=== PATIENT | male | born 1955 | race Caucasian/White ===

== ENCOUNTER 2025-01-10 10:33 | Inpatient (IN) | payer OTHER, SELFPAY ==
[2025-01-10] VITALS (36 sets, daily range): BP systolic 89–175; BP diastolic 59–98; PULSE 87–118; BMI 31.4; BMI 31.0
[2025-01-10 06:11] LABS: INR 1.45; PT 17.9 Sec (11.4-14.6)
[2025-01-10 06:12] LABS: APTT 33.0 Sec (23.4-35.0)
[2025-01-10 06:18] LABS: ALT (SGPT) 47 U/L (0-50); AST (SGOT) 95 U/L (17-59); Albumin 3.9 g/dl (3.5-5.0); Alkaline Phosphatase 283 U/L (38-126); Blood Urea Nitrogen 19 mg/dl (9-20); Calcium 9.5 mg/dl (8.4-10.2); Carbon Dioxide 22 mmol/L (22-30); Chloride 106 mmol/L (98-107); Glucose 413 mg/dl (70-99); Potassium 4.5 mmol/L (3.5-5.1); Sodium 141 mmol/L (135-145); Total Protein 6.4 g/dl (6.3-8.2); eGFR > 60.00
[2025-01-10 06:20] LABS: Hematocrit 29.4 % (39.0-52.0); Hemoglobin 9.1 g/dL (13.0-18.0); Mean Corp Hgb Conc. 31.0 g/dL (33.0-37.0); Mean Corpuscular Volume 74.2 fL (80.0-94.0); Nucleated Red Blood Cells % 0 % (-); Red Cell Dist. Width 19.3 % (11.5-14.5)
--- NOTE | 2025-01-10 06:41 | ED.GENMED ---
History of Present Illness
General
Chief Complaint: Vomiting Blood
Source: patient and spouse
Exam Limitations: none
Time Seen by Provider: 01/10/25 06:20
Nursing documentation reviewed up to this point in time: agreed with
History of Present Illness
History of Present Illness:
69-year-old male presents to the emergency department c/o vomiting coffee-ground emesis since 4:30 AM. He drinks daily, and reports taking Advil recently, though he is only taken 600 mg over 2 to 3 days. He recently about 1 month ago stopped
taking all of his medications because he does not like the way they feel. He was on medication for diabetes and blood pressure.
Past History
Past History
ED Past Medical History: NIDDM and Other (Sleep apnea)
ED Past Surgical History: Orthopedic (Bilateral ulnar nerve) and Other (Hernia repair as child)
Social History
Tobacco: Non-smoker
Alcohol: Daily
Drug: None
Personal:
Living: with family
Employment: Employed
Review of Systems
Review of Systems
Allergies reviewed?: Yes
All Other Systems: Not applicable
Constitutional: Reports no symptoms
EENT: Reports no symptoms
Respiratory: Reports no symptoms
Cardiac: Reports no symptoms
ABD/GI: Reports vomiting and black stools
: Reports no symptoms
Musculoskeletal: Reports no symptoms
Skin: Reports no symptoms
Neurological: Reports no symptoms
Endocrine: Reports no symptoms
Hematologic/Lymphatic: Reports no symptoms
Psychiatric: Reports no symptoms
Phy Exam
Physical Exam
Physical Exam:
Physical Exam
General: no apparent distress, not acutely ill
Neck: supple. no meningeal signs. normal posterior pharynx
Heart: s1/s2 regular rate and rhythm, no murmur. equal radial
pulses.
HEENT: Pupils equal round reactive to light, EOMI
Lungs: no acute respiratory distress. clear bilaterally
Abdomen: normal bowel sounds. not tender. no CVAT, guaiac pos dark stool
Neuro: alert and oriented. no focal neurological deficits
Skin: no rash
Psychiatric: well kept. interactive and cooperative
Extremities: no edema. no calf tenderness. negative homans. good distal pulses
Course
Orders/Labs/Results
Orders:
Orders
01/10/25 05:45
Cardiac Monitoring- Treatment ONCE
IV Insert/Care/Rem.- Treatment PRN
O2 Therapy [RESP] Urgent
Titrate/Wean O2 to maintain O2 sat greater than (%): 93
Special Instructions: MAINTAIN CONTINOUS O2 SATS > OR = 93%
Pulse Ox/spot Check [RESP] Urgent
Quantity: 1
Special Instructions: ON ROOM AIR
01/10/25 05:47
EKG [Electrocardiogram (*1)] Urgent
Reason for Study: Abdominal Pain
EKG- Treatment ONCE
01/10/25 05:50
Type+Screen Urgent
Complete Blood Count/With Diff Urgent
Comprehensive Metabolic Panel Urgent
Lipase Urgent
PTT Urgent
Prothrombin Time Urgent
01/10/25 Breakfast
NPO
Allow oral meds: Yes
Allow clear liquids: Sips of Clears
01/10/25 06:13
ABO2 Routine
BBK Wristband Number:
Associate notified that ABO2 has been ordered: [id number]
Date: 01/10/25
Time: 06:03
Safety Trainer ID: [id number]
01/10/25 06:22
IV Insert/Care/Rem.- Treatment PRN
01/10/25 06:31
Pantoprazole [Protonix IV] 80 mg IV NOW STA
01/10/25 06:49
Lactated Ringers [Lr] 1,000 ml IV BOLUS
01/10/25 09:45
Code Status As Directed
Resuscitation Status: Full Code
Pneumatic Compression Sleeves As Directed
Type: Knee high
01/10/25 09:46
GASTROINTESTINAL CONSULT Routine
Consulting Provider: Latasha Heart
Was physician already notified: Yes
Activity As Directed
Activity Level: As Tolerated
INT (Intravenous Needle Therapy) As Directed
Comment: Place 2 IV catheters of the largest bore possible until stable
Orthostatic Vital Signs As Directed
Orthostatic VS Frequency: Now
Comment: then every four hours for twenty-four hours
Vital Signs As Directed
Frequency: q4h
DX Deep Vein Thrombosis Video Routine
01/10/25 09:53
Admit/Transfer Patient As Directed
Co-Sign Provider:
Level of Care: Inpatient admission
Assign to:: IMU- Intermediate Care
Physician / Group: [email or web address]/medicine
Diagnosis: gi bleed
Reason for Hospitalization: gi bleed
Expected length of stay greater than two midnights?: Yes
ELOS- Estimated Length of Stay in days: 3
I certify the patient meets the requirements for IP care: Yes
01/10/25 10:00
0.9% Sodium Chloride [Nss (Preservative Free)] 10 ml IV Q12
Pantoprazole [Protonix IV] 40 mg IV Q12H
01/10/25 10:07
H&H Q8H
01/10/25 11:05
0.9% Sodium Chloride [Nss (Preservative Free)] See Protocol IV PRN PRN
FOLic ACID [Folvite] 1 mg 0.9% Sodium Chloride 50 ml [Nss] 50 ml IV DAILYPRN
Lorazepam [Ativan] 1 mg PO Q2HPRN PRN
Lorazepam [Ativan] 2 mg IV Q1HPRN PRN
01/10/25 11:05
Case Management Consult Once
Case Management Consult: Other
Comment: Substance abuse counseling
DIETARY IP CONSULT Routine
Reason for Consult: Nutrition support, possible refeeding guidelines
Urinalysis Routine
Urine Drug Abuse Screen Routine
MSAS SCORE As Directed
MSAS Score 0-4: Repeat MSAS every 2 hours until 0-4 for three consecutive assessments, then every 4 hours x 48
hours.
MSAS Score 5-7: For MILD withdrawl symptoms. Repeat MSAS and RASS every 2 hours
MSAS Score 8-11: For MODERATE withdrawal symptoms. Repeat MSAS and RASS every 1 hour. Consider ICU or IMU
level of care.
MSAS Score > 11: For SEVERE withdrawal symptoms. Repeat MSAS and RASS every 1 hour. Notify provider, consider
ICU level of care.
MSAS Additional Instructions: If no improvement or no decrease in score from severe to moderate within 12
hours, consult psychiatry
MSAS Notify Provider: Notify provider if patient requires more than 10 mg of Lorazepam in eight hour period.
01/10/25 11:19
Lorazepam [Ativan] 1 mg PO Q1HPRN PRN
01/10/25 11:26
Alcohol Urgent
B-Hydroxybutyrate Urgent
GGTP Urgent
Magnesium Urgent
PTT Urgent
Phosphorus Urgent
Prothrombin Time Urgent
01/10/25 18:00
H&H Q8H
01/10/25 20:00
Thiamine Injection 200 mg IV Q12
01/11/25 06:00
Complete Blood Count/No Diff IN AM
Comprehensive Metabolic Panel IN AM
01/11/25 08:00
FOLic ACID [Folvite] 1 mg PO DAILY
01/12/25 06:00
Complete Blood Count/No Diff IN AM
Comprehensive Metabolic Panel IN AM
01/13/25 06:00
Complete Blood Count/No Diff IN AM
Comprehensive Metabolic Panel IN AM
01/13/25 20:00
Thiamine HCl [Vitamin B1] 100 mg PO BID
Abnormal Lab Results
01/10/25 01/10/25
05:50 10:07
RBC 3.96 L 10^6/uL
(4.70-6.10)
Hgb 9.1 L g/dL 8.0 L g/dL
(13.0-18.0) (13.0-18.0)
Hct 29.4 L % 25.8 L %
(39.0-52.0) (39.0-52.0)
MCV 74.2 L fL
(80.0-94.0)
MCH 23.0 L pg
(27.0-31.0)
MCHC 31.0 L g/dL
(33.0-37.0)
RDW 19.3 H %
(11.5-14.5)
Plt Count 93 L 10^3/uL
(130-400)
Absolute Monos (auto) 0.9 H 10^3/uL
(0.1-0.6)
Lymphocytes % 17.6 L %
(20.5-51.1)
Monocytes % 12.0 H %
(1.7-9.3)
PT 17.9 H Sec
(11.4-14.6)
Creatinine 0.6 L mg/dL
(0.7-1.3)
Glucose 413 H mg/dl
(70-99)
Total Bilirubin 1.8 H mg/dl
(0.2-1.3)
AST 95 H U/L
(17-59)
Alkaline Phosphatase 283 H U/L
(38-126)
01/10/25 10:07
01/10/25 05:50
Vital Signs
Initial and Last Documented VS:
Initial Vital Signs
Temp Pulse Resp BP Pulse Ox
98.2 F 116 18 134/68 97
01/10/25 05:16 01/10/25 05:16 01/10/25 05:16 01/10/25 05:16 01/10/25 05:16
Last Documented Vital Signs
Temp Pulse Resp BP Pulse Ox
98.5 F 106 17 144/75 97
01/10/25 11:20 01/10/25 11:15 01/10/25 11:15 01/10/25 11:15 01/10/25 11:10
MDM/Problems Addressed
Differential Diagnosis Includes:
Primary GI bleed, variceal bleed
MDM/Problems Addressed:
69-year-old male with upper GI bleed, history of alcohol abuse. IV Protonix and IV fluids given. Admit to hospitalist.
Chronic conditions affecting care: DM and HTN
Acute Exacerbation and/or Progression of Chronic Illness: Other (alcoholic cirrhosis)
*Pulse Oximetry
SaO2: 94
Oxygen Mode of Delivery: Room air
Patient hypoxic: no
*Critical Care Note
Total Time (30-74mins, 75-104mins- exclusive of procedures): 32
comment:
Critical care statement: A total of 32 minutes of critical care time was provided for this patient. This includes management of unstable vital signs, evaluation of the patient at bedside, reviewing the patient's pertinent medical records, discussion
with consultants, review of old EKGs and review of pertinent medical records. This time with separate from time utilized to perform the aforementioned documented procedures
Patient Management
Social determinants of health affecting care: Living situation and Strong social support
Discussion with other providers: Hospitalist
Escalation/DeEscalation of care consider admission/obs:
admit indicated
ED Attending Note
-
Portions of this chart may have been created with voice recognition software.� Occasional wrong word or��sound alike� substitutions may have occurred due to the inherent limitations of voice recognition software.
Discharge Plan
Departure
Patient Disposition: Admit
Date of Disposition: 01/10/25
Time of Disposition: 07:29
Admit to: IMU
Presentation/result/management discussed w/ accepting MD/DO: Hospitalist
Patient with high blood pressure during this ER visit?: Yes
Condition: Fair
Discharge Problem:
Acute upper gastrointestinal hemorrhage, Thrombocytopenia, Alcohol abuse
Interventions
Interventions:
*Risk Screen - Suicide Last Done: 01/10/25 05:16
*General Assessment Last Done: 01/10/25 05:16
*Neglect/Abuse Screening Last Done: 01/10/25 05:33
*ED- Fall Risk Assessment Last Done: 01/10/25 05:16
*ED COVID-19 Vaccine History Last Done: 01/10/25 05:16
*Nursing Disposition Last Done: 01/10/25 11:00
AQ-Kpjnzf-Iuaxmczsnu Assessment Last Done: 01/10/25 05:33
ED- Cardiac Assessment Last Done: 01/10/25 05:33
ED- Pulmonary Assessment Last Done: 01/10/25 05:33
Discharge Date and Time
Discharge Date/Time: 01/10/25 11:01
[2025-01-10] MEDS: PROTONIX IV 80 MG IV (06:42)
[2025-01-10 06:53] LABS: Lipase 105 U/L (23-300)
[2025-01-10] MEDS: LR 1000 IV ×3 (07:01→22:43)
[2025-01-10 07:17] LABS: Platelet Count 93 10^3/uL (130-400)
--- NOTE | 2025-01-10 07:46 | PHANOTE ---
med rec note- patient stated his stopped all his medication about a month ago, which were Coreg 6.25mg bid, Norvasc 5mg daily, glipizide 5mg daily and Jardiance 25mg daily. he stated that they made him' sick' upset stomach but no other side effect
where mention. patient never followed up with md to talk about the effect of the medication or getting them changed
[2025-01-10] MEDS: PROTONIX IV 40 MG IV ×2 (10:10→20:29)
[2025-01-10] MEDS: NSS (PRESERVATIVE FREE) 10 ML IV ×2 (10:10→20:29)
[2025-01-10 10:39] LABS: Hematocrit 25.8 % (39.0-52.0); Hemoglobin 8.0 g/dL (13.0-18.0)
--- NOTE | 2025-01-10 10:43 | CM ---
CM reviewed chart and met with pt and bedside in ED.
Lives with , split level home, I [place]IKA, Half BA first level, BR/full BA second level.
Independent in ADLs, personal care and ambulation at baseline. No DME.
Denies financial insecurities.
No hx VN/SNF.
PCP: Marcelino No
[facility]: [facility]
Discharge plan: Anticipate home pending ongoing medical evaluation
--- NOTE | 2025-01-10 11:26 | PTCARENOTE ---
Pt brought from ED to 3362. Pt alert/cooperative/pleasant. Pt denies nausea or abd pain at this time. Has not vomited since episode this morning that brought him in. Emesis at home was black. Has had intermittent black stools recently. MSAS -
2 for tachycardia w/ rate 108.
[2025-01-10] MEDS: FOLVITE 50.2 MG IV (11:50)
--- NOTE | 2025-01-10 11:54 | CON.GI ---
Addendum entered and electronically signed by Latasha Heart DO 01/10/25 13:01:
Patient seen and examined independently of TERELL. I agree with her note with my additions below
Ryder is a 69-year-old heavy drinker with significant vodka for years, uncontrolled hypertension, diabetes who stopped all of his medications a couple of months ago who also takes NSAIDs last couple of days for aches and pains. This morning he
had the urge to vomit and it was black. He has also had intermittent bowel movements over the past couple of weeks that a third of the time have been black and tarry. This is the first time he is ever vomited blood. His PCP is aware of these
black stools and he was told to see GI. He did not make that appointment. He has no desire to stop alcohol.
He has not been scoped in years. He denies any dysphagia, no current nausea. Denies any abdominal pain but does feel like he needs to move his bowels.
INR is 1.5, platelets 93, hemoglobin on admission 9.1 down to 8 with last hemoglobin from August 2024 - 10.6 as found in the [facility].
He is hemodynamically stable and actually hypertensive. He is mildly tachycardic. He is alert and oriented.
# Melena and coffee-ground emesis in the setting of likely alcoholic cirrhosis
-- Octreotide, PPI drips, ceftriaxone
-- 2 large-bore IVs
- -Monitor hemoglobin and GI output
-- EGD later today
-- discussed with his at bedside
-- Reglan given to clear the stomach
-- U/S with doppler
-- High risk for etoh withdrawal
Original Note:
Consultation
-
Date/Time Consultation Requested: 01/10/25 1130
Date/Time Consultation Performed: 01/10/25 1145
Requesting Provider: Dr. Ramos
Performing Provider: Dr. Heart/TERELL Pike
Reason for Consultation: UGIB
Medical History
Chief Complaint / HPI
Chief Complaint: coffee ground emesis
History of Present Illness:
69-year-old male with past medical history of diabetes, hypertension, hyperlipidemia, alcohol abuse, sleep apnea self-reported osteoarthritis who stopped his '2 blood pressure meds and 2 diabetic meds' approximately 1 month ago because he did not
like the way he felt on them. Started having numbness and tingling in his legs. Presents to the emergency room with intermittent black stools on and off last noted approximately 3 days ago. This morning woke up with acute urge to vomit. When he
did it was black. He states that he started taking either Aleve or Advil he is unsure which for approximately 3 doses over the past day for 'usual aches and pains'. Rectal exam performed in the ER was guaiac positive dark stool. Patient is NPO.
His last food consumption was yesterday at 6 PM. WBC 7.2, hemoglobin 9.1 now down to 8.0, platelet count 93. PT 17.9, INR 1.45, sodium 141, potassium 4.5, BUN 19, creatinine 0.6, glucose 413, total bilirubin 1.8, AST 95, ALT 47, alk phos 283,
lipase 103. We are asked to evaluate for acute upper GI bleed. The patient states that his last alcoholic beverage was last evening. He usually drinks 2-3 (750 mL bottles of vodka a week) last evening he had 2 tall glasses of vodka. He states
that his PCP wanted him to go to a 'liver doctor' because of his labs. Not because of any imaging as he has not had any recently. He states he did not want to go because they would just find something and he did not want to go on any more
medication. I was able to obtain his most recent labs. CBC from 09/09/2024 shows WBC 6.1, hemoglobin 10.6, hematocrit 36.3, platelets 109. Previously 11/05/2023 WBC 5.1, hemoglobin 12.8, platelets 88. Most recent BMP/LFT was performed 12/08/2024
sodium 142, potassium 4.5, BUN 11, creatinine 0.71, glucose 144, total bilirubin 1.7, direct 0.65, AST 63, ALT 32, alk phos 198.
Past Medical History
Past Medical History: HTN, Hypercholesterolemia, NIDDM and Other (Alcohol abuse, colon polyps (10 years ago, Dr. Enriquez))
Past Surgical History: Other (Hernia repair)
Social History
Tobacco: Non-Smoker
Alcohol: Daily (2-3 bottles of vodka a week)
Drug: None
Personal:
Living: With Family
Employment: Employed
Family History
Family History: Other (Father with history of stomach cancer, no other family history of gastrointestinal malignancy or IBD)
Allergies / Home Medications
Allergy/AdvReac Type Severity Reaction Status Date / Time
No Known Allergies Allergy Unverified 01/10/25 06:26
�Medication �Instructions �Recorded
clobetasol 0.05 % topical cream 1 applic topical DAILY 01/10/25
scalp,knees,face,elbows
naproxen sodium 220 mg tablet 220 mg PO [id number] PRN mild pain 01/10/25
(Aleve)
Review of Systems
-
All other systems: A 12 pt ROS was Negative except as stated above in HPI
Vital Signs
Temp Pulse Resp BP Pulse Ox
98.5 F 106 17 144/75 97
01/10/25 11:20 01/10/25 11:15 01/10/25 11:15 01/10/25 11:15 01/10/25 11:10
Physical Exam
Exam
General: Other (Slightly tremulous)
HEENT: Anicteric
Respiratory: Clear
Cardiac: Regular Rhythm (Tachycardia at 120)
GI: Soft, Non Tender, Non Distended and Normal Bowel Sounds
Musculoskeletal: No Edema
Skin: Warm and Dry
Neuro: AO x 3
Psych: Calm
Results
WBC 7.2 10^3/uL (4.8-10.8) 01/10/25 05:50
Hgb 8.0 g/dL (13.0-18.0) L 01/10/25 10:07
Hct 25.8 % (39.0-52.0) L 01/10/25 10:07
MCV 74.2 fL (80.0-94.0) L 01/10/25 05:50
Plt Count 93 10^3/uL (130-400) L 01/10/25 05:50
Absolute Neuts (auto) 4.7 10^3/uL (1.4-6.5) 01/10/25 05:50
PT 17.9 Sec (11.4-14.6) H 01/10/25 05:50
INR 1.45 01/10/25 05:50
APTT 33.0 Sec (23.4-35.0) 01/10/25 05:50
Sodium 141 mmol/L (135-145) 01/10/25 05:50
Potassium 4.5 mmol/L (3.5-5.1) 01/10/25 05:50
Chloride 106 mmol/L (98-107) 01/10/25 05:50
Carbon Dioxide 22 mmol/L (22-30) 01/10/25 05:50
BUN 19 mg/dl (9-20) 01/10/25 05:50
Creatinine 0.6 mg/dL (0.7-1.3) L 01/10/25 05:50
Calcium 9.5 mg/dl (8.4-10.2) 01/10/25 05:50
Total Bilirubin 1.8 mg/dl (0.2-1.3) H 01/10/25 05:50
AST 95 U/L (17-59) H 01/10/25 05:50
ALT 47 U/L (0-50) 01/10/25 05:50
Alkaline Phosphatase 283 U/L (38-126) H 01/10/25 05:50
Lipase 105 U/L (23-300) 01/10/25 05:50
Diagnostic Image Results:
Prior GI Procedures:
EGD: Per patient 10 years ago 'normal'. Records unavailable to us.
Colonoscopy: Per patient 10 years ago 'polyps'. Dr. Enriquez. Was told needed repeat in 5 years patient states he is overdue. Records unavailable to us
Assessment / Plan
-
69-year-old male with past medical history of diabetes, hypertension, hyperlipidemia, alcohol abuse, sleep apnea self-reported osteoarthritis who stopped his '2 blood pressure meds and 2 diabetic meds' approximately 1 month ago because he did not
like the way he felt on them. Started having numbness and tingling in his legs. Presents to the emergency room with intermittent black stools on and off last noted approximately 3 days ago. This morning woke up with acute urge to vomit. When he
did it was black. He states that he started taking either Aleve or Advil he is unsure which for approximately 3 doses over the past day for 'usual aches and pains'. Rectal exam performed in the ER was guaiac positive dark stool. Patient is NPO.
His last food consumption was yesterday at 6 PM. WBC 7.2, hemoglobin 9.1 now down to 8.0, platelet count 93. PT 17.9, INR 1.45, sodium 141, potassium 4.5, BUN 19, creatinine 0.6, glucose 413, total bilirubin 1.8, AST 95, ALT 47, alk phos 283,
lipase 103. We are asked to evaluate for acute upper GI bleed.
Impression:
Upper GI bleed
Alcohol abuse
Thrombocytopenia
Elevated LFTs
Plan:
- Patient already has 2 large-bore IVs
- Will initiate IV fluids, LR already placed
- Ceftriaxone 1 g IV will be initiated
- Pantoprazole 40 mg IV twice daily
- Octreotide drip
- EGD today, after above initiated
- Trend hemoglobin, transfuse if less than 7 or hemodynamically unstable
- CBC, BMP, LFTs, PT/INR in a.m.
- Ultrasound abdomen with Dopplers to evaluate liver morphology
-Alcohol withdrawal prophylaxis initiated
- Further recommendations to be
-
-
Thank you for consultation and allowing me to participate in the patient's care. Please call the business continuity global director GI physician during the after hours with any questions or concerns.
[2025-01-10 12:03] LABS: INR 1.51; PT 18.5 Sec (11.4-14.6)
[2025-01-10 12:05] LABS: APTT 33.8 Sec (23.4-35.0)
[2025-01-10 12:15] LABS: GGTP 253 U/L (15-73); Magnesium 1.7 mg/dl (1.6-2.3)
[2025-01-10] MEDS: SANDOSTATIN 500.6 MCG IV (12:43)
--- NOTE | 2025-01-10 13:15 | PTCARENOTE ---
PT remains tachy 110s but in no distress, offers no complaints. Had large brown/formed BM - GI doc at bedside and saw stool.
[2025-01-10 13:46] LABS: Iron 72 ug/dl (49-181)
[2025-01-10 13:55] LABS: Total Iron Binding Capacity 375 ug/dl (261-462)
[2025-01-10] MEDS: ROCEPHIN 1000 MG IV (14:00)
[2025-01-10] MEDS: STERILE WATER FOR INJECTION 10 ML IV (14:00)
[2025-01-10 14:33] LABS: Glucose - Point of Care 382 mg/dl (70-99)
--- NOTE | 2025-01-10 15:03 | HPS.HSE ---
Family Physician
-
Family Physician: Marcelino No
Chief Complaint
-
Melena and coffee-ground emesis
History of Present Illness
69-year-old male w/ extensive alcohol abuse presents for complaint of vomiting coffee-ground emesis at 4:30 AM. Also noted to be vomiting blood this morning as well. Has had intermittent black and tarry stools over the last few weeks. Drinks
daily, and also takes NSAIDs over the last few days due to aches and pains. No desire to stop alcohol. No recent scopes. Hemoglobin was 10.6 in August, down to 9.1 today upon admission, 8 on repeat. Glucose level elevated, A1c pending.
Beta-hydroxybutyrate 0.97. Tachycardic although hypertensive, afebrile. Respiratory rate 17. Elevated LFTs although no official diagnosis of cirrhosis. INR 1.51. Of note drinks 2-3 bottles of vodka a week, drinks daily.
Medical History
Past Medical History
Past Medical History: Reports Other (HTN, Hypercholesterolemia, NIDDM and Other (Alcohol abuse, colon polyps (10 years ago, Dr. Enriquez)))
Past Surgical History: Reports Other
Additional Past Surgical History:
Hernia repair
Social History
Tobacco: Non-smoker
Alcohol: Daily (2-3 bottles of vodka a week)
Drug: None
Personal:
Living: With Family
Family History
Family History: Not pertinent
Allergies / Home Medications
Allergies reflects when Allergies were last updated in [employer].
Home Medications with original date entered in [employer]
Allergy/Medication List:
Allergies
Allergy/AdvReac Type Severity Reaction Status Date / Time
No Known Allergies Allergy Unverified 01/10/25 06:26
Home Medications
clobetasol 0.05 % topical cream 1 applic topical DAILY scalp,knees,face,elbows 01/10/25
naproxen sodium 220 mg tablet (Aleve) 220 mg PO [id number] PRN mild pain 01/10/25
Review of Systems
-
History Source: Patient
A 12 point ROS was completed and negative except as noted: Yes
Physical Exam
Vital Signs
Vital Signs
Temp Pulse Resp BP Pulse Ox
98.5 F 106 17 144/75 97
01/10/25 11:20 01/10/25 11:15 01/10/25 11:15 01/10/25 11:15 01/10/25 11:10
Physical Exam
General: Well Developed
HEENT: NormoCephalic and Anicteric
Respiratory: Clear
Cardiac: S1/S2
GI: Non Tender
Musculoskeletal: No Clubbing
Skin: Warm
Neuro: Awake, Oriented and AO x 3
Hematologic/Lymphatic: No Lymphadenopathy
Psych: Calm
Laboratory Results
-
01/10/25 05:50
Laboratory Results
PT 18.5 Sec (11.4-14.6) H 01/10/25 11:26
INR 1.51 01/10/25 11:26
APTT 33.8 Sec (23.4-35.0) 01/10/25 11:26
Total Bilirubin 1.8 mg/dl (0.2-1.3) H 01/10/25 05:50
AST 95 U/L (17-59) H 01/10/25 05:50
ALT 47 U/L (0-50) 01/10/25 05:50
Alkaline Phosphatase 283 U/L (38-126) H 01/10/25 05:50
Lipase 105 U/L (23-300) 01/10/25 05:50
Data Reviewed
-
Lab Data: Labs Reviewed by me
Impression/Plan
-
IMPRESSION:
69-year-old male w/ extensive alcohol abuse presents for complaint of vomiting coffee-ground emesis at 4:30 AM. Admitted for acute GI bleed.
PLAN:
#Acute blood loss anemia
#Acute GI bleed
# Melena and coffee-ground emesis in the setting of likely alcoholic cirrhosis
- Octreotide, PPI IV BID, ceftriaxone
- 2 large-bore IVs
- Monitor hemoglobin q8h for onw
- EGD today
- Reglan given to clear the stomach
-U/S with doppler
- High risk for etoh withdrawal
�No NSAIDs
# Transaminitis
� Suspect secondary to alcohol use, no official diagnosis of cirrhosis although highly suspicious
� Follow-up right upper quadrant ultrasound with Dopplers
� Trend LFTs
#Alcohol abuse
� CIWA protocol
� Ativan as needed as per CIWA protocol
�Apparently does not want to stop
#Hyperglycemia
� Hemoglobin A1c
� Sliding scale
� Insulin na�ve
#Thrombocytopenia
� Mostly secondary to alcohol abuse
� Monitor
#Elevated beta-hydroxybutyrate
� Most likely secondary to starvation with alcohol use
#Essential hypertension
� Holding on antihypertensives until bleeding resolved
#DVT prophylaxis
� SCDs
[2025-01-10 15:11] LABS: Ferritin 12.7 ng/ml (17.9-464.0)
[2025-01-10 15:26] LABS: Vitamin B12 812 pg/ml (239-931)
[2025-01-10 15:42] LABS: Glucose - Point of Care 387 mg/dl (70-99)
[2025-01-10] MEDS: NOVOLOG FLEXPEN 5 UNITS SC (16:06)
[2025-01-10] MEDS: REGLAN 10 MG IV (16:06)
[2025-01-10 17:02] LABS: Urine Character Clear (Clear)
--- NOTE | 2025-01-10 17:02 | PTCARENOTE ---
Pt returned post EGD - per report had a lot of undigested food still in stomach and will need repeat EGD tomorrow. Will remain NPO w/ sips of clears. Pt denies n/v/abd pain. HR improved to 90-100. MSAS - 3.
[2025-01-10] MEDS: NOVOLOG FLEXPEN-LOW RESISTANCE 5 UNITS SC (17:54)
[2025-01-10 18:01] LABS: Glucose - Point of Care 356 mg/dl (70-99)
[2025-01-10 18:02] LABS: Hematocrit 23.3 % (39.0-52.0); Hemoglobin 7.3 g/dL (13.0-18.0)
[2025-01-10 18:57] LABS: Hepatitis C Antibody Negative (Negative)
--- NOTE | 2025-01-10 20:15 | PTCARENOTE ---
Assumed care at 1900. Patient received lying in bed, awake, alert and oriented, watching TV. He is without apparent signs of distress or discomfort. He currently denies pain, CP, SOB, N/V or LARSON. See janitorial tech charted on worklist flowsheet. IV
sites Left AC and Left FA WDL. On Octreotide gtt at 50mcg/hr. SR with 1st degree AVB on CM. Bed in low and locked position, call guadarrama within reach. Patient Es at bedside.
[2025-01-10] MEDS: THIAMINE INJECTION 200 MG IV (20:29)
--- NOTE | 2025-01-10 21:00 | PTCARENOTE ---
Touched base with ANTONINO Velasco. Updated with 1800 Hgb 7.3 as well as elevated blood sugars in the 300s. Notified will draw am bloodwork early at 0200 on 01/11 as well as notify of [place] Blood sugar.
[2025-01-11] VITALS (29 sets, daily range): BP systolic 114–156; BP diastolic 62–85; PULSE 83–104; BMI 31.5
--- NOTE | 2025-01-11 | PTCARENOTE ---
Assisted to BSC, no BM but passed large amount of flatus. Assisted back to bed. Blood sugar 376, DROP PIT WORKER Rod notified. Instructed to give ordered coverage of 5 Units of Novolog since pt is NPO. Will follow glucose with am bloodwork.
[2025-01-11 00:11] LABS: Glucose - Point of Care 376 mg/dl (70-99)
[2025-01-11] MEDS: REGLAN 10 MG IV ×4 (00:16→18:17)
[2025-01-11] MEDS: SANDOSTATIN 500.6 MCG IV ×2 (00:19→13:37)
[2025-01-11] MEDS: NOVOLOG FLEXPEN-LOW RESISTANCE 5 UNITS SC (00:23)
[2025-01-11 02:31] LABS: Hematocrit 21.1 % (39.0-52.0); Hemoglobin 6.6 g/dL (13.0-18.0); INR 1.57; Mean Corp Hgb Conc. 31.3 g/dL (33.0-37.0); Mean Corpuscular Volume 73.8 fL (80.0-94.0); PT 19.0 Sec (11.4-14.6); Platelet Count 62 10^3/uL (130-400); Red Cell Dist. Width 19.4 % (11.5-14.5)
--- NOTE | 2025-01-11 02:45 | PTCARENOTE ---
Am labs drawn early. Hgb down to 6.6. ANTONINO Velasco notified. To bedside for consent. Order received for one unit of blood. CPAP off per patient request. To BSC with SBA. Transfers steadily, denies dizziness. Positive flatus, no BM. Assisted back to bed.
Serum glucose noted at 296, ANTONINO Velasco notified, no new orders regarding glucose/insulin coverage. VSS.
[2025-01-11 02:54] LABS: ALT (SGPT) 47 U/L (0-50); AST (SGOT) 84 U/L (17-59); Albumin 3.0 g/dl (3.5-5.0); Alkaline Phosphatase 167 U/L (38-126); Blood Urea Nitrogen 24 mg/dl (9-20); Calcium 8.5 mg/dl (8.4-10.2); Carbon Dioxide 27 mmol/L (22-30); Chloride 107 mmol/L (98-107); Estimated Creatinine Clearance > 125 ml/min; Glucose 296 mg/dl (70-99); Potassium 4.4 mmol/L (3.5-5.1); Sodium 136 mmol/L (135-145); Total Protein 5.3 g/dl (6.3-8.2); eGFR > 60.00
--- NOTE | 2025-01-11 03:37 | PTCARENOTE ---
Unit of PRBCs transfusion started per order. See TAR. Patient instructed with regard to possible symptoms of transfusion side effects and to notify RN immediately if symptoms were to occur. Verbalized understanding.
--- NOTE | 2025-01-11 05:12 | W.PN.UPDATE ---
Update Note
Progress Note Update
hgb 6.6, patient denies any headaches, dizziness, no bloody stools or vomiting noted. Stable VS, type and screen, Blood consent signed and in chart. will transfuse 1 unit of PRBC.
[2025-01-11] MEDS: NOVOLOG FLEXPEN-LOW RESISTANCE 4 UNITS SC (06:07)
[2025-01-11 06:09] LABS: Glucose - Point of Care 338 mg/dl (70-99)
--- NOTE | 2025-01-11 06:15 | PTCARENOTE ---
Blood sugar 338. ANTONINO Velasco notified. New orders received. Coverage increased to Moderate Novolog.
--- NOTE | 2025-01-11 07:27 | PTCARENOTE ---
Report given verbally to Jovanni templeton RN. Questions answered.
[2025-01-11] MEDS: THIAMINE INJECTION 200 MG IV ×2 (08:28→20:03)
[2025-01-11] MEDS: FOLVITE 1 MG PO (08:28)
[2025-01-11] MEDS: NSS (PRESERVATIVE FREE) 10 ML IV ×2 (08:28→20:03)
[2025-01-11] MEDS: PROTONIX IV 40 MG IV ×2 (08:28→20:03)
[2025-01-11 09:03] LABS: Glycohemoglobin (HgbA1c) 9.2 % (4.0-5.6)
--- NOTE | 2025-01-11 09:14 | PTCARENOTE ---
pt aaox3. states no pain anxiety or hallucinations. ivf and je gtt running as ordered.
[2025-01-11] MEDS: LR 1000 IV (10:13)
[2025-01-11 12:47] LABS: Glucose - Point of Care 317 mg/dl (70-99)
[2025-01-11] MEDS: NOVOLOG FLEXPEN-MODERATE RESISTANCE 7 UNITS SC (12:51)
[2025-01-11] MEDS: STERILE WATER FOR INJECTION 10 ML IV (13:38)
[2025-01-11] MEDS: ROCEPHIN 1000 MG IV (13:38)
--- NOTE | 2025-01-11 14:33 | CM ---
IV/Rocephin, Endoscopy shows esophageal varices, Hgb 6.6, 1 U PRBC. Discharge POC: Anticipate home with no needs. [facility] notified of consult.
--- NOTE | 2025-01-11 14:36 | W.PN.HOSP.TC ---
Today's Communication/Plan
-
egd
Octreotide, PPI IV BID, ceftriaxone
monitor hgb
transfuse as necessary, transfused today - ensure hgb >7
insulin management
Assessment / Plan
Assessment / Plan
Physical Exam
General: Well Developed
HEENT: NormoCephalic and Anicteric
Respiratory: Clear
Cardiac: S1/S2
GI: Non Tender
Musculoskeletal: No Clubbing
Skin: Warm
Neuro: Awake, Oriented and AO x 3
Hematologic/Lymphatic: No Lymphadenopathy
Psych: Calm
#Acute blood loss anemia
#Acute GI bleed
# Melena and coffee-ground emesis in the setting of likely alcoholic cirrhosis
-Transfuse 1u prbc 01/11
- Octreotide, PPI IV BID, ceftriaxone
-US negative although will await EGD to assess for varices and DC ceftriaxone and octreotide as necessary
- 2 large-bore IVs
- Monitor hemoglobin q8h for now
- EGD today - did not have optimal study yesterday - repeat today
- Reglan given to clear the stomach
- High risk for etoh withdrawal
�No NSAIDs
# Transaminitis
� Suspect secondary to alcohol use, no official diagnosis of cirrhosis although highly suspicious
� Follow-up right upper quadrant ultrasound with Dopplers - no clot of obvious cirrhosis although not gold standard
� Trend LFTs
#Alcohol abuse
� CIWA protocol
� Ativan as needed as per CIWA protocol
�Apparently does not want to stop
#Hyperglycemia
� Hemoglobin A1c - 9.2
� Sliding scale
� Insulin na�ve
-started on lantus - anticipate will have diet after EGD today and add novolog with meals
-DM educator consulted
#Thrombocytopenia
� Mostly secondary to alcohol abuse
� Monitor
#Elevated beta-hydroxybutyrate
� Most likely secondary to starvation with alcohol use
#Essential hypertension
� Holding on antihypertensives until bleeding resolved
#DVT prophylaxis
� SCDs
Anticipated Discharge: > 48 hours
Subjective/Interval History
-
Date of Service: January 11, 2025
hgb dropped, transfusing 1 u plan for EGD today
Objective Data
-
Labs:
Laboratory Results
01/11/25
02:06
Sodium 136
Potassium 4.4
Chloride 107
Carbon Dioxide 27
BUN 24 H
Creatinine 0.6 L
Glucose 296 H
Calcium 8.5
Total Bilirubin 2.5 H
AST 84 H
ALT 47
Alkaline Phosphatase 167 H
Vital Signs:
Vital Signs
Temp Pulse Resp BP Pulse Ox
98.3 F 74 13 145/77 94
01/11/25 11:10 01/11/25 12:00 01/11/25 12:00 01/11/25 12:00 01/11/25 12:00
I&O
01/10/25 01/11/25 01/12/25
06:59 06:59 06:59
Intake Total 2447.4 / 2447.4 141.7 / 141.7
Output Total 1175 / 1175 300 / 300
Balance 1272.4 / 1272.4 -158.3 / -158.3
Review of Systems
-
History Source: Patient
All other systems: Not reviewed unless documented
Data Reviewed
-
Ultrasound: Report Reviewed by me
Labs: Labs Reviewed by me
[2025-01-11] MEDS: NOVOLOG FLEXPEN 5 UNITS SC (16:01)
[2025-01-11 16:08] LABS: Glucose - Point of Care 289 mg/dl (70-99)
[2025-01-11 16:28] LABS: Hemoglobin 7.6 g/dL (13.0-18.0)
--- NOTE | 2025-01-11 16:35 | PTCARENOTE ---
Received patient from EGD, Patient able to stand from stretcher to bed. Asymptomatic. Hgb recheck is 7.6. EGD results discussed with patient and family by MD. All questions answered. VSS. MSAS 1. Patient oriented to the room, call guadarrama in hand.
Awaiting diet orders. Will closely monitor.
[2025-01-11] MEDS: NOVOLOG FLEXPEN-MODERATE RESISTANCE 3 UNITS SC (18:18)
[2025-01-11] MEDS: NOVOLOG FLEXPEN 3 UNITS SC (18:18)
[2025-01-11] MEDS: NOVOLOG FLEXPEN-MODERATE RESISTANCE SC (18:25)
[2025-01-11 18:30] LABS: Glucose - Point of Care 244 mg/dl (70-99)
[2025-01-11 21:33] LABS: Glucose - Point of Care 315 mg/dl (70-99)
[2025-01-11] MEDS: LANTUS 0.1 UNITS SC (22:26)
[2025-01-12] VITALS (7 sets, daily range): BP systolic 125–151; BP diastolic 58–110
[2025-01-12] MEDS: SANDOSTATIN 500.6 MCG IV (00:27)
[2025-01-12] MEDS: REGLAN 10 MG IV ×3 (00:28→12:12)
--- NOTE | 2025-01-12 00:51 | PTCARENOTE ---
Patient aao x3 since start of shift. Denies pain or nausea. at bedside overnight. MSAS 1 earlier r/to HR, currently MSAS 0. Assisted patient to stand at bedside to use urinal, gait stable. Currently on CPAP overnight. Continues with Octreotide
to right hand IV. Call guadarrama within reach. Will continue to monitor patient closely.
[2025-01-12 03:27] LABS: Hematocrit 23.1 % (39.0-52.0); Hemoglobin 7.4 g/dL (13.0-18.0); Mean Corp Hgb Conc. 32.0 g/dL (33.0-37.0); Mean Corpuscular Volume 74.3 fL (80.0-94.0); Platelet Count 58 10^3/uL (130-400); Red Cell Dist. Width 19.5 % (11.5-14.5)
[2025-01-12 03:41] LABS: ALT (SGPT) 51 U/L (0-50); AST (SGOT) 96 U/L (17-59); Albumin 2.9 g/dl (3.5-5.0); Alkaline Phosphatase 132 U/L (38-126); Blood Urea Nitrogen 15 mg/dl (9-20); Calcium 7.9 mg/dl (8.4-10.2); Carbon Dioxide 26 mmol/L (22-30); Chloride 106 mmol/L (98-107); Estimated Creatinine Clearance > 125 ml/min; Glucose 261 mg/dl (70-99); Potassium 4.0 mmol/L (3.5-5.1); Sodium 133 mmol/L (135-145); Total Protein 5.3 g/dl (6.3-8.2); eGFR > 60.00
--- NOTE | 2025-01-12 07:27 | PN.DE.MGMTRT ---
Insulin Management
- -
01/12/2025 Diabetes Management Consult
Patient admitted 01/10 vomiting blood. PMH diabetes, HTN, significant alcohol abuse. Prior to admission had stopped taking all medications. A1C is 9.2%.
Patient is awake alert and oriented, able to discuss diabetes care. Has had diabetes ~ 5 years; sees primary doctor for diabetes care. He was prescribed glipizide 5mg in AM and Jardiance 25 mg daily, along with 2 other medications for blood
pressure. Approximately 2 years ago he stopped taking the meds because they nauseated him. He also stopped testing his glucose then as well.
Lantus 10 units given 01/11 @ HS.
Fasting glucose this AM 261. Will increase HS lantus to 15 units. AC novolog 3 units to start this AM. Pre lunch glucose 315, AC novolog increased to 5 units.
Will have diabetes nurse educator provide meter and instruct on performing testing as well as insulin prep and administration. Patient is receptive. He also states he 'is done with alcohol'. He has agreed to seek rehab after discharge.
Discussed with nurse.
Will follow
Diabetes History
- -
Type of Diabetes: 2 requiring insulin
Pre-Admission Diabetes Regimen
01/12/25
03:03
Creatinine 0.6 L
Lab Results
Hemoglobin A1c 9.2 % (4.0-5.6) H 01/10/25 05:50
Insulin Pump Settings
IP Diabetes Regimen
01/11/25 01/11/25 01/11/25
12:36 15:57 18:19
Glucose
POC Glucose 317 H 289 H 244 H
01/11/25 01/12/25
21:22 03:03
Glucose 261 H
POC Glucose 315 H
Patient Education
[2025-01-12 07:41] LABS: Glucose - Point of Care 287 mg/dl (70-99)
[2025-01-12] MEDS: NOVOLOG FLEXPEN-MODERATE RESISTANCE 5 UNITS SC (08:17)
[2025-01-12] MEDS: NOVOLOG FLEXPEN 3 UNITS SC (08:17)
[2025-01-12] MEDS: THIAMINE INJECTION 200 MG IV (08:18)
[2025-01-12] MEDS: FOLVITE 1 MG PO (08:18)
[2025-01-12] MEDS: PROTONIX IV 40 MG IV (08:18)
[2025-01-12] MEDS: NSS (PRESERVATIVE FREE) 10 ML IV (08:18)
--- NOTE | 2025-01-12 10:47 | W.PN.GI.CBS2 ---
Today's Communication / Plan
-
PPI po
nadolol
Assessment / Plan
-
69-year-old male with past medical history of diabetes, hypertension, hyperlipidemia, alcohol abuse, sleep apnea self-reported osteoarthritis who stopped his '2 blood pressure meds and 2 diabetic meds' approximately 1 month ago because he did not
like the way he felt on them. Started having numbness and tingling in his legs. Presents to the emergency room with intermittent black stools on and off last noted approximately 3 days ago. This morning woke up with acute urge to vomit. When he
did it was black. He states that he started taking either Aleve or Advil he is unsure which for approximately 3 doses over the past day for 'usual aches and pains'. Rectal exam performed in the ER was guaiac positive dark stool. Patient is NPO.
His last food consumption was yesterday at 6 PM. WBC 7.2, hemoglobin 9.1 now down to 8.0, platelet count 93. PT 17.9, INR 1.45, sodium 141, potassium 4.5, BUN 19, creatinine 0.6, glucose 413, total bilirubin 1.8, AST 95, ALT 47, alk phos 283,
lipase 103. We are asked to evaluate for acute upper GI bleed.
Impression:
Upper GI bleed secondary to portal htn
Alcohol abuse
Thrombocytopenia
Elevated LFTs
Plan:
- change PPI to po bid
- change octreotide to nadolol 20mg daily
- hgb stable
- diabetic diet
- d/c reglan once diabetic gastroparesis symptoms improve
- needs alcohol abstinence
- u/s is normal and this can be acute portal gastropathy due to alcohol
- complete 7 day course of antibiotics regardless
- will need to f/u with GI as outpatient and our office will call.
will sign off call with questions
Subjective
Subjective
Date of Service: January 12, 2025
Pt w/o abdominal pain or vomiting
Objective
Data Reviewed
Laboratory Data:
Laboratory Results
01/12/25 03:03
01/12/25 03:03
Laboratory Results
PT 19.0 Sec (11.4-14.6) H 01/11/25 02:06
INR 1.57 01/11/25 02:06
APTT 33.8 Sec (23.4-35.0) 01/10/25 11:26
Phosphorus 3.1 mg/dl (2.5-4.5) 01/10/25 11:26
Magnesium 1.7 mg/dl (1.6-2.3) 01/10/25 11:26
Total Bilirubin 2.6 mg/dl (0.2-1.3) H 01/12/25 03:03
AST 96 U/L (17-59) H 01/12/25 03:03
ALT 51 U/L (0-50) H 01/12/25 03:03
Alkaline Phosphatase 132 U/L (38-126) H 01/12/25 03:03
Lipase 105 U/L (23-300) 01/10/25 05:50
Vital Signs and I&O:
Vital Signs
Temp Pulse Resp BP Pulse Ox
98.1 F 82 19 131/70 95
01/12/25 07:53 01/12/25 04:00 01/12/25 04:00 01/12/25 04:00 01/12/25 04:00
I&O
01/11/25 01/12/25 01/13/25
06:59 06:59 06:59
Intake Total 2447.4 / 2447.4 733.7 / 733.7
Output Total 1175 / 1175 1400 / 1400
Balance 1272.4 / 1272.4 -666.3 / -666.3
Physical Exam
Physical Exam
HEENT: Anicteric
GI: Soft and Non Distended
Neuro: Non Focal
--- NOTE | 2025-01-12 10:51 | CM ---
Addendum entered by Mana Lawrence RN 01/12/25 17:56:
Spoke with [facility] again who said she would set him up today for [facility]- no callback from [facility].
Spoke with [facility]; he met with the patient and offered him [facility], that would be covered under his insurance, and he declined. He accepted outpatient resources instead and will do AA and individual therapy through a
private therapist who takes his insurance.
Plan home today with [facility], with .
Original Note:
Patient with Dx Acute blood loss anemia, Acute GI bleed, Alcohol abuse. MSAS 1, now 0 per nurse.
Met with patient, and had [facility]ia from [facility] on speaker phone in patient's room; [facility] spoke with him yesterday and again today, he was going to do [facility], however as he was told he needed to do medical f/u appointments,
patient states he is holding off on an Inpt etoh rehab program right now, and says he will do it later. Suggested to [facility] to provide outpatient resources in the interim and follow the patient- [facility] will call patient back with resources.
Patient states he feels ready for d/c home today. IMM completed. Patient reports he has been ambulating in the room without difficulty.
Plan home today with [facility], with .
[2025-01-12 11:54] LABS: Glucose - Point of Care 315 mg/dl (70-99)
[2025-01-12] MEDS: NOVOLOG FLEXPEN 5 UNITS SC ×2 (12:14→17:34)
[2025-01-12] MEDS: NOVOLOG FLEXPEN-MODERATE RESISTANCE 7 UNITS SC (12:15)
--- NOTE | 2025-01-12 13:28 | W.PN.HOSP.TC ---
Addendum entered and electronically signed by Ivan Holt MD 01/12/25 18:12:
[id number]
Addendum entered and electronically signed by Ivan Holt MD 01/12/25 16:10:
patient having issues finding facility with Medicare. desires to go home and f/u with rehab outpatient
Original Note:
Today's Communication/Plan
-
abx - 7 day course
DM management
nadolol
PPI BID
EtOH abstinence
F/u GI and PCP outpatient
[facility]
Assessment / Plan
Assessment / Plan
Physical Exam
General: Well Developed
HEENT: NormoCephalic and Anicteric
Respiratory: Clear
Cardiac: S1/S2
GI: Non Tender
Musculoskeletal: No Clubbing
Skin: Warm
Neuro: Awake, Oriented and AO x 3
Hematologic/Lymphatic: No Lymphadenopathy
Psych: Calm
#Acute blood loss anemia
#Acute GI bleed
# Melena and coffee
-Transfuse 1u prbc 01/11
-EGD 01/11 - evidence of varices; Upper GI bleed secondary to portal htn
-S/p Octreotide, PPI IV BID, ceftriaxone
-Change PPI IV to PO BID
- Add Nadolol 20mg daily
- DC reglan
-7 days of abx upon dc total
-etoh abstinence, educated expensvely
-F/u GI outpatient
�No NSAIDs
# Transaminitis
� Suspect secondary to alcohol use, no official diagnosis of cirrhosis although highly suspicious
� Follow-up right upper quadrant ultrasound with Dopplers - no clot of obvious cirrhosis although not gold standard
� Trend LFTs
#Hyponatremia
-mild
-ctm
#Alcohol abuse
� CIWA protocol
� Ativan as needed as per CIWA protocol
�Apparently DOES want stop
-[facility] - okay for inpatient rehab
#DMII
#Hyperglycemia
� Hemoglobin A1c - 9.2
� Sliding scale
� Insulin na�ve
-started on lantus increase lantus to 15u qhs; Aspart 5u AC
-DM educator consulted
#Pancytopenia
#Thrombocytopenia
� Mostly secondary to alcohol abuse
� Monitor
#Elevated beta-hydroxybutyrate
� Most likely secondary to starvation with alcohol use
#Essential hypertension
� nadolol
#DVT prophylaxis
� SCDs
More than 30 minutes spent in discharge including
Final examination of the patient
Summarizing hospital stay
Instructions for continuing care to all relevant caregivers
Preparation of discharge records, prescriptions, and referral forms
Total time spent (in minutes): 36
Anticipated Discharge: Today
Subjective/Interval History
-
Date of Service: January 12, 2025
s/p EGD yesterday - on further evidence of bleeding
Objective Data
-
Labs:
Laboratory Results
01/12/25 01/12/25
03:03 03:03
WBC 3.7 L
Hgb 7.4 L Cancelled
Hct 23.1 L
Plt Count 58 L
Sodium 133 L
Potassium 4.0
Chloride 106
Carbon Dioxide 26
BUN 15
Creatinine 0.6 L
Glucose 261 H
Calcium 7.9 L
Total Bilirubin 2.6 H
AST 96 H
ALT 51 H
Alkaline Phosphatase 132 H
Vital Signs:
Vital Signs
Temp Pulse Resp BP Pulse Ox
98.4 F 82 19 131/70 95
01/12/25 11:06 01/12/25 04:00 01/12/25 04:00 01/12/25 04:00 01/12/25 04:00
I&O
01/11/25 01/12/25 01/13/25
06:59 06:59 06:59
Intake Total 2447.4 / 2447.4 733.7 / 733.7
Output Total 1175 / 1175 1400 / 1400
Balance 1272.4 / 1272.4 -666.3 / -666.3
Review of Systems
-
History Source: Patient
All other systems: Not reviewed unless documented
Data Reviewed
-
Ultrasound: Report Reviewed by me
Labs: Labs Reviewed by me
[2025-01-12 14:17] LABS: Magnesium 1.4 mg/dl (1.6-2.3)
--- NOTE | 2025-01-12 14:18 | PTCARENOTE ---
01/12/2025 DIABETES EDUCATION CONSULT
I met with Ryder and his to review diabetes management.
I educated on physiology of T2D vs T1D, organ damage, managing with medications, monitoring BG, nutrition, and activity. I reinforced signs of hyperglycemia, hypoglycemia and hypoglycemia protocol; BS parameters and recommended HbA1c goals,
glucometer and CGM instructions, glucose tracker, medic alert bracelet and outpatient DSME program. Written material provided.
I educated and reviewed using Contour Next glucometer, member acknowledged understanding with a self demonstration of checking BS. Provided him with a Contour Next sample kit.
I educated and demonstrated on insulin injection technique, timing, and storage. Discussed long and short acting insulin; onset/peak/duration, and encouraged Praveen to administer his own injections with RN supervision while admitted. Discussed
normal target glucose ranges and a monitoring schedule 15 minutes before each meal when prescribed Novolog, and preprandial AM and/or bedtime as recommended by MD.
Encouraged patient to follow up with his PCP for post d/c appointment and to monitor medication and blood glucose levels. Provided list of endocrinologists if desired, to contact insurance company to verify in network status. Requested
prescription sent to pharmacy for test strips and lancets for back up SMBG. Patient verbalized understanding.
[2025-01-12] MEDS: ROCEPHIN 1000 MG IV (14:46)
[2025-01-12] MEDS: STERILE WATER FOR INJECTION 10 ML IV (14:46)
--- NOTE | 2025-01-12 16:09 | W.DS.TRANS ---
DC Summary - Credit Collection Specialist
-
Discharge Instructions:
Discharge Diagnosis/Procedures #Acute blood loss anemia
#Acute GI bleed
# Melena
# Transaminitis
#Hyponatremia
#Alcohol abuse
#DMII
#Hyperglycemia
#Pancytopenia
#Thrombocytopenia
Diet Low Cholesterol,Low Fat,Diabetic, Carb
Controlled
Activity As tolerated
Blood Work cbc and cmp in 3-5 days week with pcp
Others Tests as per GI/hepatology outpatient
Instructions:
Stand-Alone Forms:
Changes to Home Medications: Yes
Discharge Medications:
DC Medications w/original date entered in [facility]
clobetasol 0.05 % topical cream 1 applic topical DAILY scalp,knees,face,elbows 01/10/25
blood sugar diagnostic ([employer]Touch Verio test strips) #200 ea 01/12/25
blood-glucose meter ([employer]Touch Verio Flex Meter) #1 ea 01/12/25
cefdinir 300 mg capsule 300 mg PO Q12H 4 days #8 caps 01/12/25
folic acid 1 mg tablet 1 mg PO DAILY #30 tabs 01/12/25
insulin aspart U-100 100 unit/mL (3 mL) subcutaneous pen 5 unit (0.05 mL) SC AC #15 mL 01/12/25
insulin glargine 100 unit/mL (3 mL) subcutaneous pen (Lantus Solostar U-100 Insulin) 15 unit (0.15 mL) SC QPM #15 mL 01/12/25
lancets 33 gauge (One[employer] Delica Plus Lancet) #200 ea 01/12/25
nadolol 20 mg tablet 20 mg PO HS 30 days #30 tabs 01/12/25
pantoprazole 40 mg tablet,delayed release 40 mg PO BID 30 days #60 tabs 01/12/25
thiamine mononitrate (vit B1) 100 mg tablet 100 mg PO BID #60 tabs 01/12/25
Home Medication Changes
blood sugar diagnostic (OneTouch Verio test strips) #200 ea 01/12/25
blood-glucose meter ([employer] Verio Flex Meter) #1 ea 01/12/25
cefdinir 300 mg capsule 300 mg PO Q12H 4 days #8 caps 01/12/25
folic acid 1 mg tablet 1 mg PO DAILY #30 tabs 01/12/25
insulin aspart U-100 100 unit/mL (3 mL) subcutaneous pen 5 unit (0.05 mL) SC AC #15 mL 01/12/25
insulin glargine 100 unit/mL (3 mL) subcutaneous pen (Lantus Solostar U-100 Insulin) 15 unit (0.15 mL) SC QPM #15 mL 01/12/25
lancets 33 gauge ([employer]Touch Delica Plus Lancet) #200 ea 01/12/25
nadolol 20 mg tablet 20 mg PO HS 30 days #30 tabs 01/12/25
pantoprazole 40 mg tablet,delayed release 40 mg PO BID 30 days #60 tabs 01/12/25
thiamine mononitrate (vit B1) 100 mg tablet 100 mg PO BID #60 tabs 01/12/25
Pending Results: No
[2025-01-12 17:32] LABS: Glucose - Point of Care 358 mg/dl (70-99)
[2025-01-12] MEDS: NOVOLOG FLEXPEN-MODERATE RESISTANCE 9 UNITS SC (17:34)
--- NOTE | 2025-01-12 17:49 | PTCARENOTE ---
Received discharge orders from provider; Reviewed d/c instructions with Pt and - Rep from [facility] arrived during discussion and reviewed rehab options with Pt; Had Pt do last insulin injection as practice with Insulin Pen; D/c'd home;
== END 2025-01-12 17:50 | disposition home or self-care (01) | DRG 441 ==
LOC: IMU 10:33
PROVIDERS: Emergency Medicine; Internal Medicine; Nurse Practitioner; ADMITTING PHYSICIAN Internal Medicine; CONSULT PHYSICIAN Internal Medicine; EMERGENCY PHYSICIAN Emergency Medicine; FAMILY PHYSICIAN Family Medicine
PROC: 5A09357 Assistance with Respiratory Ventilation, Less than 24 Consecutive Hours, Continuous Positive Airway Pressure (ICD-10-PCS; 2025-01-10)
PROC: 3E1G88Z Irrigation of Upper GI using Irrigating Substance, Via Natural or Artificial Opening Endoscopic (ICD-10-PCS; 2025-01-10)
PROC: 0DJ08ZZ Inspection of Upper Intestinal Tract, Via Natural or Artificial Opening Endoscopic (ICD-10-PCS; 2025-01-11)
PROC: 30233N1 Transfusion of Nonautologous Red Blood Cells into Peripheral Vein, Percutaneous Approach (ICD-10-PCS; 2025-01-11)
DX: K76.6 Portal hypertension (principal); I85.11 Secondary esophageal varices with bleeding; D61.818 Other pancytopenia; K92.0 Hematemesis; K92.1 Melena; D62 Acute posthemorrhagic anemia; E87.1 Hypo-osmolality and hyponatremia; K70.30 Alcoholic cirrhosis of liver without ascites; E11.65 Type 2 diabetes mellitus with hyperglycemia; K31.89 Other diseases of stomach and duodenum; E78.00 Pure hypercholesterolemia, unspecified; M19.90 Unspecified osteoarthritis, unspecified site; E11.43 Type 2 diabetes mellitus with diabetic autonomic (poly)neuropathy; I10 Essential (primary) hypertension; G47.30 Sleep apnea, unspecified; F10.10 Alcohol abuse, uncomplicated; Z91.148 Patient's other noncompliance with medication regimen for other reason; Z86.0100 Personal history of colon polyps, unspecified
CPT/HCPCS: 88305; 76700; 80053; 80306; 81003; 82010; 82077; 82248; 82607; 82728; 82962; 82977; 83036; 83540; 83550; 83690; 83735; 84100; 85014; 85018; 85025; 85027; 85610; 85730; 86803; 86850; 86900; 86901; 86920; 88342; 93005; 93975; 94660; 96361; 96374; 99291; P9016

== ENCOUNTER 2025-02-18 12:52 | Inpatient (IN) | payer OTHER, SELFPAY ==
[2025-02-18] VITALS (10 sets, daily range): BP systolic 101–124; BP diastolic 52–65
--- NOTE | 2025-02-18 10:32 | ED.GENMED ---
History of Present Illness
<Lizabeth Monte DO, Resident - Last Filed: 02/18/25 15:27>
General
Chief Complaint: Abnormal Lab Value
Source: patient
Time Seen by Provider: 02/18/25 10:03
History of Present Illness
History of Present Illness:
Patient is a 69-year-old male past medical history of diabetes presenting with weakness, symptomatic anemia. Patient recently hospitalized for weakness found to have low hemoglobin due to upper GI bleed secondary to portal hypertension. Patient
had EGD on 01 11 that showed varices. Patient does not have an official diagnosis of cirrhosis. At that time patient had transaminitis as well. Patient was advised to follow-up outpatient with GI, but has not done so. Patient did follow-up with
[facility], but was unable to get his first iron transfusion due to needing a prior authorization. On review of systems patient notes weakness feeling like 'there is 100 pounds of weight all over my body'. Patient notes some
slight shortness of breath. Patient denies chest pain. Patient notes some nausea, and noted that he vomited once a few days ago there is no blood. Patient says that he has been eating mostly yogurt. Patient denies having a bowel movement since
01/12. Patient also notes a recent 10 pound weight loss. Patient denies all other ROS.
Past History
<Lizabeth Monte DO, Resident - Last Filed: 02/18/25 15:27>
Past History
ED Past Medical History: NIDDM and Other (Sleep apnea)
ED Past Surgical History: Orthopedic (Bilateral ulnar nerve) and Other (Hernia repair as child)
Social History
Tobacco: Non-smoker
Alcohol: Daily
Drug: None
Personal:
Living: with family
Employment: Employed
Review of Systems
<Lizabeth Monte DO, Resident - Last Filed: 02/18/25 15:27>
Review of Systems
Allergies reviewed?: No
All Other Systems: ROS reviewed and negative except as documented in HPI and ROS
Constitutional: Reports weight loss
EENT: Reports no symptoms
Respiratory: Reports trouble breathing
Cardiac: Reports no symptoms
ABD/GI: Reports constipated
: Reports no symptoms
Musculoskeletal: Reports no symptoms
Skin: Reports no symptoms
Neurological: Reports dizzy and weakness
Endocrine: Reports no symptoms
Hematologic/Lymphatic: Reports no symptoms
Psychiatric: Reports no symptoms
Phy Exam
<Lizabeth Monte DO, Resident - Last Filed: 02/18/25 15:27>
General Physical Exam
General Presentation: mild distress
General age: appears stated age
General Skin: other (Jaundice)
General Habitus: normal
General Mental: alert
Cardiovascular Exam
Cardiovascular Exam: regular rate/rhythm
Heart Sounds: normal
Pulmonary Exam
Pulmonary Exam: lungs clear and no respiratory distress
Gastrointestinal Exam
Gastrointestinal Exam: normal bowel sounds, non tender and soft
Neurological Exam
Neurological Exam: alert
Skin Exam
Skin Exam: jaundice
Psychiatric Exam
Psychiatric Exam: agitated
Course
<Lizabeth Monte DO, Resident - Last Filed: 02/18/25 15:27>
Orders/Labs/Results
Orders:
Orders
02/18/25 10:29
Type+Screen Urgent
Complete Blood Count/With Diff Urgent
Comprehensive Metabolic Panel Urgent
Creatine Phosphokinase Urgent
Comment: ADD ON
Ferritin Urgent
Folate Urgent
GGTP Urgent
Iron Urgent
Magnesium Urgent
PTT Urgent
Prothrombin Time Urgent
Total Iron Binding Urgent
Vitamin B12 Urgent
02/18/25 10:50
Ammonia Stat
02/18/25 12:01
Potassium Chloride [KCl] 40 meq 0.9% Sodium Chloride 250 ml [Nss] 250 ml IV NOW
02/18/25 12:36
Add On- LAB Urgent
Tests Added?: magnesium
US Abdomen Complete/Upper Urgent
Comment:
Reason For Exam: abdominal pain, elevated LFTs
02/18/25 12:37
Admit/Transfer Patient As Directed
Co-Sign Provider:
Level of Care: Inpatient admission
Assign to:: Telemetry
Physician / Group: Aye
Diagnosis: ELIGIO, Worsening Liver Function
Reason for Telemetry: Arrhythmia
Date to Stop Telemetry: 02/21/25
Time to Stop Telemetry: 11:00
Reason for Hospitalization: IVFs, GI consult
Expected length of stay greater than two midnights?: Yes
ELOS- Estimated Length of Stay in days: 3
I certify the patient meets the requirements for IP care: Yes
PRN Pain Medication Management As Directed
May give lesser potent ordered pain med per pt: Yes
preference::
Protocol:: Medication orders for pain may be administered in a
manner that supports deferring to patient preference
when the pt is:
- Requesting an ordered lesser potent pain medication.
Least to most potent pain medications are defined
as: acetaminophen < NSAID < tramadol < opioids
(morphine, oxycodone, hydromorphone).
- Requesting a lesser dose of the same medication IF
ORDERED.
- Requesting a less intrusive route of administration
if both routes are prescribed by the provider (PO <
IV).
02/18/25 12:38
Code Status As Directed
Resuscitation Status: Full Code
02/18/25 18:00
Potassium Routine
02/21/25 11:00
DC Protocol for Telemetry ONCE
Abnormal Lab Results
02/18/25
10:29
RBC 4.24 L 10^6/uL
(4.70-6.10)
Hgb 9.0 L g/dL
(13.0-18.0)
Hct 28.5 L %
(39.0-52.0)
MCV 67.2 L fL
(80.0-94.0)
MCH 21.2 L pg
(27.0-31.0)
MCHC 31.6 L g/dL
(33.0-37.0)
RDW 19.0 H %
(11.5-14.5)
Plt Count 93 L 10^3/uL
(130-400)
Absolute Lymphs (auto) 0.8 L 10^3/uL
(1.2-3.4)
Absolute Monos (auto) 1.0 H 10^3/uL
(0.1-0.6)
Lymphocytes % 9.4 L %
(20.5-51.1)
Monocytes % 11.2 H %
(1.7-9.3)
PT 18.5 H Sec
(11.4-14.6)
APTT 46.3 H Sec
(23.4-35.0)
Sodium 130 L mmol/L
(135-145)
Potassium 2.8 L mmol/L
(3.5-5.1)
Creatinine 1.7 H mg/dL
(0.7-1.3)
Glucose 241 H mg/dl
(70-99)
% Saturation 16 L %
(20-50)
Total Bilirubin 4.0 H mg/dl
(0.2-1.3)
GGT 593 H U/L
(15-73)
AST 672 H* U/L
(17-59)
ALT 180 H U/L
(0-50)
Alkaline Phosphatase 311 H U/L
(38-126)
Albumin 3.3 L g/dl
(3.5-5.0)
Vitamin B12 > 1000 H pg/ml
(959-031)
Folate > 20.0 H ng/ml
(2.76-20)
02/18/25 10:29
02/18/25 10:29
Vital Signs
Initial and Last Documented VS:
Initial Vital Signs
Temp Pulse Resp BP Pulse Ox
98.0 F 69 16 101/53 98
02/18/25 09:50 02/18/25 09:50 02/18/25 09:50 02/18/25 09:50 02/18/25 09:50
Last Documented Vital Signs
Temp Pulse Resp BP Pulse Ox
98.0 F 71 16 111/62 97
02/18/25 09:50 02/18/25 14:32 02/18/25 14:32 02/18/25 14:32 02/18/25 14:32
<Mainor Dunn, DO - Last Filed: 02/18/25 10:47>
Orders/Labs/Results
Orders:
Orders
02/18/25 10:29
Type+Screen Urgent
Complete Blood Count/With Diff Urgent
Comprehensive Metabolic Panel Urgent
Creatine Phosphokinase Urgent
Comment: ADD ON
Ferritin Urgent
Folate Urgent
GGTP Urgent
Iron Urgent
Magnesium Urgent
PTT Urgent
Prothrombin Time Urgent
Total Iron Binding Urgent
Vitamin B12 Urgent
02/18/25 10:50
Ammonia Stat
02/18/25 12:01
Potassium Chloride [KCl] 40 meq 0.9% Sodium Chloride 250 ml [Nss] 250 ml IV NOW
02/18/25 12:36
Add On- LAB Urgent
Tests Added?: magnesium
US Abdomen Complete/Upper Urgent
Comment:
Reason For Exam: abdominal pain, elevated LFTs
02/18/25 12:37
Admit/Transfer Patient As Directed
Co-Sign Provider:
Level of Care: Inpatient admission
Assign to:: Telemetry
Physician / Group: Aye
Diagnosis: ELIGIO, Worsening Liver Function
Reason for Telemetry: Arrhythmia
Date to Stop Telemetry: 02/21/25
Time to Stop Telemetry: 11:00
Reason for Hospitalization: IVFs, GI consult
Expected length of stay greater than two midnights?: Yes
ELOS- Estimated Length of Stay in days: 3
I certify the patient meets the requirements for IP care: Yes
PRN Pain Medication Management As Directed
May give lesser potent ordered pain med per pt: Yes
preference::
Protocol:: Medication orders for pain may be administered in a
manner that supports deferring to patient preference
when the pt is:
- Requesting an ordered lesser potent pain medication.
Least to most potent pain medications are defined
as: acetaminophen < NSAID < tramadol < opioids
(morphine, oxycodone, hydromorphone).
- Requesting a lesser dose of the same medication IF
ORDERED.
- Requesting a less intrusive route of administration
if both routes are prescribed by the provider (PO <
IV).
02/18/25 12:38
Code Status As Directed
Resuscitation Status: Full Code
02/18/25 18:00
Potassium Routine
02/21/25 11:00
DC Protocol for Telemetry ONCE
Abnormal Lab Results
02/18/25
10:29
RBC 4.24 L 10^6/uL
(4.70-6.10)
Hgb 9.0 L g/dL
(13.0-18.0)
Hct 28.5 L %
(39.0-52.0)
MCV 67.2 L fL
(80.0-94.0)
MCH 21.2 L pg
(27.0-31.0)
MCHC 31.6 L g/dL
(33.0-37.0)
RDW 19.0 H %
(11.5-14.5)
Plt Count 93 L 10^3/uL
(130-400)
Absolute Lymphs (auto) 0.8 L 10^3/uL
(1.2-3.4)
Absolute Monos (auto) 1.0 H 10^3/uL
(0.1-0.6)
Lymphocytes % 9.4 L %
(20.5-51.1)
Monocytes % 11.2 H %
(1.7-9.3)
PT 18.5 H Sec
(11.4-14.6)
APTT 46.3 H Sec
(23.4-35.0)
Sodium 130 L mmol/L
(135-145)
Potassium 2.8 L mmol/L
(3.5-5.1)
Creatinine 1.7 H mg/dL
(0.7-1.3)
Glucose 241 H mg/dl
(70-99)
% Saturation 16 L %
(20-50)
Total Bilirubin 4.0 H mg/dl
(0.2-1.3)
GGT 593 H U/L
(15-73)
AST 672 H* U/L
(17-59)
ALT 180 H U/L
(0-50)
Alkaline Phosphatase 311 H U/L
(38-126)
Albumin 3.3 L g/dl
(3.5-5.0)
Vitamin B12 > 1000 H pg/ml
(239-931)
Folate > 20.0 H ng/ml
(2.76-20)
02/18/25 10:29
02/18/25 10:29
Vital Signs
Initial and Last Documented VS:
Initial Vital Signs
Temp Pulse Resp BP Pulse Ox
98.0 F 69 16 101/53 98
02/18/25 09:50 02/18/25 09:50 02/18/25 09:50 02/18/25 09:50 02/18/25 09:50
Last Documented Vital Signs
Temp Pulse Resp BP Pulse Ox
98.0 F 71 16 111/62 97
02/18/25 09:50 02/18/25 14:32 02/18/25 14:32 02/18/25 14:32 02/18/25 14:32
<Lizabeth Monte DO, Resident - Last Filed: 02/18/25 15:27>
MDM/Problems Addressed
Differential Diagnosis Includes:
Elevated LFTs
MDM/Problems Addressed:
Hemoglobin is 9, patient not eligible for transfusion. Blood work remarkable for elevated LFTs and hypokalemia. Ammonia within normal limits. Ordered KCL 40 meq. Patient will be admitted to the hospital.
<Lizabeth Monte DO, Resident - Last Filed: 02/18/25 15:27>
*Pulse Oximetry
SaO2: 98
Oxygen Mode of Delivery: Room air
Patient hypoxic: no
*Critical Care Note
Total Time (30-74mins, 75-104mins- exclusive of procedures): Not Applicable
ED Attending Note
<Lizabeth Monte DO, Resident - Last Filed: 02/18/25 15:27>
-
Portions of this chart may have been created with voice recognition software.� Occasional wrong word or��sound alike� substitutions may have occurred due to the inherent limitations of voice recognition software.
<Mainor Dunn DO - Last Filed: 02/18/25 10:47>
ED Attending Note
Patient seen and examined by attending physician: Yes
I performed a history and physical exam of patient and discussed management with resident, I reviewed resident's note and agree with documented findings and plan of care.: Yes
ED Attending Note:
I have seen and evaluated the patient with a [id number] encounter. I have spoken to the resident and involved in the medical history, the physical exam, medical decision making.
Evaluation and management service: agree unless noted differently below.
Results interpretation: agree unless noted differently below.
Focused HPI: 69-year-old male presenting for profound weakness. Patient states he feels that he needs another blood transfusion. Patient was recently admitted for upper GI bleed which appears to be related to his liver disease. He required a
blood transfusion. Patient denies any black or red stools
Physical exam: Appears jaundiced and weak. Abdomen soft and nontender
Medical Decision Making: Hemoglobin is 9. This is improved from prior. Will search for alternative source of weakness which includes basic blood work and any evidence of elevated ammonia. Will ultimately admit given his weakness
Discharge Plan
Departure
Patient Disposition: Admit
Date of Disposition: 02/18/25
Time of Disposition: 12:10
Presentation/result/management discussed w/ accepting MD/DO: Hospitalist
Discharge Problem:
Acute hypokalemia, Weakness, Elevated liver function tests
Interventions
Interventions:
*Risk Screen - Suicide Last Done: 02/18/25 09:50
*General Assessment Last Done: 02/18/25 10:22
*Neglect/Abuse Screening Last Done: 02/18/25 09:50
*ED- Fall Risk Assessment Last Done: 02/18/25 10:22
*ED COVID-19 Vaccine History Last Done: 02/18/25 10:22
*Nursing Disposition Last Done: 02/18/25 14:47
Discharge Date and Time
Discharge Date/Time: 02/18/25 14:48
[2025-02-18 10:39] LABS: Hematocrit 28.5 % (39.0-52.0); Hemoglobin 9.0 g/dL (13.0-18.0); Mean Corp Hgb Conc. 31.6 g/dL (33.0-37.0); Mean Corpuscular Volume 67.2 fL (80.0-94.0); Nucleated Red Blood Cells % 0 % (-); Platelet Count 93 10^3/uL (130-400); Red Cell Dist. Width 19.0 % (11.5-14.5)
[2025-02-18 10:50] LABS: INR 1.52; PT 18.5 Sec (11.4-14.6)
[2025-02-18 10:51] LABS: APTT 46.3 Sec (23.4-35.0)
[2025-02-18 10:57] LABS: ALT (SGPT) 180 U/L (0-50); AST (SGOT) 672 U/L (17-59); Albumin 3.3 g/dl (3.5-5.0); Alkaline Phosphatase 311 U/L (38-126); Blood Urea Nitrogen 18 mg/dl (9-20); Calcium 8.9 mg/dl (8.4-10.2); Carbon Dioxide 24 mmol/L (22-30); Chloride 98 mmol/L (98-107); Glucose 241 mg/dl (70-99); Potassium 2.8 mmol/L (3.5-5.1); Sodium 130 mmol/L (135-145); Total Protein 6.9 g/dl (6.3-8.2); eGFR 43.37
[2025-02-18 11:10] LABS: Ammonia 12 umol/L (9-30)
[2025-02-18] MEDS: KCL 270 MEQ IV ×2 (12:25→21:07)
--- NOTE | 2025-02-18 12:33 | HPS.HSE ---
Family Physician
-
Family Physician: Marcelino oN
Chief Complaint
-
Weakness
History of Present Illness
Patient is a 69 y/o male past medical history of alcohol use disorder, alcoholic cirrhosis, hypertension, diabetes mellitus and recent GI bleed secondary to portal hypertension who presents with weakness. Patient reports generalized weakness to the
point he can not get around his home due to the profound weakness and fatigue. He reports very poor appetite as well as nausea with one episode of vomiting a few days ago. His notes his skin and eyes appear more yellow than usual. Patient
denies abdominal pain. He deneis fevers.
Medical History
Past Medical History
Past Medical History: Reports Other
Additional Past Medical History:
Alcohol Use Disorder
Alcoholic Cirrhosis
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
Pancytopenia
Diabetes Mellitus, Type II
Essential Hypertension
Hyperlipidemia
Past Surgical History: Reports Orthopedic and Other (Hernia Repair)
Social History
Tobacco: Non-smoker
Alcohol: Other (Patient previously drink about 1.75L of vodka a week. Notes last drink about 2-3 weeks ago)
Family History
Family History: Not pertinent
Allergies / Home Medications
Allergies reflects when Allergies were last updated in [facility].
Home Medications with original date entered in [facility]
Allergy/Medication List:
Allergies
Allergy/AdvReac Type Severity Reaction Status Date / Time
No Known Allergies Allergy Verified 02/18/25 09:52
Home Medications
clobetasol 0.05 % topical cream 1 applic topical BID scalp,knees,face,elbows 01/10/25
folic acid 1 mg tablet 1 mg PO DAILY #30 tabs 01/12/25
insulin glargine 100 unit/mL (3 mL) subcutaneous pen (Lantus Solostar U-100 Insulin) 15 unit (0.15 mL) SC QPM #15 mL 01/12/25
nadolol 20 mg tablet 20 mg PO HS 30 days #30 tabs 01/12/25
pantoprazole 40 mg tablet,delayed release 40 mg PO BID 30 days #60 tabs 01/12/25
thiamine mononitrate (vit B1) 100 mg tablet 100 mg PO BID #60 tabs 01/12/25
amlodipine 5 mg tablet (Norvasc) 5 mg PO QPM 02/18/25
carvedilol 6.25 mg tablet (Coreg) 6.25 mg PO BID 02/18/25
empagliflozin 25 mg tablet (Jardiance) 25 mg PO DAILY 02/18/25
rosuvastatin 10 mg tablet (Crestor) 10 mg PO QPM 02/18/25
semaglutide 3 mg tablet (Rybelsus) 3 mg PO QPM 02/18/25
Review of Systems
-
A 12 point ROS was completed and negative except as noted: Yes
Constitutional: Denies Fever
Respiratory: Reports Trouble Breathing; Denies Cough
Cardiac: Denies Chest Pain or Palpitations
Abdomen/GI: Reports See HPI
Physical Exam
Vital Signs
Vital Signs
Temp Pulse Resp BP Pulse Ox
98.0 F 68 12 116/57 96
02/18/25 09:50 02/18/25 12:15 02/18/25 12:15 02/18/25 12:00 02/18/25 12:15
Physical Exam
General: Comfortable and Conversant
HEENT: Moist mucous membranes and Other (Sclera are icteric)
Respiratory: Clear and Non Labored Respirations
Cardiac: S1/S2 and Regular Rhythm
GI: Soft and Tender (Mild tenderness throuhgout)
Rectal: Deferred by Provider
Musculoskeletal: No Clubbing, No Cyanosis and No Edema
Skin: Warm, Dry and Jaundice
Neuro: Awake, Alert, Oriented and No Motor Deficits
Psych: Calm
Laboratory Results
-
02/18/25 10:29
02/18/25 10:
Laboratory Results
PT 18.5 Sec (11.4-14.6) H 02/18/25 10:
INR 1.52 02/18/25 10:
APTT 46.3 Sec (23.4-35.0) H 02/18/25 10:29
Total Bilirubin 4.0 mg/dl (0.2-1.3) H 02/18/25 10:
AST 672 U/L (17-59) H* 02/18/25 10:
ALT 180 U/L (0-50) H 02/18/25 10:
Alkaline Phosphatase 311 U/L (38-126) H 02/18/25 10:
Data Reviewed
-
Lab Data: Labs Reviewed by me
Impression/Plan
-
Acute Kidney Injury, possibly related to volume depletion due to poor oral intake vs hepatorenal in setting of worsening LFs
-Continue IVFs
-Hold Jardiance
-Recheck labs in AM
Hypokalemia
-Replace potassium
-Check magnesium level
Worsening Liver Function Tests in setting of presumed alcoholic cirrhosis
-Consult GI
-Check Abd US
Alcohol Use Disorder
-Patient reports last drink 2-3 weeks ago
-Continue thiamine and folic acid
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
-Continue Protonix BID
-Continue Nadolol
Pancytopenia
-Hgb has trended upwards from previous
-Platelet count stable
-Monitor counts
Diabetes Mellitus, Type II
-Continue Lantus
-Hold oral diabetic meds
-Monitor sugars and continue coverage insulin
Essential Hypertension
-Continue Coreg and amlodipine with hold parameters
DVT proph: SCDs
Code Status: Full Code
--- NOTE | 2025-02-18 13:02 | CM ---
CM reviewed chart and met with pt and bedside in ED.
Lives with in split level home, [address], first floor half BA, second floor BR/full BA.
Independent in ADLs, personal care and ambulation at baseline. Has been very weak and having difficulty ambulating prior to admission.
No hx VN/SNF
PCP: Marcelino No
Pharmacy: [facility] and [facility].
CM will continue to follow for all discharge planning needs.
[2025-02-18] MEDS: NSS 1000 IV (13:26)
[2025-02-18 14:06] LABS: Iron 55 ug/dl (49-181); Magnesium 2.1 mg/dl (1.6-2.3)
--- NOTE | 2025-02-18 14:10 | W.PN.UPDATE ---
Addendum entered and electronically signed by Jennifer Griffiths MD 02/18/25 23:25:
CK of 4600 indicating some rhabdomyolysis.
Addendum entered and electronically signed by Jennifer Griffiths MD 02/18/25 15:30:
Patient on 2 beta blockers so stopped Coreg and continued Nadolol. Could be contributing to fatigue.
Original Note:
Update Note
Progress Note Update
This is an addendum to H&P written by Yari Bobo on 02/18/2025. �Patient seen and examined independently with PA.
69-year-old male past medical history of upper GI bleeding secondary to portal hypertension, diabetes, pancytopenia, hypertension, alcohol use disorder, presenting with weakness, symptomatic anemia. �Has some shortness of breath. �Has some nausea
vomiting without blood. �10 pound weight loss.
Patient was recently admitted from 01/10 to 01/12 for melena and coffee-ground emesis. �He had EGD which showed varices and upper GI bleeding secondary to portal hypertension. �He completed 7 days of ceftriaxone/cefdinir. �Started on nadolol. �He
followed up with [facility] was unable to get first iron transfusion due to needing prior authorization.
Vital signs normal. �Sodium 130. �Potassium 2.8. �Creatinine 1.7 AST of 670, ALT 180. �Total bilirubin 4 �Ammonia of 12. �Hemoglobin of 9 from 7.4 previously. �Platelets stable at 93.
Patient with generalized weakness secondary to ELIGIO, hypokalemia, and likely progressive underlying cirrhosis vs alcoholic hepatitis although no alcohol in 2 weeks. �Anemia has improved compared to prior admission so doubt to be the cause of symptoms.
Potassium repletion, IV fluids. �Abdominal ultrasound pending. �Check magnesium. �GI consulted for consideration of steroids. �Anemia workup pending.
[2025-02-18 14:17] LABS: GGTP 593 U/L (15-73)
[2025-02-18 14:21] LABS: Ferritin 46.0 ng/ml (17.9-464.0)
[2025-02-18 14:23] LABS: Total Iron Binding Capacity 340 ug/dl (261-462)
--- NOTE | 2025-02-18 14:34 | CON.GI ---
Addendum entered and electronically signed by Samm Moreau MD 02/18/25 17:28:
I saw and examined the patient.
The WIND FIELD MANAGER's note was reviewed and I agree with the note.
69-year-old male with past medical history of diabetes, hypertension, hyperlipidemia, alcohol abuse, sleep apnea self-reported osteoarthritis who stopped his '2 blood pressure meds and 2 diabetic meds' approximately 1 month ago because he did not
like the way he felt on them. Started having numbness and tingling in his legs. Who we saw 01/11/25 for upper GI bleed secondary portal HTN and was also found to have grade I-II varices. He was started on Nadolol, completed 7 day course of Abx and
DC to home. He resumed his home meds. He followed up with his PCP, Hematology due to have IV iron and has appt with Dr. Bob (Hepatology at [facility]) next Friday. Resumed drinking ETOH (had gallon of vodka between DC and 2 week ago) who
presents to ER with weakness and heaviness feeling in his legs. Asked to evaluated for elevated LFTs.
-- Generalized muscular weakness
-- History of alcohol abuse. Last drink 2 weeks ago as per patient
-- Recent admission with upper GI bleeding secondary to portal hypertension. Although noted to have grade 1-2 varices and EGD ultrasound abdomen was normal . Patient noted to have thrombocytopenia/ coagulopathy / elevated LFT. . Hepatology
appointment with Dr. Bob next week
- Elevated LFT . DF<32 . No role for steroids
plan
Labs suggestive of hyponatremia/hypokalemia. Will recommend correcting electrolytes as per medical team
Will suggest checking CK to rule out rhabdomyolysis
IV hydration
Patient was taking both nadolol/Coreg. Will advise to DC nadolol
Trend LFT/INR
Advised to keep the appointment with mechanical systems engineer. Patient requires MR elastography or FibroScan to rule out cirrhosis
Advised on alcohol abstinence
Original Note:
Consultation
-
Date/Time Consultation Requested: 02/18/25 1400
Date/Time Consultation Performed: 02/18/25 1430
Requesting Provider: BEE Gunter
Performing Provider: Dr. Moreau/TERELL Pike
Reason for Consultation: cirrhosis, elevated LFT
Medical History
Chief Complaint / HPI
Chief Complaint: weakness
History of Present Illness:
69-year-old male with past medical history of diabetes, hypertension, hyperlipidemia, alcohol abuse, sleep apnea self-reported osteoarthritis who stopped his '2 blood pressure meds and 2 diabetic meds' approximately 1 month ago because he did not
like the way he felt on them. Started having numbness and tingling in his legs. Who we saw 01/11/25 for upper GI bleed secondary portal HTN and was also found to have grade I-II varices. He was started on Nadolol, completed 7 day course of Abx and
DC to home. He resumed his home meds. He followed up with his PCP, Hematology due to have IV iron and has appt with Dr. Bob (Hepatology at [facility]) next Friday. He did resume drinking ETOH and after DC drank 1 gallon of vokda with his last
drink being approximately less then 2 weeks ago. He states that he has only been able to drink 1 gallon ao water and drink ice tea as well as eat yogurt and grapes and has been progressively weak. He states that he did take his Linzess and had
watery stool 4 days ago. He presents to the ER because he could not walk because of profound weakness. He denies any F, C, n, V, melena, hematochezia, dysphagia or odynophagia. He states that he has no appetite. He denies any abdominal pain.
Past Medical History
Past Medical History: HTN, Hypercholesterolemia, NIDDM and Other (Alcohol abuse, colon polyps (10 years ago, Dr. Enriquez), varices, portal gastropathy, pancytopenia)
Past Surgical History: Other (Hernia repair)
Social History
Tobacco: Non-Smoker
Alcohol: Daily (2-3 bottles of vodka a week in the past. Most recently drank 1 gallon within 1 week (last drank 2 weeks ago))
Drug: None
Personal:
Living: With Family
Employment: Employed
Family History
Family History: Other (Father with history of stomach cancer, no other family history of gastrointestinal malignancy or IBD)
Allergies / Home Medications
Allergy/AdvReac Type Severity Reaction Status Date / Time
No Known Allergies Allergy Verified 02/18/25 09:52
�Medication �Instructions �Recorded
clobetasol 0.05 % topical cream 1 applic topical BID 01/10/25
scalp,knees,face,elbows
folic acid 1 mg tablet 1 mg PO DAILY #30 tabs 01/12/25
insulin glargine 100 unit/mL (3 15 unit (0.15 mL) SC QPM #15 mL 01/12/25
mL) subcutaneous pen (Lantus
Solostar U-100 Insulin)
nadolol 20 mg tablet 20 mg PO HS 30 days #30 tabs 01/12/25
pantoprazole 40 mg tablet,delayed 40 mg PO BID 30 days #60 tabs 01/12/25
release
thiamine mononitrate (vit B1) 100 100 mg PO BID #60 tabs 01/12/25
mg tablet
amlodipine 5 mg tablet (Norvasc) 5 mg PO QPM 02/18/25
carvedilol 6.25 mg tablet (Coreg) 6.25 mg PO BID 02/18/25
empagliflozin 25 mg tablet 25 mg PO DAILY 02/18/25
(Jardiance)
rosuvastatin 10 mg tablet (Crestor) 10 mg PO QPM 02/18/25
semaglutide 3 mg tablet (Rybelsus) 3 mg PO QPM 02/18/25
Review of Systems
-
All other systems: A 12 pt ROS was Negative except as stated above in HPI
Vital Signs
Temp Pulse Resp BP Pulse Ox
98.0 F 71 16 111/62 97
02/18/25 09:50 02/18/25 14:32 02/18/25 14:32 02/18/25 14:32 02/18/25 14:32
Physical Exam
Exam
General: No Apparent Distress
HEENT: Other (sclera slightly icteric)
Respiratory: Clear
Cardiac: Regular Rhythm
GI: Soft, Non Tender, Non Distended and Normal Bowel Sounds
Skin: Warm and Dry
Neuro: AO x 3
Psych: Calm
Results
WBC 8.6 10^3/uL (4.8-10.8) 02/18/25 10:
Hgb 9.0 g/dL (13.0-18.0) L 02/18/25 10:
Hct 28.5 % (39.0-52.0) L 02/18/25 10:
MCV 67.2 fL (80.0-94.0) L 02/18/25 10:
Plt Count 93 10^3/uL (130-400) L 02/18/25 10:
Absolute Neuts (auto) 6.5 10^3/uL (1.4-6.5) 02/18/25 10:
PT 18.5 Sec (11.4-14.6) H 02/18/25 10:
INR 1.52 02/18/25 10:
APTT 46.3 Sec (23.4-35.0) H 02/18/25 10:
Sodium 130 mmol/L (135-145) L 02/18/25 10:
Potassium 2.8 mmol/L (3.5-5.1) L 02/18/25 10:
Chloride 98 mmol/L (98-107) 02/18/25 10:
Carbon Dioxide 24 mmol/L (22-30) 02/18/25 10:
BUN 18 mg/dl (9-20) 02/18/25 10:
Creatinine 1.7 mg/dL (0.7-1.3) H 02/18/25 10:29
Calcium 8.9 mg/dl (8.4-10.2) 02/18/25 10:29
Total Bilirubin 4.0 mg/dl (0.2-1.3) H 02/18/25 10:29
AST 672 U/L (17-59) H* 02/18/25 10:29
ALT 180 U/L (0-50) H 02/18/25 10:29
Alkaline Phosphatase 311 U/L (38-126) H 02/18/25 10:29
Diagnostic Image Results:
US Abd 02/18/25:
IMPRESSION:
Normal appearance of the gallbladder with no evidence for biliary ductal dilation. Negative sonographic Littlejohn's sign.
Splenomegaly, with maximum dimension of 15.1 cm.
US with doppler 01/11/25:
IMPRESSION:
1. Liver is of normal size, without focal hepatic abnormality.
2. Normal spectral Doppler waveform analysis of the hepatic vasculature.
3. Spleen is of top normal size.
Prior GI Procedures:
EGD 01/11/25 ([facility]) Grade 1-II esophageal varices.
- Portal hypertensive gastropathy.
- Normal examined duodenum.
- No specimens collected.
EGD: 01/10/25 ([facility]) Small (< 5 mm) esophageal varices with questionable
red shane.
- Significant food (residue) in the stomach - unable
to clear.
- Hematin (altered blood/ufxgpj-vqhzuo-jctt material)
in the entire stomach.
- Normal examined duodenum.
- No specimens collected.
EGD: Per patient 10 years ago 'normal'. Records unavailable to us.
Colonoscopy: Per patient 10 years ago 'polyps'. Dr. Enriquez. Was told needed repeat in 5 years patient states he is overdue. Records unavailable to us
Assessment / Plan
-
69-year-old male with past medical history of diabetes, hypertension, hyperlipidemia, alcohol abuse, sleep apnea self-reported osteoarthritis who stopped his '2 blood pressure meds and 2 diabetic meds' approximately 1 month ago because he did not
like the way he felt on them. Started having numbness and tingling in his legs. Who we saw 01/11/25 for upper GI bleed secondary portal HTN and was also found to have grade I-II varices. He was started on Nadolol, completed 7 day course of Abx and
DC to home. He resumed his home meds. He followed up with his PCP, Hematology due to have IV iron and has appt with Dr. Bob (Hepatology at [facility]) next Friday. Resumed drinking ETOH (had gallon of vodka between DC and 2 week ago) who
presents to ER with weakness and heaviness feeling in his legs. Asked to evaluated for elevated LFTs. Patient without any GI complaints other then decreased appetite. Has electrolyte derangement. Has be drinking over 1 gallon of water a day in
addition to iced tea with poor po intake. Patient and states that he will not get up.
Impression:
Worsening LFTs-> Maddrey DF 29.3 (no need for steroids)
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 Bob next week)
Recent UGIB 01/11/25 -> Portal Gastropathy with non bleeding grade 1-2 Varices
ETOH abuse
Anemia
Electrolyte derangement-> per IM
Plan:
-Nadolol
-PPI
-F/U Dr. Bob next week
-LFTs, BMP CBC, INR in am
-
-
Thank you for consultation and allowing me to participate in the patient's care. Please call the continuous mining operator GI physician during the after hours with any questions or concerns.
[2025-02-18 14:52] LABS: Folate > 20.0 ng/ml (2.76-20); Vitamin B12 > 1000 pg/ml (239-931)
[2025-02-18 16:54] LABS: Glucose - Point of Care 140 mg/dl (70-99)
[2025-02-18] MEDS: NOVOLOG FLEXPEN-MODERATE RESISTANCE SC (18:06)
[2025-02-18] MEDS: LANTUS 0.1 UNITS SC (18:14)
[2025-02-18] MEDS: KCL 40 MEQ PO ×2 (18:15→21:08)
[2025-02-18] MEDS: NORVASC 5 MG PO (18:20)
[2025-02-18 20:23] LABS: Potassium 2.9 mmol/L (3.5-5.1)
[2025-02-18] MEDS: VITAMIN B1 100 MG PO (20:34)
[2025-02-18] MEDS: PROTONIX 40 MG PO (20:34)
[2025-02-18 20:56] LABS: Glucose - Point of Care 176 mg/dl (70-99)
[2025-02-18] MEDS: CORGARD 20 MG PO (21:08)
[2025-02-19] VITALS (16 sets, daily range): BP systolic 87–133; BP diastolic 44–72; PULSE 72–75; BMI 29.2
[2025-02-19] MEDS: NSS 1000 IV ×3 (02:00→20:29)
[2025-02-19 02:44] LABS: Potassium 3.6 mmol/L (3.5-5.1)
--- NOTE | 2025-02-19 07:24 | W.PN.HOSP.TC ---
Today's Communication/Plan
-
see a/p
Assessment / Plan
Assessment / Plan
Physical Exam
General: Comfortable and Conversant
HEENT: Moist mucous membranes, Sclera icteric, normocephalic atraumatic
Respiratory: Clear and Non Labored Respirations
Cardiac: S1/S2 and Regular Rhythm
GI: Soft and Mild tenderness throughout bowel sounds present
Musculoskeletal: No Clubbing, No Cyanosis and No Edema
Skin: Warm, Dry and Jaundice
Neuro: AOx3 conversant coherent, unable to lift legs off bed, strength 4/5 upper ext's b/l
Psych: Calm
69M ETOH Esophageal Varices Grade 1-2 (Abd US however neg for cirrhosis x2) HTN DM hx GIB portal HTN here for evaluation rapidly progressive ascending weakness with associate severe Rhabdomyolysis ELIGIO and Liver Injury
Rapidly Progressive ascending weakness unclear etiology
-Transferred to ICU for closer monitoring respiratory status, so far VSS on room air
-Neuro eval appreciated pending brain mri w/o contrast, prednisone 60 mg daily started 02/19
-Accountant Bookkeeper eval appreciated
-PT/OT
-IV thiamine supplementation
Rhabdomyolysis
Acute Kidney Injury, possibly related to volume depletion due to poor oral intake vs Severe Rhabdomyolysis
Liver Injury likely 2/2 Rhabdomyolysis, possible ETOH injury as well though patient reports last drink was 2-3 wks ago
-Consult GI
-Abd US noted noted normal appearance GB Liver, splenomegaly 15.1 cm noted
-Continue IVFs rate increased to 150 cc/h
-Hold Jardiance
-Recheck labs in AM
Reports Severe Constipation
-Obstructions series X-ray noted no obstruction, small volume scattered colonic stool
-once Fleet enema per patient's request
-Gas-X prn
Hypokalemia
-Replace potassium
-Check magnesium level
Alcohol Use Disorder
-Patient reports last drink 2-3 weeks ago
-Continue thiamine and folic acid
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
-Continue Protonix BID
-As per GI, Nadolol dc and Coreg continued (dose reduced d/t low pressures)
Anemia
suspect ETOH induced
trend Hgb
Iron studies, B12, Folate appreciated non-deficient
Thrombocytopenia
suspect ETOH induced
trend Plt, no need for transfusion at this time
Diabetes Mellitus, Type II
-Continue Lantus
-Hold oral diabetic meds
-Monitor sugars and continue coverage insulin
Essential Hypertension
-Relative low/normotensive pressures noted
-Coreg dose reduced w/ holding parameters
-holding Amlodipine for now
DVT proph: SCDs
Code Status: Full Code
Total Critical Care Time__50___ minutes. I was immediately available to the patient and staff. I personally examined, reviewed labs, diagnostic images/reports, interpretations, treatment plans, discussed patient care with other providers, patient
and his family ( Es, daughter Debbie, [id number] Kirstie), entered orders as appropriate and documented the medical record.
Anticipated Discharge: > 48 hours
Subjective/Interval History
-
Date of Service: February 19, 2025
No acute distress, appears relatively comfortable, reports progressive weakness generalized pain unable to stand. Patient was able to ambulate day prior.
Objective Data
-
Labs:
Laboratory Results
02/18/25 02/19/25 02/19/25
19:56 02:16 07:15
WBC Pending
Hgb Pending
Hct Pending
Plt Count Pending
PT Pending
INR Pending
Sodium Pending
Potassium 2.9 L 3.6 Pending
Chloride Pending
Carbon Dioxide Pending
BUN Pending
Creatinine Pending
Glucose Pending
Calcium Pending
Total Bilirubin Pending
AST Pending
ALT Pending
Alkaline Phosphatase Pending
Vital Signs:
Vital Signs
Temp Pulse Resp BP Pulse Ox
99.0 F 76 20 105/55 94
02/19/25 03:00 02/19/25 03:00 02/19/25 03:00 02/19/25 03:00 02/19/25 03:00
I&O
02/18/25 02/19/25 02/20/25
06:59 06:59 06:59
Intake Total 1320 / 1320
Output Total 340 / 340
Balance 980 / 980
[2025-02-19 07:47] LABS: Glucose - Point of Care 136 mg/dl (70-99)
[2025-02-19 08:32] LABS: Hematocrit 27.1 % (39.0-52.0); Hemoglobin 8.5 g/dL (13.0-18.0); INR 1.75; Mean Corp Hgb Conc. 31.4 g/dL (33.0-37.0); Mean Corpuscular Volume 66.9 fL (80.0-94.0); PT 20.7 Sec (11.4-14.6); Platelet Count 76 10^3/uL (130-400); Red Cell Dist. Width 19.1 % (11.5-14.5)
[2025-02-19] MEDS: NOVOLOG FLEXPEN-MODERATE RESISTANCE SC ×2 (08:33→16:43)
[2025-02-19] MEDS: PROTONIX 40 MG PO ×2 (08:35→20:33)
[2025-02-19] MEDS: VITAMIN B1 100 MG PO (08:35)
[2025-02-19] MEDS: FOLVITE 1 MG PO (08:35)
[2025-02-19 09:10] LABS: ALT (SGPT) 181 U/L (0-50); AST (SGOT) 671 U/L (17-59); Albumin 2.9 g/dl (3.5-5.0); Alkaline Phosphatase 271 U/L (38-126); Blood Urea Nitrogen 18 mg/dl (9-20); Calcium 8.5 mg/dl (8.4-10.2); Carbon Dioxide 20 mmol/L (22-30); Chloride 105 mmol/L (98-107); Estimated Creatinine Clearance 46 ml/min; Glucose 117 mg/dl (70-99); Magnesium 2.3 mg/dl (1.6-2.3); Potassium 3.6 mmol/L (3.5-5.1); Sodium 131 mmol/L (135-145); Total Protein 6.4 g/dl (6.3-8.2); eGFR 43.37
[2025-02-19] MEDS: ULTRAM 25 MG PO (12:22)
[2025-02-19 12:32] LABS: Glucose - Point of Care 178 mg/dl (70-99)
[2025-02-19] MEDS: NOVOLOG FLEXPEN-MODERATE RESISTANCE 1 UNITS SC (12:43)
--- NOTE | 2025-02-19 13:09 | W.PN.GI.CBS2 ---
Today's Communication / Plan
-
Abdominal x-ray
continue further care as per medical team
Assessment / Plan
-
69-year-old male with past medical history of diabetes, hypertension, hyperlipidemia, alcohol abuse, sleep apnea self-reported osteoarthritis who stopped his '2 blood pressure meds and 2 diabetic meds' approximately 1 month ago because he did not
like the way he felt on them. Started having numbness and tingling in his legs. Who we saw 01/11/25 for upper GI bleed secondary portal HTN and was also found to have grade I-II varices. He was started on Nadolol, completed 7 day course of Abx and
DC to home. He resumed his home meds. He followed up with his PCP, Hematology due to have IV iron and has appt with Dr. Bob (Hepatology at [facility]) next Friday. Resumed drinking ETOH (had gallon of vodka between DC and 2 week ago) who
presents to ER with weakness and heaviness feeling in his legs. Asked to evaluated for elevated LFTs. Patient without any GI complaints other then decreased appetite. Has electrolyte derangement. Has be drinking over 1 gallon of water a day in
addition to iced tea with poor po intake. Patient and states that he will not get up.
-- Generalized muscular weakness. Elevated CK suggestive of rhabdomyolysis
-- History of alcohol abuse. Last drink 2 weeks ago as per patient
-- Recent admission with upper GI bleeding secondary to portal hypertension. Although noted to have grade 1-2 varices and EGD ultrasound abdomen was normal . Patient noted to have thrombocytopenia/ coagulopathy / elevated LFT. . Hepatology
appointment with Dr. Bob next week
- Elevated LFT . DF<32 . No role for steroids
- Constipation
plan
Management of rhabdomyolysis as per medical team
Further evaluation of generalized weakness -neurology evaluation at the discretion of medical team
Correct electrolytes
IV hydration
Patient was taking both nadolol/Coreg. Will advise to DC nadolol
Trend LFT/INR
Advised to keep the appointment with pharmacy technologist. Patient requires MR elastography or FibroScan to rule out cirrhosis
Advised on alcohol abstinence
Will order abdominal x-ray to check for stool burden. If stool burden present will recommend starting on MiraLAX /Metamucil daily
Case discussed with hospitalist
Total Time Spent with Patient (in minutes): 35
Subjective
Subjective
Date of Service: February 19, 2025
Patient continues to complain of generalized weakness. He also complains of no BMs for a week. No abdominal pain/nausea/vomiting
Objective
Data Reviewed
Laboratory Data:
Laboratory Results
02/19/25 07:15
02/19/25 07:15
Laboratory Results
PT 20.7 Sec (11.4-14.6) H 02/19/25 07:15
INR 1.75 02/19/25 07:15
APTT 46.3 Sec (23.4-35.0) H 02/18/25 10:29
Magnesium 2.3 mg/dl (1.6-2.3) 02/19/25 07:15
Total Bilirubin 3.6 mg/dl (0.2-1.3) H 02/19/25 07:15
AST 671 U/L (17-59) H* 02/19/25 07:15
ALT 181 U/L (0-50) H 02/19/25 07:15
Alkaline Phosphatase 271 U/L (38-126) H 02/19/25 07:15
Vital Signs and I&O:
Vital Signs
Temp Pulse Resp BP Pulse Ox
98.1 F 75 16 109/54 99
02/19/25 11:00 02/19/25 11:00 02/19/25 11:00 02/19/25 11:00 02/19/25 11:00
I&O
02/18/25 02/19/25 02/20/25
06:59 06:59 06:59
Intake Total 1320 / 1320
Output Total 340 / 340
Balance 980 / 980
Physical Exam
Physical Exam
GI: Soft, Non Distended and Non Tender
--- NOTE | 2025-02-19 13:21 | CON.NEURO ---
Consultation
Order
Date of Consultation: 02/19/25
Requesting Provider: Roger Mccord MD
Reason for Consult: Weakness
Neurology Consultation Note.
HPI: This is a 69-year-old man who presented to [facility] on 02/18/2025 with subacute progressive weakness and myalgias.
According to the patient he has had progressive painful lower greater than upper extremity weakness over the last several weeks. No reports of dysphagia, dysarthria or diplopia, sensory symptoms in the feet or hands or recent vaccinations or insect
bites.
He was admitted to the ICU from January 10 to January 12, 2025, with GI bleed.
ER VS: 101/53, 69, afebrile
PDMP:none
Labs: Hemoglobin�8.5, platelets�76, glucose�178, sodium�131, creatinine�1.7, total bili�3.6, direct bili�1.9, UA�positive for glucose and ketones, neg for myoglobin, urine tox�negative, CK�4653�6325, AST�672, ALT�181,
Hemoglobin A1c (01/10/2025) 9.2
PMH: Alcohol use disorder, hepatic cirrhosis, HTN, DM, DLP, JANES, microcytic anemia
PSH: Hernia repair, LASIK
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
FH: Brother and father from gastric cancer
All:NKDA
ROS: General: Positive for generalized weakness, feeling heavy.
HEENT: Positive for slurred speech, drooling. Negative for double vision, droopy eyelids.
Gastrointestinal: Positive for constipation.
Genitourinary: Negative for urinary incontinence.
Musculoskeletal: Positive for generalized pain, difficulty moving.
Neurological: Positive for generalized weakness and myalgias. Negative for tingling or numbness in feet or hands.
General: Icteric, in no acute distress.
Cardio: Regular rate and rhythm. Extremities are without cyanosis or edema.
Neuro:
Mental Status: Alert, oriented to person, place, and date. Normal attention and recall. Good fund of knowledge. Follows complex requests across the midline. Comprehension, naming, and repetition intact.
Cranial Nerves: Pupils are equally round and reactive to light. EOMs full. Visual tomlin full to confrontation. No ptosis. No nystagmus. Face symmetric. Normal hearing AU. The palate elevated well. SCMs and traps 5/5. Tongue midline. No
dysarthria.
Motor: lower paraplegia, proximal greater than distal upper paraparesis
Reflexes: 0 throughout.
Sensory: Absent vibration at the toes and ankles and preserved at the knees. Preserved proprioception at the toes
Coordination: No tremors myoclonic movement
Gait: deferred
Assessment and Plan:
I. Subacute myopathy (toxic versus inflammatory versus necrotizing), less likely motor polyneuropathy.
II. HyperCK emia
III. Mild hyponatremia
IV. Chronic thrombocytopenia
-ICU transfer
-Neurocheck every 2-3 hours
-Please check postvoid residual and obtain EKG
-Please check ESR, CRP, TFTs, ammonia, LDH, GGT, aldolase, SPEP/IF, vit B12.
-Brain MRI without eugene
-Continue thiamine IV
-NCS/EMG of RUE/LE
-Avoid myotoxins (alcohol, statins)
-DVT prophylaxys
I personally reviewed all radiology and labs along with past medical records pertinent to current medical problems. Total time spent in patient care is 60 minutes.
Thank you for allowing us to participate in the care of this patient. We will continue to follow. Please do not hesitate to contact us with any questions or concerns.
Subjective/Objective
Subjective Data
Date of Service: February 19, 2025
Objective Data
Vital Signs
Temp Pulse Resp BP Pulse Ox
36.7 C 75 16 109/54 99
02/19/25 11:00 02/19/25 11:00 02/19/25 11:00 02/19/25 11:00 02/19/25 11:00
Lab Results
02/19/25 07:15
02/19/25 07:15
PT 20.7 Sec (11.4-14.6) H 02/19/25 07:15
INR 1.75 02/19/25 07:15
APTT 46.3 Sec (23.4-35.0) H 02/18/25 10:29
Sodium 131 mmol/L (135-145) L 02/19/25 07:15
Potassium 3.6 mmol/L (3.5-5.1) 02/19/25 07:15
BUN 18 mg/dl (9-20) 02/19/25 07:15
Glucose 117 mg/dl (70-99) H 02/19/25 07:15
Calcium 8.5 mg/dl (8.4-10.2) 02/19/25 07:15
Phosphorus 2.7 mg/dl (2.5-4.5) 02/19/25 02:16
Vitamin B12 > 1000 pg/ml (239-931) H 02/18/25 10:29
Patient Allergies
No Known Allergies Allergy (Verified 02/18/25 09:52)
Medications
-
Active Medications
Generic Name Dose Route Start Last Admin
Trade Name Freq PRN Reason Stop Dose Admin
Amlodipine Besylate 5 mg 02/18/25 18:00 02/18/25 18:20
Amlodipine 5 Mg Tablet PO 03/18/25 17:59 5 mg
QPM KALLIE Administration
Dextrose 12.5 grams 02/18/25 16:22
Dextrose 50% (0.5 Grams/Ml) 50 Ml Syringe IV 03/18/25 16:21
[id number] PRN
hypoglycemia
Protocol
Folic Acid 1 mg 02/19/25 08:00 02/19/25 08:35
Folic Acid 1 Mg Tablet PO 03/19/25 07:59 1 mg
DAILY KALLIE Administration
Glucagon 1 mg 02/18/25 16:22
Glucagon 1 Mg Vial IM 03/18/25 16:21
PRN PRN
hypoglycemia
Protocol
Hydromorphone HCl 0.25 mg 02/19/25 12:07
Hydromorphone 0.25 Mg/0.5 Ml Syringe IV 03/05/25 12:06
Q4HPRN PRN
severe breakthrough pain
Sodium Chloride 1,000 mls @ 150 mls/hr 02/18/25 13:15 02/19/25 12:22
Nss IV 1,000 mls
.Q6H40M KALLIE Administration
Insulin Glargine 10 units/ 0.1 mls @ 0 mls/hr 02/18/25 18:00 02/18/25 18:14
Device SC 03/18/25 17:59 0.1 mls
QPM KALLIE Administration
As Directed
Insulin Aspart 0 units 02/18/25 16:30 02/19/25 12:43
Insulin Aspart Moderate Resistance 300 Units/3 Ml Pen.Injctr SC 03/18/25 16:29 1 units
AC KALLIE Administration
Protocol
Nadolol 20 mg 02/18/25 22:00 02/18/25 21:08
Nadolol 20 Mg Tablet PO 03/18/25 21:59 20 mg
HS KALLIE Administration
Ondansetron HCl 4 mg 02/18/25 16:22
Ondansetron 4 Mg/2 Ml Vial IV 03/18/25 16:21
Q6HPRN PRN
NAUSEA/VOMITING
Pantoprazole Sodium 40 mg 02/18/25 20:00 02/19/25 08:35
Pantoprazole 40 Mg Delayed Release Tablet PO 03/18/25 19:59 40 mg
BID KALLIE Administration
Sodium Chloride 0 flush 02/18/25 18:00
Sodium Chloride 0.9% (Flush) Syringe IV 03/18/25 17:59
PER PROTOCOL KALLIE
Thiamine HCl 100 mg 02/18/25 20:00 02/19/25 08:35
Thiamine 100 Mg Tablet PO 03/18/25 19:59 100 mg
BID KALLIE Administration
Tramadol HCl 25 mg 02/19/25 12:07 02/19/25 12:22
Tramadol Hcl 50 Mg Tablet PO 03/19/25 12:06 25 mg
Q6HPRN PRN Administration
moderate severe pain
Home Medications
�Medication �Instructions �Recorded
clobetasol 0.05 % topical cream 1 applic topical BID 01/10/25
scalp,knees,face,elbows
folic acid 1 mg tablet 1 mg PO DAILY #30 tabs 01/12/25
insulin glargine 100 unit/mL (3 15 unit (0.15 mL) SC QPM #15 mL 01/12/25
mL) subcutaneous pen (Lantus
Solostar U-100 Insulin)
nadolol 20 mg tablet 20 mg PO HS 30 days #30 tabs 01/12/25
pantoprazole 40 mg tablet,delayed 40 mg PO BID 30 days #60 tabs 01/12/25
release
thiamine mononitrate (vit B1) 100 100 mg PO BID #60 tabs 01/12/25
mg tablet
amlodipine 5 mg tablet (Norvasc) 5 mg PO QPM Blood Pressure 02/18/25
carvedilol 6.25 mg tablet (Coreg) 6.25 mg PO BID Blood Pressure 02/18/25
empagliflozin 25 mg tablet 25 mg PO DAILY Diabetes 02/18/25
(Jardiance)
rosuvastatin 10 mg tablet (Crestor) 10 mg PO QPM High Cholesterol 02/18/25
semaglutide 3 mg tablet (Rybelsus) 3 mg PO QPM Diabetes 02/18/25
Vital Signs and Labs
-
Vital Signs and Labs:
Vital Signs
Temp Pulse Resp BP Pulse Ox
36.7 C 75 16 109/54 99
02/19/25 11:00 02/19/25 11:00 02/19/25 11:00 02/19/25 11:00 02/19/25 11:00
Lab Results
02/19/25 07:15
02/19/25 07:15
PT 20.7 Sec (11.4-14.6) H 02/19/25 07:15
INR 1.75 02/19/25 07:15
APTT 46.3 Sec (23.4-35.0) H 02/18/25 10:29
Sodium 131 mmol/L (135-145) L 02/19/25 07:15
Potassium 3.6 mmol/L (3.5-5.1) 02/19/25 07:15
BUN 18 mg/dl (9-20) 02/19/25 07:15
Glucose 117 mg/dl (70-99) H 02/19/25 07:15
Calcium 8.5 mg/dl (8.4-10.2) 02/19/25 07:15
Phosphorus 2.7 mg/dl (2.5-4.5) 02/19/25 02:16
Vitamin B12 > 1000 pg/ml (239-931) H 02/18/25 10:29
Medications
-
Medications:
Generic Name Dose Route Start Last Admin
Trade Name Freq PRN Reason Stop Dose Admin
Amlodipine Besylate 5 mg 02/18/25 18:00 02/18/25 18:20
Amlodipine 5 Mg Tablet PO 03/18/25 17:59 5 mg
QPM KALLIE Administration
Dextrose 12.5 grams 02/18/25 16:22
Dextrose 50% (0.5 Grams/Ml) 50 Ml Syringe IV 03/18/25 16:21
[id number] PRN
hypoglycemia
Protocol
Folic Acid 1 mg 02/19/25 08:00 02/19/25 08:35
Folic Acid 1 Mg Tablet PO 03/19/25 07:59 1 mg
DAILY KALLIE Administration
Glucagon 1 mg 02/18/25 16:22
Glucagon 1 Mg Vial IM 03/18/25 16:21
PRN PRN
hypoglycemia
Protocol
Hydromorphone HCl 0.25 mg 02/19/25 12:07
Hydromorphone 0.25 Mg/0.5 Ml Syringe IV 03/05/25 12:06
Q4HPRN PRN
severe breakthrough pain
Sodium Chloride 1,000 mls @ 150 mls/hr 02/18/25 13:15 02/19/25 12:22
Nss IV 1,000 mls
.Q6H40M KALLIE Administration
Insulin Glargine 10 units/ 0.1 mls @ 0 mls/hr 02/18/25 18:00 02/18/25 18:14
Device SC 03/18/25 17:59 0.1 mls
QPM KALLIE Administration
As Directed
Insulin Aspart 0 units 02/18/25 16:30 02/19/25 12:43
Insulin Aspart Moderate Resistance 300 Units/3 Ml Pen.Injctr SC 03/18/25 16:29 1 units
AC KALLIE Administration
Protocol
Nadolol 20 mg 02/18/25 22:00 02/18/25 21:08
Nadolol 20 Mg Tablet PO 03/18/25 21:59 20 mg
HS KALLIE Administration
Ondansetron HCl 4 mg 02/18/25 16:22
Ondansetron 4 Mg/2 Ml Vial IV 03/18/25 16:21
Q6HPRN PRN
NAUSEA/VOMITING
Pantoprazole Sodium 40 mg 02/18/25 20:00 02/19/25 08:35
Pantoprazole 40 Mg Delayed Release Tablet PO 03/18/25 19:59 40 mg
BID KALLIE Administration
Sodium Chloride 0 flush 02/18/25 18:00
Sodium Chloride 0.9% (Flush) Syringe IV 03/18/25 17:59
PER PROTOCOL KALLIE
Thiamine HCl 100 mg 02/18/25 20:00 02/19/25 08:35
Thiamine 100 Mg Tablet PO 03/18/25 19:59 100 mg
BID KALLIE Administration
Tramadol HCl 25 mg 02/19/25 12:07 02/19/25 12:22
Tramadol Hcl 50 Mg Tablet PO 03/19/25 12:06 25 mg
Q6HPRN PRN Administration
moderate severe pain
Home Medications
-
Home Medications
clobetasol 0.05 % topical cream 1 applic topical BID scalp,knees,face,elbows 01/10/25
folic acid 1 mg tablet 1 mg PO DAILY #30 tabs 01/12/25
insulin glargine 100 unit/mL (3 mL) subcutaneous pen (Lantus Solostar U-100 Insulin) 15 unit (0.15 mL) SC QPM #15 mL 01/12/25
nadolol 20 mg tablet 20 mg PO HS 30 days #30 tabs 01/12/25
pantoprazole 40 mg tablet,delayed release 40 mg PO BID 30 days #60 tabs 01/12/25
thiamine mononitrate (vit B1) 100 mg tablet 100 mg PO BID #60 tabs 01/12/25
amlodipine 5 mg tablet (Norvasc) 5 mg PO QPM Blood Pressure 02/18/25
carvedilol 6.25 mg tablet (Coreg) 6.25 mg PO BID Blood Pressure 02/18/25
empagliflozin 25 mg tablet (Jardiance) 25 mg PO DAILY Diabetes 02/18/25
rosuvastatin 10 mg tablet (Crestor) 10 mg PO QPM High Cholesterol 02/18/25
semaglutide 3 mg tablet (Rybelsus) 3 mg PO QPM Diabetes 02/18/25
--- NOTE | 2025-02-19 14:06 | PTCARENOTE ---
Hospitalist in to speak with at length , did verbalize understanding. Daughter in law in and requested to speak with hospitalist. Hospitalist in to see and reviewed treatments with her also at length. Daughter in law expressed her
gratitiude and stated that she 'now understood what was going on'. A few minutes later , dtr in law out to nurses station asking to speak with hospitalist again. stated she felt patient 'he is not getting better fast enough ' Was requesting a
'liver specialist' and asking 'what is the process to transfer someone' Dr Mccord made aware and is coming back to speak with family .
[2025-02-19] MEDS: FLEET MINERAL OIL ENEMA 133 ML RECTAL (14:40)
--- NOTE | 2025-02-19 14:45 | W.PN.UPDATE ---
Update Note
Progress Note Update
Evaluated with neurologist, concern regarding rapid progression of weakness, patient no longer able to walk in 24 hours.
-Recommended for transfer to ICU closer monitoring respiratory status, concern possible need for intubation if symptoms further progress.
-Otherwise VSS at this time on room air.
-cont tx IVF rhabdomyolysis, suspect liver injury and ELIGIO 2/2 rhabdo,
discussed with patient, patient's Es, patient's daughter Debbie, patient's Wpvvuw-pj-sma GONZALEZ Thacker, neurologist, Sludge Filtration Attendant
[2025-02-19 14:57] LABS: C-Reactive Protein 29.30 mg/L (0.0-10.00)
[2025-02-19 15:10] LABS: LDH 576 U/L (120-246)
[2025-02-19 15:46] LABS: Vitamin B12 > 1000 pg/ml (239-931)
[2025-02-19 16:17] LABS: Ammonia 11 umol/L (9-30)
[2025-02-19 16:20] LABS: Blood Urea Nitrogen 19 mg/dl (9-20); Calcium 8.4 mg/dl (8.4-10.2); Carbon Dioxide 21 mmol/L (22-30); Chloride 104 mmol/L (98-107); Estimated Creatinine Clearance 52 ml/min; GGTP 579 U/L (15-73); Glucose 131 mg/dl (70-99); Magnesium 2.2 mg/dl (1.6-2.3); Potassium 3.8 mmol/L (3.5-5.1); Sodium 128 mmol/L (135-145); Uric Acid 1.8 mg/dl (3.5-8.5); eGFR 50.40
[2025-02-19 16:32] LABS: Venous Blood Gas B.E. -5.6 mmol/L (-4 to +4); Venous Blood Gas O2 Sat % 97.8 %
--- NOTE | 2025-02-19 16:49 | PTCARENOTE ---
Rec'd pt at approx 1600. Pt AAOx3, follows commands, CARTWRIGHT with gen weakness. Legs weaker then arms. Monitor SR. Lungs CTA, pox 98% RA. +BS, abd soft/nt. Family at bedside. Labs drawn and sent. Pt eating dinner at this time.
[2025-02-19 16:52] LABS: Glucose - Point of Care 116 mg/dl (70-99)
[2025-02-19] MEDS: THIAMINE INJECTION 255 MG IV (17:21)
[2025-02-19] MEDS: LANTUS 0.1 UNITS SC (18:13)
[2025-02-19] MEDS: DELTASONE 60 MG PO (18:15)
[2025-02-19] MEDS: COREG 3.125 MG PO (20:33)
--- NOTE | 2025-02-19 21:11 | PTCARENOTE ---
Pt AOx3, VSS, NSR on monitor, c/o pain in lower extremities, but is comfortable at the moment. IVF infusing per order. is at bedside, encouraged to go home and rest, but she refused to leave. Plan for MRI in morning.
[2025-02-19 23:25] LABS: Glucose - Point of Care 156 mg/dl (70-99)
[2025-02-20] VITALS (23 sets, daily range): BP systolic 119–144; BP diastolic 65–82; PULSE 73–75; O2SAT 97; BMI 30.3
[2025-02-20] MEDS: THIAMINE INJECTION 255 MG IV ×4 (00:27→23:13)
[2025-02-20] MEDS: NSS 1000 IV ×4 (02:35→22:39)
[2025-02-20 03:26] LABS: Hematocrit 24.4 % (39.0-52.0); Hemoglobin 8.0 g/dL (13.0-18.0); Mean Corp Hgb Conc. 32.8 g/dL (33.0-37.0); Mean Corpuscular Volume 66.1 fL (80.0-94.0); Platelet Count 60 10^3/uL (130-400); Red Cell Dist. Width 18.9 % (11.5-14.5)
[2025-02-20 03:40] LABS: INR 1.73; PT 20.4 Sec (11.4-14.6)
[2025-02-20] MEDS: ULTRAM 25 MG PO ×2 (06:17→20:03)
--- NOTE | 2025-02-20 07:00 | CON.INTV ---
Addendum entered and electronically signed by Geoffrey Lechuga MD 02/20/25 10:41:
Patient transferring to IMU
Franchise Sales Representative service will sign off, please call as needed
Original Note:
Consultation
Consultation Request
Date/Time Consultation Requested: 02/19/2025
Date/Time Consultation Performed: 02/20/2025
Medical History
-
Chief Complaint: Weakness
History of Present Illness:
Patient is a 61-year-old gentleman who presented to the [facility] 2 days ago with worsening weakness over the last 2 weeks and myalgias. Patient reported primarily painful lower extremity weakness since last month. Patient denies any
recent falls, no difficulty swallowing, talking etc. Does not report any symptoms of numbness. Denies any recent flulike symptoms or diarrheal episodes, travel tick bites or recent immunization. Patient reports 1 night he took some Linzess which
led to self-limiting diarrhea over a few hours which subsequently resolved. Patient was admitted to the hospital about a month ago for GI bleed. Patient was being worked up on the floor and reportedly was felt to have worsening weakness.
Neurology service recommended that patient be transferred to ICU for concern of respiratory muscle weakness and close monitoring. Franchise Sales Representative consultation was requested for the same. On arrival in the ICU, patient appeared to have a strong cough.
Workup also included elevated CK level consistent with rhabdomyolysis as well as acute kidney injury.
Patient has longstanding history of alcoholism and was admitted in January 2025 for upper GI bleed secondary to portal hypertension and noted to have grade 1-2 varices. Patient was treated with 7 days of antibiotics and was started on nadolol and was
discharged home. He is inconsistent about resumption of drinking since last discharge.
Past Medical History
Past Medical History: Reports Other
Additional Past Medical History:
Alcohol Use Disorder
Alcoholic Cirrhosis
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
Pancytopenia
Diabetes Mellitus, Type II
Essential Hypertension
Hyperlipidemia
Past Surgical History: Reports Orthopedic and Other (Hernia Repair)
Social History
Tobacco: Non-smoker
Alcohol: Other (Patient previously drink about 1.75L of vodka a week. Notes last drink about 2-3 weeks ago)
Family History
Family History: Not pertinent
Allergies / Home Medications
Allergies / Home Medications
Allergies
Allergy/AdvReac Type Severity Reaction Status Date / Time
No Known Allergies Allergy Verified 02/18/25 09:52
Home Medications
�Medication �Instructions �Recorded �Confirmed �Last Taken �Type
clobetasol 0.05 % topical cream 1 applic topical BID 01/10/25 02/18/25 Unknown History
scalp,knees,face,elbows
folic acid 1 mg tablet 1 mg PO DAILY #30 tabs 01/12/25 02/18/25 02/18/25 Rx
insulin glargine 100 unit/mL (3 15 unit (0.15 mL) SC QPM #15 mL 01/12/25 02/18/25 Unknown Rx
mL) subcutaneous pen (Lantus
Solostar U-100 Insulin)
nadolol 20 mg tablet 20 mg PO HS 30 days #30 tabs 01/12/25 02/18/25 Unknown Rx
pantoprazole 40 mg tablet,delayed 40 mg PO BID 30 days #60 tabs 01/12/25 02/18/25 02/18/25 Rx
release
thiamine mononitrate (vit B1) 100 100 mg PO BID #60 tabs 01/12/25 02/18/25 02/18/25 Rx
mg tablet
amlodipine 5 mg tablet (Norvasc) 5 mg PO QPM Blood Pressure 02/18/25 02/18/25 02/17/25 History
carvedilol 6.25 mg tablet (Coreg) 6.25 mg PO BID Blood Pressure 02/18/25 02/18/25 02/18/25 History
empagliflozin 25 mg tablet 25 mg PO DAILY Diabetes 02/18/25 02/18/25 02/18/25 History
(Jardiance)
rosuvastatin 10 mg tablet (Crestor) 10 mg PO QPM High Cholesterol 02/18/25 02/18/25 02/17/25 History
semaglutide 3 mg tablet (Rybelsus) 3 mg PO QPM Diabetes 02/18/25 02/18/25 02/17/25 History
Review of Systems
-
Hematologic/Lymphatic: Other (All 14 systems reviewed and negative except as stated above in the history of present illness.)
Vitals / Labs / Diagnostic Testing
Vital Signs
Temp Pulse Resp BP Pulse Ox
98.0 F 75 16 109/54 98
02/19/25 15:46 02/19/25 11:00 02/19/25 11:00 02/19/25 11:00 02/19/25 15:46
Laboratory Results
02/19/25
07:15
PT 20.7 H
INR 1.75
Diagnostic Testing:
Physical Exam
-
HEENT: Normocephalic
Cardiovascular: S1/S2
Respiratory: Clear and Non-Labored Respirations
GI: Soft and Non Distended
Neurology: Awake, Alert, Oriented and Other (Lower extremity motor function about 1 out of 5. Upper extremity motor function 4 out of 5 bilaterally. No cranial nerve deficit noted. Strong cough. Denies any paresthesias.)
Skin: Warm
General: Comfortable
Assessment
-
#1. Worsening weakness, predominantly lower extremities with mild upper extremity involvement.
- No cranial nerve involvement. Discussed with neurologist regarding imaging of the spine. Current recommendation is to await blood work and working diagnosis is felt to be myopathy with elevated CK levels. Patient initiated on prednisone per
neurology service
- Patient has strong cough, sniff testing showed -58 pressure which is very reassuring. VBG was performed which did not suggest any sign of hypercapnia, 7.36/34. Currently patient does not appear to have any respiratory limitation. Will monitor
closely in the ICU and if continues to do well, can be transferred out of ICU.
- Switch thiamine to high-dose 500 mg IV every 8 hours
- There is at least some inconsistency in his exam finding when I distract the patient, particularly when family is not around.
#2. Portal hypertension with chronic alcoholism
- No obvious cirrhosis noted on ultrasound however patient has splenomegaly, portal hypertension with portal gastropathy and varices noted on EGD
- Patient was started on nadolol last admission
- GI service on case
- Currently on pantoprazole 40 mg p.o. twice daily, continue twice a day dosing particularly in the setting of concomitant prednisone therapy.
- Elevated AST/ALT could also be related to underlying rhabdomyolysis
- INR 1.73, albumin 2.9
#3. ELIGIO on admission with Rhabdomyolysis
- Significantly elevated CK noted along with ELIGIO on admission. Continue aggressive IVF
- Creatinine showing gradual improvement, 1.5 today from 1.7.
Other medical diagnoses:
- HTN
- DM, type II
- h/o JANES. Has not been using CPAP at home
Critical Care time 58 mins -- The patient is admitted for acute critical illness for the treatment of vital organ failure and/or prevention of further life-threatening conditions. Total care includes time spent in review of history, physical exam,
medications, hemodynamic/ventilator parameters, laboratory data, imaging and discussion with house staff, pharmacy, respiratory therapy, workforce advisor, and nursing.
Data:
US ABD 02/2025: Normal appearance of the gallbladder with no evidence for biliary ductal dilation. Negative sonographic Littlejohn's sign.
Splenomegaly, with maximum dimension of 15.1 cm.
CXR and KUB 02/2025: CHEST: Low lung volumes are noted. The heart is at least top normal in size. There is no focal parenchymal consolidation, pneumothorax, pleural effusion or mediastinal shift. No free air is seen in the upper abdomen.
ABDOMEN:: Only small volume scattered colonic stool is seen. Intestinal bowel gas pattern is nonobstructed, nonspecific. Osseous degenerative changes are seen in the lumbar spine and both hips. There is no free air.
EGD 01/2025: - Grade 1-II esophageal varices.
- Portal hypertensive gastropathy.
- Normal examined duodenum.
- No specimens collected.
--- NOTE | 2025-02-20 07:34 | PTCARENOTE ---
vital signs filed for previous shift from [id number].
[2025-02-20] MEDS: NOVOLOG FLEXPEN-MODERATE RESISTANCE SC (07:38)
[2025-02-20] MEDS: DELTASONE 60 MG PO (07:39)
[2025-02-20] MEDS: COREG 3.125 MG PO ×2 (07:39→20:03)
[2025-02-20] MEDS: FOLVITE 1 MG PO (07:39)
[2025-02-20] MEDS: PROTONIX 40 MG PO ×2 (07:39→20:03)
[2025-02-20 07:48] LABS: Glucose - Point of Care 149 mg/dl (70-99)
--- NOTE | 2025-02-20 08:17 | PTCARENOTE ---
Rec'd pt at 0700. Pt AAOx3, at bedside. Monitor SR. Lungs CTA, pox 98% RA. +BS, abd soft/nt. Vdg lizeth urine in urinal with assistance. Pt able to lift med cup and water to his mouth when given his am meds, but when asked to lift his arms/legs
from bed on command or with turning pt states that he can't move and is too weak. CHG bath completed and pt repositioned, needs much encouragement to help reposition/move in bed.
[2025-02-20 08:21] LABS: ALT (SGPT) 175 U/L (0-50); AST (SGOT) 616 U/L (17-59); Albumin 2.8 g/dl (3.5-5.0); Alkaline Phosphatase 239 U/L (38-126); Blood Urea Nitrogen 22 mg/dl (9-20); Calcium 8.2 mg/dl (8.4-10.2); Carbon Dioxide 17 mmol/L (22-30); Chloride 107 mmol/L (98-107); Estimated Creatinine Clearance 54 ml/min; Glucose 147 mg/dl (70-99); Magnesium 2.1 mg/dl (1.6-2.3); Potassium 3.9 mmol/L (3.5-5.1); Sodium 130 mmol/L (135-145); Total Protein 6.4 g/dl (6.3-8.2); eGFR 46.64
--- NOTE | 2025-02-20 09:52 | W.PN.HOSP.TC ---
Today's Communication/Plan
-
IVF
glycemic control
steroids as per Neuro
Stable for downgrade to IMU
Assessment / Plan
Assessment / Plan
Physical Exam
General: Comfortable and Conversant
HEENT: Moist mucous membranes, Sclera icteric, normocephalic atraumatic
Respiratory: Clear and Non Labored Respirations
Cardiac: S1/S2 and Regular Rhythm
GI: Soft and Mild tenderness throughout bowel sounds present
Musculoskeletal: No Clubbing, No Cyanosis and No Edema
Skin: Warm, Dry and Jaundice
Neuro: AOx3 conversant coherent, unable to lift legs off bed, strength 4/5 upper ext's b/l
Psych: Calm
69M ETOH Esophageal Varices Grade 1-2 (Abd US however neg for cirrhosis x2) HTN DM hx GIB portal HTN here for evaluation rapidly progressive ascending weakness with associate severe Rhabdomyolysis ELIGIO and Liver Injury
Rapidly Progressive ascending weakness unclear etiology
-Transferred to ICU for closer monitoring respiratory status, so far VSS on room air
-Neuro eval appreciated brain mri w/o contrast noted no acute abn's, brief trial prednisone 60 mg daily discontinued received 2 doses
-Rotary Drier eval appreciated daily neg NIF monitoring
-Stable for downgrade to IMU
-PT/OT appreciated SNF rehab
-IV thiamine supplementation
Rhabdomyolysis
Acute Kidney Injury, possibly related to volume depletion due to poor oral intake vs Severe Rhabdomyolysis
Liver Injury likely 2/2 Rhabdomyolysis, possible ETOH injury as well though patient reports last drink was 2-3 wks ago
-Consult GI
-Abd US noted noted normal appearance GB Liver, splenomegaly 15.1 cm noted
-Continue IVFs rate increased to 175 cc/h
-Hold Jardiance
Reports Severe Constipation
-Obstructions series X-ray noted no obstruction, small volume scattered colonic stool
-once Fleet enema per patient's request
-Gas-X prn
Hypokalemia
-Replace potassium
-Check magnesium level
Alcohol Use Disorder
-Patient reports last drink 2-3 weeks ago
-Continue thiamine and folic acid
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
-Continue Protonix BID
-As per GI, Nadolol dc and Coreg continued (dose reduced d/t low pressures)
Anemia
suspect ETOH induced
trend Hgb
Iron studies, B12, Folate appreciated non-deficient
Thrombocytopenia
suspect ETOH induced
trend Plt, no need for transfusion at this time
Diabetes Mellitus, Type II
-Continue Lantus
-Hold oral diabetic meds
-Monitor sugars and continue coverage insulin
Essential Hypertension
-Relative low/normotensive pressures noted
-Coreg dose reduced w/ holding parameters
-holding Amlodipine for now
DVT proph: SCDs
Code Status: Full Code
Stable for downgrade to U
Discussed with patient, patient's sister Gabriela, and [id number] at bedside
I spent a total of 50 minutes with the patient or on the floor. More than 50% of this time involved counseling and coordination of care.
Anticipated Discharge: > 48 hours
Subjective/Interval History
-
Date of Service: February 20, 2025
No acute distress, resting comfortably in bed, weakness and pain persists. Sister Gabriela and [id number] present during evaluation.
Objective Data
-
Labs:
Laboratory Results
02/20/25 02/20/25
03:04 07:38
WBC 5.5
Hgb 8.0 L
Hct 24.4 L
Plt Count 60 L D
PT 20.4 H
INR 1.73
Sodium 130 L
Potassium 3.9
Chloride 107
Carbon Dioxide 17 L
BUN 22 H
Creatinine 1.6 H
Glucose 147 H
Calcium 8.2 L
Total Bilirubin 4.1 H
AST 616 H*
ALT 175 H
Alkaline Phosphatase 239 H
Vital Signs:
Vital Signs
Temp Pulse Resp BP Pulse Ox
97.5 F 70 16 125/67 97
02/20/25 07:15 02/20/25 09:30 02/20/25 09:30 02/20/25 09:00 02/20/25 09:30
I&O
02/19/25 02/20/25 02/21/25
06:59 06:59 06:59
Intake Total 1320 / 1320 3070 / 3070 405 / 405
Output Total 340 / 340 1350 / 1350 725 / 725
Balance 980 / 980 1720 / 1720 -320 / -320
--- NOTE | 2025-02-20 11:00 | PTCARENOTE ---
Pt able to sit on side of bed with PT/OT. Downgraded to ICU
--- NOTE | 2025-02-20 11:24 | W.PN.GI.CBS2 ---
Today's Communication / Plan
-
Further care per medical team/neurology
Out Patient hepatology follow-up
Assessment / Plan
-
69-year-old male with past medical history of diabetes, hypertension, hyperlipidemia, alcohol abuse, sleep apnea self-reported osteoarthritis who stopped his '2 blood pressure meds and 2 diabetic meds' approximately 1 month ago because he did not
like the way he felt on them. Started having numbness and tingling in his legs. Who we saw 01/11/25 for upper GI bleed secondary portal HTN and was also found to have grade I-II varices. He was started on Nadolol, completed 7 day course of Abx and
DC to home. He resumed his home meds. He followed up with his PCP, Hematology due to have IV iron and has appt with Dr. Bob (Hepatology at [facility]) next Friday. Resumed drinking ETOH (had gallon of vodka between DC and 2 week ago) who
presents to ER with weakness and heaviness feeling in his legs. Asked to evaluated for elevated LFTs. Patient without any GI complaints other then decreased appetite. Has electrolyte derangement. Has be drinking over 1 gallon of water a day in
addition to iced tea with poor po intake. Patient and states that he will not get up.
-- Generalized muscular weakness. Elevated CK suggestive of rhabdomyolysis
-- History of alcohol abuse. Last drink 2 weeks ago as per patient
-- Recent admission with upper GI bleeding secondary to portal hypertension. Although noted to have grade 1-2 varices and EGD ultrasound abdomen was normal . Patient noted to have thrombocytopenia/ coagulopathy / elevated LFT. . Hepatology
appointment with Dr. Bob next week
- Elevated LFT . DF<32 . Elevated AST can be secondary to rhabdomyolysis. no role for steroids
- Constipation-abdominal x-ray yesterday no significant stool burden
plan
Patient was upgraded to ICU for observation after neurology assessment yesterday. Continue further care of myopathy as per medical team/neurology
Management of rhabdomyolysis as per medical team
Correct electrolytes
IV hydration
Trend LFT/INR
Advised to keep the appointment with architectural drafting instructor. Patient requires MR elastography or FibroScan to rule out cirrhosis
Advised on alcohol abstinence
No further GI recommendation at this point. Will sign off. Please call us back if any questions
Total Time Spent with Patient (in minutes): 35
Subjective
Subjective
Date of Service: February 20, 2025
Patient was transferred to ICU after neurology eval yesterday for observation. Today feeling little better but still weak. Denies any abdominal pain/nausea/vomiting.
Objective
Data Reviewed
Laboratory Data:
Laboratory Results
02/20/25 03:04
02/20/25 07:38
Laboratory Results
PT 20.4 Sec (11.4-14.6) H 02/20/25 03:04
INR 1.73 02/20/25 03:04
APTT Cancelled 02/19/25 15:47
Phosphorus 5.2 mg/dl (2.5-4.5) H 02/20/25 07:38
Magnesium 2.1 mg/dl (1.6-2.3) 02/20/25 07:38
Total Bilirubin 4.1 mg/dl (0.2-1.3) H 02/20/25 07:38
AST 616 U/L (17-59) H* 02/20/25 07:38
ALT 175 U/L (0-50) H 02/20/25 07:38
Alkaline Phosphatase 239 U/L (38-126) H 02/20/25 07:38
Vital Signs and I&O:
Vital Signs
Temp Pulse Resp BP Pulse Ox
97.5 F 70 15 130/69 98
02/20/25 11:11 02/20/25 10:15 02/20/25 10:15 02/20/25 10:00 02/20/25 10:15
I&O
02/19/25 02/20/25 02/21/25
06:59 06:59 06:59
Intake Total 1320 / 1320 3070 / 3070 795 / 795
Output Total 340 / 340 1350 / 1350 725 / 725
Balance 980 / 980 1720 / 1720 70 / 70
Physical Exam
Physical Exam
GI: Non Distended and Non Tender
[2025-02-20] MEDS: NOVOLOG FLEXPEN-MODERATE RESISTANCE 5 UNITS SC (11:51)
[2025-02-20 12:01] LABS: Glucose - Point of Care 258 mg/dl (70-99)
--- NOTE | 2025-02-20 13:00 | PTCARENOTE ---
Pt able to sit on side of bed with PT/OT. Downgraded to IMU LOC. MRI completed, pt back in room at this time.
--- NOTE | 2025-02-20 13:17 | W.PN.NEURO.1 ---
Today's Communication / Plan
-
.
Subjective/Objective
Subjective Data
Date of Service: February 20, 2025
Neurology follow-up note.
The patient reports that he was feeling well before falling asleep while watching TV. Upon waking around 4 or 5 o'clock, he experienced severe pain in his neck, shoulders, and from the hips down.
He required assistance from two therapists to attempt standing, and he was unable to sit up independently.
Yesterday, the patient started steroid treatment. He reports experiencing a 5-hour period where he felt improvement, with more energy and less pain. However, overall, the patient does not perceive significant improvement in strength since yesterday.
He continues to experience severe soreness in his shoulders, limiting his ability to lift his arms.
The patient denies any changes in vision, speech, or difficulty with chewing or swallowing. He also denies experiencing any tingling or numbness in his hands or feet. The patient reports that therapy has been very painful.
Labs: ESR�116, CRP�29.30, sodium�130, creatinine 1.5�1.6, t. bilirubin�3.6�4.1, GGT�579, AST�671�616, ALT 181�175, ammonia�11, CK 6325�5458.
PMH: Alcohol use disorder, hepatic cirrhosis, HTN, DM, DLP, JANES, microcytic anemia
PSH: Hernia repair, LASIK
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
FH: Brother and father from gastric cancer
All:NKDA
ROS: General: Positive for fatigue.
HEENT: Negative for vision changes, difficulty chewing, or difficulty swallowing.
Musculoskeletal: Positive for severe pain in neck, shoulders, and hips down. Positive for weakness.
Neurological: Negative for tingling or numbness in hands or feet.
General: Icteric, in no acute distress.
Cardio: Regular rate and rhythm. Extremities are without cyanosis or edema.
Neuro:
Mental Status: Alert, oriented to person, place, and date. Normal attention and recall. Good fund of knowledge. Follows complex requests across the midline. Comprehension, naming, and repetition intact.
Cranial Nerves: Pupils are equally round and reactive to light. EOMs full. Visual tomlin full to confrontation. No ptosis. No nystagmus. Face symmetric. Normal hearing AU. The palate elevated well. SCMs and traps 5/5. Tongue midline. No
dysarthria.
Motor:moves lower extremities in bedplane(inconsistent exam), able to to lift elbows off the bed plane.
Reflexes: 0 throughout.
Sensory: preserved vibration at the L ankle and impaired at the right ankle.
Coordination: No tremors myoclonic movement
Gait: deferred
Assessment and Plan:
I. Fluctuating motor weakness, myopathy, likely from rhabdomyolysis. Inflammatory myopathies can present with rhabdomyolysis, but not commonly.
II. HyperCK emia
III. Mild hyponatremia
IV. Chronic thrombocytopenia
-Continue monitoring
-Continue thiamine IV
-NCS/EMG of RUE/LE if no clinical improvement.
-Avoid myotoxins (alcohol, statins)
-D/c prednisone.
-Follow up recommended serologies.
-DVT prophylaxis
I personally reviewed all radiology and labs along with past medical records pertinent to current medical problems. Total time spent in patient care is 36 minutes.
Thank you for allowing us to participate in the care of this patient. We will continue to follow. Please do not hesitate to contact us with any questions or concerns
Objective Data
Vital Signs
Temp Pulse Resp BP Pulse Ox
36.4 C 71 15 127/76 98
02/20/25 11:11 02/20/25 11:30 02/20/25 11:30 02/20/25 11:00 02/20/25 11:30
Lab Results
02/20/25 03:04
02/20/25 07:38
PT 20.4 Sec (11.4-14.6) H 02/20/25 03:04
INR 1.73 02/20/25 03:04
APTT Cancelled 02/19/25 15:47
Sodium 130 mmol/L (135-145) L 02/20/25 07:38
Potassium 3.9 mmol/L (3.5-5.1) 02/20/25 07:38
BUN 22 mg/dl (9-20) H 02/20/25 07:38
Glucose 147 mg/dl (70-99) H 02/20/25 07:38
Calcium 8.2 mg/dl (8.4-10.2) L 02/20/25 07:38
Phosphorus 5.2 mg/dl (2.5-4.5) H 02/20/25 07:38
Vitamin B12 Cancelled 02/19/25 14:40
Ur Buprenorphine Negative (Negative) 02/19/25 22:29
Patient Allergies
No Known Allergies Allergy (Verified 02/18/25 09:52)
Vital Signs and Labs
-
Vital Signs and Labs:
Vital Signs
Temp Pulse Resp BP Pulse Ox
36.4 C 71 15 127/76 98
02/20/25 11:11 02/20/25 11:30 02/20/25 11:30 02/20/25 11:00 02/20/25 11:30
Lab Results
02/20/25 03:04
02/20/25 07:38
PT 20.4 Sec (11.4-14.6) H 02/20/25 03:04
INR 1.73 02/20/25 03:04
APTT Cancelled 02/19/25 15:47
Sodium 130 mmol/L (135-145) L 02/20/25 07:38
Potassium 3.9 mmol/L (3.5-5.1) 02/20/25 07:38
BUN 22 mg/dl (9-20) H 02/20/25 07:38
Glucose 147 mg/dl (70-99) H 02/20/25 07:38
Calcium 8.2 mg/dl (8.4-10.2) L 02/20/25 07:38
Phosphorus 5.2 mg/dl (2.5-4.5) H 02/20/25 07:38
Vitamin B12 Cancelled 02/19/25 14:40
Ur Buprenorphine Negative (Negative) 02/19/25 22:29
Medications
-
Medications:
Generic Name Dose Route Start Last Admin
Trade Name Freq PRN Reason Stop Dose Admin
Carvedilol 3.125 mg 02/19/25 20:00 02/20/25 07:39
Carvedilol 3.125 Mg Tablet PO 03/19/25 19:59 3.125 mg
BID KALLIE Administration
Dextrose 12.5 grams 02/18/25 16:22
Dextrose 50% (0.5 Grams/Ml) 50 Ml Syringe IV 03/18/25 16:21
[id number] PRN
hypoglycemia
Protocol
Folic Acid 1 mg 02/19/25 08:00 02/20/25 07:39
Folic Acid 1 Mg Tablet PO 03/19/25 07:59 1 mg
DAILY KALLIE Administration
Glucagon 1 mg 02/18/25 16:22
Glucagon 1 Mg Vial IM 03/18/25 16:21
PRN PRN
hypoglycemia
Protocol
Hydromorphone HCl 0.25 mg 02/19/25 12:07
Hydromorphone 0.25 Mg/0.5 Ml Syringe IV 03/05/25 12:06
Q4HPRN PRN
severe breakthrough pain
Sodium Chloride 1,000 mls @ 175 mls/hr 02/18/25 13:15 02/20/25 09:13
Nss IV 1,000 mls
.[id number] KALLIE Administration
Insulin Glargine 10 units/ 0.1 mls @ 0 mls/hr 02/18/25 18:00 02/19/25 18:13
Device SC 03/18/25 17:59 0.1 mls
QPM KALLIE Administration
As Directed
Thiamine HCl 500 mg/ Sodium 255 mls @ 255 mls/hr 02/19/25 16:00 02/20/25 07:43
Chloride IV 03/19/25 15:59 255 mls
Q8 KALLIE Administration
Insulin Aspart 0 units 02/18/25 16:30 02/20/25 11:51
Insulin Aspart Moderate Resistance 300 Units/3 Ml Pen.Injctr SC 03/18/25 16:29 5 units
AC KALLIE Administration
Protocol
Ondansetron HCl 4 mg 02/18/25 16:22
Ondansetron 4 Mg/2 Ml Vial IV 03/18/25 16:21
Q6HPRN PRN
NAUSEA/VOMITING
Pantoprazole Sodium 40 mg 02/18/25 20:00 02/20/25 07:39
Pantoprazole 40 Mg Delayed Release Tablet PO 03/18/25 19:59 40 mg
BID KALLIE Administration
Prednisone 10 mg/ Prednisone 60 mg 02/19/25 17:00 02/20/25 07:39
50 mg PO 03/19/25 16:59 60 mg
DAILY KALLIE Administration
Simethicone 80 mg 02/19/25 14:33
Simethicone 80 Mg Chewable Tablet PO 03/19/25 14:32
QIDPRN PRN
gas discomfort/bloating
Sodium Chloride 0 flush 02/18/25 18:00
Sodium Chloride 0.9% (Flush) Syringe IV 03/18/25 17:59
PER PROTOCOL KALLIE
Tramadol HCl 25 mg 02/19/25 12:07 02/20/25 06:17
Tramadol Hcl 50 Mg Tablet PO 03/19/25 12:06 25 mg
Q6HPRN PRN Administration
moderate severe pain
Home Medications
-
Home Medications
clobetasol 0.05 % topical cream 1 applic topical BID scalp,knees,face,elbows 01/10/25
folic acid 1 mg tablet 1 mg PO DAILY #30 tabs 01/12/25
insulin glargine 100 unit/mL (3 mL) subcutaneous pen (Lantus Solostar U-100 Insulin) 15 unit (0.15 mL) SC QPM #15 mL 01/12/25
nadolol 20 mg tablet 20 mg PO HS 30 days #30 tabs 01/12/25
pantoprazole 40 mg tablet,delayed release 40 mg PO BID 30 days #60 tabs 01/12/25
thiamine mononitrate (vit B1) 100 mg tablet 100 mg PO BID #60 tabs 01/12/25
amlodipine 5 mg tablet (Norvasc) 5 mg PO QPM Blood Pressure 02/18/25
carvedilol 6.25 mg tablet (Coreg) 6.25 mg PO BID Blood Pressure 02/18/25
empagliflozin 25 mg tablet (Jardiance) 25 mg PO DAILY Diabetes 02/18/25
rosuvastatin 10 mg tablet (Crestor) 10 mg PO QPM High Cholesterol 02/18/25
semaglutide 3 mg tablet (Rybelsus) 3 mg PO QPM Diabetes 02/18/25
[2025-02-20] MEDS: LANTUS 0.1 UNITS SC (17:45)
[2025-02-20] MEDS: NOVOLOG FLEXPEN-MODERATE RESISTANCE 3 UNITS SC (17:52)
--- NOTE | 2025-02-20 17:59 | PTCARENOTE ---
While in the room pt seen lifting both of his arms up over his head to rest on the bed above him. Pt then boosted up in bed for dinner. When asked to raise his arms up to place pillows underneath pt stated he was 'too weak' to lift them.
[2025-02-20 18:03] LABS: Glucose - Point of Care 233 mg/dl (70-99)
--- NOTE | 2025-02-20 20:00 | PTCARENOTE ---
Rec'd pt resting in bed, at bedside, pt extremely weak, legs weaker gloria arms, CARTWRIGHT to command, enc to do more for himself, tramadol 25mg po given for generalyzed pain, SR w/ 1' AV block, bp stable, weak distal pulses, skin warm/dry, RA, lungs
decr throughout, sat 94, placed on CPAP 7 by resp therapist at 2030 for the night, + bowel sounds, no bm, abd soft, no n/v, huan fluids, voiding lizeth urine w/o difficulty
[2025-02-20 21:54] LABS: Glucose - Point of Care 309 mg/dl (70-99)
[2025-02-20] MEDS: DILAUDID 0.25 MG IV (22:12)
--- NOTE | 2025-02-20 22:15 | PTCARENOTE ---
dilauidi 0.5 mg iv given for gen pain
[2025-02-20] MEDS: NOVOLOG FLEXPEN 7 UNITS SC (22:39)
--- NOTE | 2025-02-20 22:41 | PTCARENOTE ---
7 units novolog ins sc given as ordered
[2025-02-20] MEDS: MELATONIN 5 MG PO (23:13)
--- NOTE | 2025-02-20 23:20 | PTCARENOTE ---
sys reviewed, melatonin 5mg po given for sleep
[2025-02-21] VITALS (12 sets, daily range): BP systolic 99–139; BP diastolic 51–93; BMI 31.6
--- NOTE | 2025-02-21 02:20 | PTCARENOTE ---
dilaudid 0.25mg iv given for pain
[2025-02-21] MEDS: DILAUDID 0.25 MG IV ×3 (02:22→18:33)
[2025-02-21 03:11] LABS: ALT (SGPT) 180 U/L (0-50); Albumin 2.8 g/dl (3.5-5.0); Alkaline Phosphatase 256 U/L (38-126); Blood Urea Nitrogen 30 mg/dl (9-20); Calcium 7.6 mg/dl (8.4-10.2); Carbon Dioxide 13 mmol/L (22-30); Chloride 108 mmol/L (98-107); Glucose 227 mg/dl (70-99); Magnesium 2.4 mg/dl (1.6-2.3); Potassium 4.1 mmol/L (3.5-5.1); Sodium 131 mmol/L (135-145); Total Protein 6.3 g/dl (6.3-8.2)
[2025-02-21 03:20] LABS: AST (SGOT) 767 U/L (17-59); Estimated Creatinine Clearance 58 ml/min; eGFR 50.40
[2025-02-21 03:23] LABS: Hematocrit 25.8 % (39.0-52.0); Hemoglobin 8.2 g/dL (13.0-18.0); Mean Corp Hgb Conc. 31.8 g/dL (33.0-37.0); Mean Corpuscular Volume 65.8 fL (80.0-94.0); Nucleated Red Blood Cells % 0 % (-); Platelet Count 81 10^3/uL (130-400); Red Cell Dist. Width 19.5 % (11.5-14.5)
[2025-02-21 03:42] LABS: INR 1.83; PT 21.3 Sec (11.4-14.6)
[2025-02-21] MEDS: SODIUM BICARBONATE 50 MEQ IV (04:15)
--- NOTE | 2025-02-21 04:18 | PTCARENOTE ---
Addendum entered by Antonieta Kelley RN 02/21/25 04:20:
cpap off at pr request
Original Note:
1 amp sod bicarb iv given per order
[2025-02-21] MEDS: NSS IV (04:41)
[2025-02-21] MEDS: SODIUM BICARBONATE 1150 MEQ IV ×3 (05:44→17:35)
--- NOTE | 2025-02-21 05:44 | PTCARENOTE ---
IVfluid changed to sterile h20 w/ 150 bicarb at 175/hr
--- NOTE | 2025-02-21 07:05 | W.PN.HOSP.TC ---
Addendum entered and electronically signed by Roger Mccord MD 02/22/25 06:58:
Severe Protein calorie Malnutrition
-encourage good nutrition
-Ensure daily supplement
Original Note:
Today's Communication/Plan
-
remain stable for downgrade to IMU
glycemic control
cont IVF
out of bed to chair
PT/OT
pain control
bicarb gtt
Assessment / Plan
Assessment / Plan
Physical Exam
General: Comfortable and Conversant
HEENT: Moist mucous membranes, Sclera icteric, normocephalic atraumatic
Respiratory: Clear and Non Labored Respirations
Cardiac: S1/S2 and Regular Rhythm
GI: Soft and Mild tenderness throughout bowel sounds present
Musculoskeletal: No Clubbing, No Cyanosis and No Edema
Skin: Warm, Dry and Jaundice
Neuro: AOx3 conversant coherent, unable to lift legs off bed, strength 4/5 upper ext's b/l
Psych: Calm
69M ETOH Esophageal Varices Grade 1-2 (Abd US however neg for cirrhosis x2) HTN DM hx GIB portal HTN here for evaluation rapidly progressive ascending weakness with associate severe Rhabdomyolysis ELIGIO and Liver Injury
Rapidly Progressive ascending weakness unclear etiology
-Transferred to ICU for closer monitoring respiratory status, so far VSS on room air
-Neuro eval appreciated brain mri w/o contrast noted no acute abn's, brief trial prednisone 60 mg daily discontinued with no significant improvement noted received 2 doses, Pending EMG
-Client Strategist eval appreciated daily neg NIF monitoring
-Stable for downgrade to IMU
-PT/OT appreciated SNF rehab
-IV thiamine supplementation
Rhabdomyolysis
Acute Kidney Injury, possibly related to volume depletion due to poor oral intake vs Severe Rhabdomyolysis
Acute Liver Failure/Injury likely due to Rhabdomyolysis, possible ETOH injury as well though patient reports last drink was 2-3 wks ago
-Consult GI appreciated
-Abd US noted noted normal appearance GB Liver, splenomegaly 15.1 cm noted
-Continue IVFs rate increased to 175 cc/h
-Hold Jardiance
-Jump in CK to 80851o from 6000s suspect d/t high dose steroids as above, since discontinued,
-Nephro eval appreciated
Metabolic Acidosis w/o anion gap
-likely d/t IVF NS
-switched to bicarb gtt
Steroid induced Leukocytosis
trend WBC
Reports Severe Constipation
-Obstructions series X-ray noted no obstruction, small volume scattered colonic stool
-once Fleet enema per patient's request
-Gas-X prn
-bowel regimen miralax senokot-s
Hypokalemia
-Monitor and replete as necessary
Alcohol Use Disorder
-Patient reports last drink 2-3 weeks ago
-Continue thiamine and folic acid
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
-Continue Protonix BID
-As per GI, Nadolol dc and Coreg continued (dose reduced d/t low pressures)
Anemia
suspect ETOH induced
trend Hgb
Iron studies, B12, Folate appreciated non-deficient
Thrombocytopenia
suspect ETOH induced
trend Plt, no need for transfusion at this time
Diabetes Mellitus, Type II
Steroid Induced Hyperglycemia
-Continue Lantus titrated up to 15U QPM
-Hold oral diabetic meds
-Monitor and titrate insulin regimen as necessary
Essential Hypertension
-Relative low/normotensive pressures noted
-Coreg dose reduced w/ holding parameters
-holding Amlodipine for now
DVT proph: SCDs
Code Status: Full Code
Stable for downgrade to [facility]
Extensively discussed with patient, patient's daughter Debbie, Es, and [id number] Ludin
I spent a total of 50 minutes with the patient or on the floor. More than 50% of this time involved counseling and coordination of care.
Anticipated Discharge: > 48 hours
Subjective/Interval History
-
Date of Service: February 21, 2025
No acute distress, sitting up comfortably in bed. Notes some improvement in symptoms. Pain well controlled with current pain regimen. Constipation persist. Passing pat. Daughter Debbie, Es, and son-in-law Ludin present during evaluation.
Objective Data
-
Labs:
Laboratory Results
02/21/25 02/21/25
02:29 09:00
WBC 14.2 H
Hgb 8.2 L
Hct 25.8 L
Plt Count 81 L D
PT 21.3 H
INR 1.83
Sodium 131 L Pending
Potassium 4.1 Pending
Chloride 108 H Pending
Carbon Dioxide 13 L* Pending
BUN 30 H Pending
Creatinine 1.5 H Pending
Glucose 227 H Pending
Calcium 7.6 L Pending
Total Bilirubin 4.2 H
AST 767 H*
ALT 180 H
Alkaline Phosphatase 256 H
Vital Signs:
Vital Signs
Temp Pulse Resp BP Pulse Ox
97.5 F 75 18 121/63 97
02/21/25 03:32 02/21/25 06:00 02/21/25 06:00 02/21/25 06:00 02/21/25 03:32
I&O
02/20/25 02/21/25 02/22/25
06:59 06:59 06:59
Intake Total 3070 / 3070 4965 / 4965
Output Total 1350 / 1350 3175 / 3175
Balance 1720 / 1720 1790 / 1790
[2025-02-21 07:20] LABS: Glucose - Point of Care 217 mg/dl (70-99)
--- NOTE | 2025-02-21 08:10 | W.CON.NEPH ---
Consultation
-
Date/Time Consultation Requested: 02/21/2025 7:30 AM
Date/Time Consultation Performed: 02/21/2025 8:00 AM
Requesting Provider: Dr. Mccord
Performing Provider: Dr. Larsen
Reason for Consultation: Acute kidney injury
Medical History
-
Chief Complaint: Acute kidney
History of Present Illness:
The patient is a 69-year-old male with a past medical history of hypertension maintained on amlodipine carvedilol. He has a history of diabetes maintained on insulin and Rybelsus. He is maintained on statin therapy for dyslipidemia. He has a
known history of alcohol abuse with associated alcohol cirrhosis with previous GI bleeding secondary to portal hypertension. He presented to the hospital few days ago with weakness and fatigue. We were consulted for acute kidney injury with a
creatinine of 1.5 off his baseline of 0.6 with associated rhabdomyolysis.
Past Medical History
Alcohol Use Disorder
Alcoholic Cirrhosis
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
Pancytopenia
Diabetes Mellitus, Type II
Essential Hypertension
Hyperlipidemia
Social History
Tobacco: Non-Smoker
Alcohol: Chronic Alcoholic
Family History
Family History: Not Pertinent
Allergies / Home Medications
Allergy/AdvReac Type Severity Reaction Status Date / Time
No Known Allergies Allergy Verified 02/18/25 09:52
�Medication �Instructions �Recorded �Confirmed �Type
clobetasol 0.05 % topical cream 1 applic topical BID 01/10/25 02/18/25 History
scalp,knees,face,elbows
folic acid 1 mg tablet 1 mg PO DAILY #30 tabs 01/12/25 02/18/25 Rx
insulin glargine 100 unit/mL (3 15 unit (0.15 mL) SC QPM #15 mL 01/12/25 02/18/25 Rx
mL) subcutaneous pen (Lantus
Solostar U-100 Insulin)
nadolol 20 mg tablet 20 mg PO HS 30 days #30 tabs 01/12/25 02/18/25 Rx
pantoprazole 40 mg tablet,delayed 40 mg PO BID 30 days #60 tabs 01/12/25 02/18/25 Rx
release
thiamine mononitrate (vit B1) 100 100 mg PO BID #60 tabs 01/12/25 02/18/25 Rx
mg tablet
amlodipine 5 mg tablet (Norvasc) 5 mg PO QPM Blood Pressure 02/18/25 02/18/25 History
carvedilol 6.25 mg tablet (Coreg) 6.25 mg PO BID Blood Pressure 02/18/25 02/18/25 History
empagliflozin 25 mg tablet 25 mg PO DAILY Diabetes 02/18/25 02/18/25 History
(Jardiance)
rosuvastatin 10 mg tablet (Crestor) 10 mg PO QPM High Cholesterol 02/18/25 02/18/25 History
semaglutide 3 mg tablet (Rybelsus) 3 mg PO QPM Diabetes 02/18/25 02/18/25 History
Review of Systems
-
History Source: Patient
All other systems: Negative unless noted
Constitutional: Other (Weakness decreased appetite fatigue)
Musculoskeletal: Muscle Pain
Skin: Other (Jaundice)
Physical Exam
Vital Signs
Vital Signs
Temp Pulse Resp BP Pulse Ox
97.5 F 75 18 121/63 97
02/21/25 03:32 02/21/25 06:00 02/21/25 06:00 02/21/25 06:00 02/21/25 03:32
Lab Results
02/21/25 02:29
WBC 14.2 10^3/uL (4.8-10.8) H 02/21/25 02:29
RBC 3.92 10^6/uL (4.70-6.10) L 02/21/25 02:29
Hgb 8.2 g/dL (13.0-18.0) L 02/21/25 02:29
Hct 25.8 % (39.0-52.0) L 02/21/25 02:
Plt Count 81 10^3/uL (130-400) L D 02/21/25 02:
eGFR 50.40 02/21/25 02:29
Phosphorus 5.1 mg/dl (2.5-4.5) H 02/21/25 02:
Albumin 2.8 g/dl (3.5-5.0) L 02/21/25 02:
Physical Exam
General: AOx3, Nontoxic , NAD
HEENT: PERRL, EOMI, Anicteric, Conjunctivae Clear, Ear/Nose Intact, Hearing Normal, Oropharynx Clear/Moist, Dentition Intact, Facial Symmetry, Neck Supple, Neck: Trachea Midline, No JVD and No Thyromegaly, no Bruits
Respiratory: Clear to auscultation bilaterally with normal lung exersion
Cardiac: S1/S2 and Regular Rate/Rhythm
Breast: Deferred by me
Abdomen: Soft, Nontender, Nondistended, Normal Bowel Sounds and No Hepatosplenomegaly
Rectal: Deferred by Provider
Genito-urinary: No Costovertebral Tenderness
Extremities: No Clubbing, No Cyanosis and trace Edema
Skin: No Rash or open lesions, jaundiced
Neuro: Nonfocal/Grossly Intact, CN II-XII (Intact) and Strength (Musculoskeletal exam 5 out of 5 both upper and lower extremities)
Hematologic/Lymphatic: No Cervical Lymphadenopathy, No Submandibular Lymphadenopathy and No Supraclavicular Lymphadenopathy
Psych: Mood/afflect pleasant, Insight/judgement good and Appropriate
Vascular: plus 2 pedal and radial pulses
Data Reviewed
-
Radiology: Image Personally Visualized and interpreted (Chest x-ray from admission today personally reviewed by myself no evidence of congestive heart failure or pneumonic process)
Ultrasound: Report Reviewed by me (Abdominal ultrasound report reviewed without significant findings such as hydronephrosis)
MRI: Report Reviewed by me (MRI of head report reviewed no acute findings by report)
Labs: Labs Reviewed by me ([facility] CBC urinalysis review)
Old Records: Reviewed (Reviewed previous laboratory values from date: 01/12/25: 0.6)
Assessment/Plan
-
Impression:
ELIGIO/rhabdomyolysis
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
Thrombocytopenia
Diabetes
History of hypertension
Dyslipidemia
History of esophageal varices and portal hypertension
Anemia
Plan:
ELIGIO likely related to rhabdomyolysis
- Follow CPK levels which continue to rise
- Etiology of rhabdomyolysis to be defined : statin currently held
- Maintain alkaline IV fluids
- Urinalysis on presentation was reviewed with no evidence of blood or protein
- Ultrasound of kidney reviewed no evidence of hydronephrosis or abnormal findings
- No acute hemodialysis requirements at this time
- Hemodynamically stable on antihypertensives
- Maintain accurate I's and O's and daily weight
[2025-02-21] MEDS: PROTONIX 40 MG PO ×2 (08:29→21:15)
[2025-02-21] MEDS: NOVOLOG FLEXPEN-MODERATE RESISTANCE 3 UNITS SC (08:29)
[2025-02-21] MEDS: FOLVITE 1 MG PO (08:29)
[2025-02-21] MEDS: DESENEX/MITRAZOL/ZEASORB 1 APPLIC TOPICAL ×2 (08:30→21:15)
[2025-02-21] MEDS: THIAMINE INJECTION 255 MG IV (08:31)
[2025-02-21] MEDS: COREG 3.125 MG PO (08:31)
[2025-02-21] MEDS: MYLICON 80 MG PO (09:13)
[2025-02-21 09:32] LABS: Blood Urea Nitrogen 32 mg/dl (9-20); Calcium 7.3 mg/dl (8.4-10.2); Carbon Dioxide 15 mmol/L (22-30); Chloride 107 mmol/L (98-107); Glucose 260 mg/dl (70-99); Potassium 4.4 mmol/L (3.5-5.1); Sodium 131 mmol/L (135-145)
[2025-02-21 09:42] LABS: Estimated Creatinine Clearance 59 ml/min; eGFR 50.40
--- NOTE | 2025-02-21 10:20 | CM ---
Patient seen at bedside with
PT/OT rec SNF
reviewed list with patient/
prefer [facility], will give additional referrals as well.
Referrals placed in [facility]
Will need to obtain ins auth
PLAN; SNF, pending bed availability when stable, will need insurance auth
[2025-02-21 11:58] LABS: Glucose - Point of Care 255 mg/dl (70-99)
[2025-02-21] MEDS: SENOKOT-S 1 TABLET PO ×2 (11:58→21:15)
[2025-02-21] MEDS: MIRALAX 17 GRAMS PO (11:58)
[2025-02-21] MEDS: NOVOLOG FLEXPEN-MODERATE RESISTANCE 5 UNITS SC (12:03)
--- NOTE | 2025-02-21 12:28 | PTCARENOTE ---
Addendum entered by Abdirahman Boyd RN 02/21/25 13:41:
Pt states he has not had a bowel movement since beginning of January. at bedside cannot confirm. Pt does have hyperactive bowel sounds, +Flatus, burping. PRN Mylicon given. Plan discussed with Dr. Mccord, bowel reg ordered and administered.
Original Note:
Pt was rec'd this am at 07:15 from night RN, drowsy/arousable, AOx3, at bedside. Pt is complaining of 10/10 leg shoulders, neck and chest pain, requesting PRN Dilaudid. Dose administered with good result. Pt able to feed self with
assisting set up food. Pt turned and repositioned. Pt requires assistance to lift legs onto pillows. Voiding in urinal, tea colored urine noted, strict I+Os and daily weights per nephrology, plan for EMG per neurology today. PT/OT consult noted. IVF
with bicarb infusing at 175/ hr. Plan discussed -safe environment maintained.
--- NOTE | 2025-02-21 14:45 | PTCARENOTE ---
Pt's daughter Debbie arrived in room requesting to speak to the doctor. Daughter not on patient's contact list. Pt clarified that he wants to remove 'Gloria' from contact list and add Debbie. Voicemail left for admissions to ask them to update chart.
[2025-02-21 16:25] LABS: Glucose - Point of Care 304 mg/dl (70-99)
--- NOTE | 2025-02-21 16:42 | PN.CDI ---
CDI
- -
CDI:
Physician Documentation Request
Admit Date: 02/18/25 12:52
Dear Doctor Suri,
Please review the following and provide your response in the progress notes.
Clinical Indicators:
Pt admitted with Rhabdomyolysis /ELIGIO
Documented per nutrition consult 02/19,' Weight hx- (01/11) 231lb; Significant 7.4% weight loss x 1 month. ...Pt meets criteria for severe protein calorie malnutrition of chronic illness with >5% weight loss x 1 month & prolonged poor intake prior to
admit <75% x >1 month. Nutrition to follow ...'
Based on the above information and your assessment, which of the following most accurately represents the patient's nutritional status?
Severe Protein calorie Malnutrition
Other (please specify)
[place] Criteria ([facility] Hospitalist 2017)
2 or more criteria must be present for either
non severe or severe malnutrition
Note that the criteria differs related to the
presence of an acute or chronic illness
Acute Illness Chronic Illness
Energy Intake Non Severe: <75% for >7 days Non Severe: <75% for >1 month
Severe: <50% for >5 days Severe: <75% for >1 month
Weight Loss Non Severe: 1-2% over 1 week Non Severe: 5% over 1 month
5% over 1 month 7.5% over 3 months
7.5% over 3 months 10% over 6 months
1 year N/A 20% over 1 year
Severe: >2% over 1 week Severe: >5% over 1 month
>5% over 1 month >7.5% over 3 months
>7.5% over 3 months >10% over 6 months
1 year N/A >20% over 1 year
Body Fat Non Severe: Mild Decrease Non Severe: Mild Loss
Severe: Moderate Decrease Severe: Severe Loss
Muscle Mass Non Severe: Mild Decrease Non Severe: Mild Loss
Severe: Moderate Decrease Severe: Severe Loss
Fluid Accumulation Non Severe: Mild Accumulation Non Severe: Mild Accumulation
Severe: Moderate to severe Severe: Moderate to severe
accumulation accumulation
Reduced Certified Physical Therapist Assistant Strength Non Severe: N/A Non Severe: N/A
Severe: Measurably reduced Severe: Measurably reduced
Use of terms such as suspected, likely, concern for, or probable (associated with a specific diagnosis that is being evaluated, monitored, or treated as if it exists) are acceptable and can be coded in the inpatient setting, when documented at the
time of discharge.
Thank you,
Jess Dominique RN
CDI Specialist
[place] [facility]
Please use your independent medical judgment in providing your response.
--- NOTE | 2025-02-21 16:45 | PN.CDI ---
CDI
- -
CDI:
Physician Documentation Request
Admit Date: 02/18/25 12:52
Dear Doctor Suri,
Please review the following and provide your response in the progress notes.
Clinical Indicators:
Pt admitted with Rhabdomyolysis /ELIGIO /Jaundice
Documented per H&P, ' Acute Kidney Injury, possibly related to volume depletion due to poor oral intake vs hepatorenal in setting of worsening LFs...'
Progress note 02/19 & 02/20, ' Rhabdomyolysis Acute Kidney Injury, possibly related to volume depletion due to poor oral intake vs Severe Rhabdomyolysis Liver Injury likely 2/2 Rhabdomyolysis, possible ETOH injury as well though patient reports last
drink was 2-3 wks ago ...'
02/18/25 02/19/25 02/20/25
10:29 07:15 07:38
Total Bilirubin 4.0 H 3.6 H 4.1 H
AST 672 H* 671 H* 616 H*
ALT 180 H 181 H 175 H
02/21/25
02:29
Total Bilirubin 4.2 H
AST 767 H*
ALT 180 H
Based on the above, could you clarify in the progress notes, the appropriate diagnosis, if significant, that supports the above laboratory abnormalities and additional evaluation, monitoring and/or treatment rendered:
Hepatorenal syndrome
Acute Liver Failure due to Rhabdomyolysis
Other ( please specify)
Use of terms such as suspected, likely, concern for, or probable (associated with a specific diagnosis that is being evaluated, monitored, or treated as if it exists) are acceptable and can be coded in the inpatient setting, when documented at the
time of discharge.
Thank you,
Jess Dominique RN
CDI Specialist
[place] [facility]
Please use your independent medical judgment in providing your response.
[2025-02-21] MEDS: NOVOLOG FLEXPEN-MODERATE RESISTANCE 7 UNITS SC (17:12)
[2025-02-21] MEDS: LANTUS 0.15 UNITS SC (17:34)
--- NOTE | 2025-02-21 18:42 | PTCARENOTE ---
EMG completed, labs drawn and sent per order. Pt's right forearm dressing changed. Call guadarrama in reach, daughter at bedside.
[2025-02-21 18:55] LABS: Blood Urea Nitrogen 34 mg/dl (9-20); Calcium 7.3 mg/dl (8.4-10.2); Carbon Dioxide 16 mmol/L (22-30); Estimated Creatinine Clearance 56 ml/min; Glucose 328 mg/dl (70-99); eGFR 46.64
--- NOTE | 2025-02-21 19:06 | W.PN.UPDATE ---
Update Note
Progress Note Update
EMG/NCS of the left upper and left lower limbs was completed in the patient's hospital room.
Electrodiagnostic abnormalities are present consistent with a chronic proximal inflammatory or toxic/necrotic myopathy based on the presence of small amplitude, short duration polyphasic motor unit potentials in the proximal left upper and left
lower limbs.
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
Full dictated report and tabular data to follow.
[2025-02-21 19:09] LABS: Chloride 104 mmol/L (98-107); Potassium 4.1 mmol/L (3.5-5.1); Sodium 130 mmol/L (135-145)
[2025-02-21] MEDS: COREG PO (21:14)
[2025-02-21] MEDS: MELATONIN 5 MG PO (21:15)
--- NOTE | 2025-02-21 22:25 | PTCARENOTE ---
Assumed care of pt at 1900. Pt is A/O x4, pleasant and cooperative with care. Reports that Dilaudid given towards end of previous shift has helped his pain and he is feeling 'pretty good'. Assessment as documented in nursing shift assessment
flowsheet. SR 70s on monitor. SpO2 94% on RA. Pt is IMU level of care. and daughter at bedside.
[2025-02-22] VITALS (18 sets, daily range): BP systolic 113–139; BP diastolic 54–73; PULSE 76–80; O2SAT 95; BMI 32.1
[2025-02-22 00:18] LABS: Glucose - Point of Care 382 mg/dl (70-99)
[2025-02-22] MEDS: SODIUM BICARBONATE 1150 MEQ IV (00:21)
[2025-02-22] MEDS: DILAUDID 0.25 MG IV ×3 (02:52→21:55)
[2025-02-22 03:13] LABS: Hematocrit 23.9 % (39.0-52.0); Hemoglobin 7.7 g/dL (13.0-18.0); Mean Corp Hgb Conc. 32.2 g/dL (33.0-37.0); Mean Corpuscular Volume 65.1 fL (80.0-94.0); Nucleated Red Blood Cells % 0 % (-); Platelet Count 70 10^3/uL (130-400); Red Cell Dist. Width 19.2 % (11.5-14.5)
[2025-02-22 03:19] LABS: INR 1.75; PT 20.6 Sec (11.4-14.6)
[2025-02-22 03:35] LABS: ALT (SGPT) 196 U/L (0-50); Albumin 2.7 g/dl (3.5-5.0); Alkaline Phosphatase 329 U/L (38-126); Blood Urea Nitrogen 34 mg/dl (9-20); Calcium 7.4 mg/dl (8.4-10.2); Carbon Dioxide 23 mmol/L (22-30); Chloride 103 mmol/L (98-107); Estimated Creatinine Clearance 64 ml/min; Glucose 254 mg/dl (70-99); Magnesium 2.3 mg/dl (1.6-2.3); Potassium 3.4 mmol/L (3.5-5.1); Sodium 130 mmol/L (135-145); Total Protein 5.9 g/dl (6.3-8.2); eGFR 54.75
[2025-02-22 03:45] LABS: AST (SGOT) 922 U/L (17-59)
[2025-02-22] MEDS: KCL 40 MEQ PO (06:05)
--- NOTE | 2025-02-22 06:59 | W.PN.HOSP.TC ---
Today's Communication/Plan
-
cont IVF switched to LR
glycemic control
DM SHOTBLAST OPERATOR eval
restart Prednisone 60 mg daily as per Neuro
Cymbalta 20 mg daily
PT/OT out of bed to chair
Assessment / Plan
Assessment / Plan
Physical Exam
General: Comfortable and Conversant
HEENT: Moist mucous membranes, Sclera icteric, normocephalic atraumatic
Respiratory: Clear and Non Labored Respirations
Cardiac: S1/S2 and Regular Rhythm
GI: Soft and Mild tenderness throughout bowel sounds present
Musculoskeletal: No Clubbing, No Cyanosis and No Edema
Skin: Warm, Dry and Jaundice
Neuro: AOx3 conversant coherent, unable to lift legs off bed, strength 4/5 upper ext's b/l
Psych: Calm
69M ETOH Esophageal Varices Grade 1-2 (Abd US however neg for cirrhosis x2) HTN DM hx GIB portal HTN here for evaluation rapidly progressive ascending weakness with associate severe Rhabdomyolysis ELIGIO and Liver Injury
Rapidly Progressive ascending weakness unclear etiology
-Transferred to ICU for closer monitoring respiratory status, so far VSS on room air
-Neuro eval appreciated brain mri w/o contrast noted no acute abn's, brief trial prednisone 60 mg daily discontinued with no significant improvement noted received 2 doses, EMG noted myopathy and neuropathy, prednisone 60 mg daily restarted 02/22,
first started 02/19, briefly canceled 02/21 prior to EMG results.
-Human Resources Designate eval appreciated daily neg NIF monitoring
-Stable for downgrade to IMU
-PT/OT appreciated SNF rehab
-IV thiamine supplementation
Rhabdomyolysis
Acute Kidney Injury, possibly related to volume depletion due to poor oral intake vs Severe Rhabdomyolysis
Acute Liver Failure/Injury likely due to Rhabdomyolysis, possible ETOH injury as well though patient reports last drink was 2-3 wks ago
-Consult GI appreciated
-Abd US noted noted normal appearance GB Liver, splenomegaly 15.1 cm noted
-Continue IVFs rate increased to 175 cc/h
-Hold Jardiance
-Prednisone 60 mg daily as per Neurology
-Nephro eval appreciated
Metabolic Acidosis w/o anion gap
-likely d/t IVF NS
-switched to bicarb gtt
-metabolic acidosis since resolved, bicarb gtt switched to LR
Steroid induced Leukocytosis
trend WBC
Reports Severe Constipation
-Obstructions series X-ray noted no obstruction, small volume scattered colonic stool
-once Fleet enema per patient's request
-Gas-X prn
-bowel regimen miralax senokot-s
Hypokalemia
-Monitor and replete as necessary
Alcohol Use Disorder
-Patient reports last drink 2-3 weeks ago
-Continue thiamine and folic acid
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
-Continue Protonix BID
-As per GI, Nadolol dc and Coreg continued (dose reduced d/t low pressures)
Anemia
suspect ETOH induced
trend Hgb
Iron studies, B12, Folate appreciated non-deficient
Thrombocytopenia
suspect ETOH induced
trend Plt, no need for transfusion at this time
Diabetes Mellitus, Type II
Steroid Induced Hyperglycemia
Likely Diabetic Neuropathy as noted on EMG
-Continue Lantus titrated up to 15U QPM
-Hold oral diabetic meds
-DM SHOTBLAST OPERATOR consult appreciated
-Monitor and titrate insulin regimen as necessary
-Cymbalta 20 mg daily started
Essential Hypertension
-Relative low/normotensive pressures noted
-Coreg dose reduced w/ holding parameters
-holding Amlodipine for now
DVT proph: SCDs
Code Status: Full Code
Stable for downgrade to U
Discussed with patient and patient's daughter Debbie
I spent a total of 50 minutes with the patient or on the floor. More than 50% of this time involved counseling and coordination of care.
Anticipated Discharge: > 48 hours
Subjective/Interval History
-
Date of Service: February 22, 2025
No acute distress, overall reports feeling well, pain persists but manageable with current pain regimen. some improvement in strength noted
Objective Data
-
Labs:
Laboratory Results
02/21/25 02/22/25
18:18 03:01
WBC 13.5 H
Hgb 7.7 L
Hct 23.9 L
Plt Count 70 L
PT 20.6 H
INR 1.75
Sodium 130 L 130 L
Potassium 4.1 3.4 L
Chloride 104 103
Carbon Dioxide 23
BUN 34 H
Creatinine 1.4 H
Glucose 254 H
Calcium 7.4 L
Total Bilirubin 3.6 H
AST 922 H*
ALT 196 H
Alkaline Phosphatase 329 H
Vital Signs:
Vital Signs
Temp Pulse Resp BP Pulse Ox
97.8 F 79 10 116/58 93
02/22/25 03:02 02/22/25 06:00 02/22/25 06:00 02/22/25 06:00 02/22/25 02:58
I&O
02/20/25 02/21/25 02/22/25
06:59 06:59 06:59
Intake Total 3070 / 3070 4965 / 5140 6135 / 6135
Output Total 1350 / 1350 3175 / 3175 3525 / 3525
Balance 1720 / 1720 1790 / 1965 2610 / 2610
--- NOTE | 2025-02-22 07:31 | W.PN.NEURO.1 ---
Today's Communication / Plan
-
Appreciate assistance with EMG study demonstrating myopathy
Restart prednisone 60 mg daily with down titration as outpatient
Neuro Assessment/Plan
Assessment
I. Fluctuating motor weakness due to myopathy, likely from rhabdomyolysis. Inflammatory myopathies can present with rhabdomyolysis, but not commonly.
II. HyperCK emia
III. Mild hyponatremia
IV. Chronic thrombocytopenia
Plan
Appreciate assistance with EMG study demonstrating myopathy
Restart prednisone 60 mg daily with down titration as outpatient
Will follow peripherally
Subjective/Objective
Subjective Data
Date of Service: February 22, 2025
Objective Data
Vital Signs
Temp Pulse Resp BP Pulse Ox
36.6 C 79 10 116/58 93
02/22/25 03:02 02/22/25 06:00 02/22/25 06:00 02/22/25 06:00 02/22/25 02:58
Lab Results
02/22/25 03:01
02/22/25 03:01
PT 20.6 Sec (11.4-14.6) H 02/22/25 03:01
INR 1.75 02/22/25 03:01
APTT Cancelled 02/19/25 15:47
Sodium 130 mmol/L (135-145) L 02/22/25 03:01
Potassium 3.4 mmol/L (3.5-5.1) L 02/22/25 03:01
BUN 34 mg/dl (9-20) H 02/22/25 03:01
Glucose 254 mg/dl (70-99) H 02/22/25 03:01
Calcium 7.4 mg/dl (8.4-10.2) L 02/22/25 03:01
Phosphorus 3.2 mg/dl (2.5-4.5) 02/22/25 03:01
Vitamin B12 Cancelled 02/19/25 14:40
Ur Buprenorphine Negative (Negative) 02/19/25 22:29
Patient Allergies
No Known Allergies Allergy (Verified 02/18/25 09:52)
Data Reviewed
-
Labs: Report Reviewed
EMG: Report Reviewed
Old Records: Summarized
Past History
Past History
ED Past Medical History: NIDDM and Other (Sleep apnea, myopathy)
ED Past Surgical History: Orthopedic (Bilateral ulnar nerve) and Other (Hernia repair as child)
Social History
Tobacco: Non-smoker
Alcohol: Daily
Drug: None
Personal:
Living: with family
Employment: Employed
Medications
-
Medications:
Generic Name Dose Route Start Last Admin
Trade Name Freq PRN Reason Stop Dose Admin
Bisacodyl 10 mg 02/21/25 09:11
Bisacodyl 10 Mg Rectal Suppository RECTAL 03/21/25 09:10
DAILYPRN PRN
constipation
Carvedilol 3.125 mg 02/19/25 20:00 02/22/25 08:25
Carvedilol 3.125 Mg Tablet PO 03/19/25 19:59 3.125 mg
BID KALLIE Administration
Dextrose 12.5 grams 02/18/25 16:22
Dextrose 50% (0.5 Grams/Ml) 50 Ml Syringe IV 03/18/25 16:21
[id number] PRN
hypoglycemia
Protocol
Duloxetine HCl 20 mg 02/22/25 10:00 02/22/25 11:56
Duloxetine Delayed Release 20 Mg Capsule PO 03/22/25 09:59 20 mg
DAILY KALLIE Administration
Folic Acid 1 mg 02/19/25 08:00 02/22/25 08:25
Folic Acid 1 Mg Tablet PO 03/19/25 07:59 1 mg
DAILY KALLIE Administration
Glucagon 1 mg 02/18/25 16:22
Glucagon 1 Mg Vial IM 03/18/25 16:21
PRN PRN
hypoglycemia
Protocol
Hydromorphone HCl 0.25 mg 02/19/25 12:07 02/22/25 11:58
Hydromorphone 0.25 Mg/0.5 Ml Syringe IV 03/05/25 12:06 0.25 mg
Q4HPRN PRN Administration
severe breakthrough pain
Thiamine HCl 250 mg/ Sodium 252.5 mls @ 505 mls/hr 02/22/25 08:00 02/22/25 08:42
Chloride IV 02/24/25 08:29 252.5 mls
DAILY KALLIE Administration
Lactated Ringer's 1,000 mls @ 125 mls/hr 02/22/25 08:00 02/22/25 08:22
Lr IV 1,000 mls
.Q8H KALLIE Administration
Insulin Glargine 20 units/ 0.2 mls @ 0 mls/hr 02/22/25 07:46
Device SC 03/21/25 15:01
QPM KALLIE
As Directed
Insulin Aspart 0 units 02/18/25 16:30 02/22/25 11:57
Insulin Aspart Moderate Resistance 300 Units/3 Ml Pen.Injctr SC 03/18/25 16:29 5 units
AC KALLIE Administration
Protocol
Insulin Aspart 5 units 02/22/25 07:30 02/22/25 11:56
Insulin Aspart (Novolog) 100 Units/Ml 3 Ml Flexpen SC 03/22/25 07:29 5 units
AC KALLIE Administration
Melatonin 5 mg 02/20/25 23:10 02/21/25 21:15
Melatonin 5 Mg Tablet PO 03/20/25 23:09 5 mg
HS KALLIE Administration
Miconazole Nitrate 0 applic 02/21/25 08:00 02/22/25 08:25
Miconazole Powder Bottle TOPICAL 03/21/25 07:59 1 applic
BID KALLIE Administration
Ondansetron HCl 4 mg 02/18/25 16:22
Ondansetron 4 Mg/2 Ml Vial IV 03/18/25 16:21
Q6HPRN PRN
NAUSEA/VOMITING
Pantoprazole Sodium 40 mg 02/18/25 20:00 02/22/25 08:25
Pantoprazole 40 Mg Delayed Release Tablet PO 03/18/25 19:59 40 mg
BID KALLIE Administration
Polyethylene Glycol 17 grams 02/21/25 10:00 02/22/25 08:22
Polyethylene Glycol Powder 17 Grams Packet PO 03/21/25 09:59 17 grams
DAILY KALLIE Administration
Prednisone 60 mg 02/22/25 08:00 02/22/25 08:22
Prednisone 20 Mg Tablet PO 03/22/25 07:59 60 mg
DAILY KALLIE Administration
Senna/Docusate Sodium 1 tablet 02/21/25 10:00 02/22/25 08:25
Docusate W/Senna (Lydia-Colace) Tablet PO 03/21/25 09:59 1 tablet
BID KALLIE Administration
Simethicone 80 mg 02/19/25 14:33 02/21/25 09:13
Simethicone 80 Mg Chewable Tablet PO 03/19/25 14:32 80 mg
QIDPRN PRN Administration
gas discomfort/bloating
Sodium Chloride 0 flush 02/18/25 18:00
Sodium Chloride 0.9% (Flush) Syringe IV 03/18/25 17:59
PER PROTOCOL KALLIE
Thiamine HCl 100 mg 02/25/25 08:00
Thiamine 100 Mg Tablet PO 03/25/25 07:59
BID KALLIE
Tramadol HCl 25 mg 02/19/25 12:07 02/20/25 20:03
Tramadol Hcl 50 Mg Tablet PO 03/19/25 12:06 25 mg
Q6HPRN PRN Administration
moderate severe pain
[2025-02-22 07:54] LABS: Glucose - Point of Care 160 mg/dl (70-99)
[2025-02-22] MEDS: MIRALAX 17 GRAMS PO (08:22)
[2025-02-22] MEDS: DELTASONE 60 MG PO (08:22)
[2025-02-22] MEDS: LR 1000 IV ×3 (08:22→21:04)
[2025-02-22] MEDS: SENOKOT-S 1 TABLET PO ×2 (08:25→19:59)
[2025-02-22] MEDS: FOLVITE 1 MG PO (08:25)
[2025-02-22] MEDS: DESENEX/MITRAZOL/ZEASORB 1 APPLIC TOPICAL ×2 (08:25→19:59)
[2025-02-22] MEDS: COREG 3.125 MG PO ×2 (08:25→19:59)
[2025-02-22] MEDS: PROTONIX 40 MG PO ×2 (08:25→19:59)
[2025-02-22] MEDS: NOVOLOG FLEXPEN-MODERATE RESISTANCE 1 UNITS SC (08:26)
[2025-02-22] MEDS: NOVOLOG FLEXPEN 5 UNITS SC ×3 (08:26→17:29)
--- NOTE | 2025-02-22 08:29 | W.PN.NEPH.PH ---
Today's Communication / Plan
-
Maintain alkaline IV fluids
Replete potassium
Obtain urinalysis
No dialysis indication
Continue to follow electrolytes kidney function and CPK levels
Assessment/Plan
-
Impression:
ELIGIO/rhabdomyolysis
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
Thrombocytopenia
Diabetes
History of hypertension
Dyslipidemia
History of esophageal varices and portal hypertension
Anemia
Plan:
ELIGIO likely related to rhabdomyolysis
-Creatinine down to 1.4 and remains grossly nonoliguric with urine output of 3.5 L
- Follow CPK levels which continue to rise ~16K
- Etiology of rhabdomyolysis to be defined : statin currently held
- Maintain alkaline IV fluids,currently on LR at 175cc/hr
- Urinalysis to be obtained
- Ultrasound of kidney reviewed no evidence of hydronephrosis or abnormal findings
- No acute hemodialysis requirements at this time
- Hemodynamically stable on antihypertensives
- Maintain accurate I's and O's and daily weights (up)
- Patient at high clinical risk with ongoing acute renal failure in the setting of worsening rhabdomyolysis
-
-
Date of Service: February 22, 2025
CC / HPI / ROS
-
Chief Complaint:
ELIGIO
History of Present Illness:
Creatinine improved to 1.4
Hemodynamically stable
Hypokalemia noted
Anemia worsening
Review of Systems:
Nonoliguric
No reported chest pain or shortness of breath
Weights up
Continues with proximal myopathy pains
Labs
-
Labs:
WBC 13.5 10^3/uL (4.8-10.8) H 02/22/25 03:01
RBC 3.67 10^6/uL (4.70-6.10) L 02/22/25 03:01
Hgb 7.7 g/dL (13.0-18.0) L 02/22/25 03:01
Hct 23.9 % (39.0-52.0) L 02/22/25 03:01
Plt Count 70 10^3/uL (130-400) L 02/22/25 03:01
Sodium 130 mmol/L (135-145) L 02/22/25 03:01
Potassium 3.4 mmol/L (3.5-5.1) L 02/22/25 03:01
Chloride 103 mmol/L (98-107) 02/22/25 03:01
Carbon Dioxide 23 mmol/L (22-30) 02/22/25 03:01
BUN 34 mg/dl (9-20) H 02/22/25 03:01
Creatinine 1.4 mg/dL (0.7-1.3) H 02/22/25 03:01
eGFR 54.75 02/22/25 03:01
Glucose 254 mg/dl (70-99) H 02/22/25 03:01
Calcium 7.4 mg/dl (8.4-10.2) L 02/22/25 03:01
Phosphorus 3.2 mg/dl (2.5-4.5) 02/22/25 03:01
Albumin 2.7 g/dl (3.5-5.0) L 02/22/25 03:01
Physical Exam
-
Vital Signs:
Vital Signs
Temp Pulse Resp BP Pulse Ox
98.1 F 79 10 139/73 93
02/22/25 08:00 02/22/25 08:25 02/22/25 06:00 02/22/25 08:02/22/25 02:58
Cardiovascular:: Regular rate and rhythm
Respiratory:: Bilateral: CTA
Lung Excursion:: Normal
Abdomen:: Nontender and Soft
Bowel Sounds:: Normal
Extremity Edema:: None: Bilateral:
Lynn Catheter: No
[2025-02-22] MEDS: THIAMINE INJECTION 252.5 MG IV (08:42)
--- NOTE | 2025-02-22 09:00 | PTCARENOTE ---
NSR on monitor , awake and alert, tolerating diet , at bedside , pt moves all extremities but very weak , needs assistance with all ADLs , plan to get pt oob today with lift device
--- NOTE | 2025-02-22 10:00 | CM ---
Met with patient at bedside
PT/OT rec SNF
Per PT out in chair with teo
Referrals in [facility] for SNF
Left message for Es
Will need additional referrals
will need ins auth once bed secured
PLAN: SNF, pending acceptance/bed availability, when stable
[2025-02-22 11:43] LABS: Hepatitis A Antibody, Total Positive (Negative); Hepatitis C Antibody Negative (Negative)
--- NOTE | 2025-02-22 11:54 | PN.DE.MGMTRT ---
Insulin Management
- -
02/22/2025 Diabetes Management Consult
Patient admitted 02/18 with c/o weakness, anemia - UGI bleed due to portal HTN, Rhabdomyolysis. PMH type 2 diabetes, sleep apnea, significant alcohol abuse. Patient know to me from previous admission 01/10 to 01/12, Prior to admission was taking
Jardiance 25 mg daily, lantus 15 units PM and Rybelsus 3mg pm. A1C 01/10 9.2%, cr today 1.4, eGFR 54.75.Patient is awake and alert oob in chair. States he sees his primary doctor manages his diabetes. He has a Patti 3.
Patient has been receiving prednisone 60 mg, increased to 80 mg today. Has been receiving lantus 15 units, hospitalist has increased to 20 units today. Will add 5 units novolog AC, moderate corrective insulin.
Discussed with nurse.
Will follow.
Diabetes History
- -
Type of Diabetes: 2 requiring insulin
Pre-Admission Diabetes Regimen
02/21/25 02/22/25
18:18 03:01
Creatinine 1.6 H 1.4 H
Insulin Pump Settings
IP Diabetes Regimen
02/21/25 02/21/25 02/21/25
11:46 16:14 18:18
Glucose 328 H
POC Glucose 255 H 304 H
02/21/25 02/22/25 02/22/25
21:05 03:01 07:43
Glucose 254 H
POC Glucose 382 H 160 H
Meal type: Breakfast
Amount consumed: 70%
Patient Education
[2025-02-22] MEDS: CYMBALTA DELAYED RELEASE 20 MG PO (11:56)
[2025-02-22] MEDS: NOVOLOG FLEXPEN-MODERATE RESISTANCE 5 UNITS SC ×2 (11:57→17:28)
[2025-02-22 12:07] LABS: Glucose - Point of Care 293 mg/dl (70-99)
[2025-02-22 12:51] LABS: Hepatitis B Surface Antigen Negative (Negative)
--- NOTE | 2025-02-22 15:10 | PTCARENOTE ---
pt oob in chair for 4 hours , need lift device , pt has minimal movement with all extremities , encouraging pt to follow instrucrtions given from PT , labs noted and reviewed , pt continues with steroid therapy
[2025-02-22 17:20] LABS: Glucose - Point of Care 251 mg/dl (70-99)
[2025-02-22] MEDS: LANTUS 0.2 UNITS SC (17:29)
[2025-02-22 18:30] LABS: ANA, IgG Reflex to HEp-2 None Detected (None Detected)
--- NOTE | 2025-02-22 20:00 | PTCARENOTE ---
rec'd pt in bed, oriented, cooperative, extremities weak, can raise arms off bed, slightly able to move legs off bed, enc to do exercies, SR w/ 1' AV block, weak distal pulses, skin warm/dry, RA< lungs decr, + bowel sounds, abd obese, soft, informed
that he needs to follow fluid restriction, voiding dark lizeth urine
[2025-02-22 21:20] LABS: Urine Character Clear (Clear)
[2025-02-22 21:32] LABS: Glucose - Point of Care 280 mg/dl (70-99)
[2025-02-22] MEDS: MELATONIN 5 MG PO (21:55)
--- NOTE | 2025-02-22 22:00 | PTCARENOTE ---
dilaudid 0.25 mg iv given for pain, Placed on CPAP 7 by resp therapsit for the night
[2025-02-23] VITALS (9 sets, daily range): BP systolic 113–136; BP diastolic 42–89; PULSE 70; BMI 32.8
--- NOTE | 2025-02-23 00:06 | PTCARENOTE ---
sys reviewed, CHG bath done, linens changed
[2025-02-23 00:23] LABS: Jo-1 Antibodies 4 AU/mL (0-40)
[2025-02-23 03:55] LABS: Hematocrit 22.6 % (39.0-52.0); Hemoglobin 7.3 g/dL (13.0-18.0); INR 1.81; Mean Corp Hgb Conc. 32.3 g/dL (33.0-37.0); Mean Corpuscular Volume 65.9 fL (80.0-94.0); Nucleated Red Blood Cells % 0 % (-); PT 21.2 Sec (11.4-14.6); Platelet Count 56 10^3/uL (130-400); Red Cell Dist. Width 19.6 % (11.5-14.5)
--- NOTE | 2025-02-23 04:00 | PTCARENOTE ---
sys reviewed, bipap off at pt request, Room air
[2025-02-23 04:07] LABS: ALT (SGPT) 250 U/L (0-50); Albumin 2.5 g/dl (3.5-5.0); Alkaline Phosphatase 256 U/L (38-126); Blood Urea Nitrogen 34 mg/dl (9-20); Calcium 8.1 mg/dl (8.4-10.2); Carbon Dioxide 25 mmol/L (22-30); Chloride 103 mmol/L (98-107); Estimated Creatinine Clearance 81 ml/min; Glucose 167 mg/dl (70-99); Magnesium 2.2 mg/dl (1.6-2.3); Potassium 4.1 mmol/L (3.5-5.1); Sodium 131 mmol/L (135-145); Total Protein 5.6 g/dl (6.3-8.2); eGFR > 60.00
[2025-02-23 04:18] LABS: AST (SGOT) 1006 U/L (17-59)
[2025-02-23] MEDS: LR 1000 IV ×3 (05:10→23:45)
--- NOTE | 2025-02-23 07:15 | W.PN.HOSP.TC ---
Today's Communication/Plan
-
Stable for downgrade to Tele
Prednisone as per neuro
Duloxetine increased to 30 mg daily
Gabapentin 100 mg TID added
Tramadol switched to Oxycodone 5mg Moderate Pain 10 mg Severe Pain
IVF rate as per Nephro
Glycemic control
GI re-eval requested persistent worsening LFTs
Hematology eval requested persistent worsening anemia thrombocytopenia
Assessment / Plan
Assessment / Plan
Physical Exam
General: Comfortable and Conversant
HEENT: Moist mucous membranes, Sclera icteric, normocephalic atraumatic
Respiratory: Clear and Non Labored Respirations
Cardiac: S1/S2 and Regular Rhythm
GI: Soft and Mild tenderness throughout bowel sounds present
Musculoskeletal: No Clubbing, No Cyanosis and No Edema
Skin: Warm, Dry and Jaundice
Neuro: AOx3 conversant coherent, unable to lift legs off bed, strength 4/5 upper ext's b/l
Psych: Calm
69M ETOH Esophageal Varices Grade 1-2 (Abd US however neg for cirrhosis x2) HTN DM hx GIB portal HTN here for evaluation rapidly progressive ascending weakness with associate severe Rhabdomyolysis ELIGIO and Liver Injury
Rapidly Progressive ascending weakness unclear etiology
-Transferred to ICU for closer monitoring respiratory status, so far VSS on room air
-Neuro eval appreciated brain mri w/o contrast noted no acute abn's, brief trial prednisone 60 mg daily discontinued with no significant improvement noted received 2 doses, EMG noted myopathy and neuropathy, prednisone 60 mg daily restarted 02/22,
first started 02/19, briefly canceled 02/21 prior to EMG results.
-Child Adolescent Care eval appreciated daily neg NIF monitoring
-Stable for downgrade to IMU 02/21
-02/23 stable for downgrade to Tele
-PT/OT appreciated SNF rehab
-IV thiamine supplementation taper
Rhabdomyolysis
Acute Kidney Injury, possibly related to volume depletion due to poor oral intake vs Severe Rhabdomyolysis
Acute Liver Failure/Injury likely due to Rhabdomyolysis, possible ETOH injury as well though patient reports last drink was 2-3 wks ago
-Consult GI appreciated
-Abd US noted noted normal appearance GB Liver, splenomegaly 15.1 cm noted
-Continue IVF support, rate as per Nephro
-Hold Jardiance
-Prednisone 60 mg daily as per Neurology
-Nephro eval appreciated
[place] [address]15
Metabolic Acidosis w/o anion gap
-likely d/t IVF NS
-switched to bicarb gtt
-metabolic acidosis since resolved, bicarb gtt switched to LR
Steroid induced Leukocytosis
trend WBC
Reports Severe Constipation
-Obstructions series X-ray noted no obstruction, small volume scattered colonic stool
-once Fleet enema per patient's request
-Gas-X prn
-bowel regimen senokot-s, miralax prn
Hypokalemia
-Monitor and replete as necessary
Alcohol Use Disorder
-Patient reports last drink 2-3 weeks ago
-Continue thiamine and folic supplementation
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
-Continue Protonix BID
-As per GI, Nadolol dc and Coreg continued (dose reduced d/t low pressures)
Anemia
Thrombocytopenia
suspect ETOH induced
trend Hgb
Iron studies, B12, Folate appreciated non-deficient
trend Plt, no need for transfusion at this time
Hematology eval requested
Diabetes Mellitus, Type II
Steroid Induced Hyperglycemia
Likely Diabetic Neuropathy as noted on EMG
-Hold oral diabetic meds
-DM ASSISTANT BRANCH MANAGER consult appreciated Lantus 20U Novolog 8U moderate sliding scale
-Monitor and titrate insulin regimen as necessary
-Cymbalta 20 mg daily started increased to 30 mg daily
-New Gabapentin 100 mg TID
Essential Hypertension
-Relative low/normotensive pressures noted
-Coreg dose reduced w/ holding parameters
-holding Amlodipine for now
-BP well controlled at this time
PT/OT appreciate SNF rehab
DVT proph: SCDs
Code Status: Full Code
Stable for downgrade to Tele
Discussed with patient and patient's daughter Debbie
I spent a total of 50 minutes with the patient or on the floor. More than 50% of this time involved counseling and coordination of care.
Anticipated Discharge: Today
Subjective/Interval History
-
Date of Service: February 23, 2025
no acute distress, resting comfortably in bed. Notes some improvement in mobility day by day but generally still feels very weak, especially lower ext's. Constipation resolved at this time. Pain persists, generalized body aches, manageable with
current pain regimen.
Objective Data
-
Labs:
Laboratory Results
02/23/25
03:29
WBC 10.7
Hgb 7.3 L
Hct 22.6 L
Plt Count 56 L
PT 21.2 H
INR 1.81
Sodium 131 L
Potassium 4.1
Chloride 103
Carbon Dioxide 25
BUN 34 H
Creatinine 1.1
Glucose 167 H
Calcium 8.1 L
Total Bilirubin 4.0 H
AST 1006 H*
ALT 250 H
Alkaline Phosphatase 256 H
Vital Signs:
Vital Signs
Temp Pulse Resp BP Pulse Ox
98 F 69 14 129/89 95
02/23/25 04:00 02/23/25 06:22 02/23/25 06:22 02/23/25 06:20 02/23/25 04:00
I&O
02/22/25 02/23/25 02/24/25
06:59 06:59 06:59
Intake Total 6135 / 6310 3700 / 3700
Output Total 3525 / 3525 1600 / 1600
Balance 2610 / 2785 2100 / 2100
[2025-02-23 07:49] LABS: Glucose - Point of Care 165 mg/dl (70-99)
--- NOTE | 2025-02-23 07:54 | PN.DE.MGMTRT ---
Insulin Management
- -
02/23/2025 Diabetes Management Consult Follow up
Patient admitted 02/18 with c/o weakness, anemia - UGI bleed due to portal HTN, Rhabdomyolysis. PMH type 2 diabetes, sleep apnea, significant alcohol abuse. Patient know to me from previous admission 01/10 to 01/12. Prior to admission was taking
Jardiance 25 mg daily, lantus 15 units PM and Rybelsus 3mg pm. A1C 01/10 9.2%, cr today 1.4, eGFR 54.75.
Patient is awake and alert oob in chair. States he sees his primary doctor manages his diabetes. He has a Patti 3.
Patient has been receiving prednisone 60 mg daily. 5 units novolog AC added yesterday. Received 20 units Lantus last evening. Glucose range 251 to 280. Will increase AC novolog to 8 units with moderate corrective insulin.
Discussed with nurse.
Will follow.
Diabetes History
- -
Type of Diabetes: 2 requiring insulin
Pre-Admission Diabetes Regimen
02/23/25
03:29
Creatinine 1.1
Insulin Pump Settings
IP Diabetes Regimen
02/22/25 02/22/25 02/22/25
07:43 11:54 17:09
Glucose
POC Glucose 160 H 293 H 251 H
02/22/25 02/23/25 02/23/25
21:16 03:29 07:38
Glucose 167 H
POC Glucose 280 H 165 H
Meal type: Breakfast
Amount consumed: 100%
Amount consumed: 100%
Patient Education
--- NOTE | 2025-02-23 08:46 | CON.ONC ---
Consultation
-
Date Consultation Requested: 02/23/25
Date Consultation Performed: 02/23/25
Requesting Provider: Dr. Roger Mccord
Performing Provider: Dr. Shalom Lopez
Reason for Consultation: persistent anemia thrombocytopenia unclear etiology
Impression
Impression
Thrombocytopenia in setting of liver disease
Microcytic anemia in setting of acute illness and dilution
Splenomegaly
Alcoholic cirrhosis
Portal HTN with esophageal variceal 01/11/25 and gastropathy
Rhabdomyolysis
Myopathy and neuropathy per EMG
DMII
Plan
Plan
Thrombocytopenia in setting of liver disease
--Ptl slowly continuing to downtrend consistent with ongoing liver disease - also noted to have elevated PT and INR which is also consistent with ongoing liver disease.
--Monitor
--Transfuse for pt <10 or if active bleed then <40
--Of note, ptl 58 when last discharge on 01/12
Microcytic anemia - multifactorial in setting of acute illness, dilution, continued blood draws
--Iron panel suggest low normal iron and may benefit from iron supplementation
--B12 and folate wnl
--No signs of active bleed
--Monitor hg
--Transfuse for hg <7
--Of note, hg 7.4 when last discharged on 01/12. He did require one unit of RBC during that admission due to acute on chronic blood loss anemia secondary to esophageal variceal bleeding.
Full code
DVT SCDs
Patient History
History of Present Illness
61-year-old male with past medical history of alcohol use disorder, alcohol cirrhosis, portal hypertension with esophageal varices and gastropathy with recent GI bleed admission from 01/10-01/12, type 2 diabetes, hypertension, hyperlipidemia,
obstructive sleep apnea and pancytopenia who presented to the hospital on 02/18/25 with increasing generalized weakness, fatigue and scleral icterus. He also endorsed some nausea and 1 episode of emesis. He did endorsed drinking 1 gallon of vodka
the week prior.
He was found to have an ELIGIO with creatinine 1.7, elevated LFTs with AST 672, ALT 180, Alk phos 311, T. Bili 4.0, rhabdomyolysis with CK 4,600, hypokalemia K 2.8, hyponatremia 130. He was started on fluids, K was repleted, ab US was ordered and GI
was consulted. He was admitted for further workup of ELIGIO with possible hepatorenal syndrome, rhabdomyolysis, worsening LFTs, alcohol use disorder.
Ab US revealed splenomegaly but otherwise unremarkable. During his hospital stay, patient also endorsed significant weakness in lower extremities that gradually started ascending. He was admitted to ICU for close monitoring of respiratory status.
Neurology was consulted and brain MRI revealed no acute abnormalities. 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 He was started on high dose steroids. Respiratory status remained stable and he was downgraded to tele. His
ELIGIO resolved, electrolyte imbalances improved, however LFTs and CK have remained elevated.
Hematology oncology was consulted for slow downtrend of patient's platelets and hemoglobin. On admission, his platelets were 93 today 56. Of note during patients previous hospital stay for esophageal varices bleed it was also in the 50's when
discharged. His hemoglobin on admission was 9.0 now 7.3 with slow downtrend. MCV 65.9, % saturation 16, ferritin 46.0, iron 55, B12 >1,000 and folate >20. PT 21.2 and INR 1.81. He was supposed to see a photogrammetric technician at [place] for an iron
transfusion but was unable to recieve it due to insurance purposes.
Past-Medical/Surgical History
Past medical history: HTN, Hypercholesterolemia, NIDDM, Alcohol abuse, alcoholic cirrhosis, portal HTN with varices and portal gastropathy, pancytopenia, JANES
Past surgical history: Hernia repair
Social history: alcohol daily - 2-3 bottles of vodka a week in the past. 1 gallon of vodka within 1 week prior to hospitalization.
Family history: Father stomach cancer
Patient Medication
�Medication �Instructions �Recorded �Confirmed �Last Taken �Type
clobetasol 0.05 % topical cream 1 applic topical BID 01/10/25 02/18/25 Unknown History
scalp,knees,face,elbows
folic acid 1 mg tablet 1 mg PO DAILY #30 tabs 01/12/25 02/18/25 02/18/25 Rx
insulin glargine 100 unit/mL (3 15 unit (0.15 mL) SC QPM #15 mL 01/12/25 02/18/25 Unknown Rx
mL) subcutaneous pen (Lantus
Solostar U-100 Insulin)
nadolol 20 mg tablet 20 mg PO HS 30 days #30 tabs 01/12/25 02/18/25 Unknown Rx
pantoprazole 40 mg tablet,delayed 40 mg PO BID 30 days #60 tabs 01/12/25 02/18/25 02/18/25 Rx
release
thiamine mononitrate (vit B1) 100 100 mg PO BID #60 tabs 01/12/25 02/18/25 02/18/25 Rx
mg tablet
amlodipine 5 mg tablet (Norvasc) 5 mg PO QPM Blood Pressure 02/18/25 02/18/25 02/17/25 History
carvedilol 6.25 mg tablet (Coreg) 6.25 mg PO BID Blood Pressure 02/18/25 02/18/25 02/18/25 History
empagliflozin 25 mg tablet 25 mg PO DAILY Diabetes 02/18/25 02/18/25 02/18/25 History
(Jardiance)
rosuvastatin 10 mg tablet (Crestor) 10 mg PO QPM High Cholesterol 02/18/25 02/18/25 02/17/25 History
semaglutide 3 mg tablet (Rybelsus) 3 mg PO QPM Diabetes 02/18/25 02/18/25 02/17/25 History
Active Medications
Generic Name Dose Route Start Last Admin
Trade Name Freq PRN Reason Stop Dose Admin
Bisacodyl 10 mg 02/21/25 09:11
Bisacodyl 10 Mg Rectal Suppository RECTAL 03/21/25 09:10
DAILYPRN PRN
constipation
Carvedilol 3.125 mg 02/19/25 20:00 02/22/25 19:59
Carvedilol 3.125 Mg Tablet PO 03/19/25 19:59 3.125 mg
BID KALLIE Administration
Dextrose 12.5 grams 02/18/25 16:22
Dextrose 50% (0.5 Grams/Ml) 50 Ml Syringe IV 03/18/25 16:21
[id number] PRN
hypoglycemia
Protocol
Duloxetine HCl 30 mg 02/24/25 08:00
Duloxetine Delayed Release 30 Mg Capsule PO 03/24/25 07:59
DAILY KALLIE
Folic Acid 1 mg 02/19/25 08:00 02/22/25 08:25
Folic Acid 1 Mg Tablet PO 03/19/25 07:59 1 mg
DAILY KALLIE Administration
Glucagon 1 mg 02/18/25 16:22
Glucagon 1 Mg Vial IM 03/18/25 16:21
PRN PRN
hypoglycemia
Protocol
Hydromorphone HCl 0.25 mg 02/19/25 12:07 02/22/25 21:55
Hydromorphone 0.25 Mg/0.5 Ml Syringe IV 03/05/25 12:06 0.25 mg
Q4HPRN PRN Administration
severe breakthrough pain
Thiamine HCl 250 mg/ Sodium 252.5 mls @ 505 mls/hr 02/22/25 08:00 02/22/25 08:42
Chloride IV 02/24/25 08:29 252.5 mls
DAILY KALLIE Administration
Lactated Ringer's 1,000 mls @ 125 mls/hr 02/22/25 08:00 02/23/25 05:10
Lr IV 1,000 mls
.Q8H KALLIE Administration
Insulin Glargine 20 units/ 0.2 mls @ 0 mls/hr 02/22/25 07:46 02/22/25 17:29
Device SC 03/21/25 15:01 0.2 mls
QPM KALLIE Administration
As Directed
Insulin Aspart 0 units 02/18/25 16:30 02/22/25 17:28
Insulin Aspart Moderate Resistance 300 Units/3 Ml Pen.Injctr SC 03/18/25 16:29 5 units
AC KALLIE Administration
Protocol
Insulin Aspart 8 units 02/23/25 08:00
Insulin Aspart (Novolog) 100 Units/Ml 3 Ml Flexpen SC 03/23/25 07:59
AC KALLIE
Melatonin 5 mg 02/20/25 23:10 02/22/25 21:55
Melatonin 5 Mg Tablet PO 03/20/25 23:09 5 mg
HS KALLIE Administration
Miconazole Nitrate 0 applic 02/21/25 08:00 02/22/25 19:59
Miconazole Powder Bottle TOPICAL 03/21/25 07:59 1 applic
BID KALLIE Administration
Naloxone HCl 0.4 mg 02/23/25 08:36
Naloxone (0.4 Mg/Ml) 1 Ml Injection IV 03/23/25 08:35
Q4HPRN PRN
oversedation
Ondansetron HCl 4 mg 02/18/25 16:22
Ondansetron 4 Mg/2 Ml Vial IV 03/18/25 16:21
Q6HPRN PRN
NAUSEA/VOMITING
Oxycodone HCl 10 mg 02/23/25 08:36
Oxycodone 10 Mg Regular Release Tablet PO 03/09/25 08:35
Q6HPRN PRN
severe pain
Oxycodone HCl 5 mg 02/23/25 08:36
Oxycodone 5 Mg Regular Release Tablet PO 03/09/25 08:35
Q6HPRN PRN
moderate pain
Pantoprazole Sodium 40 mg 02/18/25 20:00 02/22/25 19:59
Pantoprazole 40 Mg Delayed Release Tablet PO 03/18/25 19:59 40 mg
BID KALLIE Administration
Polyethylene Glycol 17 grams 08/13/25 08:35
Polyethylene Glycol Powder 17 Grams Packet PO 03/23/25 08:33
DAILYPRN PRN
constipation
Prednisone 60 mg 02/22/25 08:00 02/22/25 08:22
Prednisone 20 Mg Tablet PO 03/22/25 07:59 60 mg
DAILY KALLIE Administration
Senna/Docusate Sodium 1 tablet 02/21/25 10:00 02/22/25 19:59
Docusate W/Senna (Lydia-Colace) Tablet PO 03/21/25 09:59 1 tablet
BID KALLIE Administration
Simethicone 80 mg 02/19/25 14:33 02/21/25 09:13
Simethicone 80 Mg Chewable Tablet PO 03/19/25 14:32 80 mg
QIDPRN PRN Administration
gas discomfort/bloating
Sodium Chloride 0 flush 02/18/25 18:00
Sodium Chloride 0.9% (Flush) Syringe IV 03/18/25 17:59
PER PROTOCOL KALLIE
Thiamine HCl 100 mg 02/25/25 08:00
Thiamine 100 Mg Tablet PO 03/25/25 07:59
BID KALLIE
Review of Systems
-
History Source: Patient
EENT: Reports No Symptoms
Respiratory: Reports Wheezing
Cardiac: Reports No Symptoms
GI: Reports Diarrhea
Neuro: Reports Weakness (In proximal shoulders and thighs )
Physical Exam
-
General: No Apparent Distress and Comfortable
Cardiology: Normal Sinus Rhythm, S1 and S2
Pulmonary: Wheezes
GI: Soft and Normal Bowel Sounds
Musculoskeletal: No Cyanosis and No Edema
Skin: Warm and Dry
Psych: Calm
Labs
Lab Results
WBC 10.7 10^3/uL (4.8-10.8) 02/23/25 03:29
RBC 3.43 10^6/uL (4.70-6.10) L 02/23/25:
Hgb 7.3 g/dL (13.0-18.0) L 02/23/25
Hct 22.6 % (39.0-52.0) L 02/23/25:
MCV 65.9 fL (80.0-94.0) L 02/23/25
MCH 21.3 pg (27.0-31.0) L 02/23/25
MCHC 32.3 g/dL (33.0-37.0) L 02/23/25
RDW 19.6 % (11.5-14.5) H 02/23/25
Plt Count 56 10^3/uL (130-400) L 02/23/25
MPV Not Reportable 02/23/25
Abs Immat Gran (auto) 0.1 10^3/uL (0-0.05) H 02/23/25
Absolute Neuts (auto) 9.3 10^3/uL (1.4-6.5) H 02/23/25
Absolute Lymphs (auto) 0.6 10^3/uL (1.2-3.4) L 02/23/25:
Absolute Monos (auto) 0.7 10^3/uL (0.1-0.6) H 02/23/25
Absolute Eos (auto) 0.0 10^3/uL (0-0.7) 02/23/25
Absolute Basos (auto) 0.0 10^3/uL (0-0.2) 02/23/25
Immature Gran % 0.9 % (0-0.5) H 02/23/25:
Neutrophils % 86.9 % (42.2-75.2) H 02/23/25:
Lymphocytes % 6.0 % (20.5-51.1) L 02/23/25
Monocytes % 6.1 % (1.7-9.3) 02/23/25 03:29
Eosinophils % 0.0 % (0-6) 02/23/25 03:29
Basophils % 0.1 % (0-2) 02/23/25 03:29
Creatinine 1.1 mg/dL (0.7-1.3) 02/23/25 03:29
Vital Signs
Vital Signs
Temp Pulse Resp BP Pulse Ox
97.5 F 71 16 121/54 95
02/23/25 07:45 02/23/25 08:00 02/23/25 08:00 02/23/25 08:00 02/23/25 04:00
--- NOTE | 2025-02-23 08:52 | W.PN.UPDATE ---
Update Note
Progress Note Update
Stable for downgrade to Tele
tramadol switched to Oxycodone, Dilaudid remains available for severe breakthrough pain
Miralax changed to PRN
CK finally trending down, ELIGIO more or less resolved, cont IV
GI re-eval requested persistent worsening LFTs
Hematology eval requested persistent anemia thrombocytopenia slowly worsening
discussed with patient and patient's daughter Debbie (called primary contact but no answer received)
--- NOTE | 2025-02-23 09:16 | W.PN.GI.CBS2 ---
Addendum entered and electronically signed by Tamela Lozada MD 02/23/25 14:16:
I saw and evaluated the patient. I reviewed the resident�s note and agree with findings and plan as documented in the resident�s note.
This patient is known to us for history of alcohol use, portal hypertension with grade 1-2 varices seen on last admission. He was admitted for rhabdomylosis with an EEG showing myopathy and neuropathy. He does admit to having several drinks since
his last admission. It is unclear why he has the rhabdo. He does not have any confusion or abdominal pain. He was given MiraLAX in the hospital and was having severe diarrhea.
abd: soft, nontender
oriented
impression
alcohol abuse
History of portal hypertension
Rhabdomyolysis
Increased LFTs
plan:
1. He did have an ultrasound that does not show ascites or clot
2. He is not disoriented or encephalopathic.
3. I do think that the MiraLAX was causing dehydration and may have been worsening his underlying condition and has now been stopped
4. His liver tests are consistent with rhabdo as the AST is markedly elevated above ALT. The bump in his numbers likely is a delayed response. And should be monitored
5. He does need outpatient alcohol abstinence and eventual evaluation for underlying cirrhosis
Original Note:
Today's Communication / Plan
-
.
Assessment / Plan
-
69M with PMHx of DM, HTN, HLD, EtOH abuse, JANES, self-reported osteoarthritis who stopped his '2 blood pressure meds and 2 diabetic meds' approximately [address] ATT[address]ANT because he did not like the way he felt on them. Started having numbness and tingling
in his legs. We saw 01/11/25 for upper GI bleed secondary portal HTN and was also found to have grade I-II varices. He was started on Nadolol, completed 7 day course of Abx and DC to home. He resumed his home meds. He followed up with his PCP,
Hematology due to have IV iron and has appt with Dr. Bob (Hepatology at [facility]) but did not get prior auth. Resumed drinking ETOH (had gallon of vodka between DC and 2 week ago) who presented to ER with weakness and heaviness feeling in his
legs. Asked to evaluate for elevated LFTs. Patient without any GI complaints at admission other then decreased appetite.
-- Generalized muscular weakness. Continued work up for rhabdomylosis; EEG showing myopathy and neuropathy.
-- History of alcohol abuse. Last drink [address] ATTENDANT as per patient
-- Recent admission with upper GI bleeding secondary to portal hypertension. Although noted to have grade 1-2 varices and EGD ultrasound abdomen was normal . Patient noted to have thrombocytopenia/ coagulopathy / elevated LFT. . Hepatology
appointment with Dr. Bob upcoming.
- Elevated LFTs in the setting of rhabdomyolysis.
PLAN
Continue further care of myopathy as per medical team/neurology, patient started on Prednisone 60mg daily.
Management of rhabdomyolysis as per medical team.
Correct electrolytes as needed.
IV hydration.
LFTs typically tend to lag behind CK levels in the context of rhabdomyolysis with peak transaminase levels often trailing the CK peak by 1-3 days. In the context of negative imaging during last admission and this admission, would continue to trend
LFTs and CK prior to evaluating for other hepatic process with additional imaging. Will follow up on labs in AM.
Trend LFT/INR
Advise to keep the outpatient appointment with rn cvicu. Patient requires MR elastography or FibroScan to rule out cirrhosis.
Advised on alcohol abstinence.
Total Time Spent with Patient (in minutes): 34
Subjective
Subjective
Date of Service: February 23, 2025
69M with a PMHx of EtOH use disorder, portal HTN, esophageal varices, portal gastropathy and pancytopenia presented to the ED on 02/18 with profound weakness and fatigue as well as poor appetite, jaundice, icterus and s/p one episode of projectile
vomiting blood.
Patient had a recent admission from 01/10 - 01/12 for melena x several months. EGD was performed during that admission that showed varices. Patient completed 7 day course of ceftriaxone/cefdinir and was started on nadalol for ppx. US at that time was
negative for cirrhosis.
Patient was hyponatremic and hypokalemic on admission with an ELIGIO (Cr 1.7). AST 670, ALT 180, T.Bili 4.0. We were consulted on 02/18 for elevated liver enzymes. Repeat US was negative for cirrhosis with no focal hepatic lesions. CK was 4653 on
admission. Neurological work up over the course of the admission showed chronic inflammatory or toxic/necrotic myopathy in the proximal left upper and left lower limbs and chronic sensorimotor peripheral polyneuropathy.
Over the past 5 days [place] [address] [place], and has downtrended today to 9846. LFTs continue to rise to AST 1006 and ALT 250.
We were re-consulted to evaluate for further abdominal imaging. Patient continues to feel weak and lethargic today. Endorses pain that is worse in hip and shoulders. Does not endorse abdominal pain persay, but states that he experiences pressure
since Linzess was restarted and that he will have multiple bowel movements per day. Patient himself has not visualized these bowel movements. He denies any episodes of hematemesis since the day of admission or prior to. He denies fevers, chills,
dysphagia, or symptoms of reflux.
Objective
Data Reviewed
Laboratory Data:
Laboratory Results
02/23/25 03:29
02/23/25 03:29
Laboratory Results
PT 21.2 Sec (11.4-14.6) H 02/23/25 03:29
INR 1.81 02/23/25 03:29
APTT Cancelled 02/19/25 15:47
Phosphorus 3.6 mg/dl (2.5-4.5) 02/23/25 03:29
Magnesium 2.2 mg/dl (1.6-2.3) 02/23/25 03:29
Total Bilirubin 4.0 mg/dl (0.2-1.3) H 02/23/25 03:29
AST 1006 U/L (17-59) H* 02/23/25 03:29
ALT 250 U/L (0-50) H 02/23/25 03:29
Alkaline Phosphatase 256 U/L (38-126) H 02/23/25 03:29
Vital Signs and I&O:
Vital Signs
Temp Pulse Resp BP Pulse Ox
97.5 F 71 16 121/54 95
02/23/25 07:45 02/23/25 08:00 02/23/25 08:00 02/23/25 08:00 02/23/25 04:00
I&O
02/22/25 02/23/25 02/24/25
06:59 06:59 06:59
Intake Total 6135 / 6310 3700 / 3825 250 / 250
Output Total 3525 / 3525 1600 / 1600 650 / 650
Balance 2610 / 2785 2100 / 2225 -400 / -400
Physical Exam
Physical Exam
HEENT: Other (icteric sclera)
Cardiology: Normal Sinus Rhythm, S1 and S2
Pulmonary: Clear
GI: Soft, Non Distended, Normal Bowel Sounds and Other (tympanic on percussion)
Neuro: Non Focal and Other (could not assess for asterixis due to patient unable to keep arms in air for longer than 2 seconds; mentating appropriately)
--- NOTE | 2025-02-23 09:18 | CM ---
spoke with patient daughter Debbie who requested additional referrals be placed.
She requested [employer], [facility] & [facility]
PT rec SNF
Will need to obtain insurance auth
PLAN: SNF pending acceptance/bed availability when stable, Will need ins auth once bed secured
[2025-02-23] MEDS: NOVOLOG FLEXPEN SC ×2 (09:21→09:34)
[2025-02-23] MEDS: MIRALAX PO (09:21)
[2025-02-23] MEDS: CYMBALTA DELAYED RELEASE PO (09:21)
[2025-02-23] MEDS: DELTASONE 60 MG PO (09:41)
[2025-02-23] MEDS: FOLVITE 1 MG PO (09:41)
[2025-02-23] MEDS: PROTONIX 40 MG PO ×2 (09:42→21:30)
[2025-02-23] MEDS: SENOKOT-S PO (09:42)
[2025-02-23] MEDS: DESENEX/MITRAZOL/ZEASORB 1 APPLIC TOPICAL ×2 (09:42→21:27)
[2025-02-23] MEDS: COREG 3.125 MG PO ×2 (09:42→21:30)
[2025-02-23] MEDS: THIAMINE INJECTION 252.5 MG IV (09:46)
[2025-02-23] MEDS: NOVOLOG FLEXPEN-MODERATE RESISTANCE 5 UNITS SC (09:53)
[2025-02-23 10:03] LABS: Glucose - Point of Care 250 mg/dl (70-99)
--- NOTE | 2025-02-23 11:38 | PTCARENOTE ---
Called report to receiving 3 [place] RN.
RN updated pt's at bedside via hospitalist progress note per Dr. Mccord
--- NOTE | 2025-02-23 11:57 | W.PN.NEPH.PH ---
Today's Communication / Plan
-
lower IVF rate
Assessment/Plan
-
Impression:
ELIGIO/rhabdomyolysis
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
Thrombocytopenia
Diabetes
History of hypertension
Dyslipidemia
History of esophageal varices and portal hypertension
Anemia
Plan:
ELIGIO likely related to rhabdomyolysis
cr now at 1.1, non oliguric
UA microhematuria and 3+alb, will quantify UPCR
CK improving at 9.8k, cont IVF still however decrease rate as wt seem increasing
Etiology of rhabdomyolysis to be defined : statin currently held
monitor hb , decreasing trend
BP stable
Prednisone per neuro
Maintain accurate I's and O's and daily weights
d/w pt and at bedside
-
-
Date of Service: February 23, 2025
CC / HPI / ROS
-
Chief Complaint:
ELIGIO
History of Present Illness:
Creatinine improved to 1.1
Hemodynamically stable
Hypokalemia better k 4.1
Anemia worsening 7.3
Review of Systems:
Nonoliguric
No reported chest pain or shortness of breath
Weights up
Continues with proximal myopathy pains
Labs
-
Labs:
WBC 10.7 10^3/uL (4.8-10.8) 02/23/25 03:29
RBC 3.43 10^6/uL (4.70-6.10) L 02/23/25 03:29
Hgb 7.3 g/dL (13.0-18.0) L 02/23/25 03:29
Hct 22.6 % (39.0-52.0) L 02/23/25 03:29
Plt Count 56 10^3/uL (130-400) L 02/23/25 03:29
Sodium 131 mmol/L (135-145) L 02/23/25 03:29
Potassium 4.1 mmol/L (3.5-5.1) 02/23/25 03:29
Chloride 103 mmol/L (98-107) 02/23/25 03:29
Carbon Dioxide 25 mmol/L (22-30) 02/23/25 03:29
BUN 34 mg/dl (9-20) H 02/23/25 03:29
Creatinine 1.1 mg/dL (0.7-1.3) 02/23/25 03:29
eGFR > 60.00 02/23/25 03:29
Glucose 167 mg/dl (70-99) H 02/23/25 03:29
Calcium 8.1 mg/dl (8.4-10.2) L 02/23/25 03:29
Phosphorus 3.6 mg/dl (2.5-4.5) 02/23/25 03:29
Albumin 2.5 g/dl (3.5-5.0) L 02/23/25 03:29
Physical Exam
-
Vital Signs:
Vital Signs
Temp Pulse Resp BP Pulse Ox
97.6 F 71 16 121/54 94
02/23/25 11:19 02/23/25 08:00 02/23/25 08:00 02/23/25 08:00 02/23/25 09:39
Cardiovascular:: Regular rate and rhythm
Respiratory:: Bilateral: CTA (anteriorly)
Lung Excursion:: Normal
Abdomen:: Nontender and Soft
Bowel Sounds:: Normal
Extremity Edema:: +1: Bilateral:
Lynn Catheter: No
[2025-02-23 12:50] LABS: Glucose - Point of Care 207 mg/dl (70-99)
[2025-02-23] MEDS: ROXICODONE 10 MG PO ×2 (13:11→21:48)
[2025-02-23] MEDS: NOVOLOG FLEXPEN-MODERATE RESISTANCE 3 UNITS SC ×2 (13:12→18:13)
[2025-02-23] MEDS: NOVOLOG FLEXPEN 8 UNITS SC ×2 (13:13→18:13)
[2025-02-23 17:50] LABS: Glucose - Point of Care 227 mg/dl (70-99)
[2025-02-23] MEDS: LANTUS 0.2 UNITS SC (18:13)
[2025-02-23] MEDS: MELATONIN 5 MG PO (21:31)
[2025-02-23] MEDS: NEURONTIN 100 MG PO (21:31)
[2025-02-23] MEDS: SENOKOT-S 1 TABLET PO (21:31)
[2025-02-23 23:03] LABS: Glucose - Point of Care 406 mg/dl (70-99)
[2025-02-23 23:48] LABS: Glucose 228 mg/dl (70-99)
[2025-02-24] VITALS (8 sets, daily range): BP systolic 104–133; BP diastolic 46–65; PULSE 80
--- NOTE | 2025-02-24 | PTCARENOTE ---
Pt HS fingerstick glucose reading as high. Stat venous blood glucose ordered. Glucose of 228. TERELL Bird notified. Plan of care ongoing.
--- NOTE | 2025-02-24 07:08 | W.PN.HOSP.TC ---
Today's Communication/Plan
-
cont trending CK
monitor LFTs
pain control, oxycodone reduced to 5 mg given patient's concern regarding oversedation
PT/OT
Taper prednisone
Glycemic control
Assessment / Plan
Assessment / Plan
Physical Exam
General: Comfortable and Conversant
HEENT: Moist mucous membranes, Sclera icteric, normocephalic atraumatic
Respiratory: Clear and Non Labored Respirations
Cardiac: S1/S2 and Regular Rhythm
GI: Soft and Mild tenderness throughout bowel sounds present
Musculoskeletal: No Clubbing, No Cyanosis and No Edema
Skin: Warm, Dry and Jaundice
Neuro: AOx3 conversant coherent, unable to lift legs off bed, strength 4/5 upper ext's b/l
Psych: Calm
69M ETOH Esophageal Varices Grade 1-2 (Abd US however neg for cirrhosis x2) HTN DM hx GIB portal HTN here for evaluation rapidly progressive ascending weakness with associate severe Rhabdomyolysis ELIGIO and Liver Injury
Rapidly Progressive ascending weakness unclear etiology
-Transferred to ICU for closer monitoring respiratory status, so far VSS on room air
-Neuro eval appreciated brain mri w/o contrast noted no acute abn's, EMG noted myopathy and neuropathy,
-prednisone 60 mg daily started as per neuro recommendations, JESSICA screen neg less likely autoimmune d/o, prednisone tapered to 50 mg daily
-Health Sciences Manager eval appreciated
-Stable for downgrade to IMU 02/21
-02/23 stable for downgrade to Tele
-PT/OT appreciated SNF rehab
-IV thiamine supplementation taper to PO
Severe Rhabdomyolysis unclear etiology
Acute Kidney Injury, possibly related to volume depletion due to poor oral intake vs Severe Rhabdomyolysis
Acute Liver Failure/Injury likely due to Rhabdomyolysis, possible ETOH injury as well though patient reports last drink was 2-3 wks ago
-Consult GI appreciated
-Abd US noted noted normal appearance GB Liver, splenomegaly 15.1 cm noted
-CK trending down from [place] [address]
-IVF completed as per Nephro, monitor off
-Hold Jardiance
-Prednisone 60 mg daily tapered to 50 mg daily as above
-Nephro eval appreciated
Metabolic Acidosis w/o anion gap
-likely d/t IVF NS
-switched to bicarb gtt
-metabolic acidosis since resolved, bicarb gtt completed
Steroid induced Leukocytosis
trend WBC
Reports Severe Constipation
-Obstructions series X-ray noted no obstruction, small volume scattered colonic stool
-once Fleet enema per patient's request
-Gas-X prn
-bowel regimen senokot-s, miralax prn
-constipation since resolved
Hypokalemia
-Monitor and replete as necessary
Alcohol Use Disorder
-Patient reports last drink 2-3 weeks ago
-Continue thiamine and folic supplementation
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
-Continue Protonix BID
-As per GI, Nadolol dc and Coreg continued (dose reduced d/t low pressures)
Anemia
Thrombocytopenia
suspect ETOH induced
trend Hgb
Iron studies, B12, Folate appreciated non-deficient
trend Plt, no need for transfusion at this time
Hematology eval appreciated
Diabetes Mellitus, Type II
Steroid Induced Hyperglycemia
Likely Diabetic Neuropathy as noted on EMG
-Hold oral diabetic meds
-DM STEWARD/STEWARDESS SMOKE ROOM consult appreciated Lantus 20U Novolog 12U moderate sliding scale
-Monitor and titrate insulin regimen as necessary
-Cymbalta 20 mg daily started increased to 30 mg daily
-New Gabapentin 100 mg TID
Mild Pseudohyponatremia d/t hyperglycemia
monitor
Essential Hypertension
-Relative low/normotensive pressures noted
-Coreg dose reduced w/ holding parameters
-holding Amlodipine for now
-BP well controlled at this time
PT/OT appreciate SNF rehab
DVT proph: SCDs
Code Status: Full Code
Discussed with patient, patient's Es, and patient's daughter Debbie
I spent a total of 50 minutes with the patient or on the floor. More than 50% of this time involved counseling and coordination of care.
Anticipated Discharge: 24 - 48 hours
Subjective/Interval History
-
Date of Service: February 24, 2025
Weakness persist. Reports pain well controlled but concern regarding oversedation. PRN oxycodone subsequently reduced. Es present during evaluation.
Objective Data
-
Labs:
Laboratory Results
02/23/25 02/24/25
23:09 06:00
WBC Pending
Hgb Pending
Hct Pending
Plt Count Pending
Sodium Pending
Potassium Pending
Chloride Pending
Carbon Dioxide Pending
BUN Pending
Creatinine Pending
Glucose 228 H Pending
Calcium Pending
Total Bilirubin Pending
AST Pending
ALT Pending
Alkaline Phosphatase Pending
Vital Signs:
Vital Signs
Temp Pulse Resp BP Pulse Ox
97.9 F 76 18 133/65 91
02/24/25 03:00 02/24/25 03:00 02/24/25 03:00 02/24/25 03:00 02/24/25 03:00
I&O
02/23/25 02/24/25 02/25/25
06:59 06:59 06:59
Intake Total 3700 / 3825 1770 / 1770
Output Total 1600 / 1600 1875 / 1875
Balance 2100 / 2225 -105 / -105
--- NOTE | 2025-02-24 07:36 | PN.DE.MGMTRT ---
Insulin Management
- -
02/24/2025 Diabetes Management Consult Follow up
Patient admitted 02/18 with c/o weakness, anemia - UGI bleed due to portal HTN, Rhabdomyolysis. PMH type 2 diabetes, sleep apnea, significant alcohol abuse. Patient know to me from previous admission 01/10 to 01/12. Prior to admission was taking
Jardiance 25 mg daily, lantus 15 units PM and Rybelsus 3mg pm. A1C 01/10 9.2%, cr today 1., eGFR 54.75.
Patient is awake and alert oob in chair. States he sees his primary doctor manages his diabetes. He has a Patti 3.
Patient has been receiving prednisone 60 mg daily, decreased to 50 mg today.Received 8 units novolog AC yesterday. Received 20 units Lantus last evening. Glucose range 167 to 250 (POC glucose 406, venous glucose 228). Will increase AC novolog to 12
units with moderate corrective insulin.
Discussed with nurse.
Will follow.
Diabetes History
- -
Type of Diabetes: 2 requiring insulin
Pre-Admission Diabetes Regimen
Insulin Pump Settings
IP Diabetes Regimen
02/23/25 02/23/25 02/23/25
07:38 09:52 12:49
Glucose
POC Glucose 165 H 250 H 207 H
02/23/25 02/23/25 02/23/25
17:48 23:01 23:09
Glucose 228 H
POC Glucose 227 H 406 H
Meal type: Lunch
Meal type: Breakfast
Amount consumed: 85%
Amount consumed: 100%
Patient Education
[2025-02-24] MEDS: NOVOLOG FLEXPEN-MODERATE RESISTANCE 3 UNITS SC ×2 (07:39→12:16)
[2025-02-24] MEDS: CYMBALTA DELAYED RELEASE 30 MG PO (07:39)
[2025-02-24] MEDS: PROTONIX 40 MG PO ×2 (07:39→21:45)
[2025-02-24 07:40] LABS: Glucose - Point of Care 230 mg/dl (70-99)
[2025-02-24] MEDS: FOLVITE 1 MG PO (07:40)
[2025-02-24] MEDS: DELTASONE 60 MG PO (07:40)
[2025-02-24] MEDS: DESENEX/MITRAZOL/ZEASORB 1 APPLIC TOPICAL ×2 (07:40→23:04)
[2025-02-24] MEDS: COREG 3.125 MG PO (07:40)
[2025-02-24] MEDS: NEURONTIN 100 MG PO ×3 (07:40→21:44)
[2025-02-24] MEDS: SENOKOT-S PO ×2 (07:41→21:43)
[2025-02-24] MEDS: THIAMINE INJECTION 252.5 MG IV (07:41)
[2025-02-24] MEDS: NOVOLOG FLEXPEN 12 UNITS SC ×3 (07:45→17:31)
[2025-02-24] MEDS: NOVOLOG FLEXPEN SC (08:05)
[2025-02-24 08:25] LABS: Hematocrit 22.9 % (39.0-52.0); Hemoglobin 7.2 g/dL (13.0-18.0); Mean Corp Hgb Conc. 31.4 g/dL (33.0-37.0); Mean Corpuscular Volume 67.4 fL (80.0-94.0); Nucleated Red Blood Cells % 0 % (-); Platelet Count 54 10^3/uL (130-400); Red Cell Dist. Width 19.9 % (11.5-14.5)
[2025-02-24 08:48] LABS: ALT (SGPT) 257 U/L (0-50); Albumin 2.6 g/dl (3.5-5.0); Alkaline Phosphatase 261 U/L (38-126); Blood Urea Nitrogen 37 mg/dl (9-20); Calcium 8.6 mg/dl (8.4-10.2); Carbon Dioxide 26 mmol/L (22-30); Chloride 103 mmol/L (98-107); Estimated Creatinine Clearance 75 ml/min; Glucose 170 mg/dl (70-99); Magnesium 2.2 mg/dl (1.6-2.3); Potassium 3.9 mmol/L (3.5-5.1); Sodium 133 mmol/L (135-145); Total Protein 5.8 g/dl (6.3-8.2); eGFR > 60.00
[2025-02-24 09:47] LABS: AST (SGOT) 884 U/L (17-59)
--- NOTE | 2025-02-24 09:48 | W.PN.ONC ---
Today's Communication / Plan
-
Monitor CBC
Impression
Impression
Thrombocytopenia in setting of liver disease
Microcytic anemia in setting of acute illness and dilution
Splenomegaly
Alcoholic cirrhosis
Portal HTN with esophageal variceal 01/11/25 and gastropathy
Rhabdomyolysis
Myopathy and neuropathy per EMG
DMII
Plan
Plan
Thrombocytopenia in setting of liver disease
--Ptl slowly continuing to downtrend consistent with ongoing liver disease
--Monitor
--Transfuse for pt <10 or if active bleed then <40
--Of note, ptl 58 when last discharge on 01/12
Microcytic anemia - multifactorial in setting of acute illness, dilution, continued blood draws, chronic ETOH use
--Slow stable downtrend
--Iron panel suggest low normal iron and may benefit from iron supplementation, B12 and folate wnl
--No signs of active bleed
--Monitor hg - Transfuse for hg <7
--Of note, hg 7.4 when last discharged on 01/12. He did require one unit of RBC during that admission due to acute on chronic blood loss anemia secondary to esophageal variceal bleeding.
Heme/onc will sign off. Please reach out for any further questions. Thank you for involving us in the care of this patient.
Full code
DVT SCDs
Subjective/Objective
Subjective/Objective
Feeling better than yesterday, however some ongoing proximal muscle weakness
HR RR and rhythm, no MRG
Wheezes noted, improved from yesterday
Ab non-distended, non-tender, normal BSx4
Mild peripheral edema in bilateral hands, none in bilateral feet. No cyanosis. No rash.
Vital Signs:
Vital Signs
Temp Pulse Resp BP Pulse Ox
97.5 F 70 16 105/49 92
02/24/25 08:40 02/24/25 08:40 02/24/25 08:40 02/24/25 08:40 02/24/25 08:40
Lab Results:
Laboratory Data
WBC 11.1 10^3/uL (4.8-10.8) H 02/24/25 07:13
Hgb 7.2 g/dL (13.0-18.0) L 02/24/25 07:13
Plt Count 54 10^3/uL (130-400) L 02/24/25 07:13
PT 21.2 Sec (11.4-14.6) H 02/23/25 03:29
INR 1.81 02/23/25 03:29
APTT Cancelled 02/19/25 15:47
eGFR > 60.00 02/24/25 07:13
--- NOTE | 2025-02-24 09:55 | W.PN.GI.CBS2 ---
Today's Communication / Plan
-
alcohol abstinence
Assessment / Plan
-
69M with PMHx of DM, HTN, HLD, EtOH abuse, JANES, self-reported osteoarthritis who stopped his '2 blood pressure meds and 2 diabetic meds' approximately 1 month [employer] because he did not like the way he felt on them. Started having numbness and tingling
in his legs. We saw 01/11/25 for upper GI bleed secondary portal HTN and was also found to have grade I-II varices. He was started on Nadolol, completed 7 day course of Abx and DC to home. He resumed his home meds. He followed up with his PCP,
Hematology due to have IV iron and has appt with Dr. Bob (Hepatology at [facility]) but did not get prior auth. Resumed drinking ETOH (had gallon of vodka between DC and 2 week ago) who presented to ER with weakness and heaviness feeling in his
legs. Asked to evaluate for elevated LFTs. Patient without any GI complaints at admission other then decreased appetite.
-- Generalized muscular weakness. Continued work up for rhabdomylosis; EEG showing myopathy and neuropathy.
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
-- Recent admission with upper GI bleeding secondary to portal hypertension. Although noted to have grade 1-2 varices and EGD ultrasound abdomen was normal . Patient noted to have thrombocytopenia/ coagulopathy / elevated LFT. . Hepatology
appointment with Dr. Bob upcoming.
- Elevated LFTs in the setting of rhabdomyolysis.
PLAN
AST has started to drop and likely secondary to muscle process
needs alcohol abstinence
no other recommendation for now
will sign off call with questions
Subjective
Subjective
Date of Service: February 24, 2025
Pt without bleeding or abdominal pain
Objective
Data Reviewed
Laboratory Data:
Laboratory Results
02/24/25 07:13
02/24/25 07:13
Laboratory Results
PT 21.2 Sec (11.4-14.6) H 02/23/25 03:29
INR 1.81 02/23/25 03:29
APTT Cancelled 02/19/25 15:47
Phosphorus 3.7 mg/dl (2.5-4.5) 02/24/25 07:13
Magnesium 2.2 mg/dl (1.6-2.3) 02/24/25 07:13
Total Bilirubin 3.8 mg/dl (0.2-1.3) H 02/24/25 07:13
AST 884 U/L (17-59) H* 02/24/25 07:13
ALT 257 U/L (0-50) H 02/24/25 07:13
Alkaline Phosphatase 261 U/L (38-126) H 02/24/25 07:13
Vital Signs and I&O:
Vital Signs
Temp Pulse Resp BP Pulse Ox
97.5 F 70 16 105/49 92
02/24/25 08:40 02/24/25 08:40 02/24/25 08:40 02/24/25 08:40 02/24/25 08:40
I&O
02/23/25 02/24/25 02/25/25
06:59 06:59 06:59
Intake Total 3700 / 3825 1770 / 1770
Output Total 1600 / 1600 1875 / 1875
Balance 2100 / 2225 -105 / -105
Physical Exam
Physical Exam
GI: Soft, Non Distended and Non Tender
Neuro: Other (weakness )
[2025-02-24 11:34] LABS: Glucose - Point of Care 233 mg/dl (70-99)
[2025-02-24] MEDS: LR 1000 IV (12:21)
--- NOTE | 2025-02-24 12:52 | W.PN.NEPH.PH ---
Today's Communication / Plan
-
monitor labs off IVF
Assessment/Plan
-
Impression:
ELIGIO/rhabdomyolysis
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
Thrombocytopenia
Diabetes
History of hypertension
Dyslipidemia
History of esophageal varices and portal hypertension
Anemia
Plan:
ELIGIO likely related to rhabdomyolysis
cr now at 1.2 over all stable, non oliguric
UA microhematuria and 3+alb, U PCR 1.1gm/gm of cr-need f/u out pt
check complements- to r/o immune complex nephritis in the context of myopathy
CK improving 5283, given sig edema recommend to increase po fluid intake and off IVF
Etiology of rhabdomyolysis to be defined : statin currently held
monitor hb , decreasing trend
BP stable
Prednisone per neuro
Maintain accurate I's and O's and daily weights
mild hyponatremia-monitor off FR
d/w pt and at bedside
-
-
Date of Service: February 24, 2025
CC / HPI / ROS
-
Chief Complaint:
ELIGIO
History of Present Illness:
Creatinine stable at 1.2
Hemodynamically stable
Anemia worsening 7.2
Review of Systems:
Nonoliguric
No reported chest pain or shortness of breath
Weights up, not done today
Continues with proximal myopathy
Labs
-
Labs:
WBC 11.1 10^3/uL (4.8-10.8) H 02/24/25 07:13
RBC 3.40 10^6/uL (4.70-6.10) L 02/24/25 07:13
Hgb 7.2 g/dL (13.0-18.0) L 02/24/25 07:13
Hct 22.9 % (39.0-52.0) L 02/24/25 07:13
Plt Count 54 10^3/uL (130-400) L 02/24/25 07:13
Sodium 133 mmol/L (135-145) L 02/24/25 07:13
Potassium 3.9 mmol/L (3.5-5.1) 02/24/25 07:13
Chloride 103 mmol/L (98-107) 02/24/25 07:13
Carbon Dioxide 26 mmol/L (22-30) 02/24/25 07:13
BUN 37 mg/dl (9-20) H 02/24/25 07:13
Creatinine 1.2 mg/dL (0.7-1.3) 02/24/25 07:13
eGFR > 60.00 02/24/25 07:13
Glucose 170 mg/dl (70-99) H 02/24/25 07:13
Calcium 8.6 mg/dl (8.4-10.2) 02/24/25 07:13
Phosphorus 3.7 mg/dl (2.5-4.5) 02/24/25 07:13
Albumin 2.6 g/dl (3.5-5.0) L 02/24/25 07:13
Physical Exam
-
Vital Signs:
Vital Signs
Temp Pulse Resp BP Pulse Ox
97.7 F 74 16 114/55 93
02/24/25 11:22 02/24/25 11:22 02/24/25 11:22 02/24/25 11:22 02/24/25 11:22
Cardiovascular:: Regular rate and rhythm
Respiratory:: Bilateral: CTA (anteriorly)
Lung Excursion:: Normal
Abdomen:: Nontender and Soft
Bowel Sounds:: Normal
Extremity Edema:: +1: Bilateral:
Lynn Catheter: No
[2025-02-24 16:58] LABS: Glucose - Point of Care 335 mg/dl (70-99)
[2025-02-24] MEDS: NOVOLOG FLEXPEN-MODERATE RESISTANCE 7 UNITS SC (17:31)
[2025-02-24] MEDS: LANTUS 0.2 UNITS SC (17:31)
[2025-02-24 21:29] LABS: Glucose - Point of Care 370 mg/dl (70-99)
[2025-02-24] MEDS: MELATONIN 5 MG PO (21:43)
[2025-02-24] MEDS: COREG PO (21:44)
[2025-02-24] MEDS: LR IV (23:05)
[2025-02-25 03:06] VITALS: BP 127/64
[2025-02-25 06:24] LABS: Hematocrit 24.9 % (39.0-52.0); Hemoglobin 7.8 g/dL (13.0-18.0); Mean Corp Hgb Conc. 31.3 g/dL (33.0-37.0); Mean Corpuscular Volume 68.0 fL (80.0-94.0); Nucleated Red Blood Cells % 0 % (-); Platelet Count 56 10^3/uL (130-400); Red Cell Dist. Width 20.4 % (11.5-14.5)
[2025-02-25 06:27] LABS: ALT (SGPT) 265 U/L (0-50); AST (SGOT) 742 U/L (17-59); Albumin 2.7 g/dl (3.5-5.0); Alkaline Phosphatase 269 U/L (38-126); Blood Urea Nitrogen 36 mg/dl (9-20); Calcium 8.6 mg/dl (8.4-10.2); Carbon Dioxide 26 mmol/L (22-30); Chloride 102 mmol/L (98-107); Estimated Creatinine Clearance 100 ml/min; Glucose 187 mg/dl (70-99); Magnesium 1.9 mg/dl (1.6-2.3); Potassium 3.7 mmol/L (3.5-5.1); Sodium 132 mmol/L (135-145); Total Protein 5.9 g/dl (6.3-8.2); eGFR > 60.00
--- NOTE | 2025-02-25 07:41 | PN.DE.MGMTRT ---
Insulin Management
- -
02/25/2025: Diabetes Management Follow up
Patient admitted 02/18 with c/o weakness, anemia - UGI bleed due to portal HTN, Rhabdomyolysis. PMH type 2 diabetes, sleep apnea, significant alcohol abuse. Patient know to me from previous admission 01/10 to 01/12. Prior to admission was taking
Jardiance 25 mg daily, Lantus 15 units PM and Rybelsus 3mg pm. A1C 01/10 9.2%, cr today 1., eGFR 54.75.
Patient is awake and alert, sitting up in bed, offers no complaints, able to discuss diabetes care plan.
States he sees his primary doctor manages his diabetes and has a Patti 3.
Patient has been receiving prednisone 60 mg daily, decreased to 50 mg yesterday.
Premeal Glucose range 230 to 335, requiring additional corrective insulin with meals.
Will increase AC NovoLog to 15 units with moderate corrective insulin.
HS Glucose was 370, Received 20 units Lantus last evening, FBG 187. Will increase Lantus to 22 units.
Discussed with nurse. Will cont to follow.
Diabetes History
- -
Type of Diabetes: 2 requiring insulin
Pre-Admission Diabetes Regimen
02/24/25 02/25/25
07:13 05:45
Creatinine 1.2 0.9
Insulin Pump Settings
IP Diabetes Regimen
02/24/25 02/24/25 02/24/25
07:13 11:33 16:56
Glucose 170 H
POC Glucose 233 H 335 H
02/24/25 02/25/25
21:28 05:45
Glucose 187 H
POC Glucose 370 H
Meal type: Breakfast
Meal type: Breakfast
Amount consumed: 100%
Amount consumed: 100%
Patient Education
[2025-02-25 08:35] LABS: Glucose - Point of Care 189 mg/dl (70-99)
[2025-02-25 08:41] VITALS: BP 136/63
[2025-02-25] MEDS: NEURONTIN 100 MG PO ×2 (09:07→17:09)
[2025-02-25] MEDS: PROTONIX 40 MG PO ×2 (09:21→21:34)
[2025-02-25] MEDS: FOLVITE 1 MG PO (09:21)
[2025-02-25] MEDS: COREG 3.125 MG PO (09:21)
[2025-02-25] MEDS: DELTASONE 50 MG PO (09:21)
[2025-02-25] MEDS: SENOKOT-S 1 TABLET PO ×2 (09:21→21:34)
[2025-02-25] MEDS: CYMBALTA DELAYED RELEASE 30 MG PO (09:21)
[2025-02-25] MEDS: VITAMIN B1 100 MG PO ×2 (09:21→21:34)
[2025-02-25] MEDS: DESENEX/MITRAZOL/ZEASORB 1 APPLIC TOPICAL ×2 (09:22→21:44)
[2025-02-25] MEDS: NOVOLOG FLEXPEN-MODERATE RESISTANCE 1 UNITS SC ×2 (09:56→13:02)
[2025-02-25] MEDS: NOVOLOG FLEXPEN 12 UNITS SC (09:57)
--- NOTE | 2025-02-25 10:40 | W.PN.NEPH.PH ---
Today's Communication / Plan
-
Follow BMP
No more IV fluids
Continue to monitor sodium levels
Assessment/Plan
-
Impression:
ELIGIO/rhabdomyolysis
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
Thrombocytopenia
Diabetes
History of hypertension
Dyslipidemia
History of esophageal varices and portal hypertension
Anemia
Plan:
ELIGIO likely related to rhabdomyolysis
cr now at 0.9 over all stable, non oliguric
UA microhematuria and 3+alb, U PCR 1.1gm/gm of cr-need f/u out pt
check complements- to r/o immune complex nephritis in the context of myopathy
CK improving 5283, given sig edema recommend to increase po fluid intake and off IVF
Etiology of rhabdomyolysis to be defined : statin currently held
monitor hb , decreasing trend
BP stable
Prednisone per neuro
Maintain accurate I's and O's and daily weights
mild hyponatremia-monitor off FR
d/w pt and at bedside
-
-
Date of Service: February 25, 2025
CC / HPI / ROS
-
Chief Complaint:
ELIGIO
History of Present Illness:
Creatinine stable at 0.9
Hemodynamically stable
Anemia worsening 7.8
Review of Systems:
Nonoliguric
No reported chest pain or shortness of breath
Weights up, not done today
Continues with proximal myopathy
Labs
-
Labs:
WBC 11.0 10^3/uL (4.8-10.8) H 02/25/25 05:45
RBC 3.66 10^6/uL (4.70-6.10) L 02/25/25 05:45
Hgb 7.8 g/dL (13.0-18.0) L 02/25/25 05:45
Hct 24.9 % (39.0-52.0) L 02/25/25 05:45
Plt Count 56 10^3/uL (130-400) L 02/25/25 05:45
Sodium 132 mmol/L (135-145) L 02/25/25 05:45
Potassium 3.7 mmol/L (3.5-5.1) 02/25/25 05:45
Chloride 102 mmol/L (98-107) 02/25/25 05:45
Carbon Dioxide 26 mmol/L (22-30) 02/25/25 05:45
BUN 36 mg/dl (9-20) H 02/25/25 05:45
Creatinine 0.9 mg/dL (0.7-1.3) 02/25/25 05:45
eGFR > 60.00 02/25/25 05:45
Glucose 187 mg/dl (70-99) H 02/25/25 05:45
Calcium 8.6 mg/dl (8.4-10.2) 02/25/25 05:45
Phosphorus 3.6 mg/dl (2.5-4.5) 02/25/25 05:45
Albumin 2.7 g/dl (3.5-5.0) L 02/25/25 05:45
Physical Exam
-
Vital Signs:
Vital Signs
Temp Pulse Resp BP Pulse Ox
97.6 F 68 17 136/63 93
02/25/25 08:41 02/25/25 08:41 02/25/25 08:41 02/25/25 08:41 02/25/25 08:41
Cardiovascular:: Regular rate and rhythm
Respiratory:: Bilateral: CTA (anteriorly)
Lung Excursion:: Normal
Abdomen:: Nontender and Soft
Bowel Sounds:: Normal
Extremity Edema:: +1: Bilateral:
Lynn Catheter: No
[2025-02-25] MEDS: LR IV (11:27)
--- NOTE | 2025-02-25 11:49 | VATNOTE ---
VAT rounds: Swelling noted in L arm > R arm. MD notified, MD to order peripheral vascular ultrasound.
[2025-02-25 12:59] LABS: Glucose - Point of Care 192 mg/dl (70-99)
[2025-02-25] MEDS: POLYSPORIN/DOUBLE ANTIBIOTIC 1 APPLIC TOPICAL ×2 (13:00→21:35)
[2025-02-25] MEDS: NOVOLOG FLEXPEN 15 UNITS SC ×2 (13:01→17:15)
--- NOTE | 2025-02-25 15:20 | W.PN.HOSP.TC ---
Today's Communication/Plan
-
f/u CPK level
eventual snf rehab placement
Assessment / Plan
Assessment / Plan
69M ETOH Esophageal Varices Grade 1-2 (Abd US however neg for cirrhosis x2) HTN DM hx GIB portal HTN here for evaluation rapidly progressive ascending weakness with associate severe Rhabdomyolysis ELIGIO and Liver Injury
Rapidly Progressive ascending weakness unclear etiology
-Transferred to ICU for closer monitoring respiratory status, so far VSS on room air
-Neuro eval appreciated brain mri w/o contrast noted no acute abn's, EMG noted myopathy and neuropathy,
-prednisone 60 mg daily started as per neuro recommendations, JESSICA screen neg less likely autoimmune d/
-PT/OT appreciated SNF rehab
-IV thiamine supplementation taper to PO
-Prednisone being tapered off.
Severe Rhabdomyolysis
Acute Kidney Injury, possibly related to volume depletion due to poor oral intake vs Severe Rhabdomyolysis
Acute Liver Failure/Injury likely due to Rhabdomyolysis, possible ETOH injury as well though patient reports last drink was 2-3 wks ago
-Consult GI appreciated
-Abd US noted noted normal appearance GB Liver, splenomegaly 15.1 cm noted
-CPK Tredning down.
-Hold Jardiance
-Nephro eval appreciated
Metabolic Acidosis w/o anion gap - resolved
-likely d/t IVF NS
-further IVF on hold
-metabolic acidosis since resolved, bicarb gtt completed
Steroid induced Leukocytosis
trend WBC
Reports Severe Constipation
-Obstructions series X-ray noted no obstruction, small volume scattered colonic stool
-once Fleet enema per patient's request
-Gas-X prn
-bowel regimen senokot-s, miralax prn
-constipation since resolved
Hypokalemia
-Monitor and replete as necessary
Alcohol Use Disorder
-Patient reports last drink 2-3 weeks ago
-Continue thiamine and folic supplementation
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
-Continue Protonix BID
-As per GI, Nadolol dc and Coreg continued (dose reduced d/t low pressures)
Anemia
Thrombocytopenia
-suspect ETOH induced
-Iron studies, B12, Folate appreciated non-deficient
-Hematology eval appreciated
Diabetes Mellitus, Type II
Steroid Induced Hyperglycemia
Likely Diabetic Neuropathy as noted on EMG
-Hold oral diabetic meds
-DM NETWORK FIELD ENGINEER consult appreciated Lantus 20U Novolog 12U moderate sliding scale
-Monitor and titrate insulin regimen as necessary
-Cymbalta 20 mg daily started increased to 30 mg daily
-New Gabapentin 100 mg TID
Mild Pseudohyponatremia d/t hyperglycemia
monitor
Essential Hypertension
-Relative low/normotensive pressures noted
-Coreg dose reduced w/ holding parameters
-holding Amlodipine for now
-BP well controlled at this time
DVT proph: SCDs
Code Status: Full Code
Anticipated Discharge: 24 - 48 hours
Subjective/Interval History
-
Date of Service: February 25, 2025
complaining difficulty using upper and lower extremity
poor apetite
denies abd pain/nausea/vomiting
Objective Data
-
Labs:
Laboratory Results
02/25/25
05:45
WBC 11.0 H
Hgb 7.8 L
Hct 24.9 L
Plt Count 56 L
Sodium 132 L
Potassium 3.7
Chloride 102
Carbon Dioxide 26
BUN 36 H
Creatinine 0.9
Glucose 187 H
Calcium 8.6
Total Bilirubin 3.7 H
AST 742 H*
ALT 265 H
Alkaline Phosphatase 269 H
Vital Signs:
Vital Signs
Temp Pulse Resp BP Pulse Ox
97.6 F 68 17 136/63 93
02/25/25 08:41 02/25/25 08:41 02/25/25 08:41 02/25/25 08:41 02/25/25 08:41
I&O
02/24/25 02/25/25 02/26/25
06:59 06:59 06:59
Intake Total 1770 / 1770 840 / 840 480 / 480
Output Total 1875 / 1875 1125 / 1125 1100 / 1100
Balance -105 / -105 -285 / -285 -620 / -620
Review of Systems
-
Respiratory: Reports No Symptoms
Cardiac: Reports No Symptoms
Abdomen/GI: Reports No Symptoms
Physical Exam
-
General: No Apparent Distress and Comfortable
HEENT: Negative Oxygen
Respiratory: Clear to Auscultation
Cardiac: Regular Rhythm and S1/S2; Negative Murmur or Rub
GI: Soft and Nontender
Musculoskeletal: No Edema
Neuro: Awake, Alert, Oriented, No Motor Deficits and Nonfocal/Grossly Intact
Psych: Calm
[2025-02-25 15:47] VITALS: BP 133/58
[2025-02-25 16:41] LABS: Glucose - Point of Care 212 mg/dl (70-99)
[2025-02-25] MEDS: LANTUS 0.22 UNITS SC (17:10)
[2025-02-25] MEDS: NOVOLOG FLEXPEN-MODERATE RESISTANCE 3 UNITS SC (17:14)
[2025-02-25 21:08] VITALS: BP 109/54
[2025-02-25] MEDS: COREG PO (21:32)
[2025-02-25] MEDS: MELATONIN PO (21:33)
[2025-02-25] MEDS: NEURONTIN PO (21:33)
[2025-02-25 21:47] LABS: Glucose - Point of Care 191 mg/dl (70-99)
[2025-02-25 22:30] VITALS: PULSE 72
[2025-02-25 23:41] VITALS: BP 119/58
[2025-02-26] VITALS (7 sets, daily range): BP systolic 100–140; BP diastolic 44–73; PULSE 70
[2025-02-26 08:39] LABS: Glucose - Point of Care 210 mg/dl (70-99)
[2025-02-26 10:27] LABS: Hematocrit 25.4 % (39.0-52.0); Hemoglobin 8.1 g/dL (13.0-18.0); Mean Corp Hgb Conc. 31.9 g/dL (33.0-37.0); Mean Corpuscular Volume 67.6 fL (80.0-94.0); Nucleated Red Blood Cells % 0 % (-); Platelet Count 51 10^3/uL (130-400); Red Cell Dist. Width 21.0 % (11.5-14.5)
[2025-02-26] MEDS: NEURONTIN 100 MG PO ×2 (10:28→17:01)
[2025-02-26] MEDS: PROTONIX 40 MG PO ×2 (10:28→22:06)
[2025-02-26] MEDS: CYMBALTA DELAYED RELEASE 30 MG PO (10:28)
[2025-02-26] MEDS: DELTASONE 50 MG PO (10:29)
[2025-02-26] MEDS: SENOKOT-S 1 TABLET PO ×2 (10:29→22:05)
[2025-02-26] MEDS: FOLVITE 1 MG PO (10:30)
[2025-02-26] MEDS: COREG 3.125 MG PO (10:30)
[2025-02-26] MEDS: DESENEX/MITRAZOL/ZEASORB 1 APPLIC TOPICAL ×2 (10:34→22:09)
[2025-02-26] MEDS: NOVOLOG FLEXPEN 15 UNITS SC ×3 (11:09→17:02)
[2025-02-26] MEDS: NOVOLOG FLEXPEN-MODERATE RESISTANCE 3 UNITS SC (11:10)
[2025-02-26 11:21] LABS: ALT (SGPT) 268 U/L (0-50); AST (SGOT) 522 U/L (17-59); Albumin 2.6 g/dl (3.5-5.0); Alkaline Phosphatase 207 U/L (38-126); Blood Urea Nitrogen 33 mg/dl (9-20); Calcium 8.7 mg/dl (8.4-10.2); Carbon Dioxide 24 mmol/L (22-30); Chloride 103 mmol/L (98-107); Estimated Creatinine Clearance 113 ml/min; Glucose 176 mg/dl (70-99); Magnesium 1.8 mg/dl (1.6-2.3); Potassium 3.8 mmol/L (3.5-5.1); Sodium 131 mmol/L (135-145); Total Protein 5.8 g/dl (6.3-8.2); eGFR > 60.00
[2025-02-26] MEDS: VITAMIN B1 100 MG PO ×2 (11:29→22:05)
--- NOTE | 2025-02-26 11:29 | W.PN.NEPH.PH ---
Today's Communication / Plan
-
Check urine osmolality re: hyponatremia
Renal failure resolved
Rhabdo resolving
Assessment/Plan
-
Impression:
ELIGIO/rhabdomyolysis
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
Thrombocytopenia
Diabetes
History of hypertension
Dyslipidemia
History of esophageal varices and portal hypertension
Anemia
Plan:
ELIGIO likely related to rhabdomyolysis
cr now at 0.8 over all stable, non oliguric
UA microhematuria and 3+alb, U PCR 1.1gm/gm of cr-need f/u out pt
check complements- to r/o immune complex nephritis in the context of myopathy
CK improving 854
Etiology of rhabdomyolysis to be defined : statin currently held
monitor hb , decreasing trend
BP stable
Prednisone per neuro
Maintain accurate I's and O's and daily weights
mild hyponatremia evolving monitor off FR , currently on duloxetine, check urine osmolality
-
-
Date of Service: February 26, 2025
CC / HPI / ROS
-
Chief Complaint:
ELIGIO
History of Present Illness:
Creatinine stable at 0.8
Hemodynamically stable
CPK levels following
Hyponatremia evolving with serum sodium of 130
Review of Systems:
Nonoliguric
No reported chest pain or shortness of breath
Weights up, not done today
Continues with proximal myopathy
Labs
-
Labs:
WBC 8.8 10^3/uL (4.8-10.8) 02/26/25 10:00
RBC 3.76 10^6/uL (4.70-6.10) L 02/26/25 10:00
Hgb 8.1 g/dL (13.0-18.0) L 02/26/25 10:00
Hct 25.4 % (39.0-52.0) L 02/26/25 10:00
Plt Count 51 10^3/uL (130-400) L 02/26/25 10:00
Sodium 131 mmol/L (135-145) L 02/26/25 10:01
Potassium 3.8 mmol/L (3.5-5.1) 02/26/25 10:01
Chloride 103 mmol/L (98-107) 02/26/25 10:01
Carbon Dioxide 24 mmol/L (22-30) 02/26/25 10:01
BUN 33 mg/dl (9-20) H 02/26/25 10:01
Creatinine 0.8 mg/dL (0.7-1.3) 02/26/25 10:01
eGFR > 60.00 02/26/25 10:01
Glucose 176 mg/dl (70-99) H 02/26/25 10:01
Calcium 8.7 mg/dl (8.4-10.2) 02/26/25 10:01
Phosphorus 3.6 mg/dl (2.5-4.5) 02/26/25 10:01
Albumin 2.6 g/dl (3.5-5.0) L 02/26/25 10:01
Physical Exam
-
Vital Signs:
Vital Signs
Temp Pulse Resp BP Pulse Ox
98.1 F 72 21 118/58 93
02/26/25 09:18 02/26/25 09:18 02/26/25 09:18 02/26/25 09:18 02/26/25 09:18
Cardiovascular:: Regular rate and rhythm
Respiratory:: Bilateral: CTA (anteriorly)
Lung Excursion:: Normal
Abdomen:: Nontender and Soft
Bowel Sounds:: Normal
Extremity Edema:: +1: Bilateral:
Lynn Catheter: No
--- NOTE | 2025-02-26 11:50 | W.PN.HOSP.TC ---
Today's Communication/Plan
-
xanax for anxiety
lidocaine patch for back pain
discharge planning for snf rehab
Assessment / Plan
Assessment / Plan
69M ETOH Esophageal Varices Grade 1-2 (Abd US however neg for cirrhosis x2) HTN DM hx GIB portal HTN here for evaluation rapidly progressive ascending weakness with associate severe Rhabdomyolysis ELIGIO and Liver Injury
Rapidly Progressive ascending weakness unclear etiology
-Transferred to ICU for closer monitoring respiratory status, so far VSS on room air
-Neuro eval appreciated brain mri w/o contrast noted no acute abn's, EMG noted myopathy and neuropathy,
-prednisone 60 mg daily started as per neuro recommendations, JESSICA screen neg less likely autoimmune d/
-PT/OT appreciated SNF rehab
-IV thiamine supplementation taper to PO
-Prednisone being tapered off.
Severe Rhabdomyolysis
Acute Kidney Injury, possibly related to volume depletion due to poor oral intake vs Severe Rhabdomyolysis
Acute Liver Failure/Injury likely due to Rhabdomyolysis, possible ETOH injury as well though patient reports last drink was 2-3 wks ago
-Consult GI appreciated
-Abd US noted noted normal appearance GB Liver, splenomegaly 15.1 cm noted
-CPK Tredning down.
-Hold Jardiance
-Nephro eval appreciated
Metabolic Acidosis w/o anion gap - resolved
-likely d/t IVF NS
-further IVF on hold
-metabolic acidosis since resolved, bicarb gtt completed
Steroid induced Leukocytosis
trend WBC
Reports Severe Constipation
-Obstructions series X-ray noted no obstruction, small volume scattered colonic stool
-once Fleet enema per patient's request
-Gas-X prn
-bowel regimen senokot-s, miralax prn
-constipation since resolved
Hypokalemia
-Monitor and replete as necessary
Alcohol Use Disorder
-Patient reports last drink 2-3 weeks ago
-Continue thiamine and folic supplementation
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
-Continue Protonix BID
-As per GI, Nadolol dc and Coreg continued (dose reduced d/t low pressures)
Anemia
Thrombocytopenia
-suspect ETOH induced
-Iron studies, B12, Folate appreciated non-deficient
-Hematology eval appreciated
Diabetes Mellitus, Type II
Steroid Induced Hyperglycemia
Likely Diabetic Neuropathy as noted on EMG
-Hold oral diabetic meds
-DM REWINDER consult appreciated Lantus 20U Novolog 12U moderate sliding scale
-Monitor and titrate insulin regimen as necessary
-Cymbalta 20 mg daily started increased to 30 mg daily
-New Gabapentin 100 mg TID
Mild Pseudohyponatremia d/t hyperglycemia
monitor
Essential Hypertension
-Relative low/normotensive pressures noted
-Coreg dose reduced w/ holding parameters
-holding Amlodipine for now
-BP well controlled at this time
Generalized anxiety disorder
- Added Xanax as needed
DVT proph: SCDs
Code Status: Full Code
Anticipated Discharge: Today
Subjective/Interval History
-
Date of Service: February 26, 2025
Complaining of feeling anxious/stressed out
Some reported back pain
No other acute events reported
Objective Data
-
Labs:
Laboratory Results
02/26/25 02/26/25
10:00 10:01
WBC 8.8
Hgb 8.1 L
Hct 25.4 L
Plt Count 51 L
Sodium 131 L
Potassium 3.8
Chloride 103
Carbon Dioxide 24
BUN 33 H
Creatinine 0.8
Glucose 176 H
Calcium 8.7
Total Bilirubin 3.9 H
AST 522 H*
ALT 268 H
Alkaline Phosphatase 207 H
Vital Signs:
Vital Signs
Temp Pulse Resp BP Pulse Ox
98.1 F 72 21 118/58 93
02/26/25 09:18 02/26/25 09:18 02/26/25 09:18 02/26/25 09:18 02/26/25 09:18
I&O
02/25/25 02/26/25 02/27/25
06:59 06:59 06:59
Intake Total 840 / 840 1200 / 1200
Output Total 1125 / 1125 1999 / 1999
Balance -285 / -285 -800 / -800
Review of Systems
-
Respiratory: Reports No Symptoms
Cardiac: Reports No Symptoms
Abdomen/GI: Reports No Symptoms
Physical Exam
-
General: No Apparent Distress and Comfortable
HEENT: Negative Oxygen
Respiratory: Clear to Auscultation
Cardiac: Regular Rhythm and S1/S2; Negative Murmur or Rub
GI: Soft and Nontender
Musculoskeletal: Edema, Right Lower Extrem and Edema, Left Lower Extrem
Neuro: Awake, Alert, Oriented, No Motor Deficits and Nonfocal/Grossly Intact
Psych: Calm
[2025-02-26] MEDS: ZOFRAN 4 MG IV (12:26)
[2025-02-26] MEDS: POLYSPORIN/DOUBLE ANTIBIOTIC 1 APPLIC TOPICAL ×2 (12:27→22:06)
[2025-02-26 13:05] LABS: Glucose - Point of Care 160 mg/dl (70-99)
--- NOTE | 2025-02-26 14:17 | CS.PSYCHR ---
Consult Summary - Psychiatry
-
Pt is a 69 yo male past medical history of alcohol use disorder, alcoholic cirrhosis, hypertension, DM type II and recent GI bleed secondary to portal hypertension, who presented on 02/18/25 with weakness. Pt diagnosed with motor weakness due to
myopathy, likely from rhabdomyolysis vs inflammatory myopathy, confirmed on EMG. Pt being treated with Prednisone. Pt noted unable to sit or stand due to proximal muscle weakness. Hospital course complicated by acute kidney and liver injury,
anemia, thrombocytopenia. Psychiatry asked to see due to concern for depression. present at bedside, tearful, states she fears pt has 'given up,' states he is having difficulty coping with being unable to move around. The prognosis is
apparently unclear, plan is for SNF rehab; appears unsure if this is the best course. She states pt has never been depressed, is very social and positive/happy and very active normally. describes pt as a life-long drinker. Pt was
started on Cymbalta for diabetic neuropathy, increased to 30 mg QD 02/24. Pt currently sleeping quietly, not waking to 's touch.
Psych Hx: denied by ; long hx of alcohol use
SH: , lives with spouse; last alcohol reportedly 2 to 3 weeks prior to admission
MSE: sleeping quietly, did not wake to verbal stimuli or touch. Unable to fully assess mental state/mood status
Imp: Unspecified depression, likely situational. On Cymbalta 30 mg daily on 02/24 (day 3)
Rec: Could continue to slowly titrate up Cymbalta for antidepressant benefit, although Cymbalta has rare cases of liver toxicity.
Will assess mood further when pt able to engage in interview. Will follow
[2025-02-26] MEDS: NOVOLOG FLEXPEN-MODERATE RESISTANCE 1 UNITS SC ×2 (14:28→17:02)
[2025-02-26] MEDS: LIDOCAINE 4% PATCH 1 PATCH TOPICAL (14:31)
--- NOTE | 2025-02-26 14:38 | PTOTSP ---
Speech therapy
Presentation: Patient communicated his wants/ needs with short utterances. Patient's speech and language was WNL. Patient shared he was in pain (back). CELL CHANGER alerted RN. Patient followed commands. Patient was partially oriented (name, year, location).
Swallowing Function: Patient was observed with several bites of regular consistency solids and sips of thin liquids (straw) in which patient appeared to tolerate as he did not exhibit any overt clinical s/sx of aspiration or difficulty with
mastication/manipulation. Patient denied any dysphagia complaints.
Per RN, patient tolerated medications whole with thin liquids.
Recommendations:
1) Regular consistency solids and thin liquids
2) Aspiration precautions
3) Medications whole with thin liquids
Plan: CELL CHANGER will sign off at this time as patient appeared to be demonstrating his baseline functioning.
[2025-02-26 16:46] LABS: Glucose - Point of Care 169 mg/dl (70-99)
[2025-02-26] MEDS: ZOSYN 50 IV ×2 (17:09→23:35)
[2025-02-26] MEDS: TYLENOL 650 MG PO (17:09)
[2025-02-26] MEDS: LANTUS 0.22 UNITS SC (18:34)
[2025-02-26 19:31] LABS: COVID-19 Antigen Negative (Negative)
[2025-02-26] MEDS: COREG PO (20:05)
[2025-02-26] MEDS: MELATONIN PO (20:07)
[2025-02-26] MEDS: NEURONTIN PO (20:07)
[2025-02-26 21:23] LABS: Glucose - Point of Care 103 mg/dl (70-99)
[2025-02-26] MEDS: REMOVE LIDOCAINE PATCH 1 PATCH REMOVE (22:06)
[2025-02-27] VITALS (7 sets, daily range): BP systolic 105–132; BP diastolic 48–66; PULSE 75
[2025-02-27] MEDS: ZOSYN 50 IV ×3 (05:37→17:55)
[2025-02-27 07:26] LABS: Glucose - Point of Care 212 mg/dl (70-99)
[2025-02-27 08:01] LABS: Hematocrit 24.7 % (39.0-52.0); Hemoglobin 7.8 g/dL (13.0-18.0); Mean Corp Hgb Conc. 31.6 g/dL (33.0-37.0); Mean Corpuscular Volume 67.1 fL (80.0-94.0); Nucleated Red Blood Cells % 0 % (-); Platelet Count 42 10^3/uL (130-400); Red Cell Dist. Width 21.1 % (11.5-14.5)
[2025-02-27 08:24] LABS: ALT (SGPT) 244 U/L (0-50); AST (SGOT) 468 U/L (17-59); Albumin 2.5 g/dl (3.5-5.0); Alkaline Phosphatase 171 U/L (38-126); Blood Urea Nitrogen 31 mg/dl (9-20); Calcium 8.5 mg/dl (8.4-10.2); Carbon Dioxide 22 mmol/L (22-30); Chloride 106 mmol/L (98-107); Estimated Creatinine Clearance 113 ml/min; Glucose 148 mg/dl (70-99); Magnesium 1.8 mg/dl (1.6-2.3); Potassium 3.9 mmol/L (3.5-5.1); Sodium 132 mmol/L (135-145); Total Protein 5.7 g/dl (6.3-8.2); eGFR > 60.00
[2025-02-27] MEDS: NOVOLOG FLEXPEN-MODERATE RESISTANCE 3 UNITS SC ×2 (08:59→16:53)
[2025-02-27] MEDS: SENOKOT-S 1 TABLET PO ×2 (09:00→20:50)
[2025-02-27] MEDS: DELTASONE 50 MG PO (09:00)
[2025-02-27] MEDS: FOLVITE 1 MG PO (09:00)
[2025-02-27] MEDS: VITAMIN B1 100 MG PO ×2 (09:00→20:51)
[2025-02-27] MEDS: NOVOLOG FLEXPEN 15 UNITS SC ×3 (09:00→16:53)
[2025-02-27] MEDS: PROTONIX 40 MG PO ×2 (09:00→20:50)
[2025-02-27] MEDS: CYMBALTA DELAYED RELEASE 30 MG PO (09:00)
[2025-02-27] MEDS: COREG PO (09:01)
[2025-02-27] MEDS: LIDOCAINE 4% PATCH 1 PATCH TOPICAL (09:01)
[2025-02-27] MEDS: DESENEX/MITRAZOL/ZEASORB 1 APPLIC TOPICAL ×2 (09:01→20:52)
[2025-02-27] MEDS: NEURONTIN PO ×3 (09:02→20:52)
[2025-02-27] MEDS: POLYSPORIN/DOUBLE ANTIBIOTIC 1 APPLIC TOPICAL ×2 (09:05→22:48)
--- NOTE | 2025-02-27 10:20 | W.PN.NEPH.PH ---
Today's Communication / Plan
-
Sign off
Assessment/Plan
-
Impression:
ELIGIO/rhabdomyolysis
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
Thrombocytopenia
Diabetes
History of hypertension
Dyslipidemia
History of esophageal varices and portal hypertension
Anemia
Plan:
ELIGIO likely related to rhabdomyolysis
cr now at 0.8 over all stable, non oliguric
UA microhematuria and 3+alb, U PCR 1.1gm/gm of cr-need f/u out pt
check complements- to r/o immune complex nephritis in the context of myopathy
CK improving to less then 650
Etiology of rhabdomyolysis to be defined : statin currently held
monitor hb , decreasing trend
BP stable
Prednisone per neuro
Maintain accurate I's and O's and daily weights
mild hyponatremia evolving monitor off FR , stable at 132
We will sign off
-
-
Date of Service: February 27, 2025
CC / HPI / ROS
-
Chief Complaint:
ELIGIO
History of Present Illness:
Creatinine stable at 0.8
Hemodynamically stable
CPK levels falling
Hyponatremia stable with serum sodium of 132
Review of Systems:
Nonoliguric
No reported chest pain or shortness of breath
Weights up, not done today
Continues with proximal myopathy
Labs
-
Labs:
WBC 8.6 10^3/uL (4.8-10.8) 02/27/25 06:17
RBC 3.68 10^6/uL (4.70-6.10) L 02/27/25 06:17
Hgb 7.8 g/dL (13.0-18.0) L 02/27/25 06:17
Hct 24.7 % (39.0-52.0) L 02/27/25 06:17
Plt Count 42 10^3/uL (130-400) L 02/27/25 06:17
Sodium 132 mmol/L (135-145) L 02/27/25 06:17
Potassium 3.9 mmol/L (3.5-5.1) 02/27/25 06:17
Chloride 106 mmol/L (98-107) 02/27/25 06:17
Carbon Dioxide 22 mmol/L (22-30) 02/27/25 06:17
BUN 31 mg/dl (9-20) H 02/27/25 06:17
Creatinine 0.8 mg/dL (0.7-1.3) 02/27/25 06:17
eGFR > 60.00 02/27/25 06:17
Glucose 148 mg/dl (70-99) H 02/27/25 06:17
Calcium 8.5 mg/dl (8.4-10.2) 02/27/25 06:17
Phosphorus 4.2 mg/dl (2.5-4.5) 02/27/25 06:17
Albumin 2.5 g/dl (3.5-5.0) L 02/27/25 06:17
Physical Exam
-
Vital Signs:
Vital Signs
Temp Pulse Resp BP Pulse Ox
98 F 72 20 105/48 94
02/27/25 08:25 02/27/25 08:25 02/27/25 08:25 02/27/25 08:25 02/27/25 08:25
Cardiovascular:: Regular rate and rhythm
Respiratory:: Bilateral: CTA (anteriorly)
Lung Excursion:: Normal
Abdomen:: Nontender and Soft
Bowel Sounds:: Normal
Extremity Edema:: +1: Bilateral:
Lynn Catheter: No
[2025-02-27 11:31] LABS: Glucose - Point of Care 261 mg/dl (70-99)
[2025-02-27] MEDS: NOVOLOG FLEXPEN-MODERATE RESISTANCE 5 UNITS SC (11:38)
[2025-02-27 11:56] LABS: Glucose - Point of Care 188 mg/dl (70-99)
--- NOTE | 2025-02-27 11:59 | W.PN.HOSP.TC ---
Today's Communication/Plan
-
continue empiric abx
eventual rehab
garage door technician consulted
Assessment / Plan
Assessment / Plan
69M ETOH Esophageal Varices Grade 1-2 (Abd US however neg for cirrhosis x2) HTN DM hx GIB portal HTN here for evaluation rapidly progressive ascending weakness with associate severe Rhabdomyolysis ELIGIO and Liver Injury
Rapidly Progressive ascending weakness unclear etiology - Stabilized
-Transferred to ICU for closer monitoring respiratory status, so far VSS on room air
-Neuro eval appreciated brain mri w/o contrast noted no acute abn's, EMG noted myopathy and neuropathy,
-Aldolase ~20 (1.2-7.6 normal range). CRP 29.3 on 02/19
-prednisone 60 mg daily started as per neuro recommendations, JESSICA screen neg less likely autoimmune d/
-PT/OT appreciated SNF rehab
-IV thiamine supplementation taper to PO
-Prednisone being tapered off.
Fever episode
Possible aspiration pneumonitis
-Patient had episode of gagging/coughing while having meal yesterday. ST cleared later for reg diet.
-Chest x-ray showed questionable retrocardiac opacity
-Patient started to having fever last evening, possibility of aspiration pneumonitis
-COVID/UA checked negative. Blood cultures pending.
-Maintaining on empiric Zosyn for now will de-escalate based on clinical course
Severe Rhabdomyolysis - Recovering
Acute Kidney Injury - resolved
Acute Liver Failure-Improving
-Reason of rhabdomyolysis remains unclear although alcohol use related as a possibility,
-Consult GI appreciated
-Abd US noted noted normal appearance GB Liver, splenomegaly 15.1 cm noted
-CPK trending down.
-Hold Jardiance
-Nephro eval appreciated
Metabolic Acidosis w/o anion gap - resolved
-likely d/t IVF NS
-further IVF on hold
-metabolic acidosis since resolved, bicarb gtt completed
Constipation
-Obstructions series X-ray noted no obstruction, small volume scattered colonic stool
-once Fleet enema per patient's request
-Gas-X prn
-bowel regimen senokot-s, miralax prn
-constipation since resolved
Hypokalemia
-Monitor and replete as necessary
Alcohol Use Disorder
-Patient reports last drink 2-3 weeks ago
-Continue thiamine and folic supplementation
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
-Continue Protonix BID
-As per GI, Nadolol dc and Coreg continued (dose reduced d/t low pressures)
Anemia
Thrombocytopenia
-suspect ETOH induced
-Iron studies, B12, Folate appreciated non-deficient
-Hematology eval appreciated
Diabetes Mellitus, Type II
Steroid Induced Hyperglycemia
Likely Diabetic Neuropathy as noted on EMG
-Hold oral diabetic meds
-DM CERTIFIED PHLEBOTOMIST consult appreciated Lantus 20U Novolog 12U moderate sliding scale
-Monitor and titrate insulin regimen as necessary
-Cymbalta 20 mg daily started increased to 30 mg daily
-New Gabapentin 100 mg TID
Mild Pseudohyponatremia d/t hyperglycemia
monitor
Essential Hypertension
-Relative low/normotensive pressures noted
-Coreg dose reduced w/ holding parameters
-holding Amlodipine for now
-BP well controlled at this time
Generalized anxiety disorder
- Added Xanax as needed
DVT proph: SCDs
Code Status: Full Code
Anticipated Discharge: 24 - 48 hours
Subjective/Interval History
-
Date of Service: February 27, 2025
Feeling subjectively better
Afebrile in the night
No cough/sob
No other acute issues reported
Objective Data
-
Labs:
Laboratory Results
02/27/25
06:17
WBC 8.6
Hgb 7.8 L
Hct 24.7 L
Plt Count 42 L
Sodium 132 L
Potassium 3.9
Chloride 106
Carbon Dioxide 22
BUN 31 H
Creatinine 0.8
Glucose 148 H
Calcium 8.5
Total Bilirubin 3.6 H
AST 468 H
ALT 244 H
Alkaline Phosphatase 171 H
Vital Signs:
Vital Signs
Temp Pulse Resp BP Pulse Ox
98 F 72 20 105/48 94
02/27/25 08:25 02/27/25 08:25 02/27/25 08:25 02/27/25 08:25 02/27/25 08:25
I&O
02/26/25 02/27/25 02/28/25
06:59 06:59 06:59
Intake Total 1200 / 1200
Output Total 2000 / 2000 525 / 525 200 / 200
Balance -800 / -800 -525 / -525 -200 / -200
Review of Systems
-
Respiratory: Reports No Symptoms
Cardiac: Reports No Symptoms
Abdomen/GI: Reports No Symptoms
Physical Exam
-
General: No Apparent Distress and Comfortable
HEENT: Negative Oxygen
Respiratory: Clear to Auscultation
Cardiac: Regular Rhythm and S1/S2; Negative Murmur or Rub
GI: Soft and Nontender
Musculoskeletal: Edema, Right Lower Extrem and Edema, Left Lower Extrem
Neuro: Awake, Alert, Oriented, No Motor Deficits and Nonfocal/Grossly Intact
Psych: Calm
[2025-02-27 16:33] LABS: Glucose - Point of Care 219 mg/dl (70-99)
[2025-02-27] MEDS: LANTUS 0.22 UNITS SC (18:14)
[2025-02-27 18:18] LABS: Glucose - Point of Care 263 mg/dl (70-99)
[2025-02-27] MEDS: COREG 3.125 MG PO (20:48)
[2025-02-27] MEDS: REMOVE LIDOCAINE PATCH 1 PATCH REMOVE (20:50)
[2025-02-27] MEDS: MELATONIN PO (20:51)
[2025-02-27 21:24] LABS: Glucose - Point of Care 206 mg/dl (70-99)
[2025-02-28] VITALS (8 sets, daily range): BP systolic 111–158; BP diastolic 47–72; PULSE 72–75
[2025-02-28] MEDS: ZOSYN 50 IV ×4 (00:14→17:09)
--- NOTE | 2025-02-28 06:08 | PTCARENOTE ---
TERELL Bird on unit. Notified her of patient's preliminary positive blood cultures. Gram positive cocci in clusters. Patient currently receiving Zosyn for abx coverage. No new orders received, will monitor.
[2025-02-28 07:43] LABS: Glucose - Point of Care 199 mg/dl (70-99)
--- NOTE | 2025-02-28 07:45 | PN.DE.MGMTRT ---
Insulin Management
- -
02/28/2025: Diabetes Management Follow up
Patient admitted 02/18 with c/o weakness, anemia - UGI bleed due to portal HTN, Rhabdomyolysis. PMH type 2 diabetes, sleep apnea, significant alcohol abuse. Patient know to me from previous admission 01/10 to 01/12. Prior to admission was taking
Jardiance 25 mg daily, Lantus 15 units PM and Rybelsus 3mg pm. States he sees his primary doctor manages his diabetes and has a Patti 3. A1C 01/10 9.2%, cr today 1., eGFR 54.75.
Patient is resting in bed, offers no complaints, able to discuss diabetes care plan. at bedside, very supportive.
Patient has been receiving prednisone 50 mg daily, contributing to Hyperglycemia.
Premeal Glucose range 188 to 263, requiring additional corrective insulin with meals.
Will increase AC NovoLog to 18 units with moderate corrective insulin.
HS Glucose was 206, Received 22 units Lantus last evening, FBG 199 POC. Will increase Lantus to 25 units.
Discussed with nurse. Will cont to follow.
Diabetes History
- -
Type of Diabetes: 2 requiring insulin
Pre-Admission Diabetes Regimen
02/27/25
06:17
Creatinine 0.8
Insulin Pump Settings
IP Diabetes Regimen
02/27/25 02/27/25 02/27/25
06:17 11:31 11:54
Glucose 148 H
POC Glucose 261 H 188 H
02/27/25 02/27/25 02/27/25
16:31 18:16 21:22
Glucose
POC Glucose 219 H 263 H 206 H
02/28/25
07:41
Glucose
POC Glucose 199 H
Meal type: Lunch
Meal type: Breakfast
Amount consumed: 50%
Amount consumed: 90%
Patient Education
[2025-02-28] MEDS: COREG 3.125 MG PO ×2 (08:37→21:41)
[2025-02-28] MEDS: NEURONTIN PO (08:37)
[2025-02-28] MEDS: DELTASONE 50 MG PO (08:37)
[2025-02-28] MEDS: PROTONIX 40 MG PO ×2 (08:37→21:43)
[2025-02-28] MEDS: CYMBALTA DELAYED RELEASE 30 MG PO (08:37)
[2025-02-28] MEDS: SENOKOT-S 1 TABLET PO ×2 (08:37→21:43)
[2025-02-28] MEDS: VITAMIN B1 100 MG PO ×2 (08:37→21:44)
[2025-02-28] MEDS: DESENEX/MITRAZOL/ZEASORB 1 APPLIC TOPICAL ×2 (08:38→21:41)
[2025-02-28] MEDS: LIDOCAINE 4% PATCH 1 PATCH TOPICAL (08:38)
[2025-02-28] MEDS: FOLVITE 1 MG PO (08:38)
[2025-02-28] MEDS: NOVOLOG FLEXPEN 18 UNITS SC ×3 (08:41→17:10)
[2025-02-28] MEDS: NOVOLOG FLEXPEN-MODERATE RESISTANCE 1 UNITS SC (08:42)
[2025-02-28] MEDS: POLYSPORIN/DOUBLE ANTIBIOTIC 1 APPLIC TOPICAL ×2 (08:42→21:42)
[2025-02-28 08:45] LABS: ALT (SGPT) 227 U/L (0-50); AST (SGOT) 314 U/L (17-59); Albumin 2.5 g/dl (3.5-5.0); Alkaline Phosphatase 211 U/L (38-126); Blood Urea Nitrogen 27 mg/dl (9-20); Calcium 8.9 mg/dl (8.4-10.2); Carbon Dioxide 25 mmol/L (22-30); Chloride 104 mmol/L (98-107); Estimated Creatinine Clearance 113 ml/min; Glucose 181 mg/dl (70-99); Potassium 3.6 mmol/L (3.5-5.1); Sodium 132 mmol/L (135-145); Total Protein 5.6 g/dl (6.3-8.2); eGFR > 60.00
[2025-02-28] MEDS: NOVOLOG FLEXPEN SC (08:47)
[2025-02-28 11:48] LABS: Glucose - Point of Care 148 mg/dl (70-99)
[2025-02-28] MEDS: NOVOLOG FLEXPEN-MODERATE RESISTANCE SC (12:38)
--- NOTE | 2025-02-28 12:47 | CON.MD ---
Documented by User: Thuy Singh MD, Resident 02/28/25 15:13
Consultation - Medical
-
History of Present Illness:��69M ETOH Esophageal Varices Grade 1-2 (Abd US however neg for cirrhosis x2) HTN DM hx GIB portal HTN here for evaluation rapidly progressive ascending weakness with associate severe Rhabdomyolysis ELIGIO and Liver Injury.
Patient reports generalized weakness to the point he can not get around his home due to the profound weakness and fatigue. He reports very poor appetite as well as nausea with one episode of vomiting a few days ago. His notes his skin and eyes
appear more yellow than usual.
�
Past Medical History:�alcohol use disorder, alcoholic cirrhosis, hypertension, diabetes mellitus and recent GI bleed secondary to portal hypertension
Procedure History:�Orthopedic, hernia repair
Family History:�Not pertinent
�
Social History:�
Functional Level Premorbidly: Independent with all activities�
Functional Level Currently:��
Maximal assistance x 2 for sitting, able to maintain seated balance for 10 minutes. Attempted standing x 2 but unable to clear buttocks despite raised bed and max assist x 2.
PT and OT recommend skilled rehab
Tobacco: Denies�
Alcohol: previously drink about 1.75L of vodka a week. Notes last drink about 2-3 weeks ago�
Drug use: Denies�
�
Lives with:�Spouse
24-hour assistance available:�Yes
Number of floors:�Split-level
# steps to enter:�1
# steps to second floor:��6 to 2nd floor, 7 to basement
Potential First floor set up:�yes
Driving:�Driving until few weeks ago
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
��
�
Allergies:��
�
Allergy/AdvReac Type Severity Reaction Status Date / Time
No Known Allergies Allergy Verified 02/18/25 09:52
Review of Systems:�
Constitutional: (x) Normal _�
Eye: (x) Normal _�
Ear/Nose/Throat: (x) Normal _�
Respiratory: (x) Normal _�
Cardiovascular: (x) Normal _�
Gastrointestinal: (x) Normal _�
Genitourinary: (x) Normal _�
Musculoskeletal: (x) Normal _�
Integumentary: (x) Normal _�
Neurologic: (x) Normal _�
Psychiatric: (x) Normal _�
Endocrine: (x) Normal _�
Hematologic/Lymphatic: (x) Normal _�
Allergic/Immunologic: (x) Normal _�
�
Medications:�
Generic Name Dose Route Start Last Admin
Trade Name Freq PRN Reason Stop Dose Admin
Acetaminophen 650 mg 02/26/25 16:51 02/26/25 17:09
Acetaminophen 325 Mg Tablet PO 03/26/25 16:50 650 mg
Q6HPRN PRN Administration
mild pain/ fever>100.5F
Alprazolam 0.25 mg 02/26/25 10:52
Alprazolam 0.25 Mg Oral Disintegrating Tab PO 03/26/25 10:51
BIDPRN PRN
anxiety
Bacitracin/Polymyxin B Sulfate 0 applic 02/25/25 11:00 02/28/25 08:42
Bacitracin/Polymyxin B (Ointment) 15 Gram Tube TOPICAL 1 applic
BID KALLIE Administration
Bisacodyl 10 mg 02/21/25 09:11
Bisacodyl 10 Mg Rectal Suppository RECTAL 03/21/25 09:10
DAILYPRN PRN
constipation
Carvedilol 3.125 mg 02/19/25 20:00 02/28/25 08:37
Carvedilol 3.125 Mg Tablet PO 03/19/25 19:59 3.125 mg
BID KALLIE Administration
Dextrose 12.5 grams 02/18/25 16:22
Dextrose 50% (0.5 Grams/Ml) 50 Ml Syringe IV 03/18/25 16:21
[id number] PRN
hypoglycemia
Protocol
Duloxetine HCl 30 mg 02/24/25 08:00 02/28/25 08:37
Duloxetine Delayed Release 30 Mg Capsule PO 03/24/25 07:59 30 mg
DAILY KALLIE Administration
Folic Acid 1 mg 02/19/25 08:00 02/28/25 08:38
Folic Acid 1 Mg Tablet PO 03/19/25 07:59 1 mg
DAILY KALLIE Administration
Gabapentin 100 mg 02/23/25 22:00 02/28/25 08:37
Gabapentin 100 Mg Capsule PO 03/23/25 21:59 Not Given
TID KALLIE
Glucagon 1 mg 02/18/25 16:22
Glucagon 1 Mg Vial IM 03/18/25 16:21
PRN PRN
hypoglycemia
Protocol
Piperacillin Sod/Tazobactam Sod 3.375 gram in 50 mls @ 100 mls/hr 02/26/25 18:00 02/28/25 12:34
Zosyn IV 50 mls
Q6H KALLIE Administration
Insulin Glargine 25 units/ 0.25 mls @ 0 mls/hr 02/28/25 18:00
Device SC 03/25/25 17:59
QPM KALLIE
As Directed
Insulin Aspart 0 units 02/18/25 16:30 02/28/25 12:38
Insulin Aspart Moderate Resistance 300 Units/3 Ml Pen.Injctr SC 03/18/25 16:29 Not Given
AC KALLIE
Protocol
Insulin Aspart 18 units 02/28/25 08:00 02/28/25 12:34
Insulin Aspart (Novolog) 100 Units/Ml 3 Ml Flexpen SC 03/24/25 07:59 18 units
AC KALLIE Administration
Lidocaine 1 patch 02/26/25 12:00 02/28/25 08:38
Lidocaine 4% Topical Patch TOPICAL 03/26/25 11:59 1 patch
DAILY KALLIE Administration
Protocol
Melatonin 5 mg 02/20/25 23:10 02/27/25 20:51
Melatonin 5 Mg Tablet PO 03/20/25 23:09 Not Given
HS KALLIE
Miconazole Nitrate 0 applic 02/21/25 08:00 02/28/25 08:38
Miconazole Powder Bottle TOPICAL 03/21/25 07:59 1 applic
BID KALLIE Administration
Naloxone HCl 0.4 mg 02/23/25 08:36
Naloxone (0.4 Mg/Ml) 1 Ml Injection IV 03/23/25 08:35
Q4HPRN PRN
oversedation
Ondansetron HCl 4 mg 02/18/25 16:22 02/26/25 12:26
Ondansetron 4 Mg/2 Ml Vial IV 03/18/25 16:21 4 mg
Q6HPRN PRN Administration
NAUSEA/VOMITING
Oxycodone HCl 5 mg 02/23/25 08:36
Oxycodone 5 Mg Regular Release Tablet PO 03/09/25 08:35
Q6HPRN PRN
moderate severe pain
Pantoprazole Sodium 40 mg 02/18/25 20:00 02/28/25 08:37
Pantoprazole 40 Mg Delayed Release Tablet PO 03/18/25 19:59 40 mg
BID KALLIE Administration
Patch Removal 0 patch 02/26/25 20:00 02/27/25 20:50
Remove Lidocaine Patch REMOVE 03/26/25 19:59 1 patch
DAILY@2000 KALLIE Administration
Polyethylene Glycol 17 grams 02/23/25 08:35
Polyethylene Glycol Powder 17 Grams Packet PO 03/23/25 08:33
DAILYPRN PRN
constipation
Prednisone 50 mg 02/25/25 08:00 02/28/25 08:37
Prednisone 20 Mg Tablet PO 03/25/25 07:59 50 mg
DAILY KALLIE Administration
Senna/Docusate Sodium 1 tablet 02/21/25 10:00 02/28/25 08:37
Docusate W/Senna (Lydia-Colace) Tablet PO 03/21/25 09:59 1 tablet
BID KALLIE Administration
Simethicone 80 mg 02/19/25 14:33 02/21/25 09:13
Simethicone 80 Mg Chewable Tablet PO 03/19/25 14:32 80 mg
QIDPRN PRN Administration
gas discomfort/bloating
Sodium Chloride 0 flush 02/18/25 18:00
Sodium Chloride 0.9% (Flush) Syringe IV 03/18/25 17:59
PER PROTOCOL KALLIE
Thiamine HCl 100 mg 02/25/25 08:00 02/28/25 08:37
Thiamine 100 Mg Tablet PO 03/25/25 07:59 100 mg
BID KALLIE Administration
Vitals:�
�
Temp Pulse Resp BP Pulse Ox
98.1 F 73 21 145/71 95
02/28/25 11:00 02/28/25 11:00 02/28/25 11:00 02/28/25 11:00 02/28/25 11:00
Height 6 ft
Actual Weight 109.7 kg
Body Mass Index (BMI) 32.8
Physical Exam:�
General Appearance/Observation: Well-developed, well-nourished individual in no apparent distress.�
Pain/Comfort Assessment: Lumbar back pain��
Mood/Affect: Appropriate�
�
Integumentary/Operative Site:�
�� Pressure Ulcer Evaluation: absent over heels.
�� Other Type of Wound: absent�
�
Eyes: Conjunctiva/Lids: Icteric. Pupils: pupils equal round and reactive to light and Accommodation�
Ears/Nose/Throat: oral mucosa moist,� throat clear. Lips/Teeth/Gums: normal�
Neck: No muscle spasm or tenderness�
Cardiovascular: Heart: regular, no murmur�
Respiratory: Respiratory Effort/Chest Expansion: normal Auscultation: Clear to auscultation bilaterally�fanel@dh
Gastrointestinal: abdomen not tender, no distension, normal abdominal bowel sounds�
Genitourinary: No Lynn�
Rectal Exam: Deferred�
Extremities: Edema: None Cyanosis: None Trophic changes: Left elbow furuncle / 3 mm ulcer with�pus at prior IV site
�
�
Neurology Exam:�
Orientation: Alert, Oriented to self, Time, Place�
Memory: Intact immediately and to medical condition
Higher cortical function�
Repetition: Intact�
Comprehension: Intact�
Two step command: Intact�
�
Cranial Nerves:�
�� CNII: Pupillary light reflex: Intact��� Visual Field: Intact�
�� CN III, IV, : Extraocular muscles: Intact��
�� CN V: Facial Sensation at Forehead: Intact, Maxilla: Intact, Mandible: Intact �
�� CN VII: Facial movement: Symmetric�
�� CN VIII: Hearing: Normal�
�� CN IX/X: Speech & swallow: Normal, Position of Uvula: Midline�
�� CN XI: Shoulder shrug: Symmetric�
�� CN XII: Tongue protrusion: Midline�
�
Sensory:�
�� Light touch: Intact in bilateral upper and lower extremities�
�� Proprioception:�Intact in bilateral upper and lower extremities�
�
Reflexes:�
�� Biceps: 2+ bilaterally�
�� Brachioradialis: 2+ bilaterally�
�� Triceps: 2+ bilaterally�
�� Patellar: 2+ bilaterally�
�� Achilles: 2+ bilaterally�
�� Babinski: Down going bilaterally�
�� Clonus: None�
�� Keith: Negative bilaterally�
Cerebellar: Dysmetria/Ataxia: None�
�
Musculoskeletal:�
�
Motor: (Manual muscle scale 0-5)�
Muscle� SA� EF� WE� EE� FF� FA� HF� KE� DF� EHL� PF�
Right��� 2� 4� 5� 4� 5� 5� 2� 2� 5� 5� 5�
Left� 2� 4� 5� 4� 5� 5� 2� 2� 5� 5� 5�
�
Tone: Normal in all extremities�
Range of Motion: Passively within normal limits in all extremities�
�
Lab Results�
��
02/27/25 06:17
02/28/25 07:22
WBC 8.6 10^3/uL (4.8-10.8) 02/27/25 06:17
Hgb 7.8 g/dL (13.0-18.0) L 02/27/25 06:17
Hct 24.7 % (39.0-52.0) L 02/27/25 06:17
MCV 67.1 fL (80.0-94.0) L 02/27/25 06:17
Plt Count 42 10^3/uL (130-400) L 02/27/25 06:17
ESR Cancelled 02/19/25 14:40
PT 21.2 Sec (11.4-14.6) H 02/23/25 03:29
INR 1.81 02/23/25 03:29
Sodium 132 mmol/L (135-145) L 02/28/25 07:22
Potassium 3.6 mmol/L (3.5-5.1) 02/28/25 07:22
Chloride 104 mmol/L (98-107) 02/28/25 07:22
Carbon Dioxide 25 mmol/L (22-30) 02/28/25 07:22
BUN 27 mg/dl (9-20) H 02/28/25 07:22
Creatinine 0.8 mg/dL (0.7-1.3) 02/28/25 07:22
eGFR > 60.00 02/28/25 07:22
Glucose 181 mg/dl (70-99) H 02/28/25 07:22
Calcium 8.9 mg/dl (8.4-10.2) 02/28/25 07:22
Phosphorus 4.2 mg/dl (2.5-4.5) 02/27/25 06:17
Magnesium 1.8 mg/dl (1.6-2.3) 02/27/25 06:17
Total Bilirubin 3.3 mg/dl (0.2-1.3) H 02/28/25 07:22
Direct Bilirubin 1.9 mg/dl (0.0-0.4) H 02/19/25 07:15
AST 314 U/L (17-59) H 02/28/25 07:22
ALT 227 U/L (0-50) H 02/28/25 07:22
Alkaline Phosphatase 211 U/L (38-126) H 02/28/25 07:22
C-Reactive Protein Cancelled 02/19/25 14:40
Total Protein 5.6 g/dl (6.3-8.2) L 02/28/25 07:22
Albumin 2.5 g/dl (3.5-5.0) L 02/28/25 07:22
Diagnostic Results: as per HPI�
�
Assessment�
�Rahat Gilbert is a 69-year-old male with a PMH notable for esophageal varices, type 2 diabetes, hyperlipidemia, hypertension, who presented with progressive ascending weakness with associated severe rhabdomyolysis, ELIGIO, and liver injury.
Highly motivated for acute rehab. Family states preference for [facility] [place].
Plan��
PM&R PT/OT to increase independence with ADLs, improve balance, coordination, endurance, strength, mobility, community reintegration, decreased burden of care on others and family education.�
�
Rapidly progressive ascending weakness: Workup per rheumatology consult
��
HTN: continue carvedilol 3.125 mg p.o. twice daily, monitor closely�
�
DM II: Accu-Cheks, insulin sliding scale, metformin, aspart, lantus.��
�
JANES: CPAP use
�
Bilateral lower extremity edema: Consider TEDS as able. Increased fluid will cause more force requirement to move lower extremities which requires more strength and increases fatigue.�
Anemia: Likely multifactorial.� Continue to monitor.�
Thrombocytopenia: Continue to monitor. With platelets less than 50,000 recommend keeping therapies to bedside. If platelets less than 20,000 will use further caution with activity levels and hold therapy for platelets less than 10,000.�
�
Skin: monitor for pressure sores/rashes/lesions.�
Pain: acetaminophen or oxycodone as needed.�
Bowel: Colace and Senna, PRN bisacodyl.�
Bladder: Time void, PVRs, PRN straight cath.�
Alcohol Abuse: Alcohol cessation education, offer outpatient alcohol abuse program�
GI Prophylaxis: Pantoprazole�
DVT Prophylaxis: Note chemoprophylaxis (or if not SCDs and when chemotherapy prophylaxis can start).�
Pulmonary: Incentive spirometry�
Morbid obesity: Continue to counselor manager patient about diet adjustments to control obesity. Body habitus and increased force to move body and extremities causes further difficulty with functional tasks.�
Safety: Continue to reinforce assistance with all transfers.�
Code Status:� Full code
Dispo (date/plan/equipment needs): Acute rehab.� Social history reviewed.�
�
Functional and Medical Goals: Modified Independent with ADL�s, ambulation, transfers�
�
SUMMARY�
Things that must be addressed in Hospital prior to discharge:�
Patient must be stable on oral pain medications.�
Blood pressure must be less than 180 systolic and 100 diastolic for 24 hours before being stable for transfer to SNF/acute rehab.�
Please give blood pressure parameters.�
Please comment on ROM, bracing and weight bearing precautions.�
Please comment on dvt chemoprophylaxis restrictions.�
�
Discharge Destination: acute rehab �
�
Summary of recommendations:�
- Discharge Destination: acute rehab. Patient states strong motivation for performing 3 hours of therapy a day and acute rehab. Family has a preference for [facility] [place].
�
Will continue to follow patient.�
�
Thank you for allowing me to care for your patient. Please contact me with any questions or concerns.�
�
This note was dictated using a voice recognition system. Please excuse any typographical errors from unarmed security guard. If you believe there are any discrepancies, please notify our office.�
�
Consultation
-
Date/Time Consultation Requested: 02/27/2025
Date/Time Consultation Performed: 02/28/25
Requesting Provider: Phillip Chacko
Performing Provider: Beka Toledo
Reason for Consultation: Ascending weakness with rhabdomyolysis, ELIGIO, liver injury

Documented by User: Beka Man MD 03/01/25 08:21
Consultation - Medical
-
Chief Complaint: Difficulty walking
History of Present Illness:��69 y/o Male with PMH (as below) admitted to [facility] on 02/18/25 for evaluation rapidly progressive ascending weakness. He was note able to stand up because of profound weakness and fatigue. He denies any
numbness/tingling or bowel/bladder incontinence. Upon arrival he was found to have severe Rhabdomyolysis with ELIGIO and Liver Injury. He reports very poor appetite as well as nausea with one episode of vomiting a few days prior to admission. His
notes his skin and eyes appear more yellow than usual. No recent illness. No family history of this or any contacts with same problem. He was admitted to the ICU for close monitoring of respiratory status. He was given aggressive IVF with
resolution of ELIGIO and rhabdomyolysis. He had a temporary improvement in strength after steroids, but then went back to the same level of weakness. Noted with severe protein calorie malnutrition. 02/21/25 EMG/NCS of the left upper and left lower
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
Past Medical History:�alcohol use disorder, alcoholic cirrhosis, hypertension, diabetes mellitus and recent GI bleed secondary to portal hypertension, pancytopenia, DM II, hyperlipidemia, psoriasis, Thrombocytopenia in setting of liver disease.
Microcytic anemia in setting of acute illness and dilution. Splenomegaly, Alcoholic cirrhosis, Portal HTN with esophageal variceal 01/11/25 and gastropathy, JANES, pancytopenia�, chronic Low back pain
Procedure History:�Orthopedic, hernia repair, Lasik, left ulnar nerve transposition surgery
Family History:�Brother and father from gastric cancer
�
Social History:�
Functional Level Premorbidly: Independent with all activities�
Functional Level Currently:��
Maximal assistance x 2 for sitting, able to maintain seated balance for 10 minutes. Attempted standing x 2 but unable to clear buttocks despite raised bed and max assist x 2.
PT and OT recommend skilled rehab
Tobacco: Denies�
Alcohol: previously drink about 1.75L of vodka a week. Notes last drink about 2-3 weeks ago�
Drug use: Denies�
�
Lives with:�Spouse
24-hour assistance available:�Yes
Number of floors:�Split-level
# steps to enter:�1
# steps to second floor:��6 to 2nd floor, 7 to basement
Potential First floor set up:�yes
Driving:�Driving until few weeks ago
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
��
�
Allergies:��
�
Allergy/AdvReac Type Severity Reaction Status Date / Time
No Known Allergies Allergy Verified 02/18/25 09:52
Review of Systems:�
Constitutional: (x) abNormal _�fatigue
Eye: (x) Normal _�
Ear/Nose/Throat: (x) Normal _�
Respiratory: (x) Normal _�
Cardiovascular: (x) Normal _�
Gastrointestinal: (x) Normal _�
Genitourinary: (x) Normal _�
Musculoskeletal: (x) abNormal _�wekaness mostly in shoulders and hips.
Integumentary: (x) Normal _�
Neurologic: (x) Normal _�
Psychiatric: (x) Normal _�
Endocrine: (x) Normal _�
Hematologic/Lymphatic: (x) abNormal _�psoriasis, low blood counts
Allergic/Immunologic: (x) Normal _�
�
Medications:�
Generic Name Dose Route Start Last Admin
Trade Name Freq PRN Reason Stop Dose Admin
Acetaminophen 650 mg 02/26/25 16:51 02/26/25 17:09
Acetaminophen 325 Mg Tablet PO 03/26/25 16:50 650 mg
Q6HPRN PRN Administration
mild pain/ fever>100.5F
Alprazolam 0.25 mg 02/26/25 10:52
Alprazolam 0.25 Mg Oral Disintegrating Tab PO 03/26/25 10:51
BIDPRN PRN
anxiety
Bacitracin/Polymyxin B Sulfate 0 applic 02/25/25 11:00 02/28/25 08:42
Bacitracin/Polymyxin B (Ointment) 15 Gram Tube TOPICAL 1 applic
BID KALLIE Administration
Bisacodyl 10 mg 02/21/25 09:11
Bisacodyl 10 Mg Rectal Suppository RECTAL 03/21/25 09:10
DAILYPRN PRN
constipation
Carvedilol 3.125 mg 02/19/25 20:00 02/28/25 08:37
Carvedilol 3.125 Mg Tablet PO 03/19/25 19:59 3.125 mg
BID KALLIE Administration
Dextrose 12.5 grams 02/18/25 16:22
Dextrose 50% (0.5 Grams/Ml) 50 Ml Syringe IV 03/18/25 16:21
[id number] PRN
hypoglycemia
Protocol
Duloxetine HCl 30 mg 02/24/25 08:00 02/28/25 08:37
Duloxetine Delayed Release 30 Mg Capsule PO 03/24/25 07:59 30 mg
DAILY KALLIE Administration
Folic Acid 1 mg 02/19/25 08:00 02/28/25 08:38
Folic Acid 1 Mg Tablet PO 03/19/25 07:59 1 mg
DAILY KALLIE Administration
Gabapentin 100 mg 02/23/25 22:00 02/28/25 08:37
Gabapentin 100 Mg Capsule PO 03/23/25 21:59 Not Given
TID KALLIE
Glucagon 1 mg 02/18/25 16:22
Glucagon 1 Mg Vial IM 03/18/25 16:21
PRN PRN
hypoglycemia
Protocol
Piperacillin Sod/Tazobactam Sod 3.375 gram in 50 mls @ 100 mls/hr 02/26/25 18:00 02/28/25 12:34
Zosyn IV 50 mls
Q6H KALLIE Administration
Insulin Glargine 25 units/ 0.25 mls @ 0 mls/hr 02/28/25 18:00
Device SC 03/25/25 17:59
QPM KALLIE
As Directed
Insulin Aspart 0 units 02/18/25 16:30 02/28/25 12:38
Insulin Aspart Moderate Resistance 300 Units/3 Ml Pen.Injctr SC 03/18/25 16:29 Not Given
AC KALLIE
Protocol
Insulin Aspart 18 units 02/28/25 08:00 02/28/25 12:34
Insulin Aspart (Novolog) 100 Units/Ml 3 Ml Flexpen SC 03/24/25 07:59 18 units
AC KALLIE Administration
Lidocaine 1 patch 02/26/25 12:00 02/28/25 08:38
Lidocaine 4% Topical Patch TOPICAL 03/26/25 11:59 1 patch
DAILY KALLIE Administration
Protocol
Melatonin 5 mg 02/20/25 23:10 02/27/25 20:51
Melatonin 5 Mg Tablet PO 03/20/25 23:09 Not Given
HS KALLIE
Miconazole Nitrate 0 applic 02/21/25 08:00 02/28/25 08:38
Miconazole Powder Bottle TOPICAL 03/21/25 07:59 1 applic
BID KALLIE Administration
Naloxone HCl 0.4 mg 02/23/25 08:36
Naloxone (0.4 Mg/Ml) 1 Ml Injection IV 03/23/25 08:35
Q4HPRN PRN
oversedation
Ondansetron HCl 4 mg 02/18/25 16:22 02/26/25 12:26
Ondansetron 4 Mg/2 Ml Vial IV 03/18/25 16:21 4 mg
Q6HPRN PRN Administration
NAUSEA/VOMITING
Oxycodone HCl 5 mg 02/23/25 08:36
Oxycodone 5 Mg Regular Release Tablet PO 03/09/25 08:35
Q6HPRN PRN
moderate severe pain
Pantoprazole Sodium 40 mg 02/18/25 20:00 02/28/25 08:37
Pantoprazole 40 Mg Delayed Release Tablet PO 03/18/25 19:59 40 mg
BID KALLIE Administration
Patch Removal 0 patch 02/26/25 20:00 02/27/25 20:50
Remove Lidocaine Patch REMOVE 03/26/25 19:59 1 patch
DAILY@2000 KALLIE Administration
Polyethylene Glycol 17 grams 02/23/25 08:35
Polyethylene Glycol Powder 17 Grams Packet PO 03/23/25 08:33
DAILYPRN PRN
constipation
Prednisone 50 mg 02/25/25 08:00 02/28/25 08:37
Prednisone 20 Mg Tablet PO 03/25/25 07:59 50 mg
DAILY KALLIE Administration
Senna/Docusate Sodium 1 tablet 02/21/25 10:00 02/28/25 08:37
Docusate W/Senna (Lydia-Colace) Tablet PO 03/21/25 09:59 1 tablet
BID KALLIE Administration
Simethicone 80 mg 02/19/25 14:33 02/21/25 09:13
Simethicone 80 Mg Chewable Tablet PO 03/19/25 14:32 80 mg
QIDPRN PRN Administration
gas discomfort/bloating
Sodium Chloride 0 flush 02/18/25 18:00
Sodium Chloride 0.9% (Flush) Syringe IV 03/18/25 17:59
PER PROTOCOL KALLIE
Thiamine HCl 100 mg 02/25/25 08:00 02/28/25 08:37
Thiamine 100 Mg Tablet PO 03/25/25 07:59 100 mg
BID KALLIE Administration
Vitals:�
�
Temp Pulse Resp BP Pulse Ox
98.1 F 73 21 145/71 95
02/28/25 11:00 02/28/25 11:00 02/28/25 11:00 02/28/25 11:00 02/28/25 11:00
Height 6 ft
Actual Weight 109.7 kg
Body Mass Index (BMI) 32.8
Physical Exam:�
General Appearance/Observation: Well-developed male in no apparent distress.�
Pain/Comfort Assessment: Lumbar back pain��
Mood/Affect: Appropriate�
�
Integumentary/Operative Site:�No lesions noted during course of exam
��
Eyes: Conjunctiva/Lids: Icteric. Pupils: pupils equal round and reactive to light and Accommodation�
Ears/Nose/Throat: oral mucosa moist,� throat clear. Lips/Teeth/Gums: normal�
Neck: No muscle spasm or tenderness�
Cardiovascular: Heart: regular, no murmur�
Respiratory: Respiratory Effort/Chest Expansion: normal Auscultation: Clear to auscultation bilaterally�fanel@dh
Gastrointestinal: abdomen not tender, no distension, normal abdominal bowel sounds�
Genitourinary: No Lynn�
Rectal Exam: Deferred�
Extremities: Edema: None Cyanosis: None Trophic changes: Left elbow furuncle / 3 mm ulcer with�pus at prior IV site
�
�
Neurology Exam:�
Orientation: Alert, Oriented to self, Time, Place�
Memory: Intact immediately and to medical condition
Higher cortical function�
Repetition: Intact�
Comprehension: Intact�
Two step command: Intact�
�
Cranial Nerves:�
�� CNII: Pupillary light reflex: Intact��� Visual Field: Intact�
�� CN III, IV, : Extraocular muscles: Intact��
�� CN V: Facial Sensation at Forehead: Intact, Maxilla: Intact, Mandible: Intact �
�� CN VII: Facial movement: Symmetric�
�� CN VIII: Hearing: Normal�
�� CN IX/X: Speech & swallow: Normal, Position of Uvula: Midline�
�� CN XI: Shoulder shrug: Symmetric�
�� CN XII: Tongue protrusion: Midline�
�
Sensory:�
�� Light touch: Intact in bilateral upper and lower extremities�
�� Proprioception:�Intact in bilateral upper and lower extremities�
�
Reflexes:�
�� Biceps: 2+ bilaterally�
�� Brachioradialis: 2+ bilaterally�
�� Triceps: 2+ bilaterally�
�� Patellar: 2+ bilaterally�
�� Achilles: 2+ bilaterally�
�� Babinski: Down going bilaterally�
�� Clonus: None�
�� Keith: Negative bilaterally�
Cerebellar: Dysmetria/Ataxia: None�
�
Musculoskeletal:�Motor: (Manual muscle scale 0-5)�
Muscle� SA� EF� WE� EE� FF� FA� HF� KE� DF� EHL� PF�
Right��� 2� 4� 5� 4� 5� 5� 2� 2� 5� 5� 5�
Left� 2� 4� 5� 4� 5� 5� 2� 2� 5� 5� 5�
�
Tone: Normal in all extremities�
Range of Motion: Passively within normal limits in all extremities�
�
Lab Results�
��
02/27/25 06:17
02/28/25 07:22
WBC 8.6 10^3/uL (4.8-10.8) 02/27/25 06:17
Hgb 7.8 g/dL (13.0-18.0) L 02/27/25 06:17
Hct 24.7 % (39.0-52.0) L 02/27/25 06:17
MCV 67.1 fL (80.0-94.0) L 02/27/25 06:17
Plt Count 42 10^3/uL (130-400) L 02/27/25 06:17
ESR Cancelled 02/19/25 14:40
PT 21.2 Sec (11.4-14.6) H 02/23/25 03:29
INR 1.81 02/23/25 03:29
Sodium 132 mmol/L (135-145) L 02/28/25 07:22
Potassium 3.6 mmol/L (3.5-5.1) 02/28/25 07:22
Chloride 104 mmol/L (98-107) 02/28/25 07:22
Carbon Dioxide 25 mmol/L (22-30) 02/28/25 07:22
BUN 27 mg/dl (9-20) H 02/28/25 07:22
Creatinine 0.8 mg/dL (0.7-1.3) 02/28/25 07:22
eGFR > 60.00 02/28/25 07:22
Glucose 181 mg/dl (70-99) H 02/28/25 07:22
Calcium 8.9 mg/dl (8.4-10.2) 02/28/25 07:22
Phosphorus 4.2 mg/dl (2.5-4.5) 02/27/25 06:17
Magnesium 1.8 mg/dl (1.6-2.3) 02/27/25 06:17
Total Bilirubin 3.3 mg/dl (0.2-1.3) H 02/28/25 07:22
Direct Bilirubin 1.9 mg/dl (0.0-0.4) H 02/19/25 07:15
AST 314 U/L (17-59) H 02/28/25 07:22
ALT 227 U/L (0-50) H 02/28/25 07:22
Alkaline Phosphatase 211 U/L (38-126) H 02/28/25 07:22
C-Reactive Protein Cancelled 02/19/25 14:40
Total Protein 5.6 g/dl (6.3-8.2) L 02/28/25 07:22
Albumin 2.5 g/dl (3.5-5.0) L 02/28/25 07:22
Diagnostic Results: as per HPI�
US ABD 02/2025: Normal appearance of the gallbladder with no evidence for biliary ductal dilation. Negative sonographic Littlejohn's sign.
Splenomegaly, with maximum dimension of 15.1 cm.
CXR and KUB 02/2025: CHEST: Low lung volumes are noted. The heart is at least top normal in size. There is no focal parenchymal consolidation, pneumothorax, pleural effusion or mediastinal shift. No free air is seen in the upper abdomen.
ABDOMEN:: Only small volume scattered colonic stool is seen. Intestinal bowel gas pattern is nonobstructed, nonspecific. Osseous degenerative changes are seen in the lumbar spine and both hips. There is no free air.
EGD 01/2025: - Grade 1-II esophageal varices.
- Portal hypertensive gastropathy.
- Normal examined duodenum.
- No specimens collected.
�
Assessment�
69 y/o Male with PMH (alcohol use disorder with cirrhosis, Portal HTN with esophageal variceal, gastropathy, HTN, DM II, recent GI bleed, pancytopenia, HLD, psoriasis, Thrombocytopenia in setting of liver disease. Microcytic anemia in setting of
acute illness and dilution, splenomegaly,JANES, pancytopenia, chronic LBP) admitted 02/18/25 with rapidly progressive ascending weakness and found to have Rhabdomyolysis, ELIGIO, Liver Injury, severe protein calorie malnutrition with 02/21/25 EMG/NCS of the
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
Plan��
PM&R PT/OT to increase independence with ADLs, improve balance, coordination, endurance, strength, mobility, community reintegration, decreased burden of care on others and family education.�
�
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 Workup per rheumatology. Has history of psoriasis.
- On prednisone taper for possible inflammatory component
-Spoke with hospitalist, consider rheumatology eval to consider muscle biopsy by surgery. This will help with prognosis and treatment options.
-Gabapentin on hold, Duloxetine
Chronic length-dependent axonal sensorimotor peripheral polyneuropathy: likely related to alcohol and diabetes�
HTN: continue carvedilol 3.125 mg p.o. twice daily, monitor closely�
DM II: Accu-Cheks, insulin sliding scale, metformin, aspart, lantus.��
JANES: CPAP use
Bilateral lower extremity edema: Consider TEDS as able. Increased fluid will cause more force requirement to move lower extremities which requires more strength and increases fatigue.�
Microcytic anemia in setting of alcohol abuse: as per hematology, has been in 7 range. Was planned for iron infusion/supplement.
Thrombocytopenia: Continue to monitor. With platelets less than 50,000 recommend keeping therapies to bedside. If platelets less than 20,000 will use further caution with activity levels and hold therapy for platelets less than 10,000.� Will need to
have improvement prior to full inpatient therapy participation.
Anxiety: on Xanax.�
FEN: history of alcohol use, stable at 132. Noted with protein calorie malnutrition - nutrition consult.
Skin: monitor for pressure sores/rashes/lesions.�
Pain: acetaminophen or oxycodone as needed.� Gabapentin on hold. Duloxetine
Bowel: Colace and Senna, PRN bisacodyl.�
Bladder: Time void, PVRs, PRN straight cath.�
Alcohol Abuse: Alcohol cessation education, offer outpatient alcohol abuse program. Thiamine
GI Prophylaxis: Pantoprazole�
DVT Prophylaxis: mechanical, no chemoprophylaxis with low platelets.�
Pulmonary: Incentive spirometry�
Obesity: Continue to counselor manager patient about diet adjustments to control obesity. Body habitus and increased force to move body and extremities causes further difficulty with functional tasks.�
Safety: Continue to reinforce assistance with all transfers.�
Code Status:� Full code
Dispo (date/plan/equipment needs): Acute rehab.� Social history reviewed.�
Functional and Medical Goals: Modified Independent with ADL�s, ambulation, transfers�
Discharge Destination: acute rehab �
�
Summary of recommendations:�
- Discharge Destination: acute rehab. Patient states strong motivation for performing 3 hours of therapy a day and acute rehab. Family has a preference for [facility] [place].
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 Workup per rheumatology. Has history of psoriasis. This will help with
prognosis and treatment options.
Bilateral lower extremity edema: Consider TEDS as able. Increased fluid will cause more force requirement to move lower extremities which requires more strength and increases fatigue.�
Microcytic anemia in setting of alcohol abuse: as per hematology. Has been in 7 range. Was planned for iron infusion/supplement.
Thrombocytopenia: Continue to monitor. With platelets less than 50,000 recommend keeping therapies to bedside. If platelets less than 20,000 will use further caution with activity levels and hold therapy for platelets less than 10,000.� Will need to
have improvement prior to full inpatient therapy participation.
protein calorie malnutrition - nutrition consult.
Attending Statement: I performed a history and examined the patient today.� I reviewed the care plan with therapy, hospitalist, and the resident.� I agree with the history and ROS above as modified. �The physical exam and plan documented reflects my
examination and plan.� A total of 80 minutes were spent with the patient preparing for the evaluation, obtaining history, performing examination and evaluation, counseling, data review, case management, care coordination, chief order dispatcher, and EMR
documentation.
�
Will continue to follow patient.�
�
Thank you for allowing me to care for your patient. Please contact me with any questions or concerns.�
�
--- NOTE | 2025-02-28 14:24 | W.PN.HOSP.TC ---
Today's Communication/Plan
-
physiatry eval
last dose abx in am
monitor lft
provide stool softener
Assessment / Plan
Assessment / Plan
69M ETOH Esophageal Varices Grade 1-2 (Abd US however neg for cirrhosis x2) HTN DM hx GIB portal HTN here for evaluation rapidly progressive ascending weakness with associate severe Rhabdomyolysis ELIGIO and Liver Injury
Rapidly Progressive ascending weakness unclear etiology - Stabilized
-Transferred to ICU for closer monitoring respiratory status, so far VSS on room air
-Neuro evaluation appreciated brain mri w/o contrast noted no acute abn's, EMG noted myopathy and neuropathy,
-Aldolase ~20 (1.2-7.6 normal range). CRP 29.3 on 02/19
-prednisone 60 mg daily started as per neuro recommendations, JESSICA screen neg less likely autoimmune d/
-PT/OT appreciated SNF rehab
-IV thiamine supplementation taper to PO
-Prednisone taper adjusted.
Fever episode
Possible aspiration pneumonitis
-Patient had episode of gagging/coughing while having meal yesterday. ST cleared later for reg diet.
-Chest x-ray showed questionable retrocardiac opacity
-Patient started to having fever last evening, possibility of aspiration pneumonitis
-COVID/UA checked negative. Blood cultures pending.
-Maintaining on empiric Zosyn for now will de-escalate based on clinical course
Severe Rhabdomyolysis - Recovering
Acute Kidney Injury - resolved
Acute Liver Failure-Improving
-Reason of rhabdomyolysis remains unclear although alcohol use related as a possibility,
-Consult GI appreciated
-Abd US noted noted normal appearance GB Liver, splenomegaly 15.1 cm noted
-CPK almost normalized.
-Hold Jardiance
-Nephro eval appreciated
Metabolic Acidosis w/o anion gap - resolved
-likely d/t IVF NS
-further IVF on hold
-metabolic acidosis since resolved, bicarb gtt completed
Constipation
-Obstructions series X-ray noted no obstruction, small volume scattered colonic stool
-once Fleet enema per patient's request
-Gas-X prn
-Complaining of feeling constipated for 5 days although abdominal exam is benign. Provided dose of MiraLAX . hesitant to take any strong laxative
Hypokalemia
-Monitor and replete as necessary
Alcohol Use Disorder
-Patient reports last drink 2-3 weeks ago
-Continue thiamine and folic supplementation
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
-Continue Protonix BID
-As per GI, Nadolol dc and Coreg continued (dose reduced d/t low pressures)
Anemia
Thrombocytopenia
-suspect ETOH induced
-Iron studies, B12, Folate appreciated non-deficient
-Hematology eval appreciated
Diabetes Mellitus, Type II
Steroid Induced Hyperglycemia
Likely Diabetic Neuropathy as noted on EMG
-Hold oral diabetic meds
-DM DANCE PROFESSOR consult appreciated Lantus 20U Novolog 12U moderate sliding scale
-Cymbalta 20 mg daily started increased to 30 mg daily
-New Gabapentin 100 mg TID
Mild Pseudohyponatremia d/t hyperglycemia
monitor
Essential Hypertension
-Relative low/normotensive pressures noted
-Coreg dose reduced w/ holding parameters
-holding Amlodipine for now
-BP well controlled at this time
Generalized anxiety disorder
- Added Xanax as needed
DVT proph: SCDs
Code Status: Full Code
Anticipated Discharge: Within 24 hours
Subjective/Interval History
-
Date of Service: February 28, 2025
Subjective feeling better
Remains fever free
No new issues reported overnight
Objective Data
-
Labs:
Laboratory Results
02/28/25
07:22
Sodium 132 L
Potassium 3.6
Chloride 104
Carbon Dioxide 25
BUN 27 H
Creatinine 0.8
Glucose 181 H
Calcium 8.9
Total Bilirubin 3.3 H
AST 314 H
ALT 227 H
Alkaline Phosphatase 211 H
Vital Signs:
Vital Signs
Temp Pulse Resp BP Pulse Ox
98.1 F 73 21 145/71 95
02/28/25 11:00 02/28/25 11:00 02/28/25 11:00 02/28/25 11:00 02/28/25 11:00
I&O
02/27/25 02/28/25 03/01/25
06:59 06:59 06:59
Intake Total 1460 / 1460
Output Total 525 / 525 1205 / 1205 550 / 550
Balance -525 / -525 255 / 255 -550 / -550
Review of Systems
-
Respiratory: Reports No Symptoms
Cardiac: Reports No Symptoms
Abdomen/GI: Reports No Symptoms
Physical Exam
-
General: No Apparent Distress and Comfortable
HEENT: Negative Oxygen
Respiratory: Clear to Auscultation
Cardiac: Regular Rhythm and S1/S2; Negative Murmur or Rub
GI: Soft and Nontender
Musculoskeletal: Edema, Right Lower Extrem and Edema, Left Lower Extrem
Neuro: Awake, Alert, Oriented, No Motor Deficits and Nonfocal/Grossly Intact
Psych: Calm
[2025-02-28] MEDS: LASIX 20 MG IV (15:32)
[2025-02-28] MEDS: MIRALAX 17 GRAMS PO (15:32)
[2025-02-28 16:45] LABS: Glucose - Point of Care 262 mg/dl (70-99)
[2025-02-28] MEDS: LANTUS 0.25 UNITS SC (17:08)
[2025-02-28] MEDS: NOVOLOG FLEXPEN-MODERATE RESISTANCE 5 UNITS SC (17:10)
--- NOTE | 2025-02-28 19:09 | CM ---
Had lengthy conversation with leonard Debbie , and patient (who was sleepy)
Reviewed that [facility], [facility] had beds . [facility] and [facility] no beds.
PM& R ordered .
Debbie leonard [phone] wants acute rehab at [facility] . Explained that Dr Man will evaluate patient and will have to see if PT OT indicates acute rehab
After locating either SNF or acute rehab will need auth with [employer] [facility].
PLAN Discharge planning on going SNF VS acute rehab after auth
[2025-02-28 21:34] LABS: Glucose - Point of Care 213 mg/dl (70-99)
[2025-02-28] MEDS: REMOVE LIDOCAINE PATCH 1 PATCH REMOVE (21:43)
[2025-02-28] MEDS: MELATONIN 5 MG PO (21:45)
--- NOTE | 2025-02-28 22:11 | W.PN.UPDATE ---
Update Note
Progress Note Update
Pt seen by me today, at bedside. i had reviewed extensive chart and puzzling history. Pt much more alert that when my collegue Dr Haile saw him yesterday. Lying in bed in reverse trendelenurg position with hips slightly flexed. States he is
anious to get to rehab so he can roll around on the floor and stretch out his muscles. Demonstrably weak, can barely raise arms. Consult had been for depression but pt states he is hopeful he will return to health. very evidently scared, says
she is up every night thinking about what she should be doing. Breaks down crying when I ask her about previous losses--father had been killed when she was 14 (shortly after that had met pt, they have been for 49 years after 4 year
courtship.)
No current evidence of need for psychiatric care aside from support.
[2025-03-01] VITALS (7 sets, daily range): BP systolic 114–171; BP diastolic 52–71; PULSE 72
[2025-03-01] MEDS: ZOSYN 50 IV ×2 (00:02→05:44)
[2025-03-01 07:17] LABS: ALT (SGPT) 216 U/L (0-50); AST (SGOT) 255 U/L (17-59); Albumin 2.4 g/dl (3.5-5.0); Alkaline Phosphatase 200 U/L (38-126); Blood Urea Nitrogen 25 mg/dl (9-20); Calcium 8.3 mg/dl (8.4-10.2); Carbon Dioxide 26 mmol/L (22-30); Chloride 102 mmol/L (98-107); Estimated Creatinine Clearance > 125 ml/min; Glucose 166 mg/dl (70-99); Potassium 3.5 mmol/L (3.5-5.1); Sodium 132 mmol/L (135-145); Total Protein 5.5 g/dl (6.3-8.2); eGFR > 60.00
[2025-03-01 07:57] LABS: Glucose - Point of Care 136 mg/dl (70-99)
--- NOTE | 2025-03-01 08:27 | PN.DE.MGMTRT ---
Insulin Management
- -
03/01/2025: Diabetes Management Follow up
Patient admitted 02/18 with c/o weakness, anemia - UGI bleed due to portal HTN, Rhabdomyolysis. PMH type 2 diabetes, sleep apnea, significant alcohol abuse. Patient know to me from previous admission 01/10 to 01/12. Prior to admission was taking
Jardiance 25 mg daily, Lantus 15 units PM and Rybelsus 3mg pm. States he sees his primary doctor manages his diabetes and has a Patti 3. A1C 01/10 9.2%, cr today 1., eGFR 54.75.
Patient is resting in bed, offers no complaints, able to discuss diabetes care plan. at bedside, very supportive.
Prednisone tapered to 40 mg daily, contributing to Hyperglycemia.
AC novolog increased to 18 units, premeal Glucose range 148 to 262, requiring additional corrective insulin with meals.
Patient received 25 units lantus @ HS last evening, fasting glucose 136 POC. Will continue lantus 25 units @ HS.
Will increase AC NovoLog to 20 units, decrease moderate corrective to low corrective insulin.
Discussed with nurse. Will cont to follow.
Diabetes History
- -
Type of Diabetes: 2 requiring insulin
Pre-Admission Diabetes Regimen
02/28/25 03/01/25
07:22 06:14
Creatinine 0.8 0.7
Insulin Pump Settings
IP Diabetes Regimen
02/28/25 02/28/25 02/28/25
07:22 11:47 16:44
Glucose 181 H
POC Glucose 148 H 262 H
02/28/25 03/01/25 03/01/25
21:33 06:14 07:56
Glucose 166 H
POC Glucose 213 H 136 H
Meal type: Dinner
Meal type: Lunch
Meal type: Breakfast
Amount consumed: 75%
Amount consumed: 100%
Amount consumed: 100%
Patient Education
[2025-03-01] MEDS: FOLVITE 1 MG PO (08:28)
[2025-03-01] MEDS: VITAMIN B1 100 MG PO ×2 (08:28→20:24)
[2025-03-01] MEDS: DELTASONE 40 MG PO (08:29)
[2025-03-01] MEDS: CYMBALTA DELAYED RELEASE 30 MG PO (08:30)
[2025-03-01] MEDS: SENOKOT-S 1 TABLET PO ×2 (08:30→20:21)
[2025-03-01] MEDS: DESENEX/MITRAZOL/ZEASORB 1 APPLIC TOPICAL ×2 (08:30→20:24)
[2025-03-01] MEDS: COREG 3.125 MG PO ×2 (08:30→20:21)
[2025-03-01] MEDS: PROTONIX 40 MG PO ×2 (08:30→20:21)
[2025-03-01] MEDS: POLYSPORIN/DOUBLE ANTIBIOTIC 1 APPLIC TOPICAL (08:30)
[2025-03-01] MEDS: NOVOLOG FLEXPEN-MODERATE RESISTANCE SC (08:31)
[2025-03-01] MEDS: NOVOLOG FLEXPEN 18 UNITS SC (08:31)
[2025-03-01] MEDS: LIDOCAINE 4% PATCH 1 PATCH TOPICAL (08:31)
[2025-03-01] MEDS: NOVOLOG FLEXPEN-LOW RESISTANCE SC (08:51)
[2025-03-01 11:47] LABS: Glucose - Point of Care 185 mg/dl (70-99)
[2025-03-01] MEDS: NOVOLOG FLEXPEN-LOW RESISTANCE 1 UNITS SC (12:37)
[2025-03-01] MEDS: NOVOLOG FLEXPEN 20 UNITS SC ×2 (12:37→17:14)
[2025-03-01] MEDS: ANCEF 10 IV ×2 (12:40→20:22)
--- NOTE | 2025-03-01 14:29 | CM ---
Addendum entered by April Lewis 03/01/25 15:05:
CM spoke with pt's via telephone with patient in his hospital room. Updated regarding referral sent to [facility] and that pt will not be transferred until he is medically stable and approval for Acute Rehab transfer has been obtained
from insurance.
Plan: CM will continue to follow to coordinate transfer to [facility] pending insurance authorization when medically ready.
Original Note:
Referral sent to [facility] which is where the patient and family would like him to go for Acute Rehab. Await determination. Authorization will be needed once pt is medically ready.
Plan: CM will continue to follow to coordinate transfer to [facility] pending insurance authorization when medically ready.
--- NOTE | 2025-03-01 15:28 | W.PN.HOSP.TC ---
Today's Communication/Plan
-
start iv ancef
repeat blood cs
ID evaluation
Assessment / Plan
Assessment / Plan
69M ETOH Esophageal Varices Grade 1-2 (Abd US however neg for cirrhosis x2) HTN DM hx GIB portal HTN here for evaluation rapidly progressive ascending weakness with associate severe Rhabdomyolysis ELIGIO and Liver Injury
Rapidly Progressive ascending weakness unclear etiology - Stabilized
-Transferred to ICU for closer monitoring respiratory status, so far VSS on room air
-Neuro evaluation appreciated brain mri w/o contrast noted no acute abn's, EMG noted myopathy and neuropathy,
-Aldolase ~20 (1.2-7.6 normal range). CRP 29.3 on 02/19
-PT/OT appreciated SNF rehab. Physiatry evaluated on family request and patient appropriate for acute rehab
-IV thiamine supplementation taper to PO
-Prednisone taper adjusted.
MSSA bacteremia
-Patient had episode of gagging/coughing while having meal on friday. ST cleared later for reg diet.
-Chest x-ray showed questionable retrocardiac opacity
-Patient started to having fever on sat evening, possibility of aspiration pneumonitis
-COVID/UA checked negative.
- Was given empiric Zosyn for aspiration pneumonitis.
-Blood culture started growing MSSA, started back on Ancef and ID consulted for further help
Severe Rhabdomyolysis - Recovering
Acute Kidney Injury - resolved
Acute Liver Failure-Improving
-Reason of rhabdomyolysis remains unclear although alcohol use related as a possibility,
-Consult GI appreciated
-Abd US noted noted normal appearance GB Liver, splenomegaly 15.1 cm noted
-CPK almost normalized.
-Hold Jardiance
-Nephro eval appreciated
Metabolic Acidosis w/o anion gap - resolved
-likely d/t IVF NS
-further IVF on hold
-metabolic acidosis since resolved, bicarb gtt completed
Constipation
-Obstructions series X-ray noted no obstruction, small volume scattered colonic stool
-once Fleet enema per patient's request
-Gas-X prn
-maintain on bowel regimen
Hypokalemia
-Monitor and replete as necessary
Alcohol Use Disorder
-Patient reports last drink 2-3 weeks ago
-Continue thiamine and folic supplementation
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
-Continue Protonix BID
-As per GI, Nadolol dc and Coreg continued (dose reduced d/t low pressures)
Anemia
Thrombocytopenia
-suspect ETOH induced
-Iron studies, B12, Folate appreciated non-deficient
-Hematology eval appreciated
Diabetes Mellitus, Type II
Steroid Induced Hyperglycemia
Likely Diabetic Neuropathy as noted on EMG
-Hold oral diabetic meds
-Cymbalta 20 mg daily started increased to 30 mg daily
-d/c gabapentin as patient feels sedated
-Diabetic RAILWAY ENGINEER help appreciated.
Mild Pseudohyponatremia d/t hyperglycemia
monitor
Essential Hypertension
-Relative low/normotensive pressures noted
-Coreg dose reduced w/ holding parameters
-holding Amlodipine for now
-BP well controlled at this time
Generalized anxiety disorder
- Added Xanax as needed
DVT proph: SCDs
Code Status: Full Code
Anticipated Discharge: 24 - 48 hours
Subjective/Interval History
-
Date of Service: March 01, 2025
Denies having any issues
no reported problems overnight
Objective Data
-
Labs:
Laboratory Results
03/01/25
06:14
Sodium 132 L
Potassium 3.5
Chloride 102
Carbon Dioxide 26
BUN 25 H
Creatinine 0.7
Glucose 166 H
Calcium 8.3 L
Total Bilirubin 3.3 H
AST 255 H
ALT 216 H
Alkaline Phosphatase 200 H
Vital Signs:
Vital Signs
Temp Pulse Resp BP Pulse Ox
98.2 F 68 18 119/53 96
03/01/25 11:00 03/01/25 11:00 03/01/25 11:00 03/01/25 11:00 03/01/25 11:00
I&O
02/28/25 03/01/25 03/02/25
06:59 06:59 06:59
Intake Total 1460 / 1460 2039
Output Total 1205 / 1205 1999
Balance 255 / 255 40 / 40
Review of Systems
-
Respiratory: Reports No Symptoms
Cardiac: Reports No Symptoms
Abdomen/GI: Reports No Symptoms
Physical Exam
-
General: No Apparent Distress and Comfortable
HEENT: Negative Oxygen
Respiratory: Clear to Auscultation
Cardiac: Regular Rhythm and S1/S2; Negative Murmur or Rub
GI: Soft and Nontender
Musculoskeletal: Edema, Right Lower Extrem and Edema, Left Lower Extrem
Neuro: Awake, Alert, Oriented, No Motor Deficits and Nonfocal/Grossly Intact
Psych: Calm
[2025-03-01 16:47] LABS: Glucose - Point of Care 264 mg/dl (70-99)
[2025-03-01] MEDS: LANTUS 0.25 UNITS SC (17:13)
[2025-03-01] MEDS: NOVOLOG FLEXPEN-LOW RESISTANCE 3 UNITS SC (17:15)
--- NOTE | 2025-03-01 19:34 | W.PN.UPDATE ---
Update Note
Progress Note Update
Pt seen by me today. at bedside. Pt more alert, upright, states he feels better and looks it. agrees he is more like himself, no depression today. Hopeful for further improvement.
[2025-03-01] MEDS: MELATONIN 5 MG PO (20:21)
[2025-03-01] MEDS: MIRALAX 17 GRAMS PO (20:21)
[2025-03-01] MEDS: FLUSH (NSS) 1 FLUSH IV (20:22)
[2025-03-01] MEDS: REMOVE LIDOCAINE PATCH 1 PATCH REMOVE (20:24)
[2025-03-01 21:47] LABS: Glucose - Point of Care 222 mg/dl (70-99)
--- NOTE | 2025-03-02 03:12 | DOWNTIME ---
There was a [employer] Client [employer] Downtime on 03/02/2025 from 0100 to 03/02/2025 at 0235. Downtime documentation of patient's care, including medication administrations, has been reconciled in the electronic record per guidelines. Refer to the
patient's paper chart under the miscellaneous tab to see printed paper medication records and downtime forms.
[2025-03-02] MEDS: ANCEF 10 IV ×3 (03:29→20:52)
[2025-03-02 07:00] VITALS: BP 146/64
[2025-03-02 07:42] LABS: Glucose - Point of Care 109 mg/dl (70-99)
[2025-03-02] MEDS: NOVOLOG FLEXPEN-LOW RESISTANCE SC ×2 (07:45→18:24)
[2025-03-02] MEDS: LIDOCAINE 4% PATCH 1 PATCH TOPICAL (08:19)
[2025-03-02] MEDS: COREG 3.125 MG PO ×2 (08:20→20:54)
[2025-03-02] MEDS: CYMBALTA DELAYED RELEASE 30 MG PO (08:20)
[2025-03-02] MEDS: DELTASONE 40 MG PO (08:20)
[2025-03-02] MEDS: PROTONIX 40 MG PO ×2 (08:20→20:55)
[2025-03-02] MEDS: VITAMIN B1 100 MG PO ×2 (08:20→21:00)
[2025-03-02] MEDS: FOLVITE 1 MG PO (08:20)
[2025-03-02] MEDS: SENOKOT-S 1 TABLET PO ×2 (08:20→20:55)
[2025-03-02] MEDS: NOVOLOG FLEXPEN 22 UNITS SC ×2 (08:21→13:34)
[2025-03-02 08:22] LABS: ALT (SGPT) 206 U/L (0-50); AST (SGOT) 215 U/L (17-59); Albumin 2.5 g/dl (3.5-5.0); Alkaline Phosphatase 210 U/L (38-126); Blood Urea Nitrogen 23 mg/dl (9-20); Calcium 8.9 mg/dl (8.4-10.2); Carbon Dioxide 27 mmol/L (22-30); Chloride 102 mmol/L (98-107); Estimated Creatinine Clearance > 125 ml/min; Glucose 104 mg/dl (70-99); Potassium 3.2 mmol/L (3.5-5.1); Sodium 132 mmol/L (135-145); Total Protein 5.6 g/dl (6.3-8.2); eGFR > 60.00
[2025-03-02] MEDS: DESENEX/MITRAZOL/ZEASORB 1 APPLIC TOPICAL ×2 (08:26→21:09)
--- NOTE | 2025-03-02 08:35 | CON.ID ---
Consultation
-
Date/Time Consultation Requested: 03/01/2025 1109
Date/Time Consultation Performed: 03/02/2025 0835
Requesting Provider: Dr. Chacko
Performing Provider: Dr. Grewal
Reason for Consultation: Bacteremia
Chief Complaint / Past History
History of Present Illness
Ryder Gilbert is a 69-year-old man being evaluated at the request of Dr. Chacko in regards to Staph aureus bacteremia. History is obtained from chart review, along with patient interview.
The patient initially presented to [facility] on 02/18/2025 with complaints of weakness and symptomatic anemia. Patient had a recent hospitalization in early March at which time he had a GI bleed secondary to portal hypertension, and
resultant anemia. Further workup revealed ELIGIO and transaminitis.
Hospital course significant for rhabdomyolysis and rapidly progressive weakness of unclear etiology. During his stay, ELIGIO improved, but he developed spiking fever to 101.5 degrees on 02/26, and blood cultures obtained at that point in time revealed
growth of MSSA. (Only 1 set was drawn). The patient was immediately started on Zosyn at the time of fever, but has now been transitioned to cefazolin. Infectious Diseases asked to comment upon further antimicrobial therapy.
Patient denies recurrence of fever. Admits to chronic low back discomfort, but no significant change or worsening in pain.
Past History
Additional Past Medical History:
Alcohol Use Disorder
Alcoholic Cirrhosis
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
Pancytopenia
Diabetes Mellitus, Type II
Essential Hypertension
Hyperlipidemia
Additional Past Surgical History:
Orthopedic surgery
Hernia repair
Allergy History:
No Known Allergies Allergy (Verified 02/18/25 09:52)
Medications Reviewed: Yes
Current Antibiotics:
Cefazolin 2 gm IV q.8 hours
Social History
Tobacco: Non-Smoker
Alcohol: Other (previously drank ~1.75L of vodka/wk. Last drink ~3-4 weeks ago)
Drug: None
Personal:
Living: With Family
Family History
Family History: Not Pertinent
Review of Systems
Vital Signs
Temp Pulse Resp BP Pulse Ox
98.3 F 65 18 146/64 97
03/02/25 07:00 03/02/25 07:00 03/02/25 07:00 03/02/25 07:00 03/02/25 07:00
Physical Exam
Physical Exam
Constitutional: No Acute Distress, Comfortable, Chronically Ill and Non-toxic
Head: Normocephalic
Eyes: Pupils Equal, Pupils Round, No Conjunctival Hemorrhage and Sclera Anicteric
Oral: No Thrush and No Ulcers
Cardiovascular: Regular Rate and S1/S2; Negative S3/S4 or Murmur
Pulmonary: Clear; Negative Wheezes, Rales or Rhonchi
Gastrointestinal: Soft, Non Tender, Non Distended, Normal Bowel Sounds, No Rebound and No Guarding
Genito-Urinary: Negative Lynn or CVA Tenderness
Extremities: Edema (2+ B/L LE's); Negative Cyanosis, Erythema, Splinter Hemorrhage, Venous Insufficiency or [place]ay Lesions
Musculoskeletal: Negative Joint Swelling or Joint Effusion
Skin: Warm and Dry
Wound: None
Neurological: Awake and Alert; Negative Meningeal Signs
Psychological: Calm
Lab / Diagnostic Study Results
02/27/25 06:17
03/02/25 07:12
Abs Immat Gran (auto) 0.1 10^3/uL (0-0.05) H 02/27/25 06:17
Absolute Neuts (auto) 7.1 10^3/uL (1.4-6.5) H 02/27/25 06:17
Absolute Lymphs (auto) 0.7 10^3/uL (1.2-3.4) L 02/27/25 06:17
Absolute Monos (auto) 0.8 10^3/uL (0.1-0.6) H 02/27/25 06:17
Absolute Basos (auto) 0.0 10^3/uL (0-0.2) 02/27/25 06:17
Immature Gran % 0.6 % (0-0.5) H 02/27/25 06:17
Neutrophils % 81.9 % (42.2-75.2) H 02/27/25 06:17
Lymphocytes % 7.9 % (20.5-51.1) L 02/27/25 06:17
Monocytes % 9.4 % (1.7-9.3) H 02/27/25 06:17
Eosinophils % 0.0 % (0-6) 02/27/25 06:17
Basophils % 0.2 % (0-2) 02/27/25 06:17
ESR Cancelled 02/19/25 14:40
PT 21.2 Sec (11.4-14.6) H 02/23/25 03:29
INR 1.81 02/23/25 03:29
C-Reactive Protein Cancelled 02/19/25 14:40
Ur Squamous Epith Cells 6-10 /LPF (Few) 02/22/25 20:47
Microbiology Results
Micro:
03/01/25 12:19 Blood Culture - Pending
Blood/Venous
02/26/25 18:48 Blood Culture - Preliminary
Blood/Venous S aureus-Methicillin Sensitive
Gram Stain - Preliminary
Imaging:
02/26/2025 CXR (portable): Moderate cardiomegaly. Vascular congestion with peribronchial thickening, interstitial prominence, and generalized groundglass opacity. Findings consistent with congestive heart failure. Increased homogeneous retrocardiac
opacity obscuring left diaphragm, with possible considerations including pleural effusion, atelectasis, or pneumonia.
Assessment / Plan
Staph aureus bacteremia
- source unclear ?GI translocation ?Pulm source
Fever
Left antecubital thrombus/thrombophlebitis (at site of prior periph IV)
Leukocytosis; resolved. Likely steroid-induced
ELIGIO; improved
Alcohol Use Disorder
Alcoholic Cirrhosis
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
Pancytopenia
Diabetes Mellitus, Type II
Essential Hypertension
Hyperlipidemia
Recommendations:
Continue current course of cefazolin. Patient will need at least a 14-day course. Repeat blood cultures have been obtained.
Prior noted elevation of ESR and CRP. Will repeat.
Check echocardiogram.
Further recommendations as additional data is returned.
--- NOTE | 2025-03-02 09:46 | PN.DE.MGMTRT ---
Insulin Management
- -
03/02/2025: Diabetes Management Follow up
Patient admitted 02/18 with c/o weakness, anemia - UGI bleed due to portal HTN, Rhabdomyolysis. PMH type 2 diabetes, sleep apnea, significant alcohol abuse. Patient know to me from previous admission 01/10 to 01/12. Prior to admission was taking
Jardiance 25 mg daily, Lantus 15 units PM and Rybelsus 3mg pm. States he sees his primary doctor manages his diabetes and has a Patti 3. A1C 01/10 9.2%, cr today 1., eGFR 54.75.
Patient is resting in bed, offers no complaints, able to discuss diabetes care plan. at bedside, very supportive.
Prednisone tapered to 40 mg daily, contributing to Hyperglycemia.
AC novolog increased to 20 units, premeal Glucose range 136 to 264, requiring additional corrective insulin with meals.
Patient received 25 units lantus @ HS last evening, fasting glucose 109 POC. Will continue lantus 25 units @ HS.
Will increase AC NovoLog to 22 units, decrease moderate corrective to low corrective insulin.
Discussed with nurse. Will cont to follow.
Diabetes History
- -
Type of Diabetes: 2 requiring insulin
Pre-Admission Diabetes Regimen
03/02/25
07:12
Creatinine 0.7
Insulin Pump Settings
IP Diabetes Regimen
03/01/25 03/01/25 03/01/25
11:46 16:46 21:46
Glucose
POC Glucose 185 H 264 H 222 H
03/02/25 03/02/25
07:12 07:40
Glucose 104 H
POC Glucose 109 H
Meal type: Lunch
Meal type: Breakfast
Amount consumed: 100%
Amount consumed: 100%
Patient Education
[2025-03-02 12:07] VITALS: BP 112/61; BP 117/62; BP 117/64; PULSE 71; PULSE 72; PULSE 75; O2SAT 94
[2025-03-02 12:21] LABS: Glucose - Point of Care 176 mg/dl (70-99)
[2025-03-02 12:45] VITALS: BMI 34.3
--- NOTE | 2025-03-02 13:15 | W.PN.UPDATE ---
Update Note
Progress Note Update
patient seen chart reviewed. spoke with nursing and with dr rosenberg who saw patient yesterday. was at bedside. the patient denies that he is depressed. he does admit to a very signfiicant etoh problem for many years. last drink early february.
we explored the impact of etoh on his body which clearly has been considerable. he had a major gi bleed w resultant severe anemia. he has been transfused. he was to have an iron infusion tells me recommended by a partition assembly machine operator this month. he is
in a very weakened physical condition with positive blood cultures, electrolyte imbalance, very elevated lft's, muscle weakness (etiology not clear). discussed dc of cymbalta for several reasons ...i don't feel he is depressed ....his liver
functions are quite high and cymbalta is metabolized by liver...his serum sodium is low and will only go lower with cymbalta. strongly suggested to patient that once he is medically stable and has dealt with rehab he should strongly consider drug
and etoh rehab at least iop or AA with a sponsor. psych will sign off.
[2025-03-02] MEDS: NOVOLOG FLEXPEN-LOW RESISTANCE 1 UNITS SC (13:35)
--- NOTE | 2025-03-02 13:44 | W.PN.HOSP.TC ---
Today's Communication/Plan
-
Echocardiogram result pending
maintain on ancef
repeat blood cs
Assessment / Plan
Assessment / Plan
69M ETOH Esophageal Varices Grade 1-2 (Abd US however neg for cirrhosis x2) HTN DM hx GIB portal HTN here for evaluation rapidly progressive ascending weakness with associate severe Rhabdomyolysis ELIGIO and Liver Injury
Rapidly Progressive ascending weakness unclear etiology - Stabilized
-Transferred to ICU for closer monitoring respiratory status, so far VSS on room air
-Neuro evaluation appreciated brain mri w/o contrast noted no acute abn's, EMG noted myopathy and neuropathy,
-Aldolase ~20 (1.2-7.6 normal range). CRP 29.3 on 02/19
-PT/OT appreciated SNF rehab. Physiatry evaluated on family request and patient appropriate for acute rehab
-IV thiamine supplementation taper to PO
-Prednisone taper adjusted.
MSSA bacteremia
- Patient had episode of gagging/coughing while having meal on friday. ST cleared later for reg diet.
- Chest x-ray showed questionable retrocardiac opacity
- Patient started to having fever on sat evening, possibility of aspiration pneumonitis
- COVID/UA checked negative.
- Was given empiric Zosyn for aspiration pneumonitis.
- Blood culture started growing MSSA, started back on Ancef
- ID evaluated and recommended continuation of Ancef
- Repeat blood culture positive today for MSSA
Severe Rhabdomyolysis - Recovering
Acute Kidney Injury - resolved
Acute Liver Failure-Improving
-Reason of rhabdomyolysis remains unclear although alcohol use related as a possibility,
-Consult GI appreciated
-Abd US noted noted normal appearance GB Liver, splenomegaly 15.1 cm noted
-CPK almost normalized.
-Hold Jardiance
-Nephro eval appreciated
Metabolic Acidosis w/o anion gap - resolved
-likely d/t IVF NS
-further IVF on hold
-metabolic acidosis since resolved, bicarb gtt completed
Constipation
-Obstructions series X-ray noted no obstruction, small volume scattered colonic stool
-once Fleet enema per patient's request
-Gas-X prn
-maintain on bowel regimen
Hypokalemia
-Monitor and replete as necessary
Alcohol Use Disorder
-Patient reports last drink 2-3 weeks ago
-Continue thiamine and folic supplementation
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
-Continue Protonix BID
-As per GI, Nadolol dc and Coreg continued (dose reduced d/t low pressures)
Anemia
Thrombocytopenia
-suspect ETOH induced
-Iron studies, B12, Folate appreciated non-deficient
- Starting on Ferrlecit 5X bags for iron deficient
Diabetes Mellitus, Type II
Steroid Induced Hyperglycemia
Likely Diabetic Neuropathy as noted on EMG
-Hold oral diabetic meds
-Cymbalta 20 mg daily started increased to 30 mg daily
-d/c gabapentin as patient feels sedated
-Diabetic COLLECTIONS REPRESENTATIVE help appreciated.
Mild Pseudohyponatremia d/t hyperglycemia
monitor
Essential Hypertension
-Relative low/normotensive pressures noted
-Coreg dose reduced w/ holding parameters
-holding Amlodipine for now
-BP well controlled at this time
Generalized anxiety disorder
- Added Xanax as needed
DVT proph: SCDs
Code Status: Full Code
Care plan discussed with patient spouse
Anticipated Discharge: 24 - 48 hours
Subjective/Interval History
-
Date of Service: March 02, 2025
Denies having any problems overnight
Patient more perked up
Afebrile overnight
Objective Data
-
Labs:
Laboratory Results
03/02/25
07:12
Sodium 132 L
Potassium 3.2 L
Chloride 102
Carbon Dioxide 27
BUN 23 H
Creatinine 0.7
Glucose 104 H
Calcium 8.9
Total Bilirubin 3.1 H
AST 215 H
ALT 206 H
Alkaline Phosphatase 210 H
Vital Signs:
Vital Signs
Temp Pulse Resp BP Pulse Ox
98.3 F 65 18 146/64 97
03/02/25 07:00 03/02/25 07:00 03/02/25 07:00 03/02/25 07:00 03/02/25 07:00
I&O
03/01/25 03/02/25 03/03/25
06:59 06:59 06:59
Intake Total 2039 / 2039 900 / 900
Output Total 1999 / 1999 1700 / 1700 200 / 200
Balance 40 / 40 -800 / -800 -200 / -200
Review of Systems
-
Respiratory: Reports No Symptoms
Cardiac: Reports No Symptoms
Abdomen/GI: Reports No Symptoms
Physical Exam
-
General: No Apparent Distress and Comfortable
HEENT: Negative Oxygen
Respiratory: Clear to Auscultation
Cardiac: Regular Rhythm and S1/S2; Negative Murmur or Rub
GI: Soft and Nontender
Musculoskeletal: Edema, Right Lower Extrem and Edema, Left Lower Extrem
Neuro: Awake, Alert, Oriented, No Motor Deficits and Nonfocal/Grossly Intact
Psych: Calm
[2025-03-02] MEDS: FERRLECIT 110 MG IV (14:37)
[2025-03-02 15:00] VITALS: BP 122/55
[2025-03-02 16:48] LABS: Glucose - Point of Care 241 mg/dl (70-99)
[2025-03-02 17:38] LABS: Glucose - Point of Care 217 mg/dl (70-99)
[2025-03-02] MEDS: LANTUS 0.25 UNITS SC (17:49)
[2025-03-02 18:15] LABS: Glucose - Point of Care 205 mg/dl (70-99)
[2025-03-02] MEDS: NOVOLOG FLEXPEN SC (18:36)
[2025-03-02] MEDS: NOVOLOG FLEXPEN 10 UNITS SC (19:05)
[2025-03-02] MEDS: REMOVE LIDOCAINE PATCH 1 PATCH REMOVE (20:55)
[2025-03-02] MEDS: MELATONIN 5 MG PO (21:00)
[2025-03-02 21:34] LABS: Glucose - Point of Care 203 mg/dl (70-99)
[2025-03-02 22:01] VITALS: PULSE 67
[2025-03-02 23:01] VITALS: BP 125/57
[2025-03-03] MEDS: ANCEF 10 IV ×3 (04:54→20:30)
[2025-03-03 06:00] VITALS: BMI 33.3
[2025-03-03 07:00] VITALS: BP 144/46
[2025-03-03 08:06] LABS: Glucose - Point of Care 87 mg/dl (70-99)
--- NOTE | 2025-03-03 08:08 | PN.DE.MGMTRT ---
Insulin Management
- -
03/03/2025: Diabetes Management Follow up
Patient admitted 02/18 with c/o weakness, anemia - UGI bleed due to portal HTN, Rhabdomyolysis. PMH type 2 diabetes, sleep apnea, significant alcohol abuse. Patient know to me from previous admission 01/10 to 01/12. Prior to admission was taking
Jardiance 25 mg daily, Lantus 15 units PM and Rybelsus 3mg pm. States he sees his primary doctor manages his diabetes and has a Patti 3. A1C 01/10 9.2%, cr today 1., eGFR 54.75.
Patient is resting in bed, offers no complaints, able to discuss diabetes care plan. at bedside, very supportive.
Prednisone tapered to 30 mg daily, contributing to Hyperglycemia.
03/02 AC novolog increased to 22 units, premeal Glucose range 136 to 264, requiring additional corrective insulin with meals. Patient stated he did not want dinner, no insulin given. HS glucose 203, 10 units novolog administered.
03/03 Patient received 25 units lantus @ HS last evening, fasting glucose 87 POC. Will continue lantus 25 units @ HS.
Will increase AC NovoLog to 24 units, with low corrective insulin. HOLD AC NOVOLOG if patient does not eat meal.
Discussed with nurse. Will cont to follow.
Diabetes History
- -
Type of Diabetes: 2 requiring insulin
Pre-Admission Diabetes Regimen
03/02/25
07:12
Creatinine 0.7
Insulin Pump Settings
IP Diabetes Regimen
03/02/25 03/02/25 03/02/25
07:12 12:20 16:47
Glucose 104 H
POC Glucose 176 H 241 H
03/02/25 03/02/25 03/02/25
17:37 18:14 21:33
Glucose
POC Glucose 217 H 205 H 203 H
03/03/25
08:05
Glucose
POC Glucose 87
Patient Education
[2025-03-03] MEDS: NOVOLOG FLEXPEN-LOW RESISTANCE SC (08:10)
[2025-03-03] MEDS: LIDOCAINE 4% PATCH 1 PATCH TOPICAL (08:11)
[2025-03-03] MEDS: PROTONIX 40 MG PO ×2 (08:11→20:35)
[2025-03-03] MEDS: COREG 3.125 MG PO ×2 (08:11→20:33)
[2025-03-03] MEDS: DELTASONE 40 MG PO (08:11)
[2025-03-03] MEDS: FOLVITE 1 MG PO (08:12)
[2025-03-03] MEDS: SENOKOT-S 1 TABLET PO ×2 (08:12→20:35)
[2025-03-03] MEDS: DESENEX/MITRAZOL/ZEASORB 1 APPLIC TOPICAL ×2 (08:13→20:36)
[2025-03-03] MEDS: VITAMIN B1 100 MG PO ×2 (08:25→20:39)
[2025-03-03 08:53] LABS: C-Reactive Protein 12.90 mg/L (0.0-10.00)
[2025-03-03] MEDS: NOVOLOG FLEXPEN 22 UNITS SC (09:17)
[2025-03-03] MEDS: NOVOLOG FLEXPEN SC (09:23)
[2025-03-03 11:59] LABS: Glucose - Point of Care 234 mg/dl (70-99)
[2025-03-03] MEDS: NOVOLOG FLEXPEN-LOW RESISTANCE 2 UNITS SC ×2 (12:58→17:09)
[2025-03-03] MEDS: NOVOLOG FLEXPEN 24 UNITS SC ×2 (12:59→17:09)
[2025-03-03] MEDS: FERRLECIT 110 MG IV (13:00)
--- NOTE | 2025-03-03 13:10 | W.PN.HOSP.TC ---
Addendum entered and electronically signed by Phillip Chacko MD 03/03/25 14:57:
Adjust dx
Hyponatremia from ADH excess
Original Note:
Today's Communication/Plan
-
f/u repeat blood cs report
continue on ancef
eventual acute rehab placement
Assessment / Plan
Assessment / Plan
69M ETOH Esophageal Varices Grade 1-2 (Abd US however neg for cirrhosis x2) HTN DM hx GIB portal HTN here for evaluation rapidly progressive ascending weakness with associate severe Rhabdomyolysis ELIGIO and Liver Injury
Rapidly Progressive ascending weakness unclear etiology - Stabilized
-Transferred to ICU for closer monitoring respiratory status, so far VSS on room air
-Neuro evaluation appreciated brain mri w/o contrast noted no acute abn's, EMG noted myopathy and neuropathy,
-Aldolase ~20 (1.2-7.6 normal range). CRP 29.3 on 02/19
-PT/OT appreciated SNF rehab. Physiatry evaluated on family request and patient appropriate for acute rehab
-IV thiamine supplementation taper to PO
-Prednisone taper adjusted.
MSSA bacteremia
- Patient had episode of gagging/coughing while having meal on friday. ST cleared later for reg diet.
- Chest x-ray showed questionable retrocardiac opacity
- Patient started to having fever on sat evening, possibility of aspiration pneumonitis
- COVID/UA checked negative.
- Was given empiric Zosyn for aspiration pneumonitis.
- Blood culture started growing MSSA, started back on Ancef
- ID evaluated and recommended continuation of Ancef
- TTE did not show any vegetaion. Will consider YARELI if concern of endocarditis remains high
- Repeat blood culture positive from 03/01 for MSSA. Last blood cx from 03/02 result pending.
Severe Rhabdomyolysis - Recovering
Acute Kidney Injury - resolved
Acute Liver Failure-Improving
-Reason of rhabdomyolysis remains unclear although alcohol use related as a possibility,
-Consult GI appreciated
-Abd US noted noted normal appearance GB Liver, splenomegaly 15.1 cm noted
-CPK almost normalized.
-Nephro eval appreciated
Metabolic Acidosis w/o anion gap - resolved
-likely d/t IVF NS
-further IVF on hold
-metabolic acidosis since resolved, bicarb gtt completed
Constipation - resolved
-Obstructions series X-ray noted no obstruction, small volume scattered colonic stool
-once Fleet enema per patient's request
-Gas-X prn
-maintain on bowel regimen
Hypokalemia
-Monitor and replete as necessary
Alcohol Use Disorder
-Patient reports last drink 2-3 weeks ago
-Continue thiamine and folic supplementation
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
-Continue Protonix BID
-As per GI, Nadolol dc and Coreg continued (dose reduced d/t low pressures)
Anemia
Thrombocytopenia
-suspect ETOH induced
-Iron studies, B12, Folate appreciated non-deficient
-Starting on Ferrlecit 5X bags for iron deficient
Diabetes Mellitus, Type II
Steroid Induced Hyperglycemia
Likely Diabetic Neuropathy as noted on EMG
-Hold oral diabetic meds
-Cymbalta 20 mg daily started increased to 30 mg daily
-d/c gabapentin as patient feels sedated
-Diabetic PUMP ERECTOR HELPER help appreciated.
Mild Pseudohyponatremia d/t hyperglycemia
monitor
Essential Hypertension
-Relative low/normotensive pressures noted
-Coreg dose reduced w/ holding parameters
-holding Amlodipine for now
-BP well controlled at this time
Generalized anxiety disorder
- Added Xanax as needed
DVT proph: SCDs
Code Status: Full Code
03/02 Care plan discussed with patient spouse
Anticipated Discharge: > 48 hours
Subjective/Interval History
-
Date of Service: March 03, 2025
Feeling subjectively better
Remains afebrile
No new issues reported
Objective Data
-
Vital Signs:
Vital Signs
Temp Pulse Resp BP Pulse Ox
97.9 F 66 18 144/46 95
03/03/25 07:00 03/03/25 07:00 03/03/25 07:00 03/03/25 07:00 03/03/25 07:00
I&O
03/02/25 03/03/25 03/04/25
06:59 06:59 06:59
Intake Total 900 / 900 1090 / 1090
Output Total 1700 / 1700 925 / 925
Balance -800 / -800 165 / 165
Review of Systems
-
Respiratory: Reports No Symptoms
Cardiac: Reports No Symptoms
Abdomen/GI: Reports No Symptoms
Physical Exam
-
General: No Apparent Distress and Comfortable
HEENT: Negative Oxygen
Respiratory: Clear to Auscultation
Cardiac: Regular Rhythm and S1/S2; Negative Murmur or Rub
GI: Soft and Nontender
Musculoskeletal: Edema, Right Lower Extrem and Edema, Left Lower Extrem
Neuro: Awake, Alert, Oriented, No Motor Deficits and Nonfocal/Grossly Intact
Psych: Calm
--- NOTE | 2025-03-03 13:17 | W.PN.ID1 ---
Date of Service
Date of Service: March 03, 2025
Today's Communication
Continue antibiotics
Assessment / Plan
Staph aureus bacteremia
- source unclear ?GI translocation ?Pulm source
Fever
Left antecubital thrombus/thrombophlebitis (at site of prior periph IV)
Leukocytosis; resolved. Likely steroid-induced
ELIGIO; improved
Alcohol Use Disorder
Alcoholic Cirrhosis
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
Pancytopenia
Diabetes Mellitus, Type II
Essential Hypertension
Hyperlipidemia
Recommendations:
Continue cefazolin. Repeat blood cultures again positive.
Check serial blood cultures over the next 5 days.
ESR elevated, although CRP is not especially out of range.
Echocardiogram of poor quality. Will need YARELI if possible.
Follow for clearance of blood cultures.
Given low back discomfort, check MRI to assess for epidural abscess.
Further recommendations as additional data is returned.
Chief Complaint
-: Bacteremia
Subjective / Review of Systems
Patient seen and examined. Reports some low back pain, which he seems to indicate is chronic. No new fevers or chills. No other pain.
Review of Systems: No Fever and No Chills
Vital Signs / Physical Exam
Vital Signs
Vital Signs
Temp Pulse Resp BP Pulse Ox
97.9 F 66 18 144/46 95
03/03/25 07:00 03/03/25 07:00 03/03/25 07:00 03/03/25 07:00 03/03/25 07:00
Physical Exam
Constitutional: No Acute Distress, Comfortable, Chronically Ill and Non-toxic
Eyes: No Conjunctival Hemorrhage and Sclera Anicteric
Cardiovascular: S1/S2; Negative S3/S4 or Murmur
Pulmonary: Clear; Negative Wheezes or Rales
Gastrointestinal: Soft, Non Tender, Distended and Normal Bowel Sounds
Extremities: Edema; Negative Cyanosis, Erythema, Splinter Hemorrhage or Venous Insufficiency
Neurological: Awake and Alert
Psychological: Calm
Objective Data
Lab Data
Lab Results
02/27/25 06:17
03/02/25 07:12
ESR 72 mm/hour (0-20) H 03/03/25 07:36
PT 21.2 Sec (11.4-14.6) H 02/23/25 03:29
INR 1.81 02/23/25 03:29
APTT Cancelled 02/19/25 15:47
Estimated Creat Clear > 125 ml/min 03/02/25 07:12
Total Bilirubin 3.1 mg/dl (0.2-1.3) H 03/02/25 07:12
GGT 579 U/L (15-73) H 02/19/25 15:46
AST 215 U/L (17-59) H 03/02/25 07:12
ALT 206 U/L (0-50) H 03/02/25 07:12
Alkaline Phosphatase 210 U/L (38-126) H 03/02/25 07:12
C-Reactive Protein 12.90 mg/L (0.0-10.00) H 03/03/25 07:36
Most recent labs reviewed.
Micro Results:
03/01/25 12:19 Blood Culture - Preliminary
Blood/Venous S aureus-Methicillin Sensitive
Gram Stain - Preliminary
03/02/25 14:01 Blood Culture - Pending
Blood/Venous
02/26/25 18:48 Blood Culture - Preliminary
Blood/Venous S aureus-Methicillin Sensitive
Gram Stain - Preliminary
Imaging:
03/02/2025 Echo (TTE): technically difficult study. Normal LV ventricular size. Valves incompletely visualized.
02/26/2025 CXR (portable): Moderate cardiomegaly. Vascular congestion with peribronchial thickening, interstitial prominence, and generalized groundglass opacity. Findings consistent with congestive heart failure. Increased homogeneous retrocardiac
opacity obscuring left diaphragm, with possible considerations including pleural effusion, atelectasis, or pneumonia.
Care Review
Plan reviewed with: Physician (Hospitalist)
--- NOTE | 2025-03-03 13:21 | CM ---
Chart reviewed. Plan is for [facility] when medically stable
Need insurance auth prior to d/c
--- NOTE | 2025-03-03 14:53 | W.PN.UPDATE ---
Update Note
Progress Note Update
The patient has grade 1-2 esophageal varices with recent GI bleed and marked thrombocytopenia with a platelet count of 40,000. These are absolute contraindications to transesophageal echo. Will hold off on YARELI.
[2025-03-03 15:04] VITALS: BP 131/52
[2025-03-03 16:46] LABS: Glucose - Point of Care 226 mg/dl (70-99)
[2025-03-03] MEDS: LANTUS 0.25 UNITS SC (18:13)
[2025-03-03 18:14] LABS: Glucose - Point of Care 211 mg/dl (70-99)
[2025-03-03] MEDS: MELATONIN 5 MG PO (20:33)
[2025-03-03] MEDS: REMOVE LIDOCAINE PATCH 1 PATCH REMOVE (20:35)
[2025-03-03 20:54] VITALS: PULSE 70
[2025-03-03 21:58] LABS: Glucose - Point of Care 104 mg/dl (70-99)
[2025-03-03 23:00] VITALS: BP 135/60
[2025-03-04] MEDS: ANCEF 10 IV ×3 (03:51→21:06)
[2025-03-04 05:10] VITALS: BMI 33.7
[2025-03-04 06:29] LABS: ALT (SGPT) 150 U/L (0-50); AST (SGOT) 168 U/L (17-59); Albumin 2.4 g/dl (3.5-5.0); Alkaline Phosphatase 172 U/L (38-126); Blood Urea Nitrogen 20 mg/dl (9-20); Calcium 8.6 mg/dl (8.4-10.2); Carbon Dioxide 27 mmol/L (22-30); Chloride 103 mmol/L (98-107); Estimated Creatinine Clearance > 125 ml/min; Glucose 57 mg/dl (70-99); Potassium 3.2 mmol/L (3.5-5.1); Sodium 133 mmol/L (135-145); Total Protein 5.4 g/dl (6.3-8.2); eGFR > 60.00
[2025-03-04 07:49] VITALS: BP 132/59
[2025-03-04 07:58] LABS: Glucose - Point of Care 72 mg/dl (70-99)
--- NOTE | 2025-03-04 08:01 | PN.DE.MGMTRT ---
Insulin Management
- -
03/04/2025: Diabetes Management Follow up
Patient admitted 02/18 with c/o weakness, anemia - UGI bleed due to portal HTN, Rhabdomyolysis. PMH type 2 diabetes, sleep apnea, significant alcohol abuse. Patient know to me from previous admission 01/10 to 01/12. Prior to admission was taking
Jardiance 25 mg daily, Lantus 15 units PM and Rybelsus 3mg pm. States he sees his primary doctor manages his diabetes and has a Patti 3. A1C 01/10 9.2%, cr today 1., eGFR 54.75.
Patient awake, alert, orietned, sitting up in bed, offers no complaints, able to discuss diabetes care plan. at bedside, very supportive.
Prednisone tapered to 30 mg daily, contributing to Hyperglycemia.
Noted for an episode of Hypoglycemia, pt reports that he did not eat dinner, HS glucose was 104, pt received 25 units Lantus, FBG 52 V,72 POC. Will reduce Lantus from 25 units to 22 units @ HS.
03/03 AC NovoLog increased to 24 units, premeal Glucose range 211 to 234, requiring additional corrective insulin with meals.
Will increase AC NovoLog to 26 units, with low corrective insulin. HOLD AC NOVOLOG if patient does not eat meal.
Discussed with nurse and instructed to HOLD AC NOVOLOG if patient does not eat meal. Will cont to follow.
Diabetes History
- -
Type of Diabetes: 2 requiring insulin
Pre-Admission Diabetes Regimen
03/04/25
05:54
Creatinine 0.7
Insulin Pump Settings
IP Diabetes Regimen
03/03/25 03/03/25 03/03/25
08:05 11:57 16:45
Glucose
POC Glucose 87 234 H 226 H
03/03/25 03/03/25 03/04/25
18:12 21:57 05:54
Glucose 57 L
POC Glucose 211 H 104 H
03/04/25
07:57
Glucose
POC Glucose 72
Meal type: Lunch
Meal type: Breakfast
Amount consumed: 100%
Amount consumed: 100%
Patient Education
[2025-03-04] MEDS: COREG 3.125 MG PO ×2 (08:42→21:07)
[2025-03-04] MEDS: SENOKOT-S 1 TABLET PO ×2 (08:43→21:07)
[2025-03-04] MEDS: LIDOCAINE 4% PATCH 1 PATCH TOPICAL (08:43)
[2025-03-04] MEDS: FOLVITE 1 MG PO (08:43)
[2025-03-04] MEDS: PROTONIX 40 MG PO ×2 (08:43→21:07)
[2025-03-04] MEDS: DELTASONE 30 MG PO (08:43)
[2025-03-04] MEDS: VITAMIN B1 100 MG PO ×2 (08:44→21:07)
[2025-03-04] MEDS: NOVOLOG FLEXPEN-LOW RESISTANCE SC ×2 (08:47→11:47)
[2025-03-04] MEDS: NOVOLOG FLEXPEN SC (08:54)
[2025-03-04] MEDS: NOVOLOG FLEXPEN 26 UNITS SC ×3 (09:34→17:48)
[2025-03-04] MEDS: DESENEX/MITRAZOL/ZEASORB 1 APPLIC TOPICAL ×2 (09:36→21:07)
[2025-03-04 11:45] LABS: Glucose - Point of Care 120 mg/dl (70-99)
[2025-03-04] MEDS: KCL 40 MEQ PO (12:20)
[2025-03-04] MEDS: FERRLECIT 110 MG IV (13:20)
[2025-03-04] MEDS: MIRALAX 17 GRAMS PO (13:25)
[2025-03-04] MEDS: MYLICON 80 MG PO (13:25)
--- NOTE | 2025-03-04 14:01 | W.PN.HOSP.TC ---
Today's Communication/Plan
-
f/u serial blood cs report
maintain on abx per ID
MRI L spine - neg for infection
Acute rehab placement earliest mon
Assessment / Plan
Assessment / Plan
69M ETOH Esophageal Varices Grade 1-2 (Abd US however neg for cirrhosis x2) HTN DM hx GIB portal HTN here for evaluation rapidly progressive ascending weakness with associate severe Rhabdomyolysis ELIGIO and Liver Injury
Rapidly Progressive ascending weakness unclear etiology - Stabilized
-Transferred to ICU for closer monitoring respiratory status, so far VSS on room air
-Neuro evaluation appreciated brain mri w/o contrast noted no acute abn's, EMG noted myopathy and neuropathy,
-Aldolase ~20 (1.2-7.6 normal range). CRP 29.3 on 02/19
-PT/OT appreciated SNF rehab. Physiatry evaluated on family request and patient appropriate for acute rehab
-IV thiamine supplementation taper to PO
-Prednisone taper adjusted.
MSSA bacteremia
Sepsis - developed post admission - resolved
- Patient had episode of gagging/coughing while having meal on friday. ST cleared later for reg diet.
- Chest x-ray showed questionable retrocardiac opacity
- Patient started to having fever on sat evening, possibility of aspiration pneumonitis
- COVID/UA checked negative.
- Was given empiric Zosyn for aspiration pneumonitis.
- Blood culture started growing MSSA, started back on Ancef
- ID evaluated and recommended continuation of Ancef
- TTE did not show any vegetaion. Cardiology recommended against YARELI due to patient thrombocytopenia and variceal bleed risk.
- Repeat blood culture positive from 03/01 for MSSA. Last blood cx from 03/02 neg. f/u serial blood cs reportg
Severe Rhabdomyolysis - Recovering
Acute Kidney Injury - resolved
Acute Liver Failure-Improving
-Reason of rhabdomyolysis remains unclear although alcohol use related as a possibility,
-Consult GI appreciated
-Abd US noted noted normal appearance GB Liver, splenomegaly 15.1 cm noted
-CPK almost normalized.
-Nephro eval appreciated
Metabolic Acidosis w/o anion gap - resolved
-likely d/t IVF NS
-further IVF on hold
-metabolic acidosis since resolved, bicarb gtt completed
Constipation - resolved
-Obstructions series X-ray noted no obstruction, small volume scattered colonic stool
-once Fleet enema per patient's request
-Gas-X prn
-maintain on bowel regimen
Hypokalemia
-Monitor and replete as necessary
Alcohol Use Disorder
-Patient reports last drink 2-3 weeks ago
-Continue thiamine and folic supplementation
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
-Continue Protonix BID
-As per GI, Nadolol dc and Coreg continued (dose reduced d/t low pressures)
Anemia
Thrombocytopenia
-suspect ETOH induced
-Iron studies, B12, Folate appreciated non-deficient
-Starting on Ferrlecit 5X bags for iron deficient
Diabetes Mellitus, Type II
Steroid Induced Hyperglycemia
Likely Diabetic Neuropathy as noted on EMG
-Hold oral diabetic meds
-Cymbalta 20 mg daily started increased to 30 mg daily
-d/c gabapentin as patient feels sedated
-Diabetic SENIOR NETWORK ENGINEER help appreciated.
Mild Pseudohyponatremia d/t hyperglycemia
Essential Hypertension
Generalized anxiety disorder
DVT proph: SCDs
Code Status: Full Code
03/04 Care plan discussed with patient spouse
Anticipated Discharge: 24 - 48 hours
Subjective/Interval History
-
Date of Service: March 04, 2025
Feeling subjectively better
Afebrile overnight
No other issues reported
Objective Data
-
Labs:
Laboratory Results
03/04/25
05:54
Sodium 133 L
Potassium 3.2 L
Chloride 103
Carbon Dioxide 27
BUN 20
Creatinine 0.7
Glucose 57 L
Calcium 8.6
Total Bilirubin 3.2 H
AST 168 H
ALT 150 H
Alkaline Phosphatase 172 H
Vital Signs:
Vital Signs
Temp Pulse Resp BP Pulse Ox
97.8 F 66 18 132/59 96
03/04/25 07:49 03/04/25 08:42 03/04/25 07:49 03/04/25 08:42 03/04/25 07:49
I&O
03/03/25 03/04/25 03/05/25
06:59 06:59 06:59
Intake Total 1090 / 1090 420 / 420
Output Total 925 / 925 1050 / 1050
Balance 165 / 165 -630 / -630
Review of Systems
-
Respiratory: Reports No Symptoms
Cardiac: Reports No Symptoms
Abdomen/GI: Reports No Symptoms
Physical Exam
-
General: No Apparent Distress and Comfortable
HEENT: Negative Oxygen
Respiratory: Clear to Auscultation
Cardiac: Regular Rhythm and S1/S2; Negative Murmur or Rub
GI: Soft and Nontender
Musculoskeletal: Edema, Right Lower Extrem and Edema, Left Lower Extrem
Neuro: Awake, Alert, Oriented, No Motor Deficits and Nonfocal/Grossly Intact
Psych: Calm
--- NOTE | 2025-03-04 14:37 | CM ---
Plan is for [facility] when stable, needs Auth.
Plan; [facility] pending authorization.
[2025-03-04 15:08] VITALS: BP 112/61; BP 117/62; PULSE 72; PULSE 75; O2SAT 94
[2025-03-04 15:41] VITALS: BP 121/60
--- NOTE | 2025-03-04 16:26 | W.PN.ID1 ---
Date of Service
Date of Service: March 04, 2025
Today's Communication
Continue cefazolin.
Assessment / Plan
Staph aureus bacteremia
- source unclear ?GI translocation ?Pulm source
Fever
Left antecubital thrombus/thrombophlebitis (at site of prior periph IV)
Leukocytosis; resolved. Likely steroid-induced
ELIGIO; improved
Alcohol Use Disorder
Alcoholic Cirrhosis
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
Pancytopenia
Diabetes Mellitus, Type II
Essential Hypertension
Hyperlipidemia
Recommendations:
Continue cefazolin. Repeat blood cultures (03/01) positive. Blood cultures 03/02 and 03/03 NGTD
Serial blood cultures ordered.
ESR elevated, although CRP is not especially out of range.
Echocardiogram of poor quality.
YARELI not possible secondary to increased risk given varices, therefore given sustained bacteremia, will likely need a 6-week course of antibiotics.
Follow for clearance of blood cultures.
Lumbar MRI negative for epidural abscess
����������������������������������������������������������
Chief Complaint
-: Bacteremia
Subjective / Review of Systems
Patient seen and examined. Reports feeling quite well today. No fevers or chills. No difficulty with antibiotics.
Review of Systems: No Fever and No Chills
Vital Signs / Physical Exam
Vital Signs
Vital Signs
Temp Pulse Resp BP Pulse Ox
98.4 F 76 16 121/60 95
03/04/25 15:41 03/04/25 15:41 03/04/25 15:41 03/04/25 15:41 03/04/25 15:41
Physical Exam
Constitutional: No Acute Distress, Comfortable, Chronically Ill and Non-toxic
Eyes: No Conjunctival Hemorrhage and Sclera Anicteric
Cardiovascular: S1/S2; Negative S3/S4 or Murmur
Pulmonary: Clear; Negative Wheezes or Rales
Gastrointestinal: Soft, Non Tender, Distended and Normal Bowel Sounds
Extremities: Edema; Negative Cyanosis, Erythema, Splinter Hemorrhage or Venous Insufficiency
Neurological: Awake and Alert
Psychological: Calm
Objective Data
Lab Data
Lab Results
02/27/25 06:17
03/04/25 05:54
ESR 72 mm/hour (0-20) H 03/03/25 07:36
PT 21.2 Sec (11.4-14.6) H 02/23/25 03:29
INR 1.81 02/23/25 03:29
APTT Cancelled 02/19/25 15:47
Estimated Creat Clear > 125 ml/min 03/04/25 05:54
Total Bilirubin 3.2 mg/dl (0.2-1.3) H 03/04/25 05:54
GGT 579 U/L (15-73) H 02/19/25 15:46
AST 168 U/L (17-59) H 03/04/25 05:54
ALT 150 U/L (0-50) H 03/04/25 05:54
Alkaline Phosphatase 172 U/L (38-126) H 03/04/25 05:54
C-Reactive Protein 12.90 mg/L (0.0-10.00) H 03/03/25 07:36
Most recent labs reviewed.
Micro Results:
03/02/25 14:01 Blood Culture - Preliminary
Blood/Venous No Growth in 48 hours- Final report to follow
03/03/25 14:01 Blood Culture - Preliminary
Blood/Venous No Growth in 24 hours- Final report to follow
03/04/25 05:54 Blood Culture - Pending
Blood/Venous
03/01/25 12:19 Blood Culture - Preliminary
Blood/Venous S aureus-Methicillin Sensitive
Gram Stain - Preliminary
02/26/25 18:48 Blood Culture - Preliminary
Blood/Venous S aureus-Methicillin Sensitive
Gram Stain - Preliminary
Imaging:
03/02/2025 Echo (TTE): technically difficult study. Normal LV ventricular size. Valves incompletely visualized.
02/26/2025 CXR (portable): Moderate cardiomegaly. Vascular congestion with peribronchial thickening, interstitial prominence, and generalized groundglass opacity. Findings consistent with congestive heart failure. Increased homogeneous retrocardiac
opacity obscuring left diaphragm, with possible considerations including pleural effusion, atelectasis, or pneumonia.
[2025-03-04 16:31] LABS: Glucose - Point of Care 173 mg/dl (70-99)
[2025-03-04] MEDS: NOVOLOG FLEXPEN-LOW RESISTANCE 1 UNITS SC (17:47)
[2025-03-04] MEDS: LANTUS 0.22 UNITS SC (17:59)
[2025-03-04] MEDS: REMOVE LIDOCAINE PATCH 1 PATCH REMOVE (21:07)
[2025-03-04] MEDS: MELATONIN 5 MG PO (21:07)
[2025-03-04] MEDS: FLUSH (NSS) 1 FLUSH IV (21:07)
[2025-03-04 21:16] LABS: Glucose - Point of Care 109 mg/dl (70-99)
[2025-03-04 21:45] VITALS: PULSE 72
[2025-03-04 23:00] VITALS: BP 132/58
[2025-03-05] MEDS: ANCEF 10 IV ×3 (04:07→21:29)
[2025-03-05] MEDS: FLUSH (NSS) 1 FLUSH IV (04:08)
[2025-03-05 04:38] VITALS: BMI 34.3
[2025-03-05 06:48] LABS: Hematocrit 23.6 % (39.0-52.0); Hemoglobin 7.6 g/dL (13.0-18.0); Mean Corp Hgb Conc. 32.2 g/dL (33.0-37.0); Mean Corpuscular Volume 67.2 fL (80.0-94.0); Platelet Count 56 10^3/uL (130-400); Red Cell Dist. Width 23.1 % (11.5-14.5)
[2025-03-05 07:15] LABS: Blood Urea Nitrogen 20 mg/dl (9-20); Calcium 8.8 mg/dl (8.4-10.2); Carbon Dioxide 28 mmol/L (22-30); Chloride 102 mmol/L (98-107); Estimated Creatinine Clearance > 125 ml/min; Glucose 89 mg/dl (70-99); Potassium 3.6 mmol/L (3.5-5.1); Sodium 131 mmol/L (135-145); eGFR > 60.00
[2025-03-05 07:51] VITALS: BP 127/62
[2025-03-05 09:11] LABS: Glucose - Point of Care 93 mg/dl (70-99)
[2025-03-05] MEDS: DELTASONE 30 MG PO (09:23)
[2025-03-05] MEDS: VITAMIN B1 100 MG PO ×2 (09:24→21:31)
[2025-03-05] MEDS: SENOKOT-S 1 TABLET PO ×2 (09:24→21:32)
[2025-03-05] MEDS: FOLVITE 1 MG PO (09:24)
[2025-03-05] MEDS: COREG 3.125 MG PO ×2 (09:24→21:30)
[2025-03-05] MEDS: PROTONIX 40 MG PO ×2 (09:24→21:31)
[2025-03-05] MEDS: NOVOLOG FLEXPEN-LOW RESISTANCE SC ×2 (09:26→11:35)
[2025-03-05] MEDS: NOVOLOG FLEXPEN 26 UNITS SC (09:26)
[2025-03-05] MEDS: LIDOCAINE 4% PATCH 1 PATCH TOPICAL (09:27)
[2025-03-05] MEDS: DESENEX/MITRAZOL/ZEASORB 1 APPLIC TOPICAL ×2 (09:32→21:33)
[2025-03-05 11:30] LABS: Glucose - Point of Care 136 mg/dl (70-99)
[2025-03-05] MEDS: NOVOLOG FLEXPEN 13 UNITS SC ×2 (12:30→17:42)
--- NOTE | 2025-03-05 12:59 | W.PN.HOSP.TC ---
Today's Communication/Plan
-
Follow-up blood culture report
Round of enema
Earliest discharge to rehab on Friday
Assessment / Plan
Assessment / Plan
69M ETOH Esophageal Varices Grade 1-2 (Abd US however neg for cirrhosis x2) HTN DM hx GIB portal HTN here for evaluation rapidly progressive ascending weakness with associate severe Rhabdomyolysis ELIGIO and Liver Injury
Rapidly Progressive ascending weakness unclear etiology - Stabilized
-Transferred to ICU for closer monitoring respiratory status, so far VSS on room air
-Neuro evaluation appreciated brain mri w/o contrast noted no acute abn's, EMG noted myopathy and neuropathy,
-Aldolase ~20 (1.2-7.6 normal range). CRP 29.3 on 02/19
-PT/OT appreciated SNF rehab. Physiatry evaluated on family request and patient appropriate for acute rehab
-IV thiamine supplementation taper to PO
-Prednisone taper adjusted.
MSSA bacteremia
Sepsis - developed post admission - resolved
- Patient had episode of gagging/coughing while having meal on friday. ST cleared later for reg diet.
- Chest x-ray showed questionable retrocardiac opacity
- Patient started to having fever on sat evening, possibility of aspiration pneumonitis
- COVID/UA checked negative.
- Was given empiric Zosyn for aspiration pneumonitis.
- Blood culture started growing MSSA, started back on Ancef
- ID evaluated and recommended continuation of Ancef
- TTE did not show any vegetaion. Cardiology recommended against YARELI due to patient thrombocytopenia and variceal bleed risk.
- Repeat blood culture positive from 03/01 for MSSA. Last blood cx from 03/02 neg. f/u serial blood cs reportg
Severe Rhabdomyolysis - Recovering
Acute Kidney Injury - resolved
Acute Liver Failure-Improving
-Reason of rhabdomyolysis remains unclear although alcohol use related as a possibility,
-Consult GI appreciated
-Abd US noted noted normal appearance GB Liver, splenomegaly 15.1 cm noted
-CPK almost normalized.
-Nephro eval appreciated
Metabolic Acidosis w/o anion gap - resolved
-likely d/t IVF NS
-further IVF on hold
-metabolic acidosis since resolved, bicarb gtt completed
Constipation - resolved
-Obstructions series X-ray noted no obstruction, small volume scattered colonic stool
-once Fleet enema per patient's request
-Gas-X prn
-maintain on bowel regimen
Hypokalemia
-Monitor and replete as necessary
Alcohol Use Disorder
-Patient reports last drink 2-3 weeks ago
-Continue thiamine and folic supplementation
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
-Continue Protonix BID
-As per GI, Nadolol dc and Coreg continued (dose reduced d/t low pressures)
Anemia
Thrombocytopenia
-suspect ETOH induced
-Iron studies, B12, Folate appreciated non-deficient
-Starting on Ferrlecit 5X bags for iron deficient
Diabetes Mellitus, Type II
Steroid Induced Hyperglycemia
Likely Diabetic Neuropathy as noted on EMG
-Hold oral diabetic meds
-Cymbalta 20 mg daily started increased to 30 mg daily
-d/c gabapentin as patient feels sedated
-Diabetic STOREROOM KEEPER help appreciated.
Mild Pseudohyponatremia d/t hyperglycemia
Essential Hypertension
Generalized anxiety disorder
DVT proph: SCDs
Code Status: Full Code
03/04 Care plan discussed with patient spouse
Anticipated Discharge: 24 - 48 hours
Subjective/Interval History
-
Date of Service: March 05, 2025
No new complaints overnight
Objective Data
-
Labs:
Laboratory Results
03/05/25 03/05/25
06:29 06:30
WBC 8.1
Hgb 7.6 L
Hct 23.6 L
Plt Count 56 L D
Sodium 131 L
Potassium 3.6
Chloride 102
Carbon Dioxide 28
BUN 20
Creatinine 0.6 L
Glucose 89
Calcium 8.8
Vital Signs:
Vital Signs
Temp Pulse Resp BP Pulse Ox
97.9 F 71 18 127/62 96
03/05/25 07:51 03/05/25 09:24 03/05/25 07:51 03/05/25 09:24 03/05/25 07:51
I&O
03/04/25 03/05/25 03/06/25
06:59 06:59 06:59
Intake Total 420 / 420 840 / 840
Output Total 1050 / 1050 1300 / 1300
Balance -630 / -630 -460 / -460
Review of Systems
-
Respiratory: Reports No Symptoms
Cardiac: Reports No Symptoms
Abdomen/GI: Reports No Symptoms
Physical Exam
-
General: No Apparent Distress and Comfortable
HEENT: Negative Oxygen
Respiratory: Clear to Auscultation
Cardiac: Regular Rhythm and S1/S2; Negative Murmur or Rub
GI: Soft and Nontender
Musculoskeletal: Edema, Right Lower Extrem and Edema, Left Lower Extrem
Neuro: Awake, Alert, Oriented, No Motor Deficits and Nonfocal/Grossly Intact
Psych: Calm
[2025-03-05] MEDS: FERRLECIT 110 MG IV (13:26)
[2025-03-05 15:34] VITALS: BP 120/59
[2025-03-05 16:38] LABS: Glucose - Point of Care 223 mg/dl (70-99)
[2025-03-05] MEDS: LANTUS 0.22 UNITS SC (17:43)
[2025-03-05] MEDS: NOVOLOG FLEXPEN-LOW RESISTANCE 2 UNITS SC (17:43)
[2025-03-05] MEDS: MELATONIN 5 MG PO (21:32)
[2025-03-05] MEDS: REMOVE LIDOCAINE PATCH 1 PATCH REMOVE (21:32)
[2025-03-05 22:01] LABS: Glucose - Point of Care 213 mg/dl (70-99)
[2025-03-05 22:30] VITALS: PULSE 72
[2025-03-05 23:30] VITALS: BP 112/54
[2025-03-06] MEDS: ANCEF 10 IV ×3 (03:46→21:03)
[2025-03-06 07:00] VITALS: BP 124/59
[2025-03-06 07:22] LABS: Glucose - Point of Care 166 mg/dl (70-99)
[2025-03-06] MEDS: PROTONIX 40 MG PO ×2 (09:40→21:03)
[2025-03-06] MEDS: FOLVITE 1 MG PO (09:40)
[2025-03-06] MEDS: SENOKOT-S 1 TABLET PO ×2 (09:40→21:04)
[2025-03-06] MEDS: COREG 3.125 MG PO ×2 (09:40→21:58)
[2025-03-06] MEDS: VITAMIN B1 100 MG PO ×2 (09:40→21:04)
[2025-03-06] MEDS: DELTASONE 30 MG PO (09:40)
[2025-03-06] MEDS: NOVOLOG FLEXPEN 26 UNITS SC ×3 (09:41→17:46)
[2025-03-06] MEDS: NOVOLOG FLEXPEN-LOW RESISTANCE 1 UNITS SC ×2 (09:42→17:46)
[2025-03-06] MEDS: DESENEX/MITRAZOL/ZEASORB 1 APPLIC TOPICAL ×2 (09:44→21:05)
[2025-03-06] MEDS: LIDOCAINE 4% PATCH TOPICAL (09:45)
--- NOTE | 2025-03-06 11:11 | CM ---
Patient chart reviewed
will need likely need a 6-week course of antibiotics
per hospitalist PICC will need to be placed
updated [facility] referral in [facility]
Left message with Dominga Schulz & updated
PLAN: [facility], pending bed availability with IV antibiotics, will need insurance authorization
[2025-03-06 11:56] LABS: Glucose - Point of Care 115 mg/dl (70-99)
[2025-03-06] MEDS: NOVOLOG FLEXPEN-LOW RESISTANCE SC (12:06)
--- NOTE | 2025-03-06 13:37 | W.PN.HOSP.TC ---
Today's Communication/Plan
-
discharge planning for acute rehab
IV abx arrangement, await ID input
Assessment / Plan
Assessment / Plan
69M ETOH Esophageal Varices Grade 1-2 (Abd US however neg for cirrhosis x2) HTN DM hx GIB portal HTN here for evaluation rapidly progressive ascending weakness with associate severe Rhabdomyolysis ELIGIO and Liver Injury
Rapidly Progressive ascending weakness unclear etiology - Stabilized
-Transferred to ICU for closer monitoring respiratory status, so far VSS on room air
-Neuro evaluation appreciated brain mri w/o contrast noted no acute abn's, EMG noted myopathy and neuropathy,
-Aldolase ~20 (1.2-7.6 normal range). CRP 29.3 on 02/19
-PT/OT appreciated SNF rehab. Physiatry evaluated on family request and patient appropriate for acute rehab
-IV thiamine supplementation taper to PO
-Prednisone taper adjusted.
MSSA bacteremia
Sepsis - developed post admission - resolved
- Patient had episode of gagging/coughing while having meal on friday. ST cleared later for reg diet.
- Chest x-ray showed questionable retrocardiac opacity
- Patient started to having fever on sat evening, possibility of aspiration pneumonitis
- COVID/UA checked negative.
- Was given empiric Zosyn for aspiration pneumonitis.
- Blood culture started growing MSSA, started back on Ancef
- ID evaluated and recommended continuation of Ancef
- TTE did not show any vegetaion. Cardiology recommended against YARELI due to patient thrombocytopenia and variceal bleed risk.
- Repeat blood culture positive from 03/01 for MSSA. Follow-up serial blood culture remains negative from 03/02 onwards.
Severe Rhabdomyolysis - Recovering
Acute Kidney Injury - resolved
Acute Liver Failure-Improving
-Reason of rhabdomyolysis remains unclear although alcohol use related as a possibility,
-Consult GI appreciated
-Abd US noted noted normal appearance GB Liver, splenomegaly 15.1 cm noted
-CPK almost normalized.
-Nephro eval appreciated
Metabolic Acidosis w/o anion gap - resolved
-likely d/t IVF NS
-further IVF on hold
-metabolic acidosis since resolved, bicarb gtt completed
Constipation - resolved
-Obstructions series X-ray noted no obstruction, small volume scattered colonic stool
-once Fleet enema per patient's request
-Gas-X prn
-maintain on bowel regimen
Hypokalemia
-Monitor and replete as necessary
Alcohol Use Disorder
-Patient reports last drink 2-3 weeks ago
-Continue thiamine and folic supplementation
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
-Continue Protonix BID
-As per GI, Nadolol dc and Coreg continued (dose reduced d/t low pressures)
Anemia
Thrombocytopenia
-suspect ETOH induced
-Iron studies, B12, Folate appreciated non-deficient
-Starting on Ferrlecit 5X bags for iron deficient
Diabetes Mellitus, Type II
Steroid Induced Hyperglycemia
Likely Diabetic Neuropathy as noted on EMG
-Hold oral diabetic meds
-Cymbalta 20 mg daily started increased to 30 mg daily
-d/c gabapentin as patient feels sedated
-Diabetic OCCUPATIONAL HEALTH NURSE SUPERVISOR help appreciated.
Mild Pseudohyponatremia d/t hyperglycemia
Essential Hypertension
Generalized anxiety disorder
DVT proph: SCDs
Code Status: Full Code
03/04 Care plan discussed with patient spouse
Anticipated Discharge: Within 24 hours
Subjective/Interval History
-
Date of Service: March 06, 2025
No complaints overnight
Afebrile
Objective Data
-
Vital Signs:
Vital Signs
Temp Pulse Resp BP Pulse Ox
98.2 F 64 18 124/59 97
03/06/25 07:00 03/06/25 09:40 03/06/25 07:00 03/06/25 09:40 03/06/25 07:00
I&O
03/05/25 03/06/25 03/07/25
06:59 06:59 06:59
Intake Total 840 / 840 960 / 960
Output Total 1300 / 1300 1650 / 1650
Balance -460 / -460 -690 / -690
Review of Systems
-
Respiratory: Reports No Symptoms
Cardiac: Reports No Symptoms
Abdomen/GI: Reports No Symptoms
Physical Exam
-
General: No Apparent Distress and Comfortable
HEENT: Negative Oxygen
Musculoskeletal: Edema, Right Lower Extrem and Edema, Left Lower Extrem
Neuro: Awake, Alert, Oriented, No Motor Deficits and Nonfocal/Grossly Intact
Psych: Calm
[2025-03-06] MEDS: FERRLECIT 110 MG IV (14:09)
[2025-03-06 15:00] VITALS: BP 115/60
[2025-03-06 16:36] LABS: Glucose - Point of Care 164 mg/dl (70-99)
[2025-03-06] MEDS: LANTUS 0.22 UNITS SC (17:47)
[2025-03-06] MEDS: MELATONIN 5 MG PO (21:04)
[2025-03-06] MEDS: REMOVE LIDOCAINE PATCH REMOVE (21:16)
[2025-03-06 21:57] LABS: Glucose - Point of Care 119 mg/dl (70-99)
[2025-03-06 22:15] VITALS: PULSE 73
[2025-03-06 23:19] VITALS: BP 122/56
[2025-03-07] MEDS: ANCEF 10 IV ×3 (03:53→21:05)
[2025-03-07 06:00] VITALS: BMI 35.0
[2025-03-07 06:44] LABS: Hematocrit 23.9 % (39.0-52.0); Hemoglobin 7.6 g/dL (13.0-18.0); Mean Corp Hgb Conc. 31.8 g/dL (33.0-37.0); Mean Corpuscular Volume 68.7 fL (80.0-94.0); Platelet Count 77 10^3/uL (130-400); Red Cell Dist. Width 24.3 % (11.5-14.5)
[2025-03-07 06:55] LABS: ALT (SGPT) 75 U/L (0-50); AST (SGOT) 93 U/L (17-59); Albumin 2.5 g/dl (3.5-5.0); Alkaline Phosphatase 185 U/L (38-126); Blood Urea Nitrogen 18 mg/dl (9-20); Calcium 8.7 mg/dl (8.4-10.2); Carbon Dioxide 27 mmol/L (22-30); Chloride 101 mmol/L (98-107); Estimated Creatinine Clearance > 125 ml/min; Glucose 86 mg/dl (70-99); Potassium 3.6 mmol/L (3.5-5.1); Sodium 130 mmol/L (135-145); Total Protein 5.6 g/dl (6.3-8.2); eGFR > 60.00
[2025-03-07 07:00] VITALS: BP 116/54
--- NOTE | 2025-03-07 07:15 | PN.DE.MGMTRT ---
Insulin Management
- -
03/07/2025: Diabetes Management Follow up
Patient admitted 02/18 with c/o weakness, anemia - UGI bleed due to portal HTN, Rhabdomyolysis. PMH type 2 diabetes, sleep apnea, significant alcohol abuse. Patient know to me from previous admission 01/10 to 01/12. Prior to admission was taking
Jardiance 25 mg daily, Lantus 15 units PM and Rybelsus 3mg pm. States he sees his primary doctor manages his diabetes and has a Patti 3. A1C 01/10 9.2%, cr today 1., eGFR 54.75.
Patient awake, alert, oriented, sitting up in bed, offers no complaints, able to discuss diabetes care plan. at bedside, very supportive.
Prednisone tapered to 20 mg daily.
Glucose range yesterday 115 to 166. Patient receiving 26 units novolog ac with 22 units lantus PM. Fasting glucose today 86. Will reduce PM Lantus to 20 units. No other changes to regimen.
HOLD AC NOVOLOG if patient does not eat meal.
Discussed with nurse
Will cont to follow.
Diabetes History
- -
Type of Diabetes: 2 requiring insulin
Pre-Admission Diabetes Regimen
03/07/25
05:42
Creatinine 0.7
Insulin Pump Settings
IP Diabetes Regimen
03/06/25 03/06/25 03/06/25
07:20 11:55 16:35
Glucose
POC Glucose 166 H 115 H 164 H
03/06/25 03/07/25
21:55 05:42
Glucose 86
POC Glucose 119 H
Meal type: Lunch
Meal type: Breakfast
Amount consumed: 100%
Amount consumed: 100%
Patient Education
[2025-03-07 07:54] LABS: Glucose - Point of Care 79 mg/dl (70-99)
[2025-03-07] MEDS: NOVOLOG FLEXPEN-LOW RESISTANCE SC ×2 (08:35→12:32)
[2025-03-07] MEDS: PROTONIX 40 MG PO ×2 (08:40→21:07)
[2025-03-07] MEDS: VITAMIN B1 100 MG PO ×2 (08:40→21:06)
[2025-03-07] MEDS: DELTASONE 20 MG PO (08:40)
[2025-03-07] MEDS: FOLVITE 1 MG PO (08:41)
[2025-03-07] MEDS: DESENEX/MITRAZOL/ZEASORB 1 APPLIC TOPICAL ×2 (08:41→21:09)
[2025-03-07] MEDS: COREG 3.125 MG PO ×2 (08:41→21:12)
[2025-03-07] MEDS: LIDOCAINE 4% PATCH TOPICAL (08:42)
[2025-03-07] MEDS: SENOKOT-S PO (08:45)
[2025-03-07 09:24] LABS: Glucose - Point of Care 131 mg/dl (70-99)
[2025-03-07] MEDS: NOVOLOG FLEXPEN 26 UNITS SC ×3 (09:30→17:39)
[2025-03-07 12:03] LABS: Glucose - Point of Care 103 mg/dl (70-99)
[2025-03-07] MEDS: FLUSH (NSS) 1 FLUSH IV (12:32)
[2025-03-07 13:58] LABS: Glucose - Point of Care 189 mg/dl (70-99)
[2025-03-07 15:00] VITALS: BP 123/64
[2025-03-07 15:22] VITALS: BP 171/93; PULSE 81
--- NOTE | 2025-03-07 15:25 | W.PN.HOSP.TC ---
Today's Communication/Plan
-
d/c planning
await insurance auth
Assessment / Plan
Assessment / Plan
Pt is a 69 year old male
Rapidly Progressive ascending weakness unclear etiology - Stabilized--apprec Neuro evaluation--brain MRI w/o contrast noted no acute abn's, EMG noted myopathy and neuropathy--Aldolase ~20 (1.2-7.6 normal range). CRP 29.3 on 02/19--PT/OT--patient
appropriate for acute rehab--IV thiamine supplementation taper to PO--Prednisone taper adjusted.
MSSA bacteremia with Sepsis - developed post admission - resolved--possibly due to aspiration event--speech cleared for diet- COVID/UA checked negative-- Was given empiric Zosyn for aspiration pneumonitis-- Blood culture started growing MSSA,
started back on Ancef-- ID evaluated and recommended continuation of Ancef- Echo did not show any vegetation-- Cardiology recommended against YARELI due to patient thrombocytopenia and variceal bleed risk-- Repeat blood culture positive from 03/01 for
MSSA. Follow-up serial blood culture remains negative from 03/02 onwards.
Severe Rhabdomyolysis - Recovering --CPK peaked at 16,900--ELIGIO resolved, acute liver injury improved--Reason of rhabdomyolysis remains unclear although alcohol use related as a possibility---Abd US noted noted normal appearance GB Liver,
splenomegaly 15.1 cm noted--apprec GI/renal
Metabolic Acidosis w/o anion gap - resolved-likely d/t IVF NS-further IVF on hold-metabolic acidosis since resolved, bicarb gtt completed
Constipation - resolved-Obstructions series X-ray noted no obstruction, small volume scattered colonic stool-Gas-X prn-maintain on bowel regimen
Hypokalemia--replete
Alcohol Use Disorder--Patient reports last drink 2-3 weeks ago-Continue thiamine and folic supplementation
Recent GI Bleed due to Portal Hypertension with Esophageal Varices and Gastropathy-Continue Protonix BID-As per GI, Nadolol dc and Coreg continued (dose reduced d/t low pressures)
Anemia/Thrombocytopenia--suspect ETOH induced--Iron studies, B12, Folate non-deficient--likely chronic disease--finished IV iron
Diabetes Mellitus, Type II/Steroid Induced Hyperglycemia/Likely Diabetic Neuropathy as noted on EMG--Hold oral diabetic meds--Cymbalta 20 mg daily started increased to 30 mg daily--d/c gabapentin as patient feels sedated-Diabetic FRESH FOOD MANAGER help appreciated.
Mild Pseudohyponatremia from hyperglycemia--resolved
Essential Hypertension--meds as able
Generalized anxiety disorder
DVT proph--SCDs
Code Status--Full Code
waiting for PICC/midlines and insurance approval for [facility]
Anticipated Discharge: Within 24 hours
Subjective/Interval History
-
Date of Service: March 07, 2025
pt tells us he is supposed to go to [facility] today
Objective Data
-
Labs:
Laboratory Results
03/07/25
05:42
WBC 8.2
Hgb 7.6 L
Hct 23.9 L
Plt Count 77 L D
Sodium 130 L
Potassium 3.6
Chloride 101
Carbon Dioxide 27
BUN 18
Creatinine 0.7
Glucose 86
Calcium 8.7
Total Bilirubin 3.0 H
AST 93 H
ALT 75 H
Alkaline Phosphatase 185 H
Vital Signs:
max temp for 24 hours
03/07/25
07:00
Temp 98.2 F
Vital Signs
Temp Pulse Resp BP Pulse Ox
98.2 F 69 18 116/54 97
03/07/25 07:00 03/07/25 08:41 03/07/25 07:00 03/07/25 08:41 03/07/25 07:00
I&O
03/06/25 03/07/25 03/08/25
06:59 06:59 06:59
Intake Total 960 / 960 1080 / 1080
Output Total 1650 / 1650 1700 / 1700
Balance -690 / -690 -620 / -620
Review of Systems
-
All other systems: Reviewed and negative
Physical Exam
-
General: Well Developed, Well Nourished and No Apparent Distress
HEENT: Normocephalic and Atraumatic; Negative Oxygen
Respiratory: Clear to Auscultation; Negative Wheezes or Rhonchi
Cardiac: Regular Rhythm and S1/S2; Negative Murmur
GI: Soft, Nontender, Nondistended and Normal Bowel Sounds
Musculoskeletal: No Clubbing and No Cyanosis; Negative No Edema (bilateral pedal edema)
Neuro: Awake
Psych: Calm
[2025-03-07 15:36] VITALS: BP 171/93; PULSE 81
--- NOTE | 2025-03-07 16:27 | CM ---
Patient referral for auth sent to Insurance and await response. Family aware. CM will continue to follow for discharge planning needs.
Plan; pending auth for [facility]
[2025-03-07 16:40] LABS: Glucose - Point of Care 194 mg/dl (70-99)
[2025-03-07 17:38] LABS: Glucose - Point of Care 218 mg/dl (70-99)
[2025-03-07] MEDS: NOVOLOG FLEXPEN-LOW RESISTANCE 2 UNITS SC (17:39)
[2025-03-07] MEDS: LANTUS 0.2 UNITS SC (17:41)
[2025-03-07] MEDS: SENOKOT-S 1 TABLET PO (21:07)
[2025-03-07] MEDS: REMOVE LIDOCAINE PATCH REMOVE (21:08)
[2025-03-07] MEDS: MELATONIN 5 MG PO (21:08)
[2025-03-07 21:34] LABS: Glucose - Point of Care 118 mg/dl (70-99)
[2025-03-07 23:00] VITALS: BP 134/66
[2025-03-08 04:32] VITALS: BMI 35.2
[2025-03-08] MEDS: ANCEF 10 IV ×3 (04:52→20:00)
[2025-03-08 06:16] LABS: Hematocrit 22.8 % (39.0-52.0); Hemoglobin 7.4 g/dL (13.0-18.0); Mean Corp Hgb Conc. 32.5 g/dL (33.0-37.0); Mean Corpuscular Volume 69.3 fL (80.0-94.0); Platelet Count 64 10^3/uL (130-400); Red Cell Dist. Width 25.1 % (11.5-14.5)
[2025-03-08 06:46] LABS: ALT (SGPT) 67 U/L (0-50); AST (SGOT) 89 U/L (17-59); Albumin 2.4 g/dl (3.5-5.0); Alkaline Phosphatase 184 U/L (38-126); Blood Urea Nitrogen 19 mg/dl (9-20); Calcium 8.8 mg/dl (8.4-10.2); Carbon Dioxide 28 mmol/L (22-30); Chloride 103 mmol/L (98-107); Estimated Creatinine Clearance > 125 ml/min; Glucose 66 mg/dl (70-99); Magnesium 1.8 mg/dl (1.6-2.3); Potassium 3.6 mmol/L (3.5-5.1); Sodium 131 mmol/L (135-145); Total Protein 5.5 g/dl (6.3-8.2); eGFR > 60.00
[2025-03-08 07:46] LABS: Glucose - Point of Care 377 mg/dl (70-99)
[2025-03-08] MEDS: NOVOLOG FLEXPEN 26 UNITS SC ×2 (07:49→18:14)
[2025-03-08] MEDS: NOVOLOG FLEXPEN-LOW RESISTANCE 5 UNITS SC (07:49)
[2025-03-08 08:10] VITALS: BP 122/61
[2025-03-08 08:34] LABS: Iron 68 ug/dl (49-181)
[2025-03-08 08:44] LABS: Total Iron Binding Capacity 236 ug/dl (261-462)
[2025-03-08] MEDS: PROTONIX 40 MG PO ×2 (09:23→20:00)
[2025-03-08] MEDS: DELTASONE 20 MG PO (09:23)
[2025-03-08] MEDS: COREG 3.125 MG PO ×2 (09:23→19:59)
[2025-03-08] MEDS: VITAMIN B1 100 MG PO ×2 (09:23→20:00)
[2025-03-08] MEDS: SENOKOT-S 1 TABLET PO ×2 (09:23→20:00)
[2025-03-08] MEDS: FOLVITE 1 MG PO (09:23)
[2025-03-08 09:24] LABS: Ferritin 117.0 ng/ml (17.9-464.0)
[2025-03-08] MEDS: DESENEX/MITRAZOL/ZEASORB 1 APPLIC TOPICAL ×2 (09:27→20:00)
[2025-03-08] MEDS: LIDOCAINE 4% PATCH TOPICAL (09:28)
[2025-03-08 09:55] LABS: Vitamin B12 943 pg/ml (239-931)
--- NOTE | 2025-03-08 10:58 | W.PN.UPDATE ---
Update Note
Progress Note Update
pt seen by me this am to review progress, plans, mood. at bedside. he is excited about progress and planned transfer to [facility], which he believes will happen today. Was able to stand twice yesterday (with assistance.) optimistic about
progress. I informed him of the resources available at [place] from psychology/psychiatry clinical support associate in case he (or ) need to talk with someone. Family has my number if needed [phone]
--- NOTE | 2025-03-08 11:10 | PN.DE.MGMTRT ---
Insulin Management
- -
03/08/2025: Diabetes Management Follow up
Patient admitted 02/18 with c/o weakness, anemia - UGI bleed due to portal HTN, Rhabdomyolysis. PMH type 2 diabetes, sleep apnea, significant alcohol abuse. Patient know to me from previous admission 01/10 to 01/12. Prior to admission was taking
Jardiance 25 mg daily, Lantus 15 units PM and Rybelsus 3mg pm. States he sees his primary doctor manages his diabetes and has a Patti 3. A1C 01/10 9.2%, cr today 1., eGFR 54.75.
Patient awake, alert, oriented, sitting up in bed, offers no complaints, able to discuss diabetes care plan. at bedside, very supportive.
Prednisone tapered to 20 mg daily.
Glucose range yesterday 115 to 166. Patient receiving 26 units novolog ac with 22 units lantus PM. Fasting glucose today 66 venous @ 6:08. Glucose @ 7:45 377 (patient ate meal). Will reduce PM Lantus to 20 units. No other changes to regimen.
HOLD AC NOVOLOG if patient does not eat meal.
Discussed with nurse
Will cont to follow.
Diabetes History
- -
Type of Diabetes: 2 requiring insulin
Pre-Admission Diabetes Regimen
03/08/25
06:02
Creatinine 0.5 L
Insulin Pump Settings
IP Diabetes Regimen
03/07/25 03/07/25 03/07/25
12:01 13:57 16:38
Glucose
POC Glucose 103 H 189 H 194 H
03/07/25 03/07/25 03/08/25
17:37 21:33 06:02
Glucose 66 L
POC Glucose 218 H 118 H
03/08/25
07:45
Glucose
POC Glucose 377 H
Patient Education
[2025-03-08 11:33] LABS: Reticulocyte Count 2.6 % (0.4-2.8)
[2025-03-08 11:44] LABS: Glucose - Point of Care 54 mg/dl (70-99)
[2025-03-08] MEDS: NOVOLOG FLEXPEN-LOW RESISTANCE SC ×2 (11:46→18:15)
[2025-03-08] MEDS: NOVOLOG FLEXPEN SC (11:46)
[2025-03-08 12:03] LABS: Glucose - Point of Care 120 mg/dl (70-99)
--- NOTE | 2025-03-08 12:53 | W.PN.ID1 ---
Date of Service
Date of Service: March 08, 2025
Today's Communication
Continue with cefazolin through 04/13/2025. See below�
Assessment / Plan
Staph aureus bacteremia
- source unclear ?GI translocation ?Pulm source
Fever
Left antecubital thrombus/thrombophlebitis (at site of prior periph IV)
Leukocytosis; resolved. Likely steroid-induced
ELIGIO; improved
Alcohol Use Disorder
Alcoholic Cirrhosis
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
Pancytopenia
Diabetes Mellitus, Type II
Essential Hypertension
Hyperlipidemia
Recommendations:
Continue cefazolin. Repeat blood cultures (03/01) positive. Blood cultures 03/02 and 03/03 NGTD
Subsequent blood cultures negative.
ESR elevated, although CRP is not especially out of range.
Echocardiogram of poor quality.
YARELI not possible secondary to increased risk given varices, therefore given sustained bacteremia, will proceed with a 6-week course of antibiotics (through 04/13/2025)
PICC line placed.
Follow-up weekly BMP, CBC with differential
����������������������������������������������������������
Chief Complaint
-: Bacteremia
Subjective / Review of Systems
Review of Systems: No Fever and No Chills
Vital Signs / Physical Exam
Vital Signs
Vital Signs
Temp Pulse Resp BP Pulse Ox
97.8 F 72 16 122/61 96
03/08/25 08:10 03/08/25 08:10 03/08/25 08:10 03/08/25 08:10 03/08/25 08:10
Physical Exam
Constitutional: No Acute Distress, Comfortable, Chronically Ill and Non-toxic
Eyes: No Conjunctival Hemorrhage and Sclera Anicteric
Cardiovascular: S1/S2; Negative S3/S4 or Murmur
Pulmonary: Clear; Negative Wheezes or Rales
Gastrointestinal: Soft, Non Tender, Distended and Normal Bowel Sounds
Extremities: Edema; Negative Cyanosis, Erythema, Splinter Hemorrhage or Venous Insufficiency
Neurological: Awake and Alert
Psychological: Calm
Lines: PICC (RUE)
Objective Data
Lab Data
Lab Results
03/08/25 06:03
03/08/25 06:02
ESR 72 mm/hour (0-20) H 03/03/25 07:36
PT 21.2 Sec (11.4-14.6) H 02/23/25 03:29
INR 1.81 02/23/25 03:29
APTT Cancelled 02/19/25 15:47
Estimated Creat Clear > 125 ml/min 03/08/25 06:02
Total Bilirubin 3.2 mg/dl (0.2-1.3) H 03/08/25 06:02
GGT 579 U/L (15-73) H 02/19/25 15:46
AST 89 U/L (17-59) H 03/08/25 06:02
ALT 67 U/L (0-50) H 03/08/25 06:02
Alkaline Phosphatase 184 U/L (38-126) H 03/08/25 06:02
C-Reactive Protein 12.90 mg/L (0.0-10.00) H 03/03/25 07:36
Most recent labs reviewed.
Micro Results:
03/06/25 08:49 Blood Culture - Preliminary
Blood/Venous No Growth in 48 hours- Final report to follow
03/05/25 06:30 Blood Culture - Preliminary
Blood/Venous No Growth in 72 hours- Final report to follow
03/07/25 05:42 Blood Culture - Preliminary
Blood/Venous No Growth in 24 hours- Final report to follow
03/04/25 05:54 Blood Culture - Preliminary
Blood/Venous No Growth in 4 days- Final report to follow
03/02/25 14:01 Blood Culture - Final
Blood/Venous No Growth - Final Report
03/03/25 14:01 Blood Culture - Preliminary
Blood/Venous No Growth in 4 days- Final report to follow
02/26/25 18:48 Blood Culture - Final
Blood/Venous S aureus-Methicillin Sensitive
Gram Stain - Final
03/01/25 12:19 Blood Culture - Preliminary
Blood/Venous S aureus-Methicillin Sensitive
Gram Stain - Preliminary
Imaging:
03/02/2025 Echo (TTE): technically difficult study. Normal LV ventricular size. Valves incompletely visualized.
02/26/2025 CXR (portable): Moderate cardiomegaly. Vascular congestion with peribronchial thickening, interstitial prominence, and generalized groundglass opacity. Findings consistent with congestive heart failure. Increased homogeneous retrocardiac
opacity obscuring left diaphragm, with possible considerations including pleural effusion, atelectasis, or pneumonia.
[2025-03-08 13:32] LABS: Folate 12.5 ng/ml (2.76-20)
--- NOTE | 2025-03-08 13:37 | CM ---
Addendum entered by Joanne Jaimes 03/08/25 15:57:
still awaiting call back from insurance, information sent to [facility] care for antibiotic information/coverage at [email or web address].
Original Note:
Patient seen at bedside with and physician on . Patient expressed frustration with insurance. Update provided. Patient insurance pending reference/auth number [id number]. also spoke with senior sales representative who called asking for PM&R
consult. she asked for docuementation to be sent to her at [phone] or email to [employer]. CM will send requested documentation. Liaison at [facility] aware of status and continue to follow with CM. CM will continue to
follow for discharge planning needs.
Plan; [facility] pending auth
--- NOTE | 2025-03-08 13:54 | W.PN.HOSP.TC ---
Today's Communication/Plan
-
d/c when auth obtained
Assessment / Plan
Assessment / Plan
Pt is a 69 year old male
Rapidly Progressive ascending weakness unclear etiology - Stabilized--apprec Neuro evaluation--brain MRI w/o contrast noted no acute abn's, EMG noted myopathy and neuropathy--Aldolase ~20 (1.2-7.6 normal range). CRP 29.3 on 02/19--PT/OT--patient
appropriate for acute rehab--IV thiamine supplementation taper to PO--Prednisone taper adjusted.
MSSA bacteremia with Sepsis - developed post admission - resolved--possibly due to aspiration event--speech cleared for diet- COVID/UA checked negative-- Was given empiric Zosyn for aspiration pneumonitis-- Blood culture started growing MSSA,
started back on Ancef-- ID evaluated and recommended continuation of Ancef- Echo did not show any vegetation-- Cardiology recommended against YARELI due to patient thrombocytopenia and variceal bleed risk-- Repeat blood culture positive from 03/01 for
MSSA. Follow-up serial blood culture remains negative from 03/02 onwards.
Severe Rhabdomyolysis - Recovering --CPK peaked at 16,900--ELIGIO resolved, acute liver injury improved--Reason of rhabdomyolysis remains unclear although alcohol use related as a possibility---Abd US noted noted normal appearance GB Liver,
splenomegaly 15.1 cm noted--apprec GI/renal
Metabolic Acidosis w/o anion gap - resolved-likely d/t IVF NS-further IVF on hold-metabolic acidosis since resolved, bicarb gtt completed
Constipation - resolved-Obstructions series X-ray noted no obstruction, small volume scattered colonic stool-Gas-X prn-maintain on bowel regimen
Hypokalemia--replete
Alcohol Use Disorder--Patient reports last drink 2-3 weeks ago-Continue thiamine and folic supplementation
Recent GI Bleed due to Portal Hypertension with Esophageal Varices and Gastropathy-Continue Protonix BID-As per GI, Nadolol dc and Coreg continued (dose reduced d/t low pressures)
Anemia/Thrombocytopenia--suspect ETOH induced--Iron studies, B12, Folate non-deficient--likely chronic disease--finished IV iron
Diabetes Mellitus, Type II/Steroid Induced Hyperglycemia/Likely Diabetic Neuropathy as noted on EMG--Hold oral diabetic meds--Cymbalta 20 mg daily started increased to 30 mg daily--d/c gabapentin as patient feels sedated-Diabetic ACADEMIC SUPPORT SPECIALIST help appreciated.
Mild Pseudohyponatremia from hyperglycemia--resolved
Essential Hypertension--meds as able
Generalized anxiety disorder
DVT proph--SCDs
Code Status--Full Code
waiting for PICC/midlines and insurance approval for [facility]
Anticipated Discharge: Today
Subjective/Interval History
-
Date of Service: March 08, 2025
waiting for d/c
Objective Data
-
Labs:
Laboratory Results
03/08/25 03/08/25
06:02 06:03
WBC 6.9
Hgb 7.4 L
Hct 22.8 L
Plt Count 64 L
Sodium 131 L
Potassium 3.6
Chloride 103
Carbon Dioxide 28
BUN 19
Creatinine 0.5 L
Glucose 66 L
Calcium 8.8
Total Bilirubin 3.2 H
AST 89 H
ALT 67 H
Alkaline Phosphatase 184 H
Vital Signs:
max temp for 24 hours
03/07/25
23:00
Temp 98.0 F
Vital Signs
Temp Pulse Resp BP Pulse Ox
97.8 F 72 16 122/61 96
03/08/25 08:10 03/08/25 08:10 03/08/25 08:10 03/08/25 08:10 03/08/25 08:10
I&O
03/07/25 03/08/25 03/09/25
06:59 06:59 06:59
Intake Total 1080 / 1080 120 / 120
Output Total 1700 / 1700 500 / 500
Balance -620 / -620 -380 / -380
Review of Systems
-
All other systems: Reviewed and negative
Physical Exam
-
General: Well Developed, Well Nourished and No Apparent Distress
HEENT: Normocephalic and Atraumatic
Respiratory: Clear to Auscultation; Negative Wheezes or Rhonchi
Cardiac: Regular Rhythm and S1/S2; Negative Murmur
GI: Soft, Nontender, Nondistended and Normal Bowel Sounds
Musculoskeletal: No Clubbing, No Cyanosis, No Edema and Other (PICC line placed)
Neuro: Awake
[2025-03-08 14:01] LABS: Glucose - Point of Care 96 mg/dl (70-99)
[2025-03-08 15:51] VITALS: BP 140/60
[2025-03-08 16:36] LABS: Glucose - Point of Care 138 mg/dl (70-99)
[2025-03-08] MEDS: LANTUS 0.15 UNITS SC (18:16)
[2025-03-08] MEDS: REMOVE LIDOCAINE PATCH REMOVE (19:54)
[2025-03-08] MEDS: MELATONIN 5 MG PO (21:01)
[2025-03-08 21:08] VITALS: PULSE 72
[2025-03-08 21:10] LABS: Glucose - Point of Care 240 mg/dl (70-99)
[2025-03-08 23:26] VITALS: BP 139/65
[2025-03-09] MEDS: ANCEF 10 IV ×3 (03:41→20:14)
[2025-03-09 06:51] VITALS: BMI 35.1
[2025-03-09 07:00] VITALS: BP 141/63
[2025-03-09 07:15] LABS: Glucose - Point of Care 97 mg/dl (70-99)
[2025-03-09] MEDS: NOVOLOG FLEXPEN-LOW RESISTANCE SC ×2 (08:08→12:13)
[2025-03-09] MEDS: SENOKOT-S 1 TABLET PO ×2 (08:09→20:13)
[2025-03-09] MEDS: PROTONIX 40 MG PO ×2 (08:09→20:13)
[2025-03-09] MEDS: VITAMIN B1 100 MG PO ×2 (08:09→20:13)
[2025-03-09] MEDS: FOLVITE 1 MG PO (08:09)
[2025-03-09] MEDS: COREG 3.125 MG PO ×2 (08:09→20:13)
[2025-03-09] MEDS: LIDOCAINE 4% PATCH TOPICAL ×2 (08:09→08:14)
[2025-03-09] MEDS: NOVOLOG FLEXPEN 26 UNITS SC ×3 (08:10→18:07)
[2025-03-09] MEDS: DELTASONE 20 MG PO (08:10)
[2025-03-09] MEDS: DESENEX/MITRAZOL/ZEASORB 1 APPLIC TOPICAL ×2 (08:16→20:14)
--- NOTE | 2025-03-09 10:15 | W.PN.ID1 ---
Date of Service
Date of Service: March 09, 2025
Today's Communication
Continue antibiotics
Assessment / Plan
Staph aureus bacteremia
- source unclear ?GI translocation ?Pulm source
Fever
Left antecubital thrombus/thrombophlebitis (at site of prior periph IV)
Leukocytosis; resolved. Likely steroid-induced
ELIGIO; improved
Alcohol Use Disorder
Alcoholic Cirrhosis
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
Pancytopenia
Diabetes Mellitus, Type II
Essential Hypertension
Hyperlipidemia
Recommendations:
Continue cefazolin. Blood cultures (02/26 & 03/01) positive. Blood cultures 03/02 onward negative
ESR elevated, although CRP is not especially out of range.
Echocardiogram of poor quality.
YARELI not possible secondary to increased risk given varices,
Given sustained bacteremia, will proceed with a 6-week course of antibiotics (through 04/13/2025)
PICC line placed.
Follow weekly BMP, CBC with differential
����������������������������������������������������������
Chief Complaint
-: Bacteremia
Subjective / Review of Systems
Review of Systems: No Fever, No Chills, No Chest Pain and No Abdominal Pain
Vital Signs / Physical Exam
Vital Signs
Vital Signs
Temp Pulse Resp BP Pulse Ox
98.7 F 76 18 141/63 96
03/09/25 07:00 03/09/25 07:00 03/09/25 07:00 03/09/25 07:00 03/09/25 07:00
Physical Exam
Constitutional: No Acute Distress, Comfortable, Chronically Ill and Non-toxic
Eyes: No Conjunctival Hemorrhage and Sclera Anicteric
Cardiovascular: S1/S2; Negative S3/S4 or Murmur
Pulmonary: Clear; Negative Wheezes or Rales
Gastrointestinal: Soft, Non Tender, Distended and Normal Bowel Sounds
Extremities: Edema; Negative Cyanosis, Erythema, Splinter Hemorrhage or Venous Insufficiency
Neurological: Awake and Alert
Psychological: Calm
Lines: PICC (RUE)
Objective Data
Lab Data
Lab Results
03/08/25 06:03
03/08/25 06:02
ESR 72 mm/hour (0-20) H 03/03/25 07:36
PT 21.2 Sec (11.4-14.6) H 02/23/25 03:29
INR 1.81 02/23/25 03:29
APTT Cancelled 02/19/25 15:47
Estimated Creat Clear > 125 ml/min 03/08/25 06:02
Total Bilirubin 3.2 mg/dl (0.2-1.3) H 03/08/25 06:02
GGT 579 U/L (15-73) H 02/19/25 15:46
AST 89 U/L (17-59) H 03/08/25 06:02
ALT 67 U/L (0-50) H 03/08/25 06:02
Alkaline Phosphatase 184 U/L (38-126) H 03/08/25 06:02
C-Reactive Protein 12.90 mg/L (0.0-10.00) H 03/03/25 07:36
Most recent labs reviewed.
Micro Results:
03/06/25 08:49 Blood Culture - Preliminary
Blood/Venous No Growth in 72 hours- Final report to follow
03/05/25 06:30 Blood Culture - Preliminary
Blood/Venous No Growth in 4 days- Final report to follow
03/07/25 05:42 Blood Culture - Preliminary
Blood/Venous No Growth in 48 hours- Final report to follow
03/04/25 05:54 Blood Culture - Final
Blood/Venous No Growth - Final Report
03/01/25 12:19 Blood Culture - Final
Blood/Venous S aureus-Methicillin Sensitive
Gram Stain - Final
03/03/25 14:01 Blood Culture - Final
Blood/Venous No Growth - Final Report
03/02/25 14:01 Blood Culture - Final
Blood/Venous No Growth - Final Report
02/26/25 18:48 Blood Culture - Final
Blood/Venous S aureus-Methicillin Sensitive
Gram Stain - Final
Imaging:
03/02/2025 Echo (TTE): technically difficult study. Normal LV ventricular size. Valves incompletely visualized.
02/26/2025 CXR (portable): Moderate cardiomegaly. Vascular congestion with peribronchial thickening, interstitial prominence, and generalized groundglass opacity. Findings consistent with congestive heart failure. Increased homogeneous retrocardiac
opacity obscuring left diaphragm, with possible considerations including pleural effusion, atelectasis, or pneumonia.
Care Review
Plan reviewed with: Physician (Hospitalist)
--- NOTE | 2025-03-09 11:12 | PN.DE.MGMTRT ---
Insulin Management
- -
03/09/2025: Diabetes Management Follow up
Patient admitted 02/18 with c/o weakness, anemia - UGI bleed due to portal HTN, Rhabdomyolysis. PMH type 2 diabetes, sleep apnea, significant alcohol abuse. Patient know to me from previous admission 01/10 to 01/12. Prior to admission was taking
Jardiance 25 mg daily, Lantus 15 units PM and Rybelsus 3mg pm. States he sees his primary doctor manages his diabetes and has a Patti 3. A1C 01/10 9.2%, cr 1., eGFR 54.75.
Patient awake, alert, oriented, sitting up in bed, offers no complaints, able to discuss diabetes care plan. at bedside, very supportive.
Patient received last dose of Prednisone 20 mg today.
Glucose yesterday was 66 venous then POC 377, patient received corrective insulin with standing dose. Pre lunch glucose 54. Pre dinner 138, HS 240.
Will continue 26 units novolog ac with Lantus to 15 units in PM. No other changes to regimen.
HOLD AC NOVOLOG if patient does not eat meal.
Discussed with nurse
Will cont to follow.
Diabetes History
- -
Type of Diabetes: 2 requiring insulin
Pre-Admission Diabetes Regimen
Insulin Pump Settings
IP Diabetes Regimen
03/08/25 03/08/25 03/08/25
11:42 12:03 14:00
POC Glucose 54 L* 120 H 96
03/08/25 03/08/25 03/09/25
16:34 21:09 07:13
POC Glucose 138 H 240 H 97
Meal type: Breakfast
Meal type: Lunch
Meal type: Breakfast
Amount consumed: 100%
Amount consumed: 100%
Amount consumed: 100%
Patient Education
[2025-03-09 12:07] LABS: Glucose - Point of Care 145 mg/dl (70-99)
--- NOTE | 2025-03-09 13:32 | W.PN.HOSP.TC ---
Today's Communication/Plan
-
waiting for insurance auth
Assessment / Plan
Assessment / Plan
Pt is a 69 year old male
still waiting for auth from insurance
has been medically ready for d/c since Wednesday 03/07....
Rapidly Progressive ascending weakness unclear etiology - Stabilized--apprec Neuro evaluation--brain MRI w/o contrast noted no acute abn's, EMG noted myopathy and neuropathy--Aldolase ~20 (1.2-7.6 normal range). CRP 29.3 on 02/19--PT/OT--patient
appropriate for acute rehab--IV thiamine supplementation taper to PO--Prednisone taper adjusted.
MSSA bacteremia with Sepsis - developed post admission - resolved--possibly due to aspiration event--speech cleared for diet- COVID/UA checked negative-- Was given empiric Zosyn for aspiration pneumonitis-- Blood culture started growing MSSA,
started back on Ancef-- ID evaluated and recommended continuation of Ancef- Echo did not show any vegetation-- Cardiology recommended against YARELI due to patient thrombocytopenia and variceal bleed risk-- Repeat blood culture positive from 03/01 for
MSSA. Follow-up serial blood culture remains negative from 03/02 onwards.
Severe Rhabdomyolysis - Recovering --CPK peaked at 16,900--ELIGIO resolved, acute liver injury improved--Reason of rhabdomyolysis remains unclear although alcohol use related as a possibility---Abd US noted noted normal appearance GB Liver,
splenomegaly 15.1 cm noted--apprec GI/renal
Metabolic Acidosis w/o anion gap - resolved-likely d/t IVF NS-further IVF on hold-metabolic acidosis since resolved, bicarb gtt completed
Constipation - resolved-Obstructions series X-ray noted no obstruction, small volume scattered colonic stool-Gas-X prn-maintain on bowel regimen
Hypokalemia--replete
Alcohol Use Disorder--Patient reports last drink 2-3 weeks ago-Continue thiamine and folic supplementation
Recent GI Bleed due to Portal Hypertension with Esophageal Varices and Gastropathy-Continue Protonix BID-As per GI, Nadolol dc and Coreg continued (dose reduced d/t low pressures)
Anemia/Thrombocytopenia--suspect ETOH induced--Iron studies, B12, Folate non-deficient--likely chronic disease--finished IV iron
Diabetes Mellitus, Type II/Steroid Induced Hyperglycemia/Likely Diabetic Neuropathy as noted on EMG--Hold oral diabetic meds--Cymbalta 20 mg daily started increased to 30 mg daily--d/c gabapentin as patient feels sedated-Diabetic LABORATORY GENETICIST help appreciated.
Mild Pseudohyponatremia from hyperglycemia--resolved
Essential Hypertension--meds as able
Generalized anxiety disorder
DVT proph--SCDs
Code Status--Full Code
Anticipated Discharge: Today
Subjective/Interval History
-
Date of Service: March 09, 2025
still no word on auth from insurance
Objective Data
-
Vital Signs:
max temp for 24 hours
03/08/25
23:26
Temp 98.0 F
Vital Signs
Temp Pulse Resp BP Pulse Ox
98.7 F 76 18 141/63 96
03/09/25 07:00 03/09/25 07:00 03/09/25 07:00 03/09/25 07:00 03/09/25 07:00
I&O
03/08/25 03/09/25 03/10/25
06:59 06:59 06:59
Intake Total 120 / 120 420 / 420 540 / 540
Output Total 500 / 500 1025 / 1025
Balance -380 / -380 -605 / -605 540 / 540
Review of Systems
-
All other systems: Reviewed and negative
Physical Exam
-
General: Well Developed, Well Nourished and No Apparent Distress
HEENT: Normocephalic and Atraumatic; Negative Oxygen
Respiratory: Clear to Auscultation and Wheezes; Negative Rhonchi
Cardiac: Regular Rhythm and S1/S2; Negative Murmur
GI: Soft, Nontender, Nondistended and Normal Bowel Sounds
Musculoskeletal: No Clubbing, No Cyanosis and No Edema
Neuro: Awake and Alert
Psych: Calm
--- NOTE | 2025-03-09 13:49 | CM ---
Addendum entered by Joanne Jaimes 03/09/25 17:05:
auth received; patient nurse updated, physician updated. Patient to be told by nurse.
Per ms. noland corrected dates of service 03/09-03/15. Plan for transfer via ambulance tomorrow at 10am. awaiting confirmation from Nursing re scheduled ambulance. [facility] not willing to accept tonight due to time per trish.
Email; Member Name: CHARITY PARRY
: 1955 - 69 yrs
ID #: [id number]
Auth Released at Level: REHAB 1
Dates of Service: 03/08/25 thru 03/15/25
Unlimited Inpatient Acute benefits. Currently Used 8 IRF Days as of 03/15/25
Next Review Date: 03/15/25 to fax: [phone] or quickest way is to email: [email or web address]
Authorization # [id number]
*Acute Rehab Admission Approved: ADMISSION DATE NOTIFICATION required via fax [phone] and indicate member's actual admit date and continued stay contact name/phone/fax#. Member has 72 hours to admit or may need a new auth. With first continued
stay review due on 03/15/25 please include PT/OT initial eval with therapy notes less than 72 hours old of requested date. with updated DCP, wounds, IV meds if applicable.
Original Note:
Patient seen at bedside with physician and patient at bedside. Patient still pending insurance auth. CM spoke with PM&R physician about updated review and will continue to follow for discharge planning needs.
Plan; [facility] pending auth
[2025-03-09 15:00] VITALS: BP 129/61
[2025-03-09 17:04] LABS: Glucose - Point of Care 244 mg/dl (70-99)
[2025-03-09] MEDS: NOVOLOG FLEXPEN-LOW RESISTANCE 2 UNITS SC (18:07)
[2025-03-09 18:12] LABS: Glucose - Point of Care 210 mg/dl (70-99)
[2025-03-09] MEDS: LANTUS 0.15 UNITS SC (18:12)
[2025-03-09] MEDS: REMOVE LIDOCAINE PATCH REMOVE (20:09)
[2025-03-09] MEDS: MELATONIN 5 MG PO (21:27)
[2025-03-09 21:40] LABS: Glucose - Point of Care 156 mg/dl (70-99)
--- NOTE | 2025-03-09 22:12 | W.PN.REHAB ---
Today's Communication / Plan
-
Patient continues to be a candidate for acute inpatient rehabilitation which will best serve his needs. Transition to a residential facility will not be sufficient to help with his current level of weakness and needs. Also needs medical
monitoring of anemia, thrombocytopenia, transaminitis.
Assessment/Function
-
Assessment:
General Appearance/Observation: Well-developed male in no apparent distress.�
Pain/Comfort Assessment: Denies currently
Mood/Affect: Appropriate�
�
Integumentary/Operative Site:�No lesions noted during course of exam
��
Eyes: Conjunctiva/Lids: Improved icterus. Pupils: pupils equal round
Cardiovascular: Heart: regular, no murmur�
Respiratory: Respiratory Effort/Chest Expansion: normal Auscultation: Clear to auscultation bilaterally�fanel@dh
Gastrointestinal: abdomen not tender, no distension, normal abdominal bowel sounds�
Genitourinary: No Lynn�
Rectal Exam: Deferred�
Extremities: Edema: moderate pitting edema, symmetrical bilaterally, scrotal edema Cyanosis: None
�
�
Neurology Exam:�
Orientation: Alert, Oriented to self, Time, Place�
Memory: Intact immediately and to medical condition
Comprehension: Intact�
Two step command: Intact�
�
Cranial Nerves:�
�� CN VII: Facial movement: Symmetric�
�� CN VIII: Hearing: Normal�
�� CN IX/X: Speech & swallow: Normal
�
Sensory:�
�� Light touch: Intact in bilateral upper and lower extremities�
�� Proprioception:�Intact in bilateral upper and lower extremities�
�
Musculoskeletal:�Motor: (Manual muscle scale 0-5)�
Muscle� SA� EF� WE� EE� FF� FA� HF� KE� DF� EHL� PF�
Right��� 2+� 4� 4� 5� � 2� 3� 5� 5�
Left� 2+� 4� � 4� 5� � 2� 3� 5� � 5�
�
Tone: Normal in all extremities�
Range of Motion: Passively within normal limits in all extremities�
Function:
Bed Mobility: Max assist
Transfers: Max assist
Ambulation:
Steps:
ADL's: Max assist upper extremity self-care, min assist eating, mod assist grooming.
Plan
-
Assessment�
69 y/o Male with PMH (alcohol use disorder with cirrhosis, Portal HTN with esophageal variceal, gastropathy, HTN, DM II, recent GI bleed, pancytopenia, HLD, psoriasis, Thrombocytopenia in setting of liver disease. Microcytic anemia in setting of
acute illness and dilution, splenomegaly,JANES, pancytopenia, chronic LBP) admitted 02/18/25 with rapidly progressive ascending weakness and found to have Rhabdomyolysis, ELIGIO, Liver Injury, severe protein calorie malnutrition with 02/21/25 EMG/NCS of the
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
Plan��
PM&R PT/OT to increase independence with ADLs, improve balance, coordination, endurance, strength, mobility, community reintegration, decreased burden of care on others and family education.�
�
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 Workup per rheumatology. Has history of psoriasis.
- Completed prednisone taper for possible inflammatory component
- Eventual rheumatology eval to consider muscle biopsy by surgery. This will help with prognosis and treatment options.
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
Bacteremia: 6-week course of cefazolin through 04/13/2025 per infectious disease
HTN: continue carvedilol 3.125 mg p.o. twice daily, monitor closely�
DM II: Accu-Cheks, insulin sliding scale, aspart, lantus.��
JANES: CPAP use
Bilateral lower extremity edema: Consider TEDS as able. Increased fluid will cause more force requirement to move lower extremities which requires more strength and increases fatigue.� Likely related to dependent edema. Encourage patient to try
teds or Darell wrap to help with edema control in the legs. Elevate legs as able. Increase activity in the ankles as able.
Microcytic anemia in setting of alcohol abuse: as per hematology, has been in 7 range.
Thrombocytopenia: Continue to monitor. 64,000 on 03/08 with platelets less than 50,000 recommend keeping therapies to bedside. If platelets less than 20,000 will use further caution with activity levels and hold therapy for platelets less than
10,000.� Will need to have improvement prior to full inpatient therapy participation.
Anxiety: Xanax.�
FEN: history of alcohol use, stable at 132. Noted with protein calorie malnutrition - nutrition consult.
Skin: monitor for pressure sores/rashes/lesions.�
Pain: acetaminophen or oxycodone as needed.� Gabapentin on hold. Duloxetine stopped during hospital stay as patient not depressed and with elevated liver enzymes.
Bowel: Colace and Senna, PRN bisacodyl.�
Bladder: No retention concerns
Alcohol Abuse: Alcohol cessation education, offer outpatient alcohol abuse program. Thiamine
GI Prophylaxis: Pantoprazole�
DVT Prophylaxis: mechanical, no chemoprophylaxis with low platelets.�
Pulmonary: Incentive spirometry�
Obesity: Continue to pre parole counseling aide patient about diet adjustments to control obesity. Body habitus and increased force to move body and extremities causes further difficulty with functional tasks.�
Safety: Continue to reinforce assistance with all transfers.�
Code Status:� Full code
Dispo (date/plan/equipment needs): Acute rehab.� Social history reviewed.�
Functional and Medical Goals: Modified Independent with ADL�s, ambulation, transfers�
Discharge Destination: acute rehab �
Subjective
-
Patient seen and examined today. Overall continues to make progress. Still with weakness in the legs. Doing better with his arms. Also with swelling in the legs. Denies any fevers, chills, chest pain, shortness of breath, nausea, vomiting,
abdominal pain, dysuria, or diarrhea. Tolerating therapy.
Vital Signs / Labs
-
Vital Signs and Labs:
Temp Pulse Resp BP Pulse Ox
98.7 F 82 18 142/70 95
03/09/25 15:00 03/09/25 20:13 03/09/25 15:00 03/09/25 20:13 03/09/25 15:00
03/08/25 06:03
03/08/25 06:02
03/09/25 03/09/25 03/09/25
12:05 17:02 18:11
POC Glucose 145 H 244 H 210 H
03/09/25
21:39
POC Glucose 156 H
[2025-03-09 23:00] VITALS: BP 105/52
[2025-03-10] MEDS: ANCEF 10 IV (03:20)
[2025-03-10 04:02] LABS: Glucose - Point of Care 138 mg/dl (70-99)
[2025-03-10 05:07] LABS: Glucose - Point of Care 90 mg/dl (70-99)
[2025-03-10 06:00] VITALS: BMI 35.7
[2025-03-10 06:04] LABS: Glucose - Point of Care 120 mg/dl (70-99)
[2025-03-10 07:13] LABS: Glucose - Point of Care 86 mg/dl (70-99)
[2025-03-10 07:26] VITALS: BP 180/97
[2025-03-10] MEDS: SENOKOT-S 1 TABLET PO (07:37)
[2025-03-10] MEDS: NOVOLOG FLEXPEN-LOW RESISTANCE SC (07:37)
[2025-03-10] MEDS: COREG 3.125 MG PO (07:37)
[2025-03-10] MEDS: PROTONIX 40 MG PO (07:37)
[2025-03-10] MEDS: FOLVITE 1 MG PO (07:37)
[2025-03-10] MEDS: VITAMIN B1 100 MG PO (07:38)
[2025-03-10] MEDS: DESENEX/MITRAZOL/ZEASORB TOPICAL (07:38)
[2025-03-10] MEDS: LIDOCAINE 4% PATCH TOPICAL (07:41)
[2025-03-10] MEDS: DESENEX/MITRAZOL/ZEASORB 1 APPLIC TOPICAL (07:42)
[2025-03-10 07:55] VITALS: BP 180/97
[2025-03-10] MEDS: NOVOLOG FLEXPEN 26 UNITS SC (08:46)
[2025-03-10] MEDS: DELTASONE 20 MG PO (09:24)
--- NOTE | 2025-03-10 09:39 | CM ---
Patient seen at bedside, IMM completed and signed yesterday, placed on chart. Patient for ambulance transportation today at 10:30am to [facility]. [place] and liaison has spoken with unit trust manager and faxed clinical forms to [phone].
Please call report to [phone]. FLORINDA also sent email to Ms. Arechiga to clarify dates of approval as patient auth was not received when sent. Ms. Arechiga verbally updated dates to 03/09-03/15 awaiting confirmation email. CM will continue to follow
for discharge planning needs.
Plan; transfer to Acute Rehab at [facility].
--- NOTE | 2025-03-10 09:41 | W.PN.HOSP.TC ---
Today's Communication/Plan
-
d/c
Assessment / Plan
Assessment / Plan
Pt is a 69 year old male
still waiting for auth from insurance
has been medically ready for d/c since Wednesday 03/07....
For D/C to [facility] TODAY...
Rapidly Progressive ascending weakness unclear etiology - Stabilized--apprec Neuro evaluation--brain MRI w/o contrast noted no acute abn's, EMG noted myopathy and neuropathy--Aldolase ~20 (1.2-7.6 normal range). CRP 29.3 on 02/19--PT/OT--patient
appropriate for acute rehab--IV thiamine supplementation taper to PO--Prednisone taper adjusted.
MSSA bacteremia with Sepsis - developed post admission - resolved--possibly due to aspiration event--speech cleared for diet- COVID/UA checked negative-- Was given empiric Zosyn for aspiration pneumonitis-- Blood culture started growing MSSA,
started back on Ancef-- ID evaluated and recommended continuation of Ancef- Echo did not show any vegetation-- Cardiology recommended against YARELI due to patient thrombocytopenia and variceal bleed risk-- Repeat blood culture positive from 03/01 for
MSSA. Follow-up serial blood culture remains negative from 03/02 onwards.
Severe Rhabdomyolysis - Recovering --CPK peaked at 16,900--ELIGIO resolved, acute liver injury improved--Reason of rhabdomyolysis remains unclear although alcohol use related as a possibility---Abd US noted noted normal appearance GB Liver,
splenomegaly 15.1 cm noted--apprec GI/renal
Metabolic Acidosis w/o anion gap - resolved-likely d/t IVF NS-further IVF on hold-metabolic acidosis since resolved, bicarb gtt completed
Constipation - resolved-Obstructions series X-ray noted no obstruction, small volume scattered colonic stool-Gas-X prn-maintain on bowel regimen
Hypokalemia--replete
Alcohol Use Disorder--Patient reports last drink 2-3 weeks ago-Continue thiamine and folic supplementation
Recent GI Bleed due to Portal Hypertension with Esophageal Varices and Gastropathy-Continue Protonix BID-As per GI, Nadolol dc and Coreg continued (dose reduced d/t low pressures)
Anemia/Thrombocytopenia--suspect ETOH induced--Iron studies, B12, Folate non-deficient--likely chronic disease--finished IV iron
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
Mild Pseudohyponatremia from hyperglycemia--resolved
Essential Hypertension--meds as able
Generalized anxiety disorder
DVT proph--SCDs
Code Status--Full Code
Anticipated Discharge: Today
Subjective/Interval History
-
Date of Service: March 10, 2025
pt ready for d/c
Objective Data
-
Vital Signs:
max temp for 24 hours
03/09/25
15:00
Temp 98.7 F
Vital Signs
Temp Pulse Resp BP Pulse Ox
98.2 F 72 16 180/97 97
03/10/25 07:26 03/10/25 07:26 03/10/25 07:26 03/10/25 07:26 03/10/25 07:26
I&O
03/09/25 03/10/25 03/11/25
06:59 06:59 06:59
Intake Total 420 / 420 1360 / 1360 240 / 240
Output Total 1025 / 1025 300 / 300
Balance -605 / -605 1060 / 1060 240 / 240
Review of Systems
-
All other systems: Reviewed and negative
Physical Exam
-
General: Well Developed, Well Nourished and No Apparent Distress
HEENT: Normocephalic and Atraumatic
Respiratory: Clear to Auscultation; Negative Wheezes, Rales, Rhonchi or Crackles
Cardiac: Regular Rhythm and S1/S2; Negative Murmur
GI: Soft, Nontender, Nondistended and Normal Bowel Sounds
Musculoskeletal: No Clubbing, No Cyanosis and No Edema
[2025-03-10 10:44] VITALS: BP 117/60
--- NOTE | 2025-03-10 11:06 | PTCARENOTE ---
1105 Report given to Janet at [facility] in [place].
--- NOTE | 2025-03-10 11:21 | PN.DE.MGMTRT ---
Insulin Management
- -
03/10/2025: Diabetes Management Follow up
Patient admitted 02/18 with c/o weakness, anemia - UGI bleed due to portal HTN, Rhabdomyolysis. PMH type 2 diabetes, sleep apnea, significant alcohol abuse. Patient know to me from previous admission 01/10 to 01/12. Prior to admission was taking
Jardiance 25 mg daily, Lantus 15 units PM and Rybelsus 3mg pm. States he sees his primary doctor manages his diabetes and has a Patti 3. A1C 01/10 9.2%, cr 1., eGFR 54.75.
Patient awake, alert, oriented, sitting up in bed, offers no complaints, able to discuss diabetes care plan. at bedside, very supportive. Patient for transfer to [facility] today. Patient is very pleased.
Glucose yesterday 97 to 210.
Fasting glucose today 86.
Will continue 26 units novolog ac reduce Lantus to 13 units in PM. No other changes to regimen.
HOLD AC NOVOLOG if patient does not eat meal.
Discussed with nurse
Will cont to follow.
Diabetes History
- -
Type of Diabetes: 2 requiring insulin
Pre-Admission Diabetes Regimen
Insulin Pump Settings
IP Diabetes Regimen
03/09/25 03/09/25 03/09/25
12:05 17:02 18:11
POC Glucose 145 H 244 H 210 H
03/09/25 03/10/25 03/10/25
21:39 04:00 05:05
POC Glucose 156 H 138 H 90
03/10/25 03/10/25
06:03 07:12
POC Glucose 120 H 86
Meal type: Lunch
Meal type: Breakfast
Amount consumed: 100%
Amount consumed: 100%
Patient Education
--- NOTE | 2025-03-15 08:22 | W.DCSUMMARY ---
Discharge Summary
Discharge Data
Date of Admission: 02/18/25
Date of Discharge: 03/10/25
-
Pending Results: No
Hospital Course
Discharging Physician : Dr Molly Navarro
Disposition : [facility] rehab
Primary care physician : Dr Marcelino No
Hospital Course :
Rapidly Progressive ascending weakness unclear etiology-patient came in with new onset of lower extremity weakness which was felt to be ascending in nature. Neurology was evaluated and concern of possible neuropathy/myelopathy at admission. Had
MRI brain without contrast which did not show any acute abnormality. Enzymes were checked and was found to be in rhabdomyolysis with minimally elevated aldolase level. Patient was monitored in ICU for concern of suppression of diaphragmatic
function. Patient was started on empiric steroids which was tapered off slowly. Patient had slow recovery of rhabdomyolysis. Reason for rhabdomyolysis was unclear although alcohol use may have contributed to the presentation. EMG was done which
showed myopathy and neuropathy. Post tubularization patient was discharged to acute rehab. May require further evaluation with possible muscle biopsy if patient had no improvement.
MSSA bacteremia with Sepsis -patient developed new fever after 2 weeks of hospital stay. Initially was felt to be related to pneumonia/aspiration related although blood culture became positive for MSSA. Patient underwent transthoracic
echocardiogram and did not show any vegetation. Transesophageal echocardiogram was contraindicated due to thrombocytopenia and history of esophageal varices. Lumbar spinal MRI was checked with patient reporting back pain and was negative for any
infectious pathology. Patient had serial blood culture and after culture clearance ID recommended for patient to be maintained on IV Ancef at discharge with last dose on 04/13/2025
Acute transaminitis -patient had significant transaminitis in light with rhabdomyolysis. This recovered after improved as well. No major liver or gallbladder pathology identified on imaging.
Acute kidney injury -secondary to severe of pneumolysis as well. Nephrology was involved and patient improved with conservative management. Patient had associated acid-base disorder and electrolyte imbalances which were managed as well.
Important imaging findings :
None
Procedure findings :
None
Discharge Plan
-
Patient Disposition: Acute Rehab Facility
Discharge Diagnosis/Procedures: Rhabdomyolysis/myopathy, generalized weakness, acute kidney injury, acute transaminitis, MSSA bacteremia/endocarditis
Condition: Fair
Diet: Diabetic, Carb Controlled
Activity: No restrictions
Driving Restrictions: No driving
Bathing Restrictions: OK to Shower
Referrals:
Marcelino No DO [Family Provider, [facility]] - in one week
Additional Discharge Medication Instructions: Continue to taper prednisone from 20 mg daily for 4 days to 10 mg daily for 7 days to 5 mg daily for 7 days then stop
Prescriptions:
New
acetaminophen 325 mg Tablet
650 mg PO Q6HPRN PRN (Reason: mild pain/ fever>100.5F) Qty: 0 0RF
cefazolin 10 gram Recon Soln
2 g IV Q8H Qty: 0 0RF
carvedilol 3.125 mg Tablet
3.125 mg PO BID Qty: 0 0RF
alprazolam 0.25 mg Tablet,Disintegrating
0.25 mg PO BIDPRN PRN (Reason: anxiety) Qty: 0 0RF
sennosides-docusate sodium 8.6-50 mg Tablet
1 tab PO BID Qty: 0 0RF
polyethylene glycol 3350 17 gram Powder In Packet
17 g PO DAILYPRN PRN (Reason: constipation) Qty: 0 0RF
insulin aspart U-100 100 unit/mL (3 mL) Insulin Pen
26 unit SC AC Qty: 0 0RF
melatonin 5 mg Tablet
5 mg PO HS Qty: 0 0RF
Insulin Glargine Lantus [Lantus] 15 UNITS
Subcutaneous Insulin Syringe [Syringe-Insulin] 0 UNIT
As Directed mls/hr SC QPM
Ordered By: Molly Navarro MD
Last Taken: 03/09/25 18:12 0.15 mls
lidocaine 4 % Adhesive Patch,Medicated
1 patch topical DAILY Qty: 0 0RF
miconazole nitrate [Miconazorb AF] 2 % Powder
1 applic topical BID Qty: 0 0RF
thiamine mononitrate (vit B1) 100 mg Tablet
100 mg PO BID Qty: 0 0RF
prednisone 20 mg Tablet
20 mg PO DAILY Qty: 0 0RF
Continued
clobetasol 0.05 % cream
1 applic TOPICAL BID
folic acid 1 mg Tablet
1 mg PO DAILY Qty: 30 0RF
pantoprazole 40 mg Tablet,Delayed Release (Dr/Ec)
40 mg PO BID 30 Days Qty: 60 0RF
Held
rosuvastatin [Crestor] 10 mg Tablet
10 mg PO QPM
Hold Instructions: discuss restarting with your PCP
Discontinued
nadolol 20 mg Tablet
20 mg PO HS 30 Days Qty: 30 0RF
thiamine mononitrate (vit B1) 100 mg Tablet
100 mg PO BID Qty: 60 0RF
insulin glargine [Lantus Solostar U-100 Insulin] 100 unit/mL (3 mL) insulin pen
15 unit SC QPM Qty: 15 0RF
Jardiance 25 mg Tablet
25 mg PO DAILY
carvedilol [Coreg] 6.25 mg Tablet
6.25 mg PO BID
amlodipine [Norvasc] 5 mg Tablet
5 mg PO QPM
Rybelsus 3 mg Tablet
3 mg PO QPM
Discharge Orders:
Discharge Patient (As Directed); Ordered 03/08/25
Ordered By: Molly Navarro
Discharge Date and Time
Discharge Date/Time: 03/10/25 10:51
Print Language: VINCENTIAN
== END 2025-03-10 10:51 | DRG 545 ==
LOC: 3 WEST ACU 12:52
PROVIDERS: Hospitalist; Internal Medicine; Nurse Practitioner Family; Nurse Practitioner Gerontology; Nurse Practitioner Primary Care; Physician Assistant Medical; ADMITTING PHYSICIAN Hospitalist; ATTENDING PHYSICIAN Internal Medicine; CONSULT PHYSICIAN Internal Medicine; CONSULT PHYSICIAN Internal Medicine Gastroenterology; CONSULT PHYSICIAN Physical Medicine & Rehabilitation; CONSULT PHYSICIAN Psychiatry & Neurology Neurology; CONSULT PHYSICIAN Psychiatry & Neurology Psychiatry; CONSULT PHYSICIAN Specialist; EMERGENCY PHYSICIAN Student in an Organized Health Care Education/Training Program; FAMILY PHYSICIAN Family Medicine; OTHER PHYSICIAN Internal Medicine Hematology & Oncology; OTHER PHYSICIAN Internal Medicine Infectious Disease
PROC: 5A09357 Assistance with Respiratory Ventilation, Less than 24 Consecutive Hours, Continuous Positive Airway Pressure (ICD-10-PCS; 2025-03-01)
PROC: 02HV33Z Insertion of Infusion Device into Superior Vena Cava, Percutaneous Approach (ICD-10-PCS; 2025-03-07)
DX: G72.49 Other inflammatory and immune myopathies, not elsewhere classified (principal); A41.01 Sepsis due to Methicillin susceptible Staphylococcus aureus; J69.0 Pneumonitis due to inhalation of food and vomit; E43 Unspecified severe protein-calorie malnutrition; K72.00 Acute and subacute hepatic failure without coma; D61.818 Other pancytopenia; N17.9 Acute kidney failure, unspecified; K76.6 Portal hypertension; M62.82 Rhabdomyolysis; E87.1 Hypo-osmolality and hyponatremia; D68.9 Coagulation defect, unspecified; T82.868A Thrombosis due to vascular prosthetic devices, implants and grafts, initial encounter; I85.10 Secondary esophageal varices without bleeding; E87.20 Acidosis, unspecified; G72.2 Myopathy due to other toxic agents; F10.20 Alcohol dependence, uncomplicated; K70.30 Alcoholic cirrhosis of liver without ascites; I10 Essential (primary) hypertension; E11.42 Type 2 diabetes mellitus with diabetic polyneuropathy; K31.89 Other diseases of stomach and duodenum; K59.00 Constipation, unspecified; E11.65 Type 2 diabetes mellitus with hyperglycemia; E78.00 Pure hypercholesterolemia, unspecified; E87.6 Hypokalemia; G47.33 Obstructive sleep apnea (adult) (pediatric); R74.01 Elevation of levels of liver transaminase levels; D50.9 Iron deficiency anemia, unspecified; F41.1 Generalized anxiety disorder; G60.8 Other hereditary and idiopathic neuropathies; D69.59 Other secondary thrombocytopenia; F32.A Depression, unspecified; R60.0 Localized edema; L40.9 Psoriasis, unspecified; Y82.8 Other medical devices associated with adverse incidents; Z11.52 Encounter for screening for COVID-19; Z79.4 Long term (current) use of insulin; Z75.1 Person awaiting admission to adequate facility elsewhere
CPT/HCPCS: 70551; 71045; 72148; 74022; 76700; 80048; 80053; 80306; 81003; 81015; 82085; 82140; 82248; 82550; 82570; 82607; 82728; 82746; 82805; 82947; 82962; 82977; 83540; 83550; 83615; 83735; 83935; 84100; 84132; 84156; 84443; 84550; 85025; 85027; 85045; 85610; 85652; 85730; 86038; 86140; 86160; 86235; 86704; 86706; 86708; 86709; 86803; 86850; 86900; 86901; 87040; 87147; 87186; 87205; 87340; 87811; 92610; 93005; 93306; 93971; 94660; 95886; 95909; 96365; 96366; 97110; 97112; 97163; 97167; 97530; 97535; 99284; J2916